=== PATIENT | male | born 1950 | race Caucasian/White ===

== ENCOUNTER → 2019-10-13 09:32 | Outpatient (REF) | payer MEDICARE, SELFPAY | LOC: ANHLAB 09:32 | PROVIDERS: PCP Family Medicine; Visit Provider Nurse Practitioner Family | DX: C44.02 Squamous cell carcinoma of skin of lip (principal) | CPT/HCPCS: 88305; 88331 ==

== ENCOUNTER → 2021-02-24 00:06 | Outpatient (CLI) | payer MEDICARE, SELFPAY ==
[2021-02-24 19:57] LABS: SARS-CoV-2 RNA PCR Negative
== END ==
PROVIDERS: PCP Family Medicine; Visit Provider Internal Medicine Gastroenterology
DX: Z01.812 Encounter for preprocedural laboratory examination (principal); Z20.822 Contact with and (suspected) exposure to COVID-19
CPT/HCPCS: C9803; U0003; U0005

== ENCOUNTER 2021-02-28 01:06 | Day surgery (SDC) | payer MEDICARE, SELFPAY ==
[2021-02-12 15:03] VITALS: BMI 31.6
--- NOTE | 2021-02-27 15:17 | PM.HPGS ---
History of Present Illness History of Present Illness Consent: Risks, benefits, and alternatives have been discussed and questions answered. Patient agrees to proceed with procedure. Chief complaint: hx colon polyps Narrative: Jeremías Trejo is a 70 year old male Referred for colon cancer screening. he has history of colon polyps. He had 5 polyps removed about 8 years ago. Recently he has had blood in stools on a couple of occasions. He denies rectal pain or abdominal pain but did have a rectal abscess drained about a year ago Review of Systems Review of Systems: All systems reviewed & are unremarkable except as noted in HPI and below PMFSH Past Medical History Medical History Asthma Asthma exacerbation BMI 33.0-33.9,adult Bronchitis CAD (coronary artery disease) Cellulitis Coronary artery spasm Diverticulitis Diverticulosis DVT (deep venous thrombosis) rt leg Eczema Gastric ulcer Irritable bowel syndrome with diarrhea Nausea and vomiting (~12/28/20) history of nausea and vomiting with bowel prep Nocturia Bindu-rectal abscess Pneumonia Polyp of colon Psoriasis Tobacco use disorder, continuous Wears partial dentures Surgical History Surgical History H/O arthroscopy of left knee x1 H/O arthroscopy of right knee x4 H/O colonoscopy with polypectomy History of cardiac catheterization 2013 History of cholecystectomy History of right knee surgery History of vasectomy Family History Family History Mother Family history of multiple sclerosis, Onset Age: 73 Father Family history of alcoholism Family history of chronic obstructive pulmonary disease Patient's father is , Onset Age: 51 Family history of liver disease Sibling Cerebrovascular accident Family history of malignant neoplasm Social History Social History Smoking packs per day: 1 Smoking cigarettes per day: 20.0 Years smoked: 50 Smoking pack-years: 50.00 Smoking status: Current every day smoker Tobacco type: cigarettes Alcohol intake: never Substance use: never Substance use type: does not use Living arrangements: alone Gender identity (if verbalized by the patient): Male Spiritual care concerns: No Meds Home Medications and Allergies Home Medications Medication Instructions Recorded Confirmed Type albuterol sulfate 90 mcg/actuation 2 puff INHALATION Q4H PRN gm 02/16/19 02/12/21 History aerosol inhaler amlodipine 5 mg tablet 5 mg PO DAILY 02/16/19 02/12/21 History hydroxychloroquine 200 mg tablet 400 mg PO DAILY tablet 02/16/19 02/12/21 History umeclidinium 62.5 mcg/actuation 1 inh INHALATION DAILY #30 each 11/27/20 02/12/21 Rx blister powder for inhalation ondansetron HCl 4 mg tablet 4 mg PO Q6H PRN #10 tablet 12/28/20 02/12/21 Rx mometasone-formoterol [Dulera] 2 puff INHALATION Q12H 02/12/21 02/12/21 History Allergies Allergy/AdvReac Type Severity Reaction Status Date / Time rivaroxaban Allergy Severe violent Verified 02/28/21 07:59 rage, hives, swelling enoxaparin Allergy Intermediate hives, rash Verified 02/28/21 07:59 trovafloxacin Allergy Intermediate Other Verified 02/28/21 07:59 apixaban Allergy Unknown violent Verified 02/28/21 07:59 rage, hives, swelling celecoxib Allergy Unknown Unknown Verified 02/28/21 07:59 clarithromycin Allergy Unknown Unknown Verified 02/28/21 07:59 codeine Allergy Unknown Headache Verified 02/28/21 07:59 doxycycline Allergy Unknown Unknown Verified 02/28/21 07:59 erythromycin base Allergy Unknown Unknown Verified 02/28/21 07:59 furosemide Allergy Unknown Unknown Verified 02/28/21 07:59 Iodinated Contrast Media Allergy Unknown Unknown Verified 02/28/21 07:59 iodine Allergy Unknown SEVERE RASH Verif
--- NOTE | 2021-02-28 07:59 | WPDANESEPPF ---
Anes - Initial Pre Proc Eval Procedure: Operation Date: 02/28/21 09:00 Proposed Procedures p Screening Colonoscopy - Rey Jenkins MD Date/Time: 02/28/21 07:59 Surgeon: Rey Jenkins MD Pre Op Diagnosis: hx colon polyps Patient Data Age: 70 Gender: M Height: 1.78 m Weight: 100 kg Allergies Allergy/AdvReac Type Severity Reaction Status Date / Time rivaroxaban Allergy Severe violent Verified 02/28/21 07:59 rage, hives, swelling enoxaparin Allergy Intermediate hives, rash Verified 02/28/21 07:59 trovafloxacin Allergy Intermediate Other Verified 02/28/21 07:59 apixaban Allergy Unknown violent Verified 02/28/21 07:59 rage, hives, swelling celecoxib Allergy Unknown Unknown Verified 02/28/21 07:59 clarithromycin Allergy Unknown Unknown Verified 02/28/21 07:59 codeine Allergy Unknown Headache Verified 02/28/21 07:59 doxycycline Allergy Unknown Unknown Verified 02/28/21 07:59 erythromycin base Allergy Unknown Unknown Verified 02/28/21 07:59 furosemide Allergy Unknown Unknown Verified 02/28/21 07:59 Iodinated Contrast Media Allergy Unknown Unknown Verified 02/28/21 07:59 iodine Allergy Unknown SEVERE RASH Verified 02/28/21 07:59 montelukast Allergy Unknown Unknown Verified 02/28/21 07:59 Penicillins Allergy Unknown Unknown Verified 02/28/21 07:59 Quinolones Allergy Unknown ITCHING Verified 02/28/21 07:59 Sulfa (Sulfonamide Allergy Unknown Unknown Verified 02/28/21 07:59 Antibiotics) Home Medications Medication Instructions Recorded Confirmed Type albuterol sulfate 90 mcg/actuation 2 puff INHALATION Q4H PRN gm 02/16/19 02/12/21 History aerosol inhaler amlodipine 5 mg tablet 5 mg PO DAILY 02/16/19 02/12/21 History hydroxychloroquine 200 mg tablet 400 mg PO DAILY tablet 02/16/19 02/12/21 History umeclidinium 62.5 mcg/actuation 1 inh INHALATION DAILY #30 each 11/27/20 02/12/21 Rx blister powder for inhalation ondansetron HCl 4 mg tablet 4 mg PO Q6H PRN #10 tablet 12/28/20 02/12/21 Rx Dulera 2 puff INHALATION Q12H 02/12/21 02/12/21 History Patient hx anesthesia problems: none Family hx anesthesia problems: none Results Review: All pre-operative results and documents have been reviewed as part of the pre-operative evaluation. [facility] Past Medical History Medical History (Updated 02/28/21 @ 10:09 by Brandon Sherwood MD) Asthma Asthma exacerbation BMI 33.0-33.9,adult Bronchitis CAD (coronary artery disease) Cellulitis Coronary artery spasm Diverticulitis Diverticulosis DVT (deep venous thrombosis) rt leg Eczema Gastric ulcer Irritable bowel syndrome with diarrhea Nausea and vomiting (~12/28/20) history of nausea and vomiting with bowel prep Nocturia Bindu-rectal abscess Pneumonia Polyp of colon (~2012) colonoscopy with Dr. Jenkins on 02/28/2021 with multiple sessile polyps from 2 mm to 12 mm with recheck in 2 years Psoriasis Tobacco use disorder, continuous Wears partial dentures Surgical History Surgical History H/O arthroscopy of left knee x1 H/O arthroscopy of right knee x4 H/O colonoscopy with polypectomy History of cardiac catheterization 2012 History of cholecystectomy History of right knee surgery History of vasectomy Family History Family History Mother Family history of multiple sclerosis, Onset Age: 73 Father Family history of alcoholism Family history of chronic obstructive pulmonary disease Patient's father is , Onset Age: 51 Family history of liver disease Sibling Cerebrovascular accident Family history of malignant neoplasm Social History Social History Smoking packs per day: 1 Smoking cigarettes per day: 20.0 Years smoked: 50 Smoking pack-years: 50.00 Smoking status: Current every day smoker Tobacco type: cigarettes Alcohol in
[2021-02-28 08:00] VITALS: BP 153/73; PULSE 94; RESP 20; TEMP 36.5; O2SAT 96; BMI 33.5
[2021-02-28] MEDS: LACTATED RINGERS 1,000 ML 150 ML IV CONT (08:08)
[2021-02-28 09:42] VITALS: BP 112/67; PULSE 82; RESP 15; O2SAT 97
[2021-02-28 09:52] VITALS: BP 132/89; PULSE 81; RESP 18; O2SAT 98
[2021-02-28 10:02] VITALS: BP 151/91; PULSE 80; RESP 19; O2SAT 97
== END 2021-02-28 10:20 | disposition home or self-care (01) ==
PROVIDERS: PCP Family Medicine; Visit Provider Internal Medicine Gastroenterology
PROC: 0DJD8ZZ Inspection of Lower Intestinal Tract, Via Natural or Artificial Opening Endoscopic (ICD-10-PCS; CPT 45378; principal; 2021-02-28 09:00)
DX: Z12.11 Encounter for screening for malignant neoplasm of colon (principal); K64.8 Other hemorrhoids; K57.30 Diverticulosis of large intestine without perforation or abscess without bleeding; D12.3 Benign neoplasm of transverse colon; D12.2 Benign neoplasm of ascending colon; K63.5 Polyp of colon; J45.909 Unspecified asthma, uncomplicated; I25.10 Atherosclerotic heart disease of native coronary artery without angina pectoris; K58.0 Irritable bowel syndrome with diarrhea; L40.9 Psoriasis, unspecified; Z86.718 Personal history of other venous thrombosis and embolism; Z79.51 Long term (current) use of inhaled steroids; F17.210 Nicotine dependence, cigarettes, uncomplicated; E66.9 Obesity, unspecified; Z68.33 Body mass index [BMI] 33.0-33.9, adult
CPT/HCPCS: 45385; 45380; 88305; J2704; J7120

== ENCOUNTER → 2021-05-07 09:56 | Outpatient (REF) | payer MEDICARE, SELFPAY | LOC: ANHLAB 09:56 | PROVIDERS: PCP Family Medicine; Visit Provider Nurse Practitioner | DX: C44.319 Basal cell carcinoma of skin of other parts of face (principal) | CPT/HCPCS: 88305; 88331 ==

== ENCOUNTER 2022-08-30 09:30 | Outpatient (CLI) | payer MEDICARE, SELFPAY ==
--- NOTE | ~2022-08-30 | MR_ITS ---
MRI of the left foot CLINICAL HISTORY: Metatarsalgia TECHNIQUE: Sagittal T1-weighted and STIR images, axial proton-density and proton-density fat-sat imag es, and coronal T1-weighted and proton-density fat-sat images were performed. FINDINGS: There is minimal degenerative change of the first MTP joint, with mild to moderate degenera tive change of the sesamoid metatarsal head articulations at the first MTP joint region. Remaining marta int spaces are preserved. No suspicious bone marrow signal abnormality seen. Flexor and extensor tendons are intact. No Christy's neuroma or intermetatarsal bursitis identified. T here is minimal dorsal subcutaneous soft tissue edema in the foot. Intrinsic musculature of the foot is unremarkable. Visualized plantar fascia is unremarkable. IMPRESSION: Mild degenerative changes at the first MTP joint region, as detailed above. Reviewed, dictated and finalized at [facility].
--- NOTE | ~2022-08-30 | MR_ITS ---
MRI of the right foot CLINICAL HISTORY: Metatarsalgia TECHNIQUE: Sagittal T1-weighted and STIR images, axial proton-density and proton-density fat-sat imag es, and coronal T1-weighted and proton-density fat-sat images were performed. FINDINGS: There is hallux valgus with mild degenerative change at the first MTP joint and probable bu nion formation. There are additional degenerative changes at the articulation of the sesamoids with t he first metatarsal head, especially the medial aspect. Remaining bone marrow signals are unremarkable. Remaining joint spaces are preserved. No joint effusi on identified. Flexor and extensor tendons are intact. No intermetatarsal bursitis or Christy's neuroma identified. T here is minimal dorsal subcutaneous soft tissue edema, nonspecific. Intrinsic muscle tear of the foot is unremarkable. Visualized plantar fascia is unremarkable. IMPRESSION: Hallux valgus with bunion formation and degenerative change at the first MTP joint region, as detaile d above. Reviewed, dictated and finalized at location . IMPRESSION: Hallux valgus with bunion formation and degenerative change at the first MTP marta int region, as detailed above.
== END 2022-08-30 09:31 | disposition home or self-care (01) ==
PROVIDERS: PCP Family Medicine; Visit Provider Podiatrist Foot & Ankle Surgery
DX: M77.41 Metatarsalgia, right foot (principal); M77.42 Metatarsalgia, left foot; M20.11 Hallux valgus (acquired), right foot; M21.611 Bunion of right foot
CPT/HCPCS: 73718

== ENCOUNTER 2022-09-30 16:29 | Emergency (ER) | payer MEDICARE, SELFPAY ==
--- NOTE | 2022-09-30 16:34 | ED.SKABFB ---
HPI - Skin/Abscess/Foreign Bdy General Chief complaint: Skin/Abscess/Foreign Body Stated complaint: Insect Bite Groin Area Time Seen by Provider: 09/30/22 17:20 Source: patient, RN notes reviewed and old records reviewed Mode of arrival: ambulatory Limitations: no limitations History of Present Illness HPI narrative: 71-year-old male presents to the [facility] requesting to have a tick removed from the left groin area. Patient reports that he could not get a good look at of it because of the position, tried to look with a mere. Recently in [facility] Noticed the blood on his underwear, a couple of drops. Related Data Home Medications Medication Instructions Recorded Confirmed amlodipine 5 mg tablet 5 mg PO DAILY 02/16/19 09/30/22 hydroxychloroquine 200 mg tablet 200 mg PO BID 05/07/21 09/30/22 fluticasone fur. 100 mcg-umeclid inhalation 09/30/22 09/30/22 62.5 mcg-vilant 25 mcg inhalat.powder (Trelegy Ellipta) Allergies Allergy/AdvReac Type Severity Reaction Status Date / Time rivaroxaban Allergy Severe violent Verified 05/14/21 13:10 rage, hives, swelling enoxaparin Allergy Intermediate hives, rash Verified 05/14/21 13:10 trovafloxacin Allergy Intermediate Other Verified 05/14/21 13:10 apixaban Allergy Unknown violent Verified 05/14/21 13:10 rage, hives, swelling celecoxib Allergy Unknown Unknown Verified 05/14/21 13:10 clarithromycin Allergy Unknown Unknown Verified 05/14/21 13:10 codeine Allergy Unknown Headache Verified 09/30/22 16:51 doxycycline Allergy Unknown Unknown Verified 09/30/22 16:51 erythromycin base Allergy Unknown Unknown Verified 09/30/22 16:51 furosemide Allergy Unknown Unknown Verified 09/30/22 16:51 Iodinated Contrast Media Allergy Unknown Unknown Verified 09/30/22 16:51 iodine Allergy Unknown SEVERE RASH Verified 09/30/22 16:51 montelukast Allergy Unknown Unknown Verified 09/30/22 16:51 Penicillins Allergy Unknown Unknown Verified 09/30/22 16:51 Quinolones Allergy Unknown ITCHING Verified 09/30/22 16:51 Sulfa (Sulfonamide Allergy Unknown Unknown Verified 09/30/22 16:51 Antibiotics) Review of Systems Review of Systems: All systems reviewed & are unremarkable except as noted in HPI and below Constitutional: Constitutional: Reports no additional constitutional complaints Eyes: Eyes: Reports no additional eye complaints ENT: Reports system reviewed and no additional complaints, except as documented Cardiovascular: Cardiovascular: Reports no additional cardiovascular complaints, Denies chest pain and Denies dyspnea Respiratory: Respiratory: Reports no additional respiratory complaints, Denies chest congestion, Denies cough and Denies dyspnea Gastrointestinal: Gastrointestinal: Reports no additional gastrointestinal complaints, Denies abdominal pain, Denies nausea and Denies vomiting Musculoskeletal: Musculoskeletal: Reports no additional musculoskeletal complaints Integumentary/Breasts: Skin/Breast: Reports as per HPI Neurologic: Reports system reviewed and no additional complaints, except as documented Psychiatric: Psychiatric: Reports no additional psychiatric complaints Allergic/Immunologic: Allergic/Immunologic: Reports no additional allergic/immunologic complaints [facility] Past Medical History Medical History Acute bronchitis Asthma Asthma exacerbation BMI 32.0-32.9,adult BMI 33.0-33.9,adult Bronchitis CAD (coronary artery disease) Cellulitis Colon cancer screening COPD (chronic obstructive pulmonary disease) Coronary artery spasm COVID-19 (~06/07/22) tested positive 06/10/22 Diverticulitis Diverticulosis DVT (deep venous thrombosis) rt leg Eczema Elevated fasting glucose Fasting glucose 117 with hemoglobin A1c 5.6 on 04/26/2022. Encounter for prostate cancer screening PSA 2.13 on 04/26/2022. Gastric ulcer Irritable bowel syndrome with diarrhea Metatarsalgia of both feet MRI o
[2022-09-30 17:14] VITALS: BP 136/64; PULSE 80; RESP 18; TEMP 36.6; O2SAT 95
== END 2022-09-30 17:31 | disposition home or self-care (01) ==
PROVIDERS: Emergency Provider Nurse Practitioner; PCP Family Medicine
DX: D22.9 Melanocytic nevi, unspecified (principal); F17.210 Nicotine dependence, cigarettes, uncomplicated; J45.909 Unspecified asthma, uncomplicated; I25.10 Atherosclerotic heart disease of native coronary artery without angina pectoris; J44.9 Chronic obstructive pulmonary disease, unspecified; Z86.16 Personal history of COVID-19; Z86.718 Personal history of other venous thrombosis and embolism; E66.9 Obesity, unspecified; Z68.30 Body mass index [BMI] 30.0-30.9, adult; L40.9 Psoriasis, unspecified; Z98.52 Vasectomy status
CPT/HCPCS: 99211; G0463

== ENCOUNTER 2022-10-29 15:42 | Outpatient (NON) | payer MEDICARE, SELFPAY | END 2022-10-29 15:43 | disposition home or self-care (01) | LOC: ANHLAB 15:46 | PROVIDERS: PCP Family Medicine; Visit Provider Orthopaedic Surgery | DX: M70.21 Olecranon bursitis, right elbow (principal) | CPT/HCPCS: 87070; 87205 ==

== ENCOUNTER 2022-11-05 17:03 | Inpatient (IN) | payer MEDICARE, SELFPAY ==
--- NOTE | ~2022-11-05 | MR_ITS ---
EXAMINATION: MR forearm RT wo con DATE: 11/06/2022 17:09 INDICATION: Right arm swelling, rule out abscess TECHNIQUE: Magnetic resonance imaging (MRI) of the right forearm was performed without intravenous co ntrast . Sequences included axial coronal and sagittal T1 FSE and FSE STIR. COMPARISON: None FINDINGS: Subcutaneous induration and edema involving the entire forearm, with some areas of dermal t hickening. Edema tracks along the superficial fascial layers and in between the various muscle fascic les in between the deep compartments. No focal walled off fluid collection detected, although determi nation is limited without contrast. No definite subcutaneous gas. No definite muscular or intramuscul ar signal abnormality. No marrow signal abnormality suspicious for osteomyelitis. Small volume elbow joint fluid. IMPRESSION: Diffuse forearm cellulitis, with deep tissue involvement, as can occur with necrotizing fasciitis. Ho wever there is no subcutaneous gas and the patient is clinically improving following intravenous anti biotic therapy. Small elbow joint effusion, likely degenerative or reactive. Recommend continued close clinical monitoring. Should clinical condition worsen consider necrotizing process in the differential and early consultation. Results reported telephonically to Nurse Ayala by Dr. Craig at 8:15 PM on 11/06/2022. Reviewed, dictated and finalized at location [facility]. IMPRESSION: Diffuse forearm cellulitis, with deep tissue involvement, as can occur with nec rotizing fasciitis. However there is no subcutaneous gas and the patient is cli nically improving following intravenous antibiotic therapy. Small elbow joint e ffusion, likely degenerative or reactive. Recommend continued close clinical monitoring. Should clinical condition worsen consider necrotizing process in the differential and early consultation. Results reported telephonically to Nurse Ayala by Dr. Craig at 8:15 PM on 11/06.
--- NOTE | ~2022-11-05 | US_ITS ---
EXAMINATION: US venous doppler UE RT DATE: 11/05/2022 18:58 INDICATION: Right upper extremity swelling TECHNIQUE: Grayscale ultrasound images without and with compression and Doppler ultrasound images of the right upper extremity veins were obtained. COMPARISON: None. FINDINGS: The visualized portions of the right internal jugular vein, subclavian vein, axillary vein, brachial veins, basilic vein, cephalic vein, radial vein, and ulnar vein are patent. Upper arm edema. IMPRESSION: No deep venous thrombosis in the right upper extremity. Reviewed, dictated and finalized at location [facility].
--- NOTE | 2022-11-05 17:13 | ADMGEN ---
This patient, Jeremías Trejo, was admitted to Medical Room 346-01. Patient/family oriented to hospital policies and general routines including ID bracelet, bed and alarms, visiting hours, pain management, procedures, bathroom and other care routines, personal items, smoking policy, room service/diet, and visiting hours. Information on how to activate the Rapid Response Team has been discussed. Patient/Family are encouraged to report perceived risks to care and to ask questions if they do not understand what they are told or what they should do.
--- NOTE | 2022-11-05 17:30 | PM.IMHP ---
H&P: HPI History of Present Illness Date/Time: 11/05/22 18:00 Chief Complaint: Right arm pain and swelling. 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 Nearly 2 weeks ago he awoke with pain in his right elbow, initially he thought he had slept on it wrong. The following day the became more severe and ?it feels just like I have tendinitis.? He saw Dr. Philip in the office last Friday at which time it was noted that his right elbow was swollen with a small amount of erythema present. He was started on doxycycline for possible olecranon bursal infection and the elbow was aspirated with minimal return. Gram stain showed no organisms or white blood cells and there was no growth on culture. Despite compliance with the antibiotics, his symptoms have continued to worsen with ever increasing pain and swelling. Acetaminophen helps take the edge off but does not give him longstanding relief. He has difficulties moving the joints in his right elbow, wrist, and fingers due to the pain and swelling. He has occasional tingling in the right hand but no overt numbness. He has not noticed any skin color or temperature changes of the extremity. He also denies fever, chills, sweats, nausea, and vomiting. He has not noticed any swelling of the axilla or neck. No other extremities are affected. He denies injury and trauma to the area. No bug bites to his knowledge. Review of Systems Review of Systems: Twelve systems were reviewed and are negative except for as per HPI. [facility] Past Medical History Medical History (Updated 11/05/22 @ 21:16 by Noemi Ralph PA-C) Asthma Chronic obstructive pulmonary disease Coronary artery disease Coronary artery spasm COVID-19 (05/2022) tested positive 06/10/22 Deep vein thrombosis of right lower limb Diverticulitis Diverticulosis Eczema Elevated fasting glucose Fasting glucose 117 with hemoglobin A1c 5.6 on 04/26/2022. Encounter for prostate cancer screening PSA 2.13 on 04/26/2022. 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 Nausea and vomiting (12/28/20) history of nausea and vomiting with bowel prep Nocturia Bindu-rectal abscess Pneumonia Polyp of colon colonoscopy with Dr. 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) Tobacco use disorder, continuous Wears partial dentures Surgical History Surgical History H/O colonoscopy with polypectomy History of arthroplasty of right knee X4 History of arthroscopy of left knee History of cardiac catheterization (2012) History of cholecystectomy History of vasectomy Family History Family History Mother Family history of multiple sclerosis, Onset Age: 73 Father Family history of alcoholism Family history of chronic obstructive pulmonary disease Patient's father is , Onset Age: 51 Family history of liver disease Sibling Cerebrovascular accident Family history of malignant neoplasm Social History Social History (Updated 11/05/22 @ 21:11 by Noemi Ralph PA-C) Social History: Surrogate medical decision maker: Palma Santillan, daughter. Code status: Full code. Smoking packs per day: 0.5 Smoking cigarettes per day: 10.0 Years smoked: 50 Smoking pack-years: 25.00 Smoking status: Current every day smoker Al
--- NOTE | 2022-11-05 17:41 | PC.NURSE ---
Pt has a long list of allergies . When confronted on what he is allergic to and the reactions he has he can only say he isnt sure/doesnt recognize/or oh god it makes me so sick. Pt educated on the importance of knowing an actual allergy versus adverse reaction and knowing what medications he is specifically allergic to.
[2022-11-05 17:49] LABS: Basophils Absolute Auto 0.1 K/mm3 (0.0-0.1); Basophils Percent Auto 0.6 % (0.2-1.2); Eosinophils Absolute Auto 0.1 K/mm3 (0-0.3); Eosinophils Percent Auto 1.2 % (0-4.4); Hematocrit 41.8 % (42.0-52.0); Immature Granulocyte Absolute 0.04 K/mm3 (0.00-0.031); Immature Granulocyte Percent A 0.4 % (0-0.5); Lymphocytes Absolute Auto 1.61 K/mm3 (0.9-3.2); Lymphocytes Percent Auto 16.5 % (18.3-44.2); Mean Corpuscular HGB Conc 33.5 g/dl (32-36); Mean Corpuscular Hemoglobin 31.9 pg (26-34); Mean Corpuscular Volume 95.2 fl (80-100); Mean Platelet Volume 8.8 fl (7.4-10.4); Monocytes Absolute Auto 0.6 K/mm3 (0.1-0.6); Monocytes Percent Auto 6.4 % (2.6-8.5); Neutrophils Absolute Auto 7.3 K/mm3 (1.3-6.7); Neutrophils Percent Auto 74.9 % (45.5-73.1); Platelet Count Result 260 k/mm3 (150-375); Red Blood Count 4.39 M/mm3 (4.6-6.20); Red Cell Distribution Width 12.9 % (11.5-14.5); White Blood Count 9.8 K/mm3 (4.5-10.0)
[2022-11-05 18:00] LABS: Alanine Aminotransferase 23 U/L (6-50); Alkaline Phosphatase 34 U/L (38-126); Anion Gap 6 mmol/L (8-16); Aspartate Amino Transferase 29 U/L (17-59); Bilirubin,Total 0.3 mg/dL (0.2-1.3); Blood Urea Nitrogen 15 mg/dL (9-20); CRP 3.6 mg/dL (<1.0); Calcium 8.4 mg/dL (8.4-10.2); Carbon Dioxide 22 mmol/L (22-30); Chloride 102 mmol/L (98-107); Estimated Glomerular Filt Rate > 60; Glucose 115 mg/dL (65-110); Potassium 4.1 mmol/L (3.4-5.0); Sodium 130 mmol/L (137-145)
[2022-11-05 18:20] LABS: Erythrocyte Sedimentation Rate 34 mm/hr (0-20)
[2022-11-05 18:38] LABS: Procalcitonin 0.1 ng/mL
[2022-11-05] MEDS: ACETAMINOPHEN 325 MG TABLET 650 MG PO (18:56)
[2022-11-05 20:34] VITALS: BMI 32.4
[2022-11-05] MEDS: methylPREDNISolone SOD SUCC 125 MG VIAL IV PUSH (21:22)
[2022-11-05 21:27] VITALS: BP 161/83; PULSE 75; RESP 16; TEMP 36.5; O2SAT 97
[2022-11-06 05:49] LABS: Hematocrit 44.2 % (42.0-52.0); Mean Corpuscular HGB Conc 33.9 g/dl (32-36); Mean Corpuscular Hemoglobin 32.3 pg (26-34); Mean Corpuscular Volume 95.1 fl (80-100); Mean Platelet Volume 8.7 fl (7.4-10.4); Platelet Count Result 267 k/mm3 (150-375); Red Blood Count 4.65 M/mm3 (4.6-6.20); Red Cell Distribution Width 12.7 % (11.5-14.5); White Blood Count 5.5 K/mm3 (4.5-10.0)
[2022-11-06 06:00] VITALS: BP 179/84; PULSE 85; RESP 16; TEMP 36.4; O2SAT 93
[2022-11-06 06:04] LABS: Anion Gap 5 mmol/L (8-16); Blood Urea Nitrogen 14 mg/dL (9-20); Calcium 8.9 mg/dL (8.4-10.2); Carbon Dioxide 26 mmol/L (22-30); Chloride 104 mmol/L (98-107); Estimated CRCL calculation 101 ml/min; Estimated Glomerular Filt Rate > 60; Glucose 180 mg/dL (65-110); Potassium 4.6 mmol/L (3.4-5.0); Sodium 135 mmol/L (137-145)
[2022-11-06] MEDS: NICOTINE (*PBKC) 14 MG PATCH 1 PATCH TRANSDERM (08:28)
[2022-11-06] MEDS: predniSONE 20 MG TABLET PO (08:29)
[2022-11-06] MEDS: HYDROXYCHLOROQUINE SULFATE 200 MG TABLET PO ×2 (08:29→17:41)
[2022-11-06] MEDS: amLODIPine BESYLATE 5 MG TABLET PO (08:29)
--- NOTE | 2022-11-06 13:10 | PM.IMPN ---
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 Pt having swelling today but much improved with iv steroids. Pt seen by orthopedics Review of Systems Review of Systems: Swelling on right hand and right arm improving Objective Data Vital Signs Vital Signs: Vital Signs - 24 hr 11/05/22 20:00 11/05/22 21:27 11/06/22 06:00 Temperature 36.5 C 36.4 C L Pulse Rate 75 85 Respiratory Rate 16 16 Blood Pressure 161/83 H 179/84 H Pulse Oximetry 97 93 Oxygen Delivery Room Air 11/06/22 08:00 Temperature Pulse Rate Respiratory Rate Blood Pressure Pulse Oximetry Oxygen Delivery Room Air Intake/Output Intake/Output: Intake & Output 11/03/22 11/04/22 11/05/22 11/06/22 23:59 23:59 23:59 23:59 Intake Total 740 480 Balance 740 480 Meds/Results Medications: Active Medications Generic Name Dose Route Start Last Admin Trade Name Freq PRN Reason Stop Dose Admin Acetaminophen 650 mg 11/05/22 17:04 11/05/22 18:56 Acetaminophen 325 Mg Tablet PO 650 mg Q6H PRN Administration Mild Pain (1-3) or Fever Albuterol 2 puff 11/05/22 21:26 Albuterol Sulfate (*Sp) Aerosol 1 Puff INHALATION Q4H PRN Dyspnea Amlodipine Besylate 5 mg 11/06/22 09:00 11/06/22 08:29 Amlodipine Besylate 5 Mg Tablet PO 5 mg DAILY LAURA Administration Fluticasone/Umeclidinium/Vilanterol 1 puff 11/06/22 09:00 11/06/22 09:30 Fluticasone/Umeclidin/Vilanter 100-62.5-25 Mcg Ellipta INHALATION Not Given DAILY [facility] Hydroxychloroquine Sulfate 200 mg 11/06/22 09:00 11/06/22 08:29 Hydroxychloroquine Sulfate 200 Mg Tablet PO 200 mg BID LAURA Administration Vancomycin HCl 1,500 mg in 500 mls @ 250 mls/hr 11/05/22 22:00 11/06/22 10:07 Vancomycin 1,500 Mg/D5w 500 Ml IVPB 250 mls/hr Q12H LAURA Administration Miscellaneous Information 1 each 11/05/22 00:01 Please Clarfiy As Dulera Is A Duplication Of Therapy With Treligy Ellipta XX 12/05/22 00:00 CLARIFY LAURA Nicotine 1 patch 11/06/22 09:00 11/06/22 08:28 Nicotine (*Pbkc) 14 Mg Patch TRANSDERM 1 patch QAM LAURA Administration Non-Formulary Medication 2 puff 11/05/22 21:30 Mometasone-Formoterol [Dulera] INHALATION 12/05/22 21:29 Q12H [facility] Prednisone 20 mg 11/06/22 08:00 11/06/22 08:29 Prednisone 20 Mg Tablet PO 20 mg DAILY@0800 LAURA Administration Tramadol HCl 25 mg 11/05/22 21:25 Tramadol Hcl (*Crx) 25 Mg Tablet PO Q6H PRN Pain Rated 4-6 Radiology Results: ITS Impressions Venous Doppler Study 11/05/22 19:10 IMPRESSION: No deep venous thrombosis in the right upper extremity. Labs Labs: Laboratory Results - last 24 hr 11/05/22 11/05/22 11/06/22 17:32 17:39 05:33 WBC 9.8 5.5 RBC 4.39 L 4.65 Hgb 14.0 15.0 Hct 41.8 L 44.2 MCV 95.2 95.1 MCH 31.9 32.3 MCHC 33.5 33.9 RDW 12.9 12.7 Plt Count 260 267 MPV 8.8 8.7 Immature Gran % (Auto) 0.4 Neut % (Auto) 74.9 H Lymph % (A
[2022-11-06 14:00] VITALS: BP 140/67; PULSE 88; RESP 16; TEMP 36.3; O2SAT 93
--- NOTE | 2022-11-06 16:37 | PC.NURSE ---
Pt states he uses both trelegy and dulera inhalers.
--- NOTE | 2022-11-06 16:44 | PM.PNORT ---
Subjective Subjective Date/Time Seen: 11/06/22 7;00 Interval history: Patient admitted last night. On steroids and antibiotics. Pain is much better, swelling persists. Seems to be responding to treatment. Following. Objective Data Vital Signs Vital Signs: Vital Signs - 24 hr 11/05/22 20:00 11/05/22 21:27 11/06/22 06:00 Temperature 36.5 C 36.4 C L Pulse Rate 75 85 Respiratory Rate 16 16 Blood Pressure 161/83 H 179/84 H Pulse Oximetry 97 93 Oxygen Delivery Room Air 11/06/22 08:00 11/06/22 14:00 Temperature 36.3 C L Pulse Rate 88 Respiratory Rate 16 Blood Pressure 140/67 Pulse Oximetry 93 Oxygen Delivery Room Air Intake/Output Intake/Output: Intake & Output 11/03/22 11/04/22 11/05/22 11/06/22 23:59 23:59 23:59 23:59 Intake Total 740 1202 Balance 740 1202 Meds/Results Medications: Active Medications Generic Name Dose Route Start Last Admin Trade Name Freq PRN Reason Stop Dose Admin Acetaminophen 650 mg 11/05/22 17:04 11/05/22 18:56 Acetaminophen 325 Mg Tablet PO 650 mg Q6H PRN Administration Mild Pain (1-3) or Fever Albuterol 2 puff 11/05/22 21:26 Albuterol Sulfate (*Sp) Aerosol 1 Puff INHALATION Q4H PRN Dyspnea Amlodipine Besylate 5 mg 11/06/22 09:00 11/06/22 08:29 Amlodipine Besylate 5 Mg Tablet PO 5 mg DAILY LAURA Administration Fluticasone/Umeclidinium/Vilanterol 1 puff 11/06/22 09:00 11/06/22 09:30 Fluticasone/Umeclidin/Vilanter 100-62.5-25 Mcg Ellipta INHALATION Not Given DAILY LAURA Hydroxychloroquine Sulfate 200 mg 11/06/22 09:00 11/06/22 08:29 Hydroxychloroquine Sulfate 200 Mg Tablet PO 200 mg BID LAURA Administration Vancomycin HCl 1,500 mg in 500 mls @ 250 mls/hr 11/05/22 22:00 11/06/22 12:07 Vancomycin 1,500 Mg/D5w 500 Ml IVPB Infused Q12H LAURA Infusion Miscellaneous Information 1 each 11/05/22 00:01 Please Clarfiy As Dulera Is A Duplication Of Therapy With Treligy Ellipta XX 12/05/22 00:00 CLARIFY [facility] Nicotine 1 patch 11/06/22 09:00 11/06/22 08:28 Nicotine (*Pbkc) 14 Mg Patch TRANSDERM 1 patch QAM [facility] Administration Non-Formulary Medication 2 puff 11/05/22 21:30 Mometasone-Formoterol [Dulera] INHALATION 12/05/22 21:29 Q12H [facility] Prednisone 20 mg 11/06/22 08:00 11/06/22 08:29 Prednisone 20 Mg Tablet PO 20 mg DAILY@0800 [facility] Administration Tramadol HCl 25 mg 11/05/22 21:25 Tramadol Hcl (*Crx) 25 Mg Tablet PO Q6H PRN Pain Rated 4-6 Radiology Results: ITS Impressions Venous Doppler Study 11/05/22 19:10 IMPRESSION: No deep venous thrombosis in the right upper extremity. Labs Labs: Laboratory Results - last 24 hr 11/05/22 11/05/22 11/06/22 17:32 17:39 05:33 WBC 9.8 5.5 RBC 4.39 L 4.65 Hgb 14.0 15.0 Hct 41.8 L 44.2 MCV 95.2 95.1 MCH 31.9 32.3 MCHC 33.5 33.9 RDW 12.9 12.7 Plt Count 260 267 MPV 8.8 8.7 Immature Gran % (Auto) 0.4 Neut % (Auto) 74.9 H Lymph % (Auto) 16.5 L [place] % (Auto) 6.4 Eos % (Auto) 1.2 Baso % (Auto) 0.6 Lymph # (Auto) 1.61 [place] # (Auto) 0.6 Eos # (Auto) 0.1 Baso # (Auto) 0.1 Abs Immat Gran (auto) 0.04 H Absolute Neuts (auto) 7.3 H Absolute Nucleated RBC 0.0 Nucleated RBC % 0.0 ESR 34 H Sodium 130 L 135 L Potassium 4.1 4.6 Chloride 102 104 Carbon Dioxide 22 26 Anion Gap 6 L 5 L BUN 15 14 Creatinine 0.80 0.70 Estim Creat Clear Calc Not Reportable 101 Estimated GFR > 60 > 60 Glucose 115 H 180 H Calcium 8.4 8.9 Total Bilirubin 0.3 AST 29 ALT 23 Alkaline Phosphatase 34 L C-Reactive Protein 3.6 H Total Protein 7.0 Albumin 4.0 Procalcitonin 0.1
[2022-11-06 20:00] VITALS: PULSE 88; RESP 18; O2SAT 97
[2022-11-06 20:07] VITALS: BP 153/74; PULSE 88; RESP 18; TEMP 36.3; O2SAT 97
--- NOTE | 2022-11-06 21:53 | PC.NURSE ---
Spoke with Dr. Craig regarding MRI of Rt arm. Results called to Luis GARCIA and Dr. Philip with no new orders received.
[2022-11-07 05:36] VITALS: BP 148/56; PULSE 85; RESP 16; TEMP 36.1; O2SAT 95
[2022-11-07] MEDS: FLUTICASONE/SALMETEROL 115-21 MCG INHALER 1 PUFF 2 PUFF INHALATION ×2 (08:31→20:10)
[2022-11-07] MEDS: FLUTICASONE/UMECLIDIN/VILANTER 100-62.5-25 MCG ELLIPTA 1 PUFF INHALATION (08:32)
[2022-11-07 08:59] LABS: Estimated CRCL calculation 101 ml/min; Estimated Glomerular Filt Rate > 60
[2022-11-07 09:14] LABS: Vancomycin Trough 10.4 ug/mL (10.0-20.0)
[2022-11-07] MEDS: predniSONE 20 MG TABLET PO (09:22)
[2022-11-07] MEDS: NICOTINE (*PBKC) 14 MG PATCH 1 PATCH TRANSDERM (09:22)
[2022-11-07] MEDS: HYDROXYCHLOROQUINE SULFATE 200 MG TABLET PO ×2 (09:22→17:30)
[2022-11-07] MEDS: amLODIPine BESYLATE 5 MG TABLET PO (09:22)
--- NOTE | 2022-11-07 11:41 | PM.PNORT ---
Progress Note: A&P Assessment and Plan (1) Pain and swelling of right upper extremity: Code(s): M79.601 - Pain in right arm; M79.89 - Other specified soft tissue disorders Status: Acute Plan Patient has what appears to be diffuse resolving cellulitis of the right upper extremity. MRI scan indicates this. Negative for DVT on venous ultrasound. Continue IV antibiotics and care per the medical service. Orthopedics will follow as needed. Likely will need further outpatient antibiotics for the next few weeks. Subjective Subjective Date/Time Seen: 11/07/22 11:41 Patient was seen today he states the pain is about 70% better still has some swelling throughout the right upper extremity. Thinks the steroids and IV vancomycin are helping. Is much more comfortable with treatment so far. Denies any fevers chills night sweats no other constitutional symptoms otherwise feeling well. Review of Systems Review of Systems: Ten point review of systems otherwise negative Exam Narrative: Vital signs stable afebrile neurovascularly intact. Patient has some residual swelling throughout the right upper extremity some tenderness particularly around the posterior elbow no significant erythema now. Pain with manipulation and range of motion right upper extremity are noted but much better than it was 2 days ago he states it is about 70% improved by his report. Objective Data Vital Signs Vital Signs: Vital Signs - 24 hr 11/06/22 14:00 11/06/22 20:07 11/06/22 20:00 Temperature 36.3 C L 36.3 C L Pulse Rate 88 88 88 Respiratory Rate 16 18 18 Blood Pressure 140/67 153/74 H Pulse Oximetry 93 97 97 Oxygen Delivery Room Air 11/07/22 05:36 11/07/22 08:00 Temperature 36.1 C L Pulse Rate 85 Respiratory Rate 16 Blood Pressure 148/56 H Pulse Oximetry 95 Oxygen Delivery Room Air Intake/Output Intake/Output: Intake & Output 11/04/22 11/05/22 11/06/22 11/07/22 23:59 23:59 23:59 23:59 Intake Total 740 3396 1070 Balance 740 3396 1070 Meds/Results Medications: Active Medications Generic Name Dose Route Start Last Admin Trade Name Freq PRN Reason Stop Dose Admin Acetaminophen 650 mg 11/05/22 17:04 11/05/22 18:56 Acetaminophen 325 Mg Tablet PO 650 mg Q6H PRN Administration Mild Pain (1-3) or Fever Albuterol 2 puff 11/05/22 21:26 Albuterol Sulfate (*Sp) Aerosol 1 Puff INHALATION Q4H PRN Dyspnea Amlodipine Besylate 5 mg 11/06/22 09:00 11/07/22 09:22 Amlodipine Besylate 5 Mg Tablet PO 5 mg DAILY LUARA Administration Fluticasone/Umeclidinium/Vilanterol 1 puff 11/06/22 09:00 11/07/22 08:32 Fluticasone/Umeclidin/Vilanter 100-62.5-25 Mcg Ellipta INHALATION 1 puff DAILY LAURA Administration Hydroxychloroquine Sulfate 200 mg 11/06/22 09:00 11/07/22 09:22 Hydroxychloroquine Sulfate 200 Mg Tablet PO 200 mg BID LAURA Administration Vancomycin HCl 1,500 mg in 500 mls @ 250 mls/hr 11/05/22 22:00 11/07/22 09:58 Vancomycin 1,500 Mg/D5w 500 Ml IVPB 250 mls/hr Q12H LAURA Administration Nicotine 1 patch 11/06/22 09:00 11/07/22 09:22 Nicotine (*Pbkc) 14 Mg Patch TRANSDERM 1 patch QAM LAURA Administration Prednisone 20 mg 11/06/22 08:00 11/07/22 09:22 Prednisone 20 Mg Tablet PO 20 mg DAILY@0800 LAURA Administration Fluticasone/Salmeterol 2 puff 11/06/22 20:00 11/07/22 08:31 Fluticasone/Salmeterol 115-21 Mcg Inhaler 1 Puff INHALATION 2 puff Q12HRT LAURA Administration Tramadol HCl 25 mg 11/05/22 21:25 Tramadol Hcl (*Crx) 25 Mg Tablet PO Q6H PRN Pain Rated 4-6 Radiology Results: ITS Impressions Venous Doppler Study 11/05/22 19:10 IMPRESSION: No deep venous thrombosis in the right upper extremity. Forearm MRI 11/06/22 20:11 IMPRESSION: Diffuse forearm cellulitis, with deep tissue involvement, as can occur with necrotizing fasciitis. However there is no subcutaneous gas and the patie
[2022-11-07 14:00] VITALS: BP 166/74; PULSE 85; RESP 14; TEMP 36.6; O2SAT 98
--- NOTE | 2022-11-07 15:16 | PM.IMPN ---
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 Philip in the office and was started on doxycycline for possible recurrent on bursal infection. Elbow was aspirated with minimal return. G stain showed no organisms or white blood cells and there was no growth on culture. Despite compliance with the medication/antibiotics his symptoms worsened with increasing pain and swelling. He had difficulty moving the joint in the right elbow wrist and fingers due to pain and swelling and hence came to the ER for evaluation. ESR and CRP are mildly elevated however WBC count is normal. He was empirically started on vancomycin for cellulitis. Due to his underlying rheumatological disorder. He was also given a dose of steroid to see the response. Venous duplex ultrasound was done which was negative for DVT. His swelling has continued to improve on steroid along with antibiotic course. MRI of the right upper extremity was done which showed diffuse resolving cellulitis of the right upper extremity. No deep-seated subcutaneous gas. IV has been infiltrated. Discussed with ID pharmacist. Will switch him to oral antibiotic with his multiple drug allergies decision was made to switch to linezolid oral which will cover for his cellulitis. Will watch him on oral linezolid here as inpatient and if tolerated and improving plan to discharge home in a.m.. Subjective Date/time seen: 11/07/22 15:16 Interval history: no overnight events. swelling of arm is imrpoving and the stiffness if better. the redness and warmth per nursing staff is improved. Review of Systems Review of Systems: All systems reviewed & are unremarkable except as noted in HPI and below Exam Narrative: General: Well-developed, nontoxic-appearing male in the semi-Zaldivar position in bed. HEENT: Wearing corrective lenses. PERRL, EOMI. Sclera anicteric. Oral mucosa moist. Neck: Supple. Respiratory: Lungs are clear to auscultation bilaterally. Cardiovascular: Regular rate and rhythm with S1-S2. Gastrointestinal: Abdomen is soft, nontender, and nondistended with positive bowel sounds. Skin: Warm and dry. Extremities: No cyanosis or clubbing. Right upper extremity is swollen from about an inch or 2 above the elbow extending down to the fingers. The hand is swollen nontender Neurological: Alert. Cranial nerves 2-12 are grossly intact. No gross focal deficits to casual conversation. Psychiatric: Appropriate mood and affect. Objective Data Vital Signs Vital Signs: Vital Signs - 24 hr 11/06/22 20:07 11/06/22 20:00 11/07/22 05:36 Temperature 97.3 F L 97 F L Pulse Rate 88 88 85 Respiratory Rate 18 18 16 Blood Pressure 153/74 H 148/56 H Pulse Oximetry 97 97 95 Oxygen Delivery Room Air 11/07/22 08:00 11/07/22 14:00 Temperature 97.9 F Pulse Rate 85 Respiratory Rate 14 Blood Pressure 166/74 H Pulse Oximetry 98 Oxygen Delivery Room Air Intake/Output Intake/Output: Intake & Output 11/04/22 11/05/22 11/06/22 11/07/22 23:59 23:59 23:59 23:59 Intake Total 740 3396 1310 Balance 740 3396 1310 Meds/Results Medications: Active Medications Generic Name Dose Route Start Last Admin Trade Name Freq PRN Reason Stop Dose Adm
[2022-11-07 19:40] VITALS: BP 152/66; PULSE 84; RESP 18; TEMP 36.2; O2SAT 95
[2022-11-07 20:00] VITALS: PULSE 84; RESP 18; O2SAT 95
[2022-11-07] MEDS: LINEZOLID 600 MG TABLET PO (20:35)
[2022-11-08 04:46] VITALS: BP 157/59; PULSE 80; RESP 18; TEMP 36.2; O2SAT 96
[2022-11-08 06:03] LABS: Estimated CRCL calculation 101 ml/min; Estimated Glomerular Filt Rate > 60
[2022-11-08] MEDS: FLUTICASONE/UMECLIDIN/VILANTER 100-62.5-25 MCG ELLIPTA 1 PUFF INHALATION (08:34)
[2022-11-08] MEDS: FLUTICASONE/SALMETEROL 115-21 MCG INHALER 1 PUFF 2 PUFF INHALATION (08:34)
[2022-11-08] MEDS: predniSONE 20 MG TABLET PO (09:09)
[2022-11-08] MEDS: amLODIPine BESYLATE 5 MG TABLET PO (09:09)
[2022-11-08] MEDS: LINEZOLID 600 MG TABLET PO (09:09)
[2022-11-08] MEDS: HYDROXYCHLOROQUINE SULFATE 200 MG TABLET PO (09:09)
--- NOTE | 2022-11-08 13:46 | PM.DS ---
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 Philip in the office and was started on doxycycline for possible recurrent on bursal infection.? Elbow was aspirated with minimal return.? G stain showed no organisms or white blood cells and there was no growth on culture.? Despite compliance with the medication/antibiotics his symptoms worsened with increasing pain and swelling.? He had difficulty moving the joint in the right elbow wrist and fingers due to pain and swelling and hence came to the ER for evaluation.? ESR and CRP are mildly elevated however WBC count is normal.? He was empirically started on vancomycin for cellulitis.? Due to his underlying rheumatological disorder.? He was also given a dose of steroid to see the response and was started on oral steroid.? Venous duplex ultrasound was done which was negative for DVT.? His swelling has continued to improve on steroid along with antibiotic course.? MRI of the right upper extremity was done which showed diffuse resolving cellulitis of the right upper extremity.? No deep-seated subcutaneous gas.? IV has been infiltrated.? Discussed with ID pharmacist.? Will switch to linezolid with his multiple drug allergies. He tolerated injury well. He will be discharged on linezolid for 7 more days. Is advised to continue to follow-up with PCP case worsens. He also will be placed on steroid taper at discharge. Time Spent with Patient Time attestation: Total time spent providing and/or coordinating discharge services: 35 minutes Exam Narrative: General: Well-developed, nontoxic-appearing male in the semi-Zaldivar position in bed. HEENT: Wearing corrective lenses. PERRL, EOMI. Sclera anicteric. Oral mucosa moist. Neck: Supple. Respiratory: Lungs are clear to auscultation bilaterally. Cardiovascular: Regular rate and rhythm with S1-S2. Gastrointestinal: Abdomen is soft, nontender, and nondistended with positive bowel sounds. Skin: Warm and dry. Extremities: No cyanosis or clubbing. Right upper extremity is swollen from about an inch or 2 above the elbow extending down to the fingers. The hand is swollen nontender Neurological: Alert. Cranial nerves 2-12 are grossly intact. No gross focal deficits to casual conversation. Psychiatric: Appropriate mood and affect. DS: Data Data Completed and Pending Labs on day of discharge: Labs from last 24 hours 11/08/22 05:42 Creatinine 0.70 Estim Creat Clear Calc 101 Estimated GFR > 60 Preliminary micro results at discharge 11/05/22 17:31 Blood Culture - Preliminary Blood 11/05/22 17:39 Blood Culture - Preliminary Blood Imaging Radiologist's impression: ITS Impressions Venous Doppler Study 11/05/22 19:10 IMPRESSION: No deep venous thrombosis in the right upper extremity. Forearm MRI 11/06/22 20:11 IMPRESSION: Diffuse forearm cellulitis, with deep tissue involvement, as can occur with necrotizing fasciitis. However there is no subcutaneous gas and the patient is clinically improving following intravenous antibiotic therapy. Small elbow joint
== END 2022-11-08 14:10 | disposition home or self-care (01) | DRG 603 ==
PROVIDERS: Physician Assistant; Admitting Provider Family Medicine; PCP Family Medicine; Visit Provider Internal Medicine
DX: L03.113 Cellulitis of right upper limb (principal); M65.88 Other synovitis and tenosynovitis, other site; J44.9 Chronic obstructive pulmonary disease, unspecified; K21.9 Gastro-esophageal reflux disease without esophagitis; I10 Essential (primary) hypertension; I25.10 Atherosclerotic heart disease of native coronary artery without angina pectoris; K57.90 Diverticulosis of intestine, part unspecified, without perforation or abscess without bleeding; K58.0 Irritable bowel syndrome with diarrhea; L30.9 Dermatitis, unspecified; M79.89 Other specified soft tissue disorders; L40.9 Psoriasis, unspecified; F17.210 Nicotine dependence, cigarettes, uncomplicated; Z86.16 Personal history of COVID-19; Z86.718 Personal history of other venous thrombosis and embolism; Z90.49 Acquired absence of other specified parts of digestive tract
CPT/HCPCS: 36415; 73218; 80048; 80053; 80202; 82565; 84145; 85025; 85027; 85652; 86140; 87040; 93971; 94640; 96365; 96366; 96375; A9270; G0378; G0379; J2930; J3370; J7512

== ENCOUNTER 2023-04-14 11:16 | Inpatient (IN) | payer MEDICARE, SELFPAY ==
[2023-04-14] VITALS (29 sets, daily range): BP systolic 144–169; BP diastolic 59–99; PULSE 81–103; RESP 11–27; TEMP 36.4–36.9; O2SAT 90–100; BMI 32.4
--- NOTE | ~2023-04-14 | XR_ITS ---
XR chest 2V DATE: 04/14/2023 12:21 INDICATION: Shortness of breath, dizziness TECHNIQUE: Portable AP chest on 04/14/2023 at 1219 hours COMPARISON: 03/20/2019 2 view chest FINDINGS: Normal heart size. Aortic arch calcification. No hilar or mediastinal enlargement. The lung s are mildly hyperinflated but clear of infiltrate or consolidation. No pleural effusion or pulmonary vascular congestion or pneumothorax is detected. Thoracic scoliosis and degenerative spurring of the thoracic spine. IMPRESSION: Mild hyperinflation; no active cardiac pulmonary disease Aortic atherosclerosis Reviewed, dictated and finalized at location B. HEALTH PROVIDER
--- NOTE | ~2023-04-14 | US_ITS ---
Duplex Sonography of the bilateral lower extremities: Indication: Edema Sagittal and transverse B-mode images as well as color-flow imaging were performed on the right and l eft femoral and popliteal veins. B-mode examination was done without and with compression in the tra nsverse plane. There is good visualization of the bilateral common femoral, proximal profunda femora l, superficial femoral, greater saphenous, and popliteal veins. Normal flow was seen on color-flow im aging. Normal compressibility was demonstrated. Visualized calf veins are also patent. Impression: No evidence of deep vein thrombosis involving either lower extremity. Reviewed, dictated and finalized at location M. UATION ADVISOR Impression: No evidence of deep vein thrombosis involving either lower extremit y.
--- NOTE | ~2023-04-14 | NM_ITS ---
EXAMINATION: NM lung vent and perfusion DATE: 04/15/2023 15:17 INDICATION: Shortness of breath. TECHNIQUE: 22.3 mCi Xenon-133 was inhaled for ventilation images. 5.2 mCi Tc-99m MAA was administered intravenously for perfusion images. Scintigraphic images of the chest were obtained. COMPARISON: Ventilation/perfusion scintigraphy 06/18/2017, chest 2 views 02/13/2024 FINDINGS: Ventilation images demonstrate moderate-sized defects in the upper lobes and lower lobes. Washout carlton ges demonstrate diffuse retention throughout both lungs. Perfusion images show small defects in the u pper and lower lobes. IMPRESSION: 1. Low probability for pulmonary embolism. Reviewed, dictated and finalized at location E. CIL CUTTER MACHINE
--- NOTE | 2023-04-14 11:20 | ECG_ITS ---
Measurements Intervals [place] Rate: 95 P: 73 FL: 158 QRS: 86 QRSD: 99 T: 73 QT: 350 QTc: 442 Interpretive Statements SINUS RHYTHM BASELINE WANDER- II, III NORMAL ECG COMPARED TO ECG 03/20/2019 18:29:44 SINUS RHYTHM NOW PRESENT Electronically Signed On 04-14-2023 11:28:14 CHEMICAL PROCESSING TECHNICIAN by Flavio Kaur D.O.
[2023-04-14 11:55] LABS: Basophils Absolute Auto 0.1 K/mm3 (0.0-0.1); Basophils Percent Auto 0.5 % (0.2-1.2); Eosinophils Absolute Auto 0.1 K/mm3 (0-0.3); Eosinophils Percent Auto 1.1 % (0-4.4); Hematocrit 42.9 % (42.0-52.0); Immature Granulocyte Absolute 0.06 K/mm3 (0.00-0.031); Immature Granulocyte Percent A 0.5 % (0-0.5); Lymphocytes Absolute Auto 1.42 K/mm3 (0.9-3.2); Lymphocytes Percent Auto 12.1 % (18.3-44.2); Mean Corpuscular HGB Conc 32.6 g/dl (32-36); Mean Corpuscular Hemoglobin 31.6 pg (26-34); Mean Corpuscular Volume 96.8 fl (80-100); Mean Platelet Volume 8.9 fl (7.4-10.4); Monocytes Absolute Auto 0.8 K/mm3 (0.1-0.6); Monocytes Percent Auto 6.9 % (2.6-8.5); Neutrophils Absolute Auto 9.2 K/mm3 (1.3-6.7); Neutrophils Percent Auto 78.9 % (45.5-73.1); Platelet Count Result 229 k/mm3 (150-375); Red Blood Count 4.43 M/mm3 (4.6-6.20); Red Cell Distribution Width 13.2 % (11.5-14.5); White Blood Count 11.7 K/mm3 (4.5-10.0)
[2023-04-14 12:06] LABS: Alanine Aminotransferase 21 U/L (6-50); Albumin Level 3.9 g/dL (3.5-5.1); Alkaline Phosphatase 39 U/L (38-126); Anion Gap 7 mmol/L (8-16); Aspartate Amino Transferase 29 U/L (17-59); Bilirubin,Total 0.5 mg/dL (0.2-1.3); Blood Urea Nitrogen 13 mg/dL (9-20); Calcium 8.7 mg/dL (8.4-10.2); Carbon Dioxide 29 mmol/L (22-30); Chloride 101 mmol/L (98-107); Estimated CRCL calculation 100 ml/min; Estimated Glomerular Filt Rate > 60; Glucose 127 mg/dL (65-110); Sodium 137 mmol/L (137-145)
--- NOTE | 2023-04-14 12:37 | ED.SOB ---
HPI - SOB/Dyspnea General Chief Complaint: Shortness of Breath/Dyspnea Stated Complaint: SOB Time Seen by Provider: 04/14/23 12:04 Source: patient and family Mode of arrival: ambulatory Limitations: no limitations History of Present Illness HPI Narrative: PATIENT IS 72 YEARS OLD WHITE HAD COLD SYMPTOMS 8 DAYS AGO, 3 DAYS LATER STARTED HAVING TROUBLE BREATHING INITIALLY ON EXERTION LATER AT REST. HE DENIES ANY FEVER, CHILLS, REPORTS INTERMITTENT COUGH. HISTORY OF SMOKING CIGARETTES. HE DENIES ANY CHEST PAIN OR SICK CONTACT. Related Data Home Medications Medication Instructions Recorded Confirmed hydroxychloroquine 200 mg tablet 200 mg PO BID 05/07/21 11/19/22 Allergies Allergy/AdvReac Type Severity Reaction Status Date / Time rivaroxaban Allergy Severe violent Verified 04/14/23 11:52 rage, hives, swelling enoxaparin Allergy Intermediate hives, rash Verified 04/14/23 11:52 Penicillins Allergy Intermediate Swelling Verified 04/14/23 11:52 trovafloxacin Allergy Intermediate Other Verified 04/14/23 11:52 apixaban Allergy Unknown violent Verified 04/14/23 11:52 rage, hives, swelling celecoxib Allergy Unknown Nausea and Verified 04/14/23 11:52 Vomiting clarithromycin Allergy Unknown Unknown Verified 04/14/23 11:52 erythromycin base Allergy Unknown Unknown Verified 04/14/23 11:52 furosemide Allergy Unknown Swelling Verified 04/14/23 11:52 Iodinated Contrast Media Allergy Unknown Rash Verified 04/14/23 11:52 iodine Allergy Unknown SEVERE RASH Verified 11/05/22 17:37 montelukast Allergy Unknown Unknown Verified 11/05/22 17:37 Sulfa (Sulfonamide Allergy Unknown Unknown Verified 11/05/22 17:37 Antibiotics) codeine AdvReac Unknown Headache Verified 11/05/22 17:37 doxycycline AdvReac Unknown Nausea and Verified 11/05/22 17:37 Vomiting Quinolones AdvReac Unknown ITCHING Verified 11/05/22 17:40 Review of Systems Review of Systems: All systems reviewed & are unremarkable except as noted in HPI and below PMFSH Past Medical History Medical History (Updated 04/14/23 @ 14:23 by Navid Reyes MD) Asthma Chronic obstructive pulmonary disease Coronary artery disease Coronary artery spasm COVID-19 (05/2022) tested positive 06/10/22 Deep vein thrombosis of right lower limb Diverticulitis Diverticulosis Eczema Elevated fasting glucose Fasting glucose 117 with hemoglobin A1c 5.6 on 04/26/2022. Encounter for prostate cancer screening PSA 2.13 on 04/26/2022. Gastric ulcer Irritable bowel syndrome with diarrhea Metatarsalgia of both feet MRI of both feet on 08/30/2022 by table assembler metal revealed degenerative joint disease worse at the 1st MTP bilaterally with bunion formation on the right foot. Nausea and vomiting (12/28/20) history of nausea and vomiting with bowel prep Nocturia Bindu-rectal abscess Pneumonia Polyp of colon colonoscopy with Dr. 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) Screening for lung cancer Thrush, oral Tobacco use disorder, continuous Wears partial dentures Surgical History Surgical History H/O colonoscopy with polypectomy History of arthroplasty of right knee X4 History of arthroscopy of left knee History of cardiac catheterization (2012) History of cholecystectomy History of vasectomy Family History Family History Mother Family history of multiple sclerosis, Onset Age: 73 Father Family history of alcoholism Family history of chronic obstructive pulmonary disease Patient's father is , Onset Age: 51 Family history of liver disease Sibling Cerebrovascular accident Family history of malignant neoplasm Social History Social History (Updated 11/05/22
[2023-04-14 12:46] LABS: Influenza A QL RT-PCR Negative (Negative); Influenza B QL RT-PCR Negative (Negative); RSV RNA, RT-PCR Negative (Negative); SARS-CoV-2 RNA PCR Negative (Negative)
[2023-04-14] MEDS: ALBUTEROL SULFATE NEB 2.5 MG/3 ML INH INHALATION ×3 (13:06→13:17)
[2023-04-14] MEDS: IPRATROPIUM BR 0.02% INH SOLN 0.5 MG/2.5 ML VIAL INHALATION ×3 (13:06→13:18)
[2023-04-14 13:11] LABS: Alveolar/Arterial O2 Gradient 30.1 mmHg; Base Excess ABG 4.3 mEq/l (+/-2.0); Fractional Inspired Oxygen 21 %; HCO3 ABG 29.4 mEq/l (22.0-26.0); Oxygen Content ABG 19.1 %vol (16.0-22.0); Oxyhemoglobin 90.6 % THb (90.0-100.0); PCO2 ABG 45.8 mmHg (35.0-45.0); PO2 ABG 64.8 mmHg (80.0-100.0); PO2 FiO2 Ratio Arterial Blood 3.09 %; pH ABG 7.426 (7.350-7.450)
[2023-04-14 13:13] LABS: Device ROOM AIR; Modified Allen's Test Pass; Site Drawn RIGHT RADIAL
[2023-04-14] MEDS: methylPREDNISolone SOD SUCC 125 MG VIAL IV PUSH (13:15)
[2023-04-14 13:21] LABS: NT Pro B Type Natriuretic Pept < 20 pg/mL (19.9-100); Troponin I < 0.012 ng/mL (0.000-0.034)
[2023-04-14 14:25] LABS: Partial Thromboplastin Time 32.8 SECONDS (22.3-36.8); Prothrombin Time 14.1 Seconds (11.1-14.7)
--- NOTE | 2023-04-14 15:35 | PM.IMHP ---
H&P: HPI History of Present Illness Date/Time: 04/14/23 17:45 Chief Complaint: Shortness of breath. 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 The patient provides the following history. He has not felt well for approximately 1 week with symptoms to include sinus pressure, drainage, headache, postnasal drip, and cough occasionally productive of green to white phlegm. He presumes that he has a sinus infection. As the days have gone on however he has become increasingly short of breath from baseline with wheezing. Rescue inhaler helps but has had lesser and lesser benefit. He spoke with Dr. Sherwood who called in a prescription for cefdinir however he has yet been able to have that filled. He did have some antibiotics at home which he has been taking however. He denies fever, chills, sweats, chest pain, pleuritic pain, nausea, vomiting, and diarrhea. He was afebrile on arrival to the emergency department. He is currently on 2 L nasal cannula with an SpO2 of 92%. Labs were significant for WBC count of 11.7, troponin less than 0.012, proBNP less than 20. He tested negative for influenza, RSV, and COVID. Chest x-ray showed mild hyperinflation with no active cardiopulmonary disease and aortic atherosclerosis. He was given a dose of IV Solu-Medrol and a nebulizer treatment and he is being admitted in this setting for treatment of COPD exacerbation. Review of Systems Review of Systems: Twelve systems were reviewed and are negative except for as per HPI. [facility] Past Medical History Medical History (Updated 04/14/23 @ 21:44 by Noemi Ralph PA-C) Aortic atherosclerosis Asthma Chronic obstructive pulmonary disease Coronary artery disease Coronary artery spasm COVID-19 (05/2022) tested positive 06/10/22 Deep vein thrombosis of right lower limb Diverticulitis Diverticulosis Eczema Elevated fasting glucose Fasting glucose 117 with hemoglobin A1c 5.6 on 04/26/2022. Encounter for prostate cancer screening PSA 2.13 on 04/26/2022. Gastric ulcer Hypertension Irritable bowel syndrome with diarrhea Metatarsalgia of both feet MRI of both feet on 08/30/2022 by garment looper revealed degenerative joint disease worse at the 1st MTP bilaterally with bunion formation on the right foot. Nausea and vomiting (12/28/20) history of nausea and vomiting with bowel prep Nocturia Bindu-rectal abscess Pneumonia Polyp of colon colonoscopy with Dr. 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) Tobacco use disorder, continuous Wears partial dentures Surgical History Surgical History H/O colonoscopy with polypectomy History of arthroplasty of right knee X4 History of arthroscopy of left knee History of cardiac catheterization (2012) History of cholecystectomy History of vasectomy Family History Family History Mother Family history of multiple sclerosis, Onset Age: 73 Father Family history of alcoholism Family history of chronic obstructive pulmonary disease Patient's father is , Onset Age: 51 Family history of liver disease Sibling Cerebrovascular accident Family history of malignant neoplasm Social History Social History Social History: Surrogate medical decision maker: Palma Santillan, daughter. Code status: Full code. Smoking packs per day: 0.5 Smoking cigarettes per day: 10.0 Years smoked: 50 Smoking pack-years: 25.0
[2023-04-14] MEDS: methylPREDNISolone SOD SUCC 125 MG VIAL 60 MG IV PUSH ×2 (18:09→23:19)
[2023-04-14] MEDS: IPRATROPIUM 0.5 MG/ALBUTEROL SULFATE 2.5 MG AMPUL.NEB 3 ML INHALATION (19:38)
[2023-04-14] MEDS: NICOTINE (*PBKC) 14 MG PATCH 1 PATCH TRANSDERM (20:00)
[2023-04-14] MEDS: CEFDINIR 300 MG CAPSULE PO (22:38)
[2023-04-15] VITALS (12 sets, daily range): BP systolic 126–155; BP diastolic 49–54; PULSE 86–98; RESP 14–20; TEMP 36.4–36.8; O2SAT 93–97
[2023-04-15] MEDS: IPRATROPIUM 0.5 MG/ALBUTEROL SULFATE 2.5 MG AMPUL.NEB 3 ML INHALATION ×4 (02:43→19:38)
[2023-04-15] MEDS: methylPREDNISolone SOD SUCC 125 MG VIAL 60 MG IV PUSH ×3 (05:38→17:50)
[2023-04-15 08:09] LABS: Basophils Percent Auto 0.1 % (0.2-1.2); Hematocrit 41.1 % (42.0-52.0); Hemoglobin 13.7 g/dL (14.0-18.0); Immature Granulocyte Absolute 0.12 K/mm3 (0.00-0.031); Immature Granulocyte Percent A 0.7 % (0-0.5); Lymphocytes Absolute Auto 0.79 K/mm3 (0.9-3.2); Lymphocytes Percent Auto 4.6 % (18.3-44.2); Mean Corpuscular HGB Conc 33.3 g/dl (32-36); Mean Corpuscular Hemoglobin 31.8 pg (26-34); Mean Corpuscular Volume 95.4 fl (80-100); Mean Platelet Volume 8.8 fl (7.4-10.4); Monocytes Absolute Auto 0.2 K/mm3 (0.1-0.6); Monocytes Percent Auto 1.3 % (2.6-8.5); Neutrophils Absolute Auto 16.2 K/mm3 (1.3-6.7); Neutrophils Percent Auto 93.3 % (45.5-73.1); Platelet Count Result 234 k/mm3 (150-375); Red Blood Count 4.31 M/mm3 (4.6-6.20); Red Cell Distribution Width 12.8 % (11.5-14.5); White Blood Count 17.3 K/mm3 (4.5-10.0)
[2023-04-15 08:21] LABS: Alanine Aminotransferase 22 U/L (6-50); Albumin Level 3.8 g/dL (3.5-5.1); Alkaline Phosphatase 44 U/L (38-126); Anion Gap 9 mmol/L (8-16); Aspartate Amino Transferase 24 U/L (17-59); Bilirubin,Total 0.3 mg/dL (0.2-1.3); Blood Urea Nitrogen 17 mg/dL (9-20); Calcium 8.5 mg/dL (8.4-10.2); Carbon Dioxide 23 mmol/L (22-30); Chloride 103 mmol/L (98-107); Estimated CRCL calculation 100 ml/min; Estimated Glomerular Filt Rate > 60; Glucose 225 mg/dL (65-110); Potassium 4.1 mmol/L (3.4-5.0); Sodium 135 mmol/L (137-145)
[2023-04-15] MEDS: FLUTICASONE/UMECLIDIN/VILANTER 100-62.5-25 MCG ELLIPTA 1 PUFF INHALATION (08:26)
[2023-04-15 08:34] LABS: D Dimer 0.53 ug/mL (<0.48)
[2023-04-15] MEDS: FLUTICASONE/SALMETEROL 115-21 MCG INHALER 1 PUFF 2 PUFF INHALATION ×2 (08:35→19:38)
[2023-04-15] MEDS: CEFDINIR 300 MG CAPSULE PO ×2 (08:49→20:13)
[2023-04-15] MEDS: HYDROXYCHLOROQUINE SULFATE 200 MG TABLET PO ×2 (08:49→20:14)
[2023-04-15] MEDS: ASPIRIN 81 MG ENTERIC TABLET PO (08:50)
[2023-04-15] MEDS: NICOTINE (*PBKC) 14 MG PATCH 1 PATCH TRANSDERM (08:55)
[2023-04-15] MEDS: amLODIPine BESYLATE 5 MG TABLET PO (08:56)
--- NOTE | 2023-04-15 11:21 | PM.IMPN ---
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 -venous dopplers negative -V/Q scan HTN -Stable -resumed home medications -BP per protocol Leukocytosis -Likely reactive steriod use -de-escalate to PO prednisone Code status: Full code per patient DVT prophylaxis: SCD's Stress ulcer prophylaxis: Refused PT/OT notes: ambulatory Disposition: Patient admitted for COPD excerebration with hypoxia. Will treat with steroids and duonebs, r/O PE will discharge to home when medically stable. -Patient's previous records reviewed on admission -ER notes reviewed in detail on admission -discussed all findings and current treatment plan with patient/Family/POA -Consultations reviewed for recommendations -Patient's disposition for safe discharge discussed with case resource manager Dictation performed by [employer] direct speech recognition software, therefore automotive parts advisor variants and typographical errors may occur. Time Spent With Patient Time with patient: 15 - 25 minutes Subjective Date/time seen: 04/15/23 11:21 Interval history: Chief Complaint: Shortness of breath. 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 The patient provides the following history. He has not felt well for approximately 1 week with symptoms to include sinus pressure, drainage, headache, postnasal drip, and cough occasionally productive of green to white phlegm. He presumes that he has a sinus infection. As the days have gone on however he has become increasingly short of breath from baseline with wheezing. Rescue inhaler helps but has had lesser and lesser benefit. He spoke with Dr. Sherwood who called in a prescription for cefdinir however he has yet been able to have that filled. He did have some antibiotics at home which he has been taking however. He denies fever, chills, sweats, chest pain, pleuritic pain, nausea, vomiting, and diarrhea. He was afebrile on arrival to the emergency department. He is currently on 2 L nasal cannula with an SpO2 of 92%. Labs were significant for WBC count of 11.7, troponin less than 0.012, proBNP less than 20. He tested negative for influenza, RSV, and COVID. Chest x-ray showed mild hyperinflation with no active cardiopulmonary disease and aortic atherosclerosis. He was given a dose of IV Solu-Medrol and a nebulizer treatment and he is being admitted in this setting for treatment of COPD exacerbation. 04/15/2023: Patient sitting onside of the bed on 2L NC still feels short of breath. Arnold
[2023-04-15] MEDS: guaiFENesin 12 HR 600 MG TABCR PO (20:13)
[2023-04-16] VITALS (17 sets, daily range): BP systolic 143–163; BP diastolic 58–70; PULSE 70–112; RESP 16–20; TEMP 36.5–36.6; O2SAT 91–95
[2023-04-16] MEDS: methylPREDNISolone SOD SUCC 125 MG VIAL 60 MG IV PUSH ×4 (01:05→17:12)
[2023-04-16] MEDS: IPRATROPIUM 0.5 MG/ALBUTEROL SULFATE 2.5 MG AMPUL.NEB 3 ML INHALATION ×4 (01:29→20:42)
[2023-04-16 05:34] LABS: Hematocrit 41.9 % (42.0-52.0); Hemoglobin 13.3 g/dL (14.0-18.0); Mean Corpuscular HGB Conc 31.7 g/dl (32-36); Mean Corpuscular Hemoglobin 31.5 pg (26-34); Mean Corpuscular Volume 99.3 fl (80-100); Mean Platelet Volume 9.2 fl (7.4-10.4); Platelet Count Result 263 k/mm3 (150-375); Red Blood Count 4.22 M/mm3 (4.6-6.20); Red Cell Distribution Width 13.1 % (11.5-14.5); White Blood Count 24.9 K/mm3 (4.5-10.0)
[2023-04-16 05:38] LABS: Alanine Aminotransferase 22 U/L (6-50); Albumin Level 3.7 g/dL (3.5-5.1); Alkaline Phosphatase 58 U/L (38-126); Anion Gap 8 mmol/L (8-16); Aspartate Amino Transferase 24 U/L (17-59); Bilirubin,Total 0.2 mg/dL (0.2-1.3); Blood Urea Nitrogen 21 mg/dL (9-20); Calcium 8.7 mg/dL (8.4-10.2); Carbon Dioxide 26 mmol/L (22-30); Chloride 103 mmol/L (98-107); Estimated CRCL calculation 100 ml/min; Estimated Glomerular Filt Rate > 60; Glucose 294 mg/dL (65-110); Potassium 4.4 mmol/L (3.4-5.0); Sodium 137 mmol/L (137-145)
[2023-04-16] MEDS: FLUTICASONE/UMECLIDIN/VILANTER 100-62.5-25 MCG ELLIPTA 1 PUFF INHALATION (07:49)
[2023-04-16 08:03] LABS: Band Neutrophils Percent 3 % (0-6); Lymphocytes Absolute Manual 0.99 K/mm3 (1.1-4.5); Neutrophils Percent Manual 93 % (46-73); Platelet Estimate Adequate (Adequate); Schistocytes None Seen (NORMAL); Total Cells Counted 100
[2023-04-16] MEDS: ASPIRIN 81 MG ENTERIC TABLET PO (08:30)
[2023-04-16] MEDS: HYDROXYCHLOROQUINE SULFATE 200 MG TABLET PO ×2 (08:30→20:11)
[2023-04-16] MEDS: CEFDINIR 300 MG CAPSULE PO ×2 (08:30→20:11)
[2023-04-16] MEDS: amLODIPine BESYLATE 5 MG TABLET PO (08:31)
[2023-04-16] MEDS: NICOTINE (*PBKC) 14 MG PATCH 1 PATCH TRANSDERM (08:31)
--- NOTE | 2023-04-16 11:34 | PCRCNOTE ---
Home O2 eval complete. Patient does not require Home O2 at this time. RN notified.
--- NOTE | 2023-04-16 14:06 | PCRCNOTE ---
Patient stated since MDI (Advair) was not given, because it is on hold, he took his home Dulera this afternoon. RT explained to patient and daughter why Advair is on hold.
--- NOTE | 2023-04-16 15:49 | PM.IMPN ---
Progress Note: A&P Assessment and Plan (1) COPD exacerbation: Code(s): J44.1 - Chronic obstructive pulmonary disease with (acute) exacerbation Status: Acute Assessment and Plan: -pO2 64.8 on ABG/SPO2 POA -2L NC supplemental oxygen wean as tolerated does not wear at home -CXR hyperinflation -v/Q negative for PE -Duonebs -methylprednisone IV de-escalated to BID today -Cefdinar PO continued apnea link ordered (2) Hypoxia: Code(s): R09.02 - Hypoxemia Status: Acute Assessment and Plan: see above plan (3) Tobacco use disorder, continuous: Code(s): F17.209 - Nicotine dependence, unspecified, with unspecified nicotine-induced disorders Status: Chronic Assessment and Plan: nicotine patch smoking cessation education (4) Hypertension: Qualifiers: Hypertension type: primary hypertension Qualified Code(s): I10 - Essential (primary) hypertension Code(s): I10 - Essential (primary) hypertension Status: Chronic Assessment and Plan: continue home medications (5) 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 -venous dopplers negative -V/Q scan negative Leukocytosis -Likely reactive steriod use -de-escalate to PO prednisone tomorrow Subjective Date/time seen: 04/16/23 15:49 Interval history: Patient is unpleasant this morning on exam. He is upset due to his second inhaler being held. Explained reasoning, but can bring his home inhaler for pharmacy to [facility] as we do not carry here. Will order apnea link for tonight as he reported difficulty with oxygenation during the night. De-escalated prednisone to BID and will transition to PO likely tomorrow in anticipation of d/c when stable and oxygenation needs evaluated. Review of Systems Review of Systems: All systems reviewed & are unremarkable except as noted in HPI and below Exam Narrative: - GENERAL: Alert and oriented x 3. No acute distress. Well-nourished. Frustrated - EYES: EOMI. PERRLA. - HENT: Moist mucous membranes. No cervical lymphadenopathy. - LUNGS: scant wheezing to auscultation bilaterally, but clear to auscultation - CARDIOVASCULAR: RRR. No murmur. S1-S2 - ABDOMEN: Soft, non-tender and non-distended. No palpable masses. - EXTREMITIES: Bilaterl edema 1+ non pitting. -SKIN: No rashes or lesions. Skin warm, dry. - NEUROLOGIC: No focal neurological deficits. CN II-XII grossly intact - PSYCHIATRIC: Unpleasant mood and affect. Good judgement and insight. Objective Data Vital Signs Vital Signs: Vital Signs - 24 hr 04/15/23 19:39 04/15/23 20:00 04/15/23 20:14 Temperature 98.3 F Pulse Rate 86 98 Respiratory Rate 20 14 Blood Pressure 144/51 H Pulse Oximetry 93 Oxygen Delivery Room Air Oxygen Flow Rate 04/15/23 20:01 04/16/23 01:29 04/16/23 01:36 Temperature Pulse Rate 87 88 85 Respiratory Rate 20 20 20 Blood Pressure Pulse Oximetry Oxygen Delivery Oxygen Flow Rate 04/16/23 05:40 04/16/23 07:50 04/16/23 07:51 Temperature 97.8 F Pulse Rate 85 70 Respiratory Rate 16 20 Blood Pressure 163/65 H Pulse Oximetry 94 92 Oxygen Delivery Nasal Cannula Oxygen Flow Rate 2 04/16/23 07:58 04/16/23 08:28 04/16/23 08:30 Temperature Pulse Rate 101 H 106 H Respiratory Rate 20 Blood Pressure 151/65 H Pulse Oximetry 93 Oxygen Delivery Room Air Oxygen Flow Rate 04/16/23 11:00 04/16/23 11:20 04/16/23 11:25 Temperature Pulse Rate 107 H 112 H 106 H Respiratory Rate Blood Pressure Pulse Oximetry 95 91 94 Oxygen Delivery Room Air Room Air Room Air Oxygen Flow Rate 04/16/23 13:50 04/16/23 14:05 04/16/23 14:42 Temperature 97.7 F Pulse Rate 96 96 96 Respir
--- NOTE | 2023-04-16 18:03 | PC.NURSE ---
During AM rounds, patient expressed frustration to the RN about not being allowed to use Advair inhaler per respiratory therapist. Patient stated he would have a family member bring in his home inhaler. RN contacted the hospitalist Isabel Burton, to notify her of the patient's ongoing complaint and that he would be getting his own inhaler. Hospitalist stated that was OK, and that the home inhaler Dulera was not a duplicate dose of the Advair inhaler.
--- NOTE | 2023-04-16 18:24 | PHAR ---
HOME MED DULERA 100/5 MCG MDI VERIFIED BY PHARMACY
[2023-04-16] MEDS: guaiFENesin 12 HR 600 MG TABCR PO (20:11)
--- NOTE | 2023-04-17 02:09 | PCRCNOTE ---
patient on apnealink. 0200 treatment not given.
[2023-04-17 04:26] VITALS: BP 161/65; PULSE 95; RESP 16; TEMP 36.4; O2SAT 94
[2023-04-17 05:55] LABS: Basophils Absolute Auto 0.1 K/mm3 (0.0-0.1); Basophils Percent Auto 0.3 % (0.2-1.2); Hematocrit 39.9 % (42.0-52.0); Hemoglobin 13.4 g/dL (14.0-18.0); Immature Granulocyte Percent A 2.1 % (0-0.5); Lymphocytes Absolute Auto 0.97 K/mm3 (0.9-3.2); Lymphocytes Percent Auto 4.1 % (18.3-44.2); Mean Corpuscular HGB Conc 33.6 g/dl (32-36); Mean Corpuscular Hemoglobin 32.3 pg (26-34); Mean Corpuscular Volume 96.1 fl (80-100); Mean Platelet Volume 8.8 fl (7.4-10.4); Monocytes Absolute Auto 0.7 K/mm3 (0.1-0.6); Neutrophils Absolute Auto 21.7 K/mm3 (1.3-6.7); Neutrophils Percent Auto 90.5 % (45.5-73.1); Platelet Count Result 275 k/mm3 (150-375); Red Blood Count 4.15 M/mm3 (4.6-6.20); Red Cell Distribution Width 13.2 % (11.5-14.5)
[2023-04-17 06:21] LABS: Alanine Aminotransferase 26 U/L (6-50); Albumin Level 3.5 g/dL (3.5-5.1); Alkaline Phosphatase 51 U/L (38-126); Anion Gap 9 mmol/L (8-16); Aspartate Amino Transferase 27 U/L (17-59); Bilirubin,Total 0.2 mg/dL (0.2-1.3); Blood Urea Nitrogen 15 mg/dL (9-20); Calcium 8.5 mg/dL (8.4-10.2); Carbon Dioxide 27 mmol/L (22-30); Chloride 103 mmol/L (98-107); Estimated CRCL calculation 100 ml/min; Estimated Glomerular Filt Rate > 60; Glucose 236 mg/dL (65-110); Potassium 4.1 mmol/L (3.4-5.0); Sodium 139 mmol/L (137-145)
[2023-04-17 09:09] VITALS: BP 156/67; PULSE 99; O2SAT 92
[2023-04-17] MEDS: ASPIRIN 81 MG ENTERIC TABLET PO (09:11)
[2023-04-17] MEDS: HYDROXYCHLOROQUINE SULFATE 200 MG TABLET PO (09:11)
[2023-04-17] MEDS: amLODIPine BESYLATE 5 MG TABLET PO (09:11)
[2023-04-17] MEDS: CEFDINIR 300 MG CAPSULE PO (09:11)
[2023-04-17] MEDS: predniSONE 20 MG TABLET 40 MG PO (09:11)
[2023-04-17] MEDS: NICOTINE (*PBKC) 14 MG PATCH 1 PATCH TRANSDERM (09:12)
[2023-04-17] MEDS: FLUTICASONE/UMECLIDIN/VILANTER 100-62.5-25 MCG ELLIPTA 1 PUFF INHALATION (09:15)
[2023-04-17] MEDS: IPRATROPIUM 0.5 MG/ALBUTEROL SULFATE 2.5 MG AMPUL.NEB 3 ML INHALATION (09:15)
[2023-04-17 09:16] VITALS: PULSE 94; RESP 20
--- NOTE | 2023-04-17 09:18 | PCRCNOTE ---
Patient indepently takes home medication which is the DPI non-formulary inhalation 2 puffs every 12 hours for 0800 tx this morning.
[2023-04-17 09:20] VITALS: O2SAT 93
[2023-04-17 09:24] VITALS: PULSE 95; RESP 20
--- NOTE | 2023-04-17 10:41 | PM.DS ---
DS: Admitting Diagnosis Discharge Date 04/17/23 Admitting Diagnosis SOB DS: Discharge Diagnosis Discharge Diagnosis (1) COPD exacerbation: Code(s): J44.1 - Chronic obstructive pulmonary disease with (acute) exacerbation Status: Acute Assessment and Plan: room air CXR showed hyperinflation v/Q negative for PE de-escalated to PO prednisone today for 5 day course Cefdinar PO previously prescribed, continue to finish course apnea link normal (2) Hypoxia: Code(s): R09.02 - Hypoxemia Status: Acute Assessment and Plan: see above plan (3) Tobacco use disorder, continuous: Code(s): F17.209 - Nicotine dependence, unspecified, with unspecified nicotine-induced disorders Status: Chronic Assessment and Plan: nicotine patch smoking cessation education (4) Hypertension: Qualifiers: Hypertension type: primary hypertension Qualified Code(s): I10 - Essential (primary) hypertension Code(s): I10 - Essential (primary) hypertension Status: Chronic Assessment and Plan: continue home medications (5) 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 He had not felt well for approximately 1 week with symptoms of sinus pressure, drainage, headache, postnasal drip, and cough occasionally productive of green to white phlegm. He presumed that he has a sinus infection. He became increasingly short of breath from baseline with wheezing. He spoke with Dr. Sherwood who called in a prescription for cefdinir however he has yet been able to have that filled. He denies fever, chills, sweats, chest pain, pleuritic pain, nausea, vomiting, and diarrhea. He previously required 2 L nasal cannula but has been weaned to room air for the past 2 days. Labs were significant for WBC count of 11.7, troponin less than 0.012, proBNP less than 20. He tested negative for influenza, RSV, and COVID. Chest x-ray showed mild hyperinflation with no active cardiopulmonary disease and aortic atherosclerosis. He was given a dose of IV Solu-Medrol and a nebulizer treatment and received supportive treatment for COPD exacerbation. Apnea link done while inpatient was normal. PO prednisone for 5 days will be sent home with him at d/c. V/Q scan negative, US dopplers negative for DVT. He is stable for d/c home today and to follow up with PCP. Status at Discharge Functional status at discharge: independent ambulation Overall status at discharge: patient is back to baseline Time Spent with Patient Time attestation: Total time spent providing and/or coordinating discharge services: Exam Narrative: - GENERAL: Alert and oriented x 3. No acute distress. Well-nourished. - EYES: EOMI. PERRLA. - HENT: Moist mucous membranes. No cervical lymphadenopathy. - LUNGS: Lungs clear to auscultation - CARDIOVASCULAR: RRR. No murmur. S1-S2 - ABDOMEN: Soft, non-tender and non-distended. No palpable masses. - EXTREMITIES: no edema. -SKIN: No rashes or lesions. Skin warm, dry. - NEUROLOGIC: No focal neurological deficits. CN II-XII grossly intact - PSYCHIATRIC: Unpleasant mood and affect. Good judgement and insight. DS: Data Data Completed and Pending Labs on day of discharge: Labs from last 24 hours 04/17/23 05:25 WBC 24.0 H RBC 4.15 L Hgb 13.4 L Hct 39.9 L MCV 96.1 MCH 32.3 MCHC 33.6
== END 2023-04-17 11:28 | disposition home or self-care (01) | DRG 192 ==
LOC: ANHED 14:33 → ANH2MED 15:32
PROVIDERS: Emergency Medicine; Nurse Practitioner Family; Admitting Provider Internal Medicine; Emergency Provider Emergency Medicine; PCP Family Medicine; Visit Provider Internal Medicine
DX: J44.1 Chronic obstructive pulmonary disease with (acute) exacerbation (principal); R09.02 Hypoxemia; D72.829 Elevated white blood cell count, unspecified; F17.210 Nicotine dependence, cigarettes, uncomplicated; I25.10 Atherosclerotic heart disease of native coronary artery without angina pectoris; I10 Essential (primary) hypertension; K21.9 Gastro-esophageal reflux disease without esophagitis; M65.88 Other synovitis and tenosynovitis, other site; Z86.718 Personal history of other venous thrombosis and embolism; Z86.16 Personal history of COVID-19; Z96.651 Presence of right artificial knee joint; Z90.49 Acquired absence of other specified parts of digestive tract; Z20.822 Contact with and (suspected) exposure to COVID-19
CPT/HCPCS: 36415; 36600; 71046; 78582; 80053; 82805; 83880; 84484; 85025; 85380; 85610; 85730; 87637; 93005; 93970; 94618; 94640; 94762; 96374; 96376; 99285; A9270; A9540; A9558; G0378; J2930; J7512

== ENCOUNTER 2023-06-23 12:19 | Inpatient (IN) | payer MEDICARE, SELFPAY ==
[2023-06-23] VITALS (13 sets, daily range): BP systolic 124–164; BP diastolic 61–82; PULSE 87–110; RESP 16–28; TEMP 36.6–37.3; O2SAT 92–100; BMI 31.3; BMI 31.2
--- NOTE | ~2023-06-23 | CT_ITS ---
EXAMINATION: CT abdomen pelvis wo con DATE: 06/23/2023 16:57 INDICATION: Diarrhea, left abdominal pain TECHNIQUE: Computed tomography (CT) of the abdomen and pelvis was performed without intravenous contr ast. The dose-length product (DLP) was 1265.56 mGy-cm. Automated exposure control and iterative recon struction technique were employed. COMPARISON: 01/15/2016 FINDINGS: Minimal dependent atelectasis is present in the lung bases. The heart size is normal. [place] es of cholecystectomy are noted. The liver, spleen, pancreas, and adrenal glands are normal. The kidn eys are unremarkable. No pathologically enlarged abdominal or pelvic lymph nodes are identified. Ther e is calcified atherosclerosis of the aorta and many of the other arteries. No free intraperitoneal g as or evidence of bowel obstruction. There is colonic diverticulosis. There is subtle fat stranding a djacent to the sigmoid colon. There is liquid stool throughout much of the proximal colon. There are umbilical and periumbilical hernias containing fat. There is mild lumbar spondylosis. IMPRESSION: 1. Diverticulosis with subtle fat stranding in the sigmoid colon which could reflect uncomplicated di verticulitis. Reviewed, dictated and finalized at location F. IMPRESSION: 1. Diverticulosis with subtle fat stranding in the sigmoid colon which could re flect uncomplicated diverticulitis.
[2023-06-23 12:43] LABS: Basophils Percent Auto 0.3 % (0.2-1.2); Hematocrit 42.4 % (42.0-52.0); Hemoglobin 14.9 g/dL (14.0-18.0); Immature Granulocyte Absolute 0.03 K/mm3 (0.00-0.031); Immature Granulocyte Percent A 0.5 % (0-0.5); Immature Platelet Fraction Pct 2.9 % (0.9-11.2); Lymphocytes Absolute Auto 0.68 K/mm3 (0.9-3.2); Lymphocytes Percent Auto 11.4 % (18.3-44.2); Mean Corpuscular HGB Conc 35.1 g/dl (32-36); Mean Corpuscular Hemoglobin 31.9 pg (26-34); Mean Corpuscular Volume 90.8 fl (80-100); Mean Platelet Volume 9.7 fl (7.4-10.4); Monocytes Absolute Auto 0.4 K/mm3 (0.1-0.6); Monocytes Percent Auto 6.5 % (2.6-8.5); Neutrophils Absolute Auto 4.8 K/mm3 (1.3-6.7); Neutrophils Percent Auto 81.3 % (45.5-73.1); Platelet Count Result 130 k/mm3 (150-375); Red Blood Count 4.67 M/mm3 (4.6-6.20); Red Cell Distribution Width 13.7 % (11.5-14.5)
[2023-06-23 12:52] LABS: Alanine Aminotransferase 43 U/L (6-50); Albumin Level 3.6 g/dL (3.5-5.1); Alkaline Phosphatase 26 U/L (38-126); Anion Gap 4 mmol/L (8-16); Aspartate Amino Transferase 59 U/L (17-59); Bilirubin,Total 0.6 mg/dL (0.2-1.3); Blood Urea Nitrogen 17 mg/dL (9-20); Calcium 8.3 mg/dL (8.4-10.2); Carbon Dioxide 25 mmol/L (22-30); Chloride 100 mmol/L (98-107); Estimated CRCL calculation 89 ml/min; Estimated Glomerular Filt Rate > 60; Glucose 114 mg/dL (65-110); Lipase 130 U/L (23-300); Potassium 3.7 mmol/L (3.4-5.0); Sodium 129 mmol/L (137-145)
--- NOTE | 2023-06-23 13:11 | ED.NAVMDI ---
HPI - Nausea/Vomiting/Diarrhea General Chief complaint: Nausea/Vomiting/Diarrhea Stated complaint: diarrhea x 6 days Time Seen by Provider: 06/23/23 13:00 History of Present Illness HPI Narrative: Pt presents with numerous episodes of diarrhea for the last 5 days. Pt denies vomiting or fever. Pt says he aches all over and is very weak. Pt recently completed cipro and flagyl for diverticulitis. Pt was sent in by PCP. Related Data Home Medications Medication Instructions Recorded Confirmed hydroxychloroquine 200 mg tablet 200 mg PO BID 05/07/21 06/23/23 Sarah Low Dose Aspirin 81 mg PO DAILY 04/14/23 06/23/23 multivitamin 1 tablet PO DAILY 05/02/23 06/23/23 ascorbic acid (vitamin C) 500 mg 500 mg PO DAILY 06/23/23 06/23/23 tablet Allergies Allergy/AdvReac Type Severity Reaction Status Date / Time rivaroxaban Allergy Severe violent Verified 04/14/23 11:52 rage, hives, swelling enoxaparin Allergy Intermediate hives, rash Verified 04/14/23 11:52 Penicillins Allergy Intermediate Swelling Verified 04/14/23 11:52 trovafloxacin Allergy Intermediate Other Verified 04/14/23 11:52 apixaban Allergy Unknown violent Verified 04/14/23 11:52 rage, hives, swelling celecoxib Allergy Unknown Nausea and Verified 04/14/23 11:52 Vomiting clarithromycin Allergy Unknown Unknown Verified 04/14/23 11:52 erythromycin base Allergy Unknown Unknown Verified 04/14/23 11:52 furosemide Allergy Unknown Swelling Verified 04/14/23 11:52 Iodinated Contrast Media Allergy Unknown Rash Verified 04/14/23 11:52 iodine Allergy Unknown SEVERE RASH Verified 11/05/22 17:37 montelukast Allergy Unknown Unknown Verified 11/05/22 17:37 Sulfa (Sulfonamide Allergy Unknown Unknown Verified 11/05/22 17:37 Antibiotics) codeine AdvReac Unknown Headache Verified 11/05/22 17:37 doxycycline AdvReac Unknown Nausea and Verified 11/05/22 17:37 Vomiting Quinolones AdvReac Unknown ITCHING Verified 11/05/22 17:40 Review of Systems Review of Systems: All systems reviewed & are unremarkable except as noted in HPI and below PMFSH Past Medical History Medical History (Updated 06/23/23 @ 15:09 by Jonh Jabari Asencio III, DO) Aortic atherosclerosis Asthma Coronary artery disease Coronary artery spasm COVID-19 (05/2022) tested positive 06/10/22 Deep vein thrombosis of right lower limb Diverticulitis Diverticulosis Eczema Elevated fasting glucose Fasting glucose 117 with hemoglobin A1c 5.6 on 04/26/2022. Encounter for prostate cancer screening PSA 2.13 on 04/26/2022. Gastric ulcer Hypersomnia Hypertension Irritable bowel syndrome with diarrhea Metatarsalgia of both feet MRI of both feet on 08/30/2022 by collar runner revealed degenerative joint disease worse at the 1st MTP bilaterally with bunion formation on the right foot. Nausea and vomiting (12/28/20) history of nausea and vomiting with bowel prep Nocturia Bindu-rectal abscess Pneumonia Polyp of colon colonoscopy with Dr. 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) Snoring Tobacco use disorder, continuous Wears partial dentures Surgical History Surgical History H/O colonoscopy with polypectomy History of arthroplasty of right knee X4 History of arthroscopy of left knee History of cardiac catheterization (2012) History of cholecystectomy History of vasectomy Family History Family History (Updated 06/23/23 @ 17:38 by Elenita Degroot RN) Mother Family history of multiple sclerosis, Onset Age: 73 Father Patient's father is , Onset Age: 51 Family history of liver disease Family history of chronic obstructive pulmonary disease Family history of alcoholism Sibling Family history of malignant neoplasm Cerebrovascular accident Sibling Breast cancer
[2023-06-23] MEDS: SODIUM CHLORIDE 0.9% IV 1,000 ML 999 ML IV CONT (13:29)
[2023-06-23 14:48] LABS: Toxigenic C. Diff NEGATIVE (NEGATIVE)
--- NOTE | 2023-06-23 17:05 | PC.NURSE ---
This patient, Jeremías Trejo, was admitted to [facility] Surg Room 303-01. Patient/family oriented to hospital policies and general routines including ID bracelet, bed and alarms, visiting hours, pain management, procedures, bathroom and other care routines, personal items, smoking policy, room service/diet, and visiting hours. Information on how to activate the Rapid Response Team has been discussed. Patient/Family are encouraged to report perceived risks to care and to ask questions if they do not understand what they are told or what they should do.
--- NOTE | 2023-06-23 17:20 | PM.IMHP ---
H&P: HPI History of Present Illness Date/Time: 06/23/23 17:00 Chief Complaint: Diarrhea. 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 He was treated for symptoms of diverticulitis at the beginning of this month and completed a course of metronidazole and ciprofloxacin. Initially his symptoms seemed to improve however the last 6 days he has had multiple episodes of loose, watery stools each day which he describes as a dark mustard color. He has diffuse abdominal cramping prior to having episodes of diarrhea and that seems to improve somewhat after the stool has passed. Appetite has not been good though he denies nausea and vomiting. He also denies fever, chills, and sweats. He has not noticed any blood or mucus in the stool. His symptoms seem different from those he has experienced with prior episodes of diverticulitis. He denies sick contacts, recent travel, and history of C diff. He was afebrile on arrival to the emergency department. Labs were significant for WBC count of 6.0, sodium 129, BUN 17, creatinine 0.70, lipase 130. He tested negative for C diff by PCR. CT of the abdomen and pelvis showed diverticulosis with subtle fat stranding in the sigmoid colon which could reflect uncomplicated diverticulitis. He was given a normal saline bolus in the ED is being admitted in this setting for further hydration and GI consultation. Review of Systems Review of Systems: Twelve systems were reviewed and are negative except for as per HPI. [facility] Past Medical History Medical History Aortic atherosclerosis Asthma Coronary artery disease Coronary artery spasm COVID-19 (05/2022) tested positive 06/10/22 Deep vein thrombosis of right lower limb Diverticulitis Diverticulosis Eczema Elevated fasting glucose Fasting glucose 117 with hemoglobin A1c 5.6 on 04/26/2022. Encounter for prostate cancer screening PSA 2.13 on 04/26/2022. Gastric ulcer Hypersomnia Hypertension Irritable bowel syndrome with diarrhea Metatarsalgia of both feet MRI of both feet on 08/30/2022 by security auditor revealed degenerative joint disease worse at the 1st MTP bilaterally with bunion formation on the right foot. Nausea and vomiting (12/28/20) history of nausea and vomiting with bowel prep Nocturia Bindu-rectal abscess Pneumonia Polyp of colon colonoscopy with Dr. 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) Snoring Tobacco use disorder, continuous Wears partial dentures Surgical History Surgical History H/O colonoscopy with polypectomy History of arthroplasty of right knee X4 History of arthroscopy of left knee History of cardiac catheterization (2012) History of cholecystectomy History of vasectomy Family History Family History Mother Family history of multiple sclerosis, Onset Age: 73 Father Patient's father is , Onset Age: 51 Family history of liver disease Family history of chronic obstructive pulmonary disease Family history of alcoholism Sibling Family history of malignant neoplasm Cerebrovascular accident Sibling Breast cancer Social History Social History Social History: Surrogate medical decision maker: Palma Santillan, daughter. Code status: Full code. Smoking packs per day: 0.75 Smoking cigarettes per day:
[2023-06-23] MEDS: SODIUM CHLORIDE 0.9% IV 1,000 ML 125 ML IV CONT (18:00)
[2023-06-23] MEDS: NICOTINE (*PBKC) 21 MG PATCH 1 PATCH TRANSDERM (20:41)
[2023-06-23] MEDS: HYDROXYCHLOROQUINE SULFATE 200 MG TABLET PO (21:21)
[2023-06-23] MEDS: FLUTICASONE/SALMETEROL 45-21 MCG INHALER 1 PUFF 2 PUFF INHALATION (21:53)
--- NOTE | 2023-06-23 23:59 | PC.NURSE ---
This RN preceptor has read over and agrees with student nurse Lopez's charting and assessment.
[2023-06-24] MEDS: SODIUM CHLORIDE 0.9% IV 1,000 ML 100 ML IV CONT ×2 (01:30→11:14)
[2023-06-24 05:10] VITALS: BP 125/55; PULSE 100; RESP 16; TEMP 36.8; O2SAT 93
[2023-06-24 07:11] LABS: Hematocrit 36.5 % (42.0-52.0); Hemoglobin 12.4 g/dL (14.0-18.0); Immature Platelet Fraction Pct 3.6 % (0.9-11.2); Mean Corpuscular Hemoglobin 31.3 pg (26-34); Mean Corpuscular Volume 92.2 fl (80-100); Mean Platelet Volume 9.6 fl (7.4-10.4); Platelet Count Result 133 k/mm3 (150-375); Red Blood Count 3.96 M/mm3 (4.6-6.20); Red Cell Distribution Width 13.7 % (11.5-14.5); White Blood Count 5.2 K/mm3 (4.5-10.0)
[2023-06-24 07:48] LABS: Anion Gap 4 mmol/L (8-16); Blood Urea Nitrogen 14 mg/dL (9-20); Calcium 7.6 mg/dL (8.4-10.2); Carbon Dioxide 22 mmol/L (22-30); Chloride 102 mmol/L (98-107); Estimated CRCL calculation 99 ml/min; Estimated Glomerular Filt Rate > 60; Glucose 125 mg/dL (65-110); Magnesium 1.7 mg/dL (1.6-2.3); Potassium 3.1 mmol/L (3.4-5.0); Sodium 128 mmol/L (137-145)
[2023-06-24] MEDS: FLUTICASONE/SALMETEROL 45-21 MCG INHALER 1 PUFF 2 PUFF INHALATION ×2 (08:42→19:45)
[2023-06-24] MEDS: UMECLIDINIUM BROMIDE 62.5 MCG ELLIPTA 1 PUFF INHALATION (08:43)
[2023-06-24 08:45] VITALS: O2SAT 94
[2023-06-24] MEDS: ASPIRIN 81 MG ENTERIC TABLET PO (09:10)
[2023-06-24] MEDS: ASCORBIC ACID 500 MG TABLET PO (09:10)
[2023-06-24] MEDS: amLODIPine BESYLATE 5 MG TABLET PO (09:10)
[2023-06-24] MEDS: MULTIVITAMINS THERAPEUTIC TAB (*BKC) 1 TABLET PO (09:10)
[2023-06-24] MEDS: HYDROXYCHLOROQUINE SULFATE 200 MG TABLET PO ×2 (09:10→16:52)
[2023-06-24] MEDS: NICOTINE (*PBKC) 21 MG PATCH 1 PATCH TRANSDERM (09:10)
[2023-06-24] MEDS: POTASSIUM CHLORIDE INJ 40 MEQ in SODIUM CHLORIDE 0.9% IV 500 ML 130 MEQ IVPB (11:14)
--- NOTE | 2023-06-24 12:03 | PM.IMPN ---
Progress Note: A&P Assessment and Plan (1) Dehydration: Code(s): E86.0 - Dehydration Status: Acute (2) Hyponatremia: Code(s): E87.1 - Hypo-osmolality and hyponatremia Status: Acute (3) Diarrhea: Qualifiers: Diarrhea type: presumed infectious Qualified Code(s): R19.7 - Diarrhea, unspecified Code(s): R19.7 - Diarrhea, unspecified Status: Acute (4) Diverticulitis: Code(s): K57.92 - Diverticulitis of intestine, part unspecified, without perforation or abscess without bleeding Status: Acute (5) Chronic obstructive pulmonary disease: Qualifiers: COPD type: unspecified COPD Qualified Code(s): J44.9 - Chronic obstructive pulmonary disease, unspecified Code(s): J44.9 - Chronic obstructive pulmonary disease, unspecified Status: Acute (6) Hypokalemia: Code(s): E87.6 - Hypokalemia Status: Acute Plan Uncomplicated diverticulitis/diarrhea IV fluids Pain controlled GI consulted for any recommendations Patient just finished recent antibiotic therapy currently normal WBC Patient reports no relief with diarrhea x3 days Monitor and replenish electrolytes especially potassium magnesium Patient likely needs outpatient colonoscopy post 6 weeks once episode has resolved C diff negative Stool cultures pending Advance diet as tolerated Hyponatremia with hypo-osmolality Secondary to dehydration from diarrhea Sodium 128 Continue with IV fluids Hypokalemia Secondary to patient's acute diarrhea 3.1 replenished with 40 mEq Daily BMP replenish as needed COPD Stable not appear in acute exacerbation Resume home medications p.r.n. inhaler Hypertension Controlled Resume patient's amlodipine BP per unit protocol Code status: Full code per patient DVT prophylaxis: SCD's Stress ulcer prophylaxis: Protonix 40 daily PT/OT notes: Ambulatory Disposition: Patient continues admission to the medical unit for diverticulitis and diarrhea will continue to hydrate with IV fluids and correct electrolytes, GI consulted for further recommendations. Patient ambulatory plan will be to discharge home likely colonoscopy O/P. 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 He was treated for symptoms of diverticulitis at the beginning of this month and completed a course of metronidazole and ciprofloxacin. Initially his symptoms seemed to improve however the last 6 days he has had multiple episodes of loose, watery stools each day which he describes as a dark mustard color. He has diffuse abdominal cramping prior to having episodes of diarrhea and that seems to improve somewhat after the stool has passed. Appetite has not been good though he denies nausea and vomiting. He also denies fever, chills, and sweats. He has not noticed any blood or mucus in the stool. His symptoms seem different from those he has experienced with prior episodes of diverticulitis. He denies sick contacts, recent travel, and history of C diff. He was afebrile on arrival to the emergency department. Labs were significant for WBC count of 6.0, sodium 129, BUN 17, creatinine 0.70, lipase 130. He tested negative for C diff by PCR. CT of the abdomen and pelvis showed diverticulosis with subtle fat stranding in the sigmoid colon which could reflect uncomplicated diverticulitis. He was given a normal saline bolus in the ED is being admitted in this setting for further hydrati
--- NOTE | 2023-06-24 13:01 | WPDGICN ---
Assessment and Plan Assessment and plan (1) Diverticulitis of sigmoid colon: Code(s): K57.32 - Diverticulitis of large intestine without perforation or abscess without bleeding Status: Acute Assessment and Plan: CT of the abdomen and pelvis without contrast noted diverticulosis with subtal fat stranding in the sigmoid colon which could reflect uncomplicated diverticulitis along with liquid stool throughout much of the proximal colon. WBC count is normal. He does have left sided abdominal pain today on exam along with complaints of it. -treated for presumptive diverticulitis around 1 month ago with PO Cipro and Flagyl. -hx of recurrent diverticulitis in the past, last hospitalization in 2016 -Last colonoscopy with Dr. Jenkins in 2020 with sigmoid diverticula. -Recommend starting antibiotics. I placed order for cipro and Flagyl IV (states he can take these)-Pharmacist called and switched to cefepime and flagyl per protocol. -Colonoscopy recommended in 6-8 weeks after resolution of symptoms -Discussed low fiber diet at this time and then once symptoms resolve high fiber diet. -Supportive tx (2) Acute diarrhea: Code(s): R19.7 - Diarrhea, unspecified Status: Acute Assessment and Plan: -6 days of acute diarrhea with nocturnal awakening. treated with cipro/flagyl 1 month ago for diverticulitis-no recent travel, sick/ill contacts. CT with liquid diarrhea in proximal colon. This could be related to diverticulitis or acute gastroenteritis. -c diff negative -Stool cultures pending -if diarrhea still presenting at time of colonoscopy, will arrange for random bx to rule out microscopic colitis as well -Offered Imodium or Questran but states that will cause him to have constipation and he does not want that. -Supportive Tx per hospitalist. (3) Abdominal pain: Code(s): R10.9 - Unspecified abdominal pain Status: Acute Assessment and Plan: Related to diverticulitis, monitor. Tx diverticulitis (4) Polyp of colon: Qualifiers: Colon location: unspecified part of colon Colon polyp type: unspecified Qualified Code(s): K63.5 - Polyp of colon Code(s): K63.5 - Polyp of colon Status: Acute Assessment and Plan: Last colonoscopy in [address] Jenkins with six colon polyps, TA-no dysplasia, recommended to repeat in 2 years He is overdue for colonoscopy anyhow, will need to be set up outpatient once recovers from diverticulitis. (5) Hypokalemia: Code(s): E87.6 - Hypokalemia Status: Acute (6) Hyponatremia: Code(s): E87.1 - Hypo-osmolality and hyponatremia Status: Acute (7) Dehydration: Code(s): E86.0 - Dehydration Status: Acute (8) Weakness: Code(s): R53.1 - Weakness Status: Acute (9) Chronic obstructive pulmonary disease: Qualifiers: COPD type: unspecified COPD Qualified Code(s): J44.9 - Chronic obstructive pulmonary disease, unspecified Code(s): J44.9 - Chronic obstructive pulmonary disease, unspecified Status: Acute GI Consult Note Consult date/time: 06/24/23 1230 Reason for consult: Diarrhea HPI: Jeremías Trejo is a 72 year old male asked to be seen at the request of the hospitalist for diarrhea. He has a history of recurrent diverticulitis, diverticulosis and an adenomatous colon polyps. hospitalized in 2016 for diverticulitis-never has had bowel resection. Hx of eva. Presented to [facility] ER 06/23/2023 for [address] abdomen pelvis without contrast with septal fat stranding in the sigmoid colon which could reflect uncomplicated diverticulosis along with liquid stool in the proximal colon (recs reviewed). White blood cell count normal with mild normocytic anemia, low NA and K, c diff negative-stool culture pending. He states he was having so much diarrhea he could not put a number on how much he was having. He reports nocturnal diarrhea with this. He reports
[2023-06-24 14:00] VITALS: BP 158/66; PULSE 93; RESP 18; TEMP 36.4; O2SAT 94
[2023-06-24] MEDS: CIPROFLOXACIN 400 MG/D5W 200ML 200 ML 200 MG IVPB (14:25)
[2023-06-24] MEDS: CEFEPIME 2 GM/NS 50 ML 2 GM/50 ML BAG IVPB ×2 (14:59→22:30)
[2023-06-24] MEDS: metroNIDAZOLE 500 MG/ISO 100ML 500 MG/100 ML BAG 100 MG IVPB ×2 (14:59→22:29)
[2023-06-24 15:18] LABS: Bacteria Urine None Seen /hpf; Non Pathogenic Casts 0-2; RBC Urine 0-2 /hpf (0-2); Squamous Epithelial Cell Urine Occasional /hpf (Few); WBC Urine 0-5 /hpf (0-3)
[2023-06-24 15:25] LABS: Appearance Urine Clear (Clear); Blood Urine Negative (Negative); Color Urine Dark Yellow (Yellow); Glucose Urine UA Negative (Negative); Ketones Urine Negative (Negative); Protein Urine 2+ mg/dL (Negative); Specific Grav Ur >= 1.030 (1.001-1.035)
[2023-06-24 15:26] LABS: Bilirubin Urine 1+ (Negative); Leukocyte Esterase Ur Negative LEU/UL (Negative); Nitrate Urine Negative (Negative); Urobilinogen Urine 0.2 mg/dL (<2.0)
[2023-06-24 15:27] LABS: Add Urine Microscopic? YES
[2023-06-24 19:46] VITALS: PULSE 82; RESP 18
[2023-06-24 20:40] VITALS: BP 149/70; PULSE 97; RESP 16; TEMP 36.6; O2SAT 96
[2023-06-25] VITALS (9 sets, daily range): BP systolic 127–141; BP diastolic 48–60; PULSE 85–99; RESP 16–22; TEMP 36.4–37.1; O2SAT 93–97
[2023-06-25] MEDS: KCL 40 MEQ/D5/0.9% SOD CHL 1,000 ML 100 ML IV CONT ×2 (01:00→08:57)
[2023-06-25] MEDS: metroNIDAZOLE 500 MG/ISO 100ML 500 MG/100 ML BAG 100 MG IVPB ×3 (05:58→22:09)
[2023-06-25] MEDS: CEFEPIME 2 GM/NS 50 ML 2 GM/50 ML BAG IVPB ×3 (06:01→23:10)
[2023-06-25 07:36] LABS: Hematocrit 35.7 % (42.0-52.0); Hemoglobin 12.1 g/dL (14.0-18.0); Mean Corpuscular HGB Conc 33.9 g/dl (32-36); Mean Corpuscular Hemoglobin 31.3 pg (26-34); Mean Corpuscular Volume 92.5 fl (80-100); Mean Platelet Volume 10.1 fl (7.4-10.4); Platelet Count Result 150 k/mm3 (150-375); Red Blood Count 3.86 M/mm3 (4.6-6.20); Red Cell Distribution Width 13.8 % (11.5-14.5)
[2023-06-25 07:56] LABS: Alanine Aminotransferase 42 U/L (6-50); Albumin Level 2.9 g/dL (3.5-5.1); Alkaline Phosphatase 35 U/L (38-126); Anion Gap 3 mmol/L (4-12); Aspartate Amino Transferase 53 U/L (17-59); Bilirubin,Total 0.5 mg/dL (0.2-1.3); Blood Urea Nitrogen 8 mg/dL (9-20); Calcium 7.8 mg/dL (8.4-10.2); Carbon Dioxide 21 mmol/L (22-30); Chloride 105 mmol/L (98-107); Estimated CRCL calculation 115 ml/min; Estimated Glomerular Filt Rate > 60; Glucose 115 mg/dL (65-110); Magnesium 1.8 mg/dL (1.6-2.3); Potassium 3.3 mmol/L (3.4-5.0); Sodium 129 mmol/L (137-145)
[2023-06-25] MEDS: NICOTINE (*PBKC) 21 MG PATCH 1 PATCH TRANSDERM (08:15)
[2023-06-25] MEDS: ASPIRIN 81 MG ENTERIC TABLET PO (08:16)
[2023-06-25] MEDS: PANTOPRAZOLE 40 MG TABLET PO (08:16)
[2023-06-25] MEDS: amLODIPine BESYLATE 5 MG TABLET PO (08:16)
[2023-06-25] MEDS: ASCORBIC ACID 500 MG TABLET PO (08:16)
[2023-06-25] MEDS: HYDROXYCHLOROQUINE SULFATE 200 MG TABLET PO ×2 (08:16→16:26)
[2023-06-25] MEDS: MULTIVITAMINS THERAPEUTIC TAB (*BKC) 1 TABLET PO (08:16)
[2023-06-25] MEDS: UMECLIDINIUM BROMIDE 62.5 MCG ELLIPTA 1 PUFF INHALATION (08:29)
[2023-06-25] MEDS: FLUTICASONE/SALMETEROL 45-21 MCG INHALER 1 PUFF 2 PUFF INHALATION ×2 (08:29→21:13)
[2023-06-25] MEDS: POTASSIUM CHLORIDE 20 MEQ ER TABLET 40 MEQ PO (08:57)
--- NOTE | 2023-06-25 13:55 | PM.IMPN ---
Progress Note: A&P Assessment and Plan (1) Diverticulitis: Code(s): K57.92 - Diverticulitis of intestine, part unspecified, without perforation or abscess without bleeding Status: Acute Assessment and Plan: Patient just finished recent antibiotic therapy currently normal WBC CT abdomen pelvis without contrast noting diverticulosis with fat stranding and sigmoid colon. Per protocol patient started on cefepime Flagyl. Antiemetics and analgesics as needed GI consulted for any recommendations Monitor and replenish electrolytes especially potassium magnesium Patient likely needs outpatient colonoscopy post 6 weeks once episode has resolved C diff negative. Stool cultures pending. Patient tolerating his low fiber diet. IV fluids discontinued 06/24 (2) Dehydration: Code(s): E86.0 - Dehydration Status: Resolved Assessment and Plan: Patient presented to the ED showing signs of dehydration due to acute diarrhea. He was restarted on antibiotics And IV fluids. Since IV fluids have discontinued he is tolerating p.o. intake. (3) Hyponatremia: Code(s): E87.1 - Hypo-osmolality and hyponatremia Status: Acute Assessment and Plan: Upon presentation patient's sodium was 128. Patient started on IV fluids due to dehydration. 06/24 Sodium of 129. Patient tolerating p.o. intake and IV fluids discontinued. (4) Diarrhea: Qualifiers: Diarrhea type: presumed infectious Qualified Code(s): R19.7 - Diarrhea, unspecified Code(s): R19.7 - Diarrhea, unspecified Status: Acute Assessment and Plan: Patient reports diarrhea for 6 days prior to presentation. Denies melena or hematochezia. He does have history of diverticulitis. C diff negative. Stool cultures pending. Diarrhea improved with antibiotic therapy. (5) Hypokalemia: Code(s): E87.6 - Hypokalemia Status: Acute Assessment and Plan: Replenish potassium as necessary. (6) Chronic obstructive pulmonary disease: Qualifiers: COPD type: unspecified COPD Qualified Code(s): J44.9 - Chronic obstructive pulmonary disease, unspecified Code(s): J44.9 - Chronic obstructive pulmonary disease, unspecified Status: Acute Assessment and Plan: Stable Subjective Date/time seen: 06/25/23 13:55 Interval history: patient doing well today. He endorses less Diarrhea. He denies any melena or hematochezia. Denies any nausea, vomiting, abdominal pain, chest pain shortness a breath. He does have some lower extremity swelling likely from fluids. He is still having some hypokalemia which is being treated. Will keep the patient 1 more day in the hospital and hopefully by tomorrow diarrhea will have and will feel to be discharged. Exam Narrative: GENERAL: Comfortable, no acute distress HENMT: moist mucous membranes EYES: EOM intact b/l NECK: no lymphadenopathy RESPIRATORY: clear to auscultation, no increased respiratory effort CARDIO: Regular rate and rhythm GI: soft, nontender, bowel sounds present SKIN/EXTREMITIES: no rashes, no redness or tenderness; BLE edema NEURO: PROM intact, answers questions appropriately, A&O x4 Objective Data Vital Signs Vital Signs: Vital Signs - 24 hr 06/24/23 14:00 06/24/23 19:46 06/24/23 20:40 Temperature 97.6 F 98 F Pulse Rate 93 82 97 Respiratory Rate 18 18 16 Blood Pressure 158/66 H 149/70 H Pulse Oximetry 94 96 Oxygen Delivery 06/25/23 04:18 06/25/23 08:00 06/25/23 08:20 Temperature 97.6 F 97.6 F Pulse Rate 89 93 95 Respiratory Rate 16 20 20 Blood Pressure 141/48 H 128/59 L 127/60 Pulse Oximetry 95 95 96 Oxygen Delivery 06/25/23 08:21 06/25/23 08:29 06/25/23 08:33 Temperature Pulse Rate 95 85 Respiratory Rate 22 H Blood Pressure 128/57 L Pulse Oximetry 94 95 Oxygen Delivery Room Air Intake/Output Intake/Output:
[2023-06-25] MEDS: SODIUM CHLORIDE 0.9% IV 100 ML (22:09)
[2023-06-26 05:02] VITALS: BP 137/50; PULSE 91; RESP 16; TEMP 36.8; O2SAT 93
[2023-06-26] MEDS: metroNIDAZOLE 500 MG/ISO 100ML 500 MG/100 ML BAG 100 MG IVPB (05:24)
[2023-06-26] MEDS: CEFEPIME 2 GM/NS 50 ML 2 GM/50 ML BAG IVPB (06:46)
[2023-06-26 07:39] LABS: Hematocrit 34.7 % (42.0-52.0); Hemoglobin 11.6 g/dL (14.0-18.0); Mean Corpuscular HGB Conc 33.4 g/dl (32-36); Mean Corpuscular Hemoglobin 31.3 pg (26-34); Mean Corpuscular Volume 93.5 fl (80-100); Mean Platelet Volume 9.8 fl (7.4-10.4); Platelet Count Result 167 k/mm3 (150-375); Red Blood Count 3.71 M/mm3 (4.6-6.20); White Blood Count 4.8 K/mm3 (4.5-10.0)
[2023-06-26 07:47] LABS: Alanine Aminotransferase 51 U/L (6-50); Albumin Level 2.8 g/dL (3.5-5.1); Alkaline Phosphatase 50 U/L (38-126); Anion Gap 3 mmol/L (4-12); Aspartate Amino Transferase 53 U/L (17-59); Bilirubin,Total 0.4 mg/dL (0.2-1.3); Blood Urea Nitrogen 7 mg/dL (9-20); Calcium 8.1 mg/dL (8.4-10.2); Carbon Dioxide 24 mmol/L (22-30); Chloride 106 mmol/L (98-107); Estimated CRCL calculation 100 ml/min; Estimated Glomerular Filt Rate > 60; Glucose 100 mg/dL (65-110); Magnesium 1.8 mg/dL (1.6-2.3); Potassium 3.4 mmol/L (3.4-5.0); Sodium 133 mmol/L (137-145)
[2023-06-26] MEDS: PANTOPRAZOLE 40 MG TABLET PO (08:51)
[2023-06-26] MEDS: ASPIRIN 81 MG ENTERIC TABLET PO (08:51)
[2023-06-26] MEDS: ASCORBIC ACID 500 MG TABLET PO (08:51)
[2023-06-26] MEDS: MULTIVITAMINS THERAPEUTIC TAB (*BKC) 1 TABLET PO (08:51)
[2023-06-26] MEDS: NICOTINE (*PBKC) 21 MG PATCH 1 PATCH TRANSDERM (08:51)
[2023-06-26] MEDS: HYDROXYCHLOROQUINE SULFATE 200 MG TABLET PO (08:51)
[2023-06-26] MEDS: amLODIPine BESYLATE 5 MG TABLET PO (08:52)
[2023-06-26] MEDS: FLUTICASONE/SALMETEROL 45-21 MCG INHALER 1 PUFF 2 PUFF INHALATION (08:58)
[2023-06-26] MEDS: UMECLIDINIUM BROMIDE 62.5 MCG ELLIPTA 1 PUFF INHALATION (09:00)
--- NOTE | 2023-06-26 12:10 | PM.DS ---
DS: Admitting Diagnosis Discharge Date 06/26/23 Admitting Diagnosis Acute diverticulitis DS: Discharge Diagnosis Discharge Diagnosis (1) Diverticulitis: Code(s): K57.92 - Diverticulitis of intestine, part unspecified, without perforation or abscess without bleeding Status: Acute (2) Dehydration: Code(s): E86.0 - Dehydration Status: Resolved (3) Hyponatremia: Code(s): E87.1 - Hypo-osmolality and hyponatremia Status: Acute (4) Diarrhea: Qualifiers: Diarrhea type: presumed infectious Qualified Code(s): R19.7 - Diarrhea, unspecified Code(s): R19.7 - Diarrhea, unspecified Status: Acute (5) Hypokalemia: Code(s): E87.6 - Hypokalemia Status: Acute (6) Chronic obstructive pulmonary disease: Qualifiers: COPD type: unspecified COPD Qualified Code(s): J44.9 - Chronic obstructive pulmonary disease, unspecified Code(s): J44.9 - Chronic obstructive pulmonary disease, unspecified Status: Acute DS: Summary Hospital Course Hospital Course: This is a 72-year-old male past medical history of recurrent diverticulitis, GERD, COPD, DVT, hypertension, Prinzmetal's angina, myocardial bridge and remitting seronegatives symmetrical synovitis with pitting edema a presents to the ED due to complaints of diarrhea.He was treated for symptoms of diverticulitis at the beginning of this month and completed a course of metronidazole and ciprofloxacin. Initially his symptoms seemed to improve however the last 6 days he has had multiple episodes of loose, watery stools each day which he describes as a dark mustard color.? Patient states that he was doing good with the treatment but then started cutting his pills in half due to having some GI upset. Due to patient's wide range of allergies he was unable to be put on any other antibiotic. Labs were significant for WBC count of 6.0, sodium 129, BUN 17, creatinine 0.70, lipase 130. He tested negative for C diff by PCR. CT of the abdomen and pelvis showed diverticulosis with subtle fat stranding in the sigmoid colon which could reflect uncomplicated diverticulitis. He was given a normal saline bolus in the ED. He was started on metronidazole and cefepime. Patient's diarrhea resolved on the hospital. His stool cultures and C diff both came back negative. Blood cultures no growth to date. He was transitioned back to ciprofloxacin and metronidazole. Advised to take medication with food as well as diet changes. Again due to patient's allergy list he was unable to be put on any other medication. His labs and vital signs are stable knees medically clear for discharge at this time. Time Spent with Patient Time attestation: Total time spent providing and/or coordinating discharge services: Exam Narrative: GENERAL: Comfortable, no acute distress HENMT: moist mucous membranes EYES: EOM intact b/l NECK: no lymphadenopathy RESPIRATORY: clear to auscultation, no increased respiratory effort CARDIO: Regular rate and rhythm GI: soft, nontender, bowel sounds present SKIN/EXTREMITIES: no rashes, no redness or tenderness; BLE edema NEURO: PROM intact, answers questions appropriately, A&O x4 DS: Data Data Completed and Pending Labs on day of discharge: Labs from last 24 hours 06/26/23 06:44 WBC 4.8 RBC 3.71 L Hgb 11.6 L Hct 34.7 L MCV 93.5 MCH 31.3 MCHC 33.4 RDW 14.0 Plt Count 167 MPV 9.8 Sodium 133 L Potassium 3.4 Chloride 106 Carbon Dioxide 24 Anion Gap 3 L BUN 7 L Creatinine 0.70 Estim Creat Clear Calc 100 Estimated GFR > 60 Glucose 100 Calcium 8.1 L Magnesium 1.8 Total Bilirubin 0.4 AST 53 ALT 51 H Alkaline Phosphatase 50 Total Protein 6.0 L Albumin 2.8 L Discharge Plan Discharge Consulting providers: Kalia Vergara Discharging Clinician: Makenzie Carrizales Patient Disposition: Home, Self-Care Activity: as tolerated Diet: other -
[2023-06-26] MEDS: POTASSIUM CHLORIDE 20 MEQ ER TABLET PO (13:18)
[2023-06-27 00:11] LABS: Lactoferrin, Stool Positive (Negative)
== END 2023-06-26 13:50 | disposition home or self-care (01) | DRG 392 ==
LOC: ANHED 16:12 → ANH3MEDSUR 16:46
PROVIDERS: Nurse Practitioner Family; Physician Assistant; Admitting Provider Internal Medicine; Emergency Provider Emergency Medicine; PCP Family Medicine; Visit Provider Internal Medicine
DX: K57.32 Diverticulitis of large intestine without perforation or abscess without bleeding (principal); E87.1 Hypo-osmolality and hyponatremia; Q24.5 Malformation of coronary vessels; E86.0 Dehydration; E87.6 Hypokalemia; I70.0 Atherosclerosis of aorta; I25.10 Atherosclerotic heart disease of native coronary artery without angina pectoris; I10 Essential (primary) hypertension; K58.0 Irritable bowel syndrome with diarrhea; J44.9 Chronic obstructive pulmonary disease, unspecified; J45.909 Unspecified asthma, uncomplicated; R60.9 Edema, unspecified; M65.80 Other synovitis and tenosynovitis, unspecified site; M19.071 Primary osteoarthritis, right ankle and foot; M19.072 Primary osteoarthritis, left ankle and foot; G47.10 Hypersomnia, unspecified; F17.210 Nicotine dependence, cigarettes, uncomplicated; Z86.010 Personal history of colon polyps; Z86.718 Personal history of other venous thrombosis and embolism; Z79.82 Long term (current) use of aspirin
CPT/HCPCS: 36415; 74176; 80048; 80053; 81001; 83630; 83690; 83735; 85025; 85027; 85055; 87045; 87269; 87272; 87427; 87449; 87493; 89055; 94640; 96360; 96361; 96374; 99285; A9270; G0378; J0692; J0744; J1836; J3480; J7030; J7040

== ENCOUNTER 2024-04-30 13:22 | Inpatient (IN) | payer MEDICARE, SELFPAY ==
[2024-04-30] VITALS (17 sets, daily range): BP systolic 124–160; BP diastolic 58–74; PULSE 76–105; RESP 18–30; TEMP 36.8; O2SAT 86–97
--- NOTE | ~2024-04-30 | XR_ITS ---
EXAMINATION: XR chest 2V DATE: 05/04/2024 08:08 INDICATION: Hypoxia. TECHNIQUE: Frontal and lateral views of the chest were obtained. COMPARISON: Chest 2 views 04/30/2024 FINDINGS: There is mild atelectasis of left lower lung zone. No pleural effusion or pneumothorax. The heart size is normal. IMPRESSION: 1. Mild atelectasis in left lower lung zone. Reviewed, dictated and finalized at location A. ENGINEER
--- NOTE | ~2024-04-30 | XR_ITS ---
EXAMINATION: XR chest 2V DATE: 04/30/2024 15:51 INDICATION: Shortness of breath. TECHNIQUE: Frontal and lateral views of the chest were obtained. COMPARISON: Chest 2 views 04/14/2023 FINDINGS: There is mild atelectasis in left lower lung zone. No pleural effusion or pneumothorax. The heart size is normal. IMPRESSION: 1. Mild atelectasis in left lower lung zone. Reviewed, dictated and finalized at location A. ETY LATHE OPERATOR
--- OUTSIDE RECORDS SUMMARY | 2024-04-30 13:25 | XMS_ITS | Encounter Summary ---
Author Organization [facility] Address [address] [place] [address] Care Team Providers Care Street Light Servicer Name Role Phone Brandon Sherwood MD Primary Care Provider [phone] Encounter Details Date Type Department Care Team (Late Contact [facility]) Description 10/17/2022 Lab Requisition [facility] - DermPath Lab [address] [place] [id number] Zachary Campa MD [address] [place] [address] Social History Tobacco Use Types Packs/Day Years Used Date Smoking Tobacco: Never Assessed Sex and Gender Information Value Date Recorded Sex Assigned at Not on file Gender Identity Not on file Sexual Orientation Not on file documented as of this encounter Plan of Treatment Not on file documented as of this encounter Procedures Procedure Name Priority Date/Time Associated Diagnosis Comments DERMATOPATHOLOGY Routine 10/15/2022 12:0 0 AM CDT documented in this encounter Results * DERMATOPATHOLOGY (10/15/2022 12:00 AM CDT) Case Report Dermatopathology Report ? Case: [id number] ? Authorizing Provider: ??Zachary Campa MD ?Collected: ? 10/15/2022 12:00 AM ? Ordering Location: ? [facility] Derm[facility] ? Received: ?10/17/2022 10:06 AM ? Pathologist: ? Abby Carvajal MD ? Specimen: ?Skin, left upper inner thigh ? 3 3:09 PM [facility] Final Diagnosis Specimen A. SKIN, left upper inner thigh: SEBORRHEIC KERATOSIS, IRRITATED AND INFLAMED (L82.0) 3 3:09 PM [facility] Clinical History MM vs angioma. Path#[id number] 3 3:09 PM [facility] Gross Description Specimen A: Received is one formalin filled container labeled with the patient's name and designated left upper inner thigh. The specimen consists of a shave biopsy measuring 10x7x2 mm. Jar 0. 3 3:09 PM [facility] Microscopic Description Specimen A. SKIN, left upper inner thigh: Sections show acanthosis, papillomatosis, hyperkeratosis, and squamous eddies. There is a lymphohistiocytic infiltrate within the papillary dermis. 3 3:09 PM [facility]MAT[facility] Disclaimer An external and internal positive and negative controls are appropriate for the histochemical, immunohistochemical and immunofluorescence stain(s) in this case (if any), except where stated explicitly. The performance characteristics of the stain(s) cited in this report were developed and its performance characteristic determined by the Dermatopathology Laboratory at [facility], directed by Dr. Moises Kwok. These tests need not be, and therefore are not, approved by the [place] Food and Drug Administration. The tests are used for clinical purposes. Billing Codes Specimen Charges Stain Charges 36148 1 3 3:09 PM CDT DERMATOPATHOLOGY LABORATORY Embedded Images 3 3:09 PM CDT DERMATOPATHOLOGY LABORATORY Pathology/Cytolog y TISSUE SPECIMEN FROM SKIN / Unknown 10/15/2022 10/17/2022 10:06 AM CDT Zachary Campa MD LAB - PATHOLOGY/CYTO LOGY ORDERABLES DERMATOPATHOLOGY LABORATORY [facility] - Department of Dermatology [facility] [address] [place] [address], [address] [phone] documented in this encounter Visit Diagnoses Not on filedocumented in this encounter Care Teams Street Light Servicer Relationship Specialty Start Date End Date Brandon Sherwood MD [address] [place] [address] [place] [id number] PCP - General 11/01/19 documented as of this encounter
--- OUTSIDE RECORDS SUMMARY | 2024-04-30 13:25 | XMS_ITS | Encounter Summary ---
Author Organization [facility] Address [address] [place] [address] Care Team Providers Care General Warehouse Associate Name Role Phone Brandon Sherwood MD Primary Care Provider [phone] Encounter Details Date Type Department Care Team (Late st Contact Info) Description 03/16/2021 Lab Requisition [facility] Derm[facility] Lab [address], [place] [id number] Zachary Campa MD [address] [place] [address] Social History Tobacco Use Types Packs/Day Years Used Date Smoking Tobacco: Never Assessed Sex and Gender Information Value Date Recorded Sex Assigned at Not on file Gender Identity Not on file Sexual Orientation Not on file documented as of this encounter Plan of Treatment Not on file documented as of this encounter Procedures Procedure Name Priority Date/Time Associated Diagnosis Comments DERMATOPATHOLOGY Routine 03/15/2021 12:0 0 AM SLUBBER RUNNER documented in this encounter Results * DERMATOPATHOLOGY (03/15/2021 12:00 AM SLUBBER RUNNER) Case Report Dermatopathology Report ? Case: [id number] ? Authorizing Provider: ??Zachary Campa MD ?Collected: ? 03/15/2021 12:00 AM ? Ordering Location: ? [facility] ?Received: ?03/16/2021 03:18 PM ? Pathologist: ? Abby Carvajal MD ? Specimen: ?Skin, right zygoma ? 1 1:14 PM [facility] DERMATOPATHOLOGY LABORATORY Final Diagnosis Specimen A. SKIN, right zygoma: BASAL CELL CARCINOMA, INFILTRATIVE PATTERN (C44.319) 1 1:14 PM [facility] DERMATOPATHOLOGY LABORATORY Clinical History BCCA. Path#[id number] 1 1:14 PM [facility] DERMATOPATHOLOGY LABORATORY Gross Description Specimen A: Received is one formalin filled container labeled with the patient's name and designated right zygoma. The specimen consists of a shave biopsy measuring 7x5x1 mm. Jar 0. 1 1:14 PM [facility] DERMATOPATHOLOGY LABORATORY Microscopic Description Specimen A. SKIN, right zygoma: Within the dermis there are nodular aggregates of basaloid cells associated with fibromyxoid stroma and epithelial-stromal clefts. At the advancing margin of the neoplasm, there are smaller angulated nests that infiltrate the dermis. 1 1:14 PM [facility] DERMATOPATHOLOGY LABORATORY Disclaimer An external and internal positive and negative controls are appropriate for the histochemical, immunohistochemical and immunofluorescence stain(s) in this case (if any), except where stated explicitly. The performance characteristics of the stain(s) cited in this report were developed and its performance characteristic determined by the Dermatopathology Laboratory at [facility], directed by Dr. Moises Kwok. These tests need not be, and therefore are not, approved by the [place] Food and Drug Administration. The tests are used for clinical purposes. Billing Codes Specimen Charges Stain Charges 68704 1 1 1:14 PM [facility] DERMATOPATHOLOGY LABORATORY Embedded Images 1 1:14 PM [facility] DERMATOPATHOLOGY LABORATORY Pathology/Cytolog y TISSUE SPECIMEN FROM SKIN / Unknown 03/15/2021 03/16/2021 3:18 PM SLUBBER RUNNER Zachary Campa MD LAB - PATHOLOGY/CYTO LOGY ORDERABLES DERMATOPATHOLOGY LABORATORY [facility] - Department of Dermatology [facility] Medicine [address] [place] [address], [address] [phone] documented in this encounter Visit Diagnoses Not on filedocumented in this encounter Care Teams General Warehouse Associate Relationship Specialty Start Date End Date Brandon Sherwood MD [address] [place] [address] PCP - General 11/01/19 documented as of this encounter
--- OUTSIDE RECORDS SUMMARY | 2024-04-30 13:25 | XMS_ITS | Clinical Summary ---
Author Organization [facility] Address [address] [place] [address] Care Team Providers Care Business Mail Entry Clerk Name Role Phone Brandon Sherwood MD Primary Care Provider [phone] Source Comments [facility],non-owned Affiliates and Associated Physician Practices is amultiple site organization consisting of ambulatory clinics and hospital sitesin [place], [place], [place] and [place]. This disclosure is being madepursuant to the Care Everywhere program and may not contain all information available regarding this patient. Last updated 17.[facility] Social History Tobacco Use Types Packs/Day Years Used Date Smoking Tobacco: Never Assessed Sex and Gender Information Value Date Recorded Sex Assigned at Not on file Gender Identity Not on file Sexual Orientation Not on file Plan of Treatment Health Maintenance Due Date Last Done Comments COLOGUARD (AGES 45-75) - COL ON CA SCREENING 1950 COLON MONITORING 1950 COLONOSCOPY - COLON CA SCREENING 1950 CT COLONOGRAPHY - COLON CA SCREENING 1950 Colorectal Cancer Screening 1950 FIT - COLON CA SCREENING 1950 FLEX SIG - COLON CA SCREENING 1950 LIPID TESTING 1950 MEDICARE AWV ? 12 MONTHS 1950 HEPATITIS C SCREENING 12/03/1969 DTAP/TDAP/TD VACCINES (1 - Tdap) 12/07/1970 PNEUMOCOCCAL VACCINE 50+ (1 of 1 - PCV) 12/07/2001 ZOSTER VACCINE (1 of 2) 12/07/2001 COVID-19 VACCINE (2023-2 5 season) 2023 INFLUENZA VACCINE (#1) 2023 DEPRESSION SCREENING 03/31/2024 Respiratory Syncytial Virus (RSV) Vaccine Pt: or over 60 yrs (1 - 1-dose 75+ series) 12/07/2026 HEPATITIS B VACCINE Aged Out No longe r eligible based on patient's age to complete this topic HIB VACCINE Aged Out No longer eligi ble based on patient's age to complete this topic HPV VACCINE Aged Out No longer eligi ble based on patient's age to complete this topic MENINGOCOCCAL (Group B) VACCINE Aged Out No longer eligible based on patient's age to complete this topic MENINGOCOCCAL VACCINE Aged Out No anna marie fatuma eligible based on patient's age to complete this topic Care Teams Business Mail Entry Clerk Relationship Specialty Start Date End Date Brandon Sherwood MD [address] [place] [address] PCP - General 11/01/19
--- OUTSIDE RECORDS SUMMARY | 2024-04-30 13:25 | XMS_ITS | Patient Health Summary ---
Author Organization [facility] Address [address] [facility] [place] [address] Care Team Providers Care Obedience Trainer Name Role Phone Brandon Sherwood MD Primary Care Provider [phone] Note from [facility],non-owned Affiliates and Associated Physician Practices is amultiple site organization consisting of ambulatory clinics and hospital sitesin [place], [place], [place] and [place]. This disclosure is being madepursuant to the Care Everywhere program and may not contain all information available regarding this patient. Last updated 17.[facility] Social History Tobacco Use Types Packs/Day Years Used Date Smoking Tobacco: Never Assessed Sex and Gender Information Value Date Recorded Sex Assigned at Not on file Gender Identity Not on file Sexual Orientation Not on file Procedures * DERMATOPATHOLOGY(Performed 10/15/2022) * DERMATOPATHOLOGY(Performed 03/15/2021) * GROSS + MICRO EXAM(Performed 01/18/2002) Results * DERMATOPATHOLOGY (10/15/2022 12:00 AM CDT) Only the most recent of2 resultswithin the time period is included. Case Report Dermatopathology Report ? Case: [id number] ? Authorizing Provider: ??Zachary Campa MD ?Collected: ? 10/15/2022 12:00 AM ? Ordering Location: ? [facility] DermPath Lab ? Received: ?10/17/2022 10:06 AM ? Pathologist: ? Abby Carvajal MD ? Specimen: ?Skin, left upper inner thigh ? 3 3:09 PM [facility] DERMATOPATHOLOGY LABORATORY Final Diagnosis Specimen A. SKIN, left upper inner thigh: SEBORRHEIC KERATOSIS, IRRITATED AND INFLAMED (L82.0) 3 3:09 PM [facility] DERMATOPATHOLOGY LABORATORY Clinical History MM vs angioma. Path#[id number] 3 3:09 PM [facility] DERMATOPATHOLOGY LABORATORY Gross Description Specimen A: Received is one formalin filled container labeled with the patient's name and designated left upper inner thigh. The specimen consists of a shave biopsy measuring 10x7x2 mm. Jar 0. 3 3:09 PM [facility] DERMATOPATHOLOGY LABORATORY Microscopic Description Specimen A. SKIN, left upper inner thigh: Sections show acanthosis, papillomatosis, hyperkeratosis, and squamous eddies. There is a lymphohistiocytic infiltrate within the papillary dermis. 3 3:09 PM [facility] DERMATOPATHOLOGY LABORATORY Disclaimer An external and internal positive and negative controls are appropriate for the histochemical, immunohistochemical and immunofluorescence stain(s) in this case (if any), except where stated explicitly. The performance characteristics of the stain(s) cited in this report were developed and its performance characteristic determined by the Dermatopathology Laboratory at [facility], directed by Dr. Moises Kwok. These tests need not be, and therefore are not, approved by the [place] Food and Drug Administration. The tests are used for clinical purposes. Billing Codes Specimen Charges Stain Charges 88274 1 3 3:09 PM [facility] DERMATOPATHOLOGY LABORATORY Embedded Images 3 3:09 PM [facility] DERMATOPATHOLOGY LABORATORY Pathology/Cytolog y TISSUE SPECIMEN FROM SKIN / Unknown 10/15/2022 10/17/2022 10:06 AM CDT Zachary Campa MD LAB - PATHOLOGY/CYTO LOGY ORDERABLES DERMATOPATHOLOGY LABORATORY [facility] - Department of Dermatology [address], [address] [phone] * GROSS + MICRO EXAM (01/18/2002 12:00 AM CDT) Result CASE NUMBER [id number] Comment: ORDERING PHYSICIAN ??MIRIAN RECINOS V SPECIMEN TYPE ?Debridement tissue-left leg Surgeon ?MIRIAN RECINOS M.D. Gross Exam ? DR. HAYDEN DE SOUZA M.D. Gross Report ? PHYSICIAN INDICATION FOR PROCEDURE ??SKIN DEFECT LEFT LOWER LEG OPERATION ??RECONSTRUCTION LEFT LOWER LEG DEFECT WITH LOCAL FLAP CLOSURE GROSS THE SPECIMEN IS RECEIVED IN A CONTAINER LABELED WITH THE PATIENT'S NAME AND IDENTIFIED DEBRIDEMENT TISSUE RIGHT LOWER LEG . ??THE SPECIMEN CONSISTS OF A SKIN ELLIPSE WHICH MEASURES 2.2 X 1 X 0.5 CM. ??AN ULCERATED LESION IS LOCATED IN THE CENTER. ??THE SURGICAL MARGINS ARE INKED. ??THE TIPS ARE AMPUTATED AND TWO CROSS SECTIONS ARE SUBMITTED IN CASSETTES A AND B . JW/SP ?? MICROSCOPIC EXAM ? MICROSCOPIC MICROSCOPIC EXAMINATION OF SECTIONS LABELED A AND B REVEAL FRAGMENTS OF TISSUE SURFACED BY A SQUAMOUS EPITHELIUM THAT IS FOR THE MOST PART INTACT AND FOCALLY EXHIBITS ACANTHOSIS, BUT OTHERWISE NORMAL MATURATION. ??SOME OF THE SECTIONS, HOWEVER, DISCLOSE EVIDENCE OF ULCERATION WITH ABRUPT TRANSITION FROM NORMAL SKIN TO AREAS SHOWING AN ACUTE INFLAMMATORY EXUDATE UNDERLYING WHICH THERE IS A GRANULATION TISSUE RESPONSE SURROUNDED IN TURN BY A DENSE FIBROSING PROCESS. ??NONE OF THE SECTIONS SHOW ANY EVIDENCE OF MALIGNANCY OR ATYPIA. ?? DIAGNOSIS ? DIAGNOSIS [1] DEBRIDEMENT FROM SKIN DEFECT, LEFT LOWER LEG -- ?? ACUTE AND CHRONIC INFLAMMATION WITH FOCAL ULCERATION AND ? GRANULATION TISSUE RESPONSE RT/SS Released By ?ARAM ACE CPT Code ? 92988 MISCELLANEOUS SAMPLE S / Unknown 01/18/2002 01/18/2002 12:30 PM CDT Historical Provider LAB - PATHOLOGY/C YTOLOGY ORDERABLES Care Teams Obedience Trainer Relationship Specialty Start Date End Date Brandon Sherwood MD [address] [place] [address] PCP - General 11/01/19
--- OUTSIDE RECORDS SUMMARY | 2024-04-30 13:25 | XMS_ITS | Referral Summary ---
Author Organization [facility] Address [address] [facility] [place] [address] Care Team Providers Care Solar System Designer Name Role Phone Brandon Sherwood MD Primary Care Provider [phone] Source Comments [facility],non-owned Affiliates and Associated Physician Practices is amultiple site organization consisting of ambulatory clinics and hospital sitesin [place], [place], [place] and [place]. This disclosure is being madepursuant to the Care Everywhere program and may not contain all information available regarding this patient. Last updated 17.[facility] Social History Tobacco Use Types Packs/Day Years Used Date Smoking Tobacco: Never Assessed Sex and Gender Information Value Date Recorded Sex Assigned at Not on file Gender Identity Not on file Sexual Orientation Not on file Plan of Treatment Not on file Care Teams Solar System Designer Relationship Specialty Start Date End Date Brandon Sherwood MD [address] [place] [address] PCP - General 11/01/19
--- OUTSIDE RECORDS SUMMARY | 2024-04-30 13:25 | XMS_ITS | Encounter Summary ---
Author Organization [facility] Address [address] [place] [address] Phone Care Team Providers Care Decorative Engraver Name Role Phone Brandon Sherwood MD Primary Care Provider [phone] Encounter Details Date Type Department Care Team (Late st Contact Info) Description 11/05/2022 Orders Only [facility] INFECTIOUS DISEASE Scanning, Provider Social History Tobacco Use Types Packs/Day Years Used Date Smoking Tobacco: Every Day Smokeless Tobacco: Never Comments:Smoking History Pac ks/day: 1 Packs Alcohol Use Standard Drinks/Week Comments No 0 (1 standard drink = 0.6 oz pur e alcohol) Sex and Gender Information Value Date Recorded Sex Assigned at Not on file 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 Gender Identity Not on file Sexual Orientation Not on file documented as of this encounter Plan of Treatment Not on file documented as of this encounter Procedures Procedure Name Priority Date/Time Associated Diagnosis Comments SCAN - LABS 11/05/2022 documented in this encounter Results * SCAN - LABS (11/05/2022) us Provider Scanning Final Result documented in this encounter Visit Diagnoses Not on filedocumented in this encounter Care Teams Decorative Engraver Relationship Specialty Start Date End Date Brandon Sherwood MD [address] [address] PCP - General 06/28/16 documented as of this encounter
--- OUTSIDE RECORDS SUMMARY | 2024-04-30 13:26 | XMS_ITS | Referral Summary ---
Author Organization [facility] [address] [facility] [address] Address [address] [place] [address] Care Team Providers Care Motorbike Courier Name Role Phone Brandon Sherwood MD Primary Care Provider [phone] Allergies Active Allergy Reactions Criticality Noted Date Comments Codeine Furosemide Penicillins Dbzvjpf-Yga-Mze Reductase Inhibitors Muscle pain Medium 08/31/2020 Sulfa (Sulfonamide Antibiotics) Vancomycin Other (See comments) High 06/02/2023 Multiple issues involving hearing, vision, weakness Medications lgixyfin-zsr-EU-l ycopen-lutein (CENTRUM SILVER) 0.4-300-250 mg-mcg-mcg tablet One Tablet Daily 0 2 Active ascorbic acid, vitamin C, (VITAMIN C) 1,000 mg CR tablet TAKE 1 TABLET BY MOUTH ONE A DAY 0 3 Active albuterol HFA (PROAIR HFA) 90 mcg/actuation inhaler inhale 2 puff by inhalation route every 4 - 6 hours as needed 0 Inhaler 0 6 Active mometasone-formot jessica (DULERA) 100-5 mcg/actuation inhaler inhale 2 puff by inhalation route 2 times every day in the morning and evening 0 Inhaler 0 6 Active aspirin (Adult Low Dose Aspirin) 81 mg enteric coated tablet Take 1 tablet (81 mg total) by mouth daily 2 Active Incruse Ellipta 62.5 mcg/actuation blister with device 1 puff (62.5 mcg total) daily 4 Active hydroxychloroquin e (PLAQUENIL) 200 mg tabletIndications :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) Take 2 tablets (400 mg total) by mouth daily 180 tablet 1 4 Active nitroglycerin (NITROSTAT) 0.[address] 1 tablet (0.4 mg total) under the tongue every 5 (five) minutes as needed for chest pain May repeat dose q 5 min, up to 3 doses total 30 tablet 3 4 12/12/19 25 Active amLODIPine (NORVASC) 5 mg tablet Take 1 tablet (5 mg total) by mouth daily 90 tablet 3 4 Active Active Problems Problem Noted Date Diagnosed Date Hyperlipidemia 12/12/2023 Bilateral foot pain 11/02/2023 Primary hypertension 06/02/2023 Wrist pain 01/27/2023 Assessment & Plan (01/27/2023 1:07 PM CDT): - No concern for acute infection on exam today. He completed antibiotics for RUE cellulitis/olecranon bursitis over 2 months ago and has no residual erythema, warmth, etc. He has had persistent bilateral wrist pain and stiffness since hospitalization. I do not feel that this is due to adverse effect from antibiotics or related to infection. I think this is more likely due to his rheumatological disease as RS3PE can cause distal extremity swelling with limited ROM to hands/wrists along with synovitis. I have sent a message to his cokeman regarding this issue. I would recommend sooner rheumatology follow up. I did ask him to call with any signs or symptoms of recurrent cellulitis. 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/2017 Coronary artery disease invo lving [place] coronary artery of [place] heart without angina pectoris 02/07/2017 Tobacco abuse 02/07/2017 Obesity (BMI 30.0-34.9) 02/07/2017 Prinzmetal angina (CMS/HCC) 02/10/2015 Overview (07/04/2016): Prinzmetal angina Obstructive sleep apnea syndrome 10/22/2013 Overview (07/04/2016): JOSE ANTONIO (obstructive sleep apnea) Resolved Problems Problem Noted Date Diagnosed Date Resolved Date Infected olecranon bursa 10/29/202206/2023 Deep vein thrombosis (DVT) d uring current hospitalization ([facility] 02/07/2017 11/30/2021 Acute deep vein thrombosis of lower limb 05/05/2015 11/30/2021 Overview (07/04/2016): Acute deep vein thrombosis (DVT) of distal vein of right lower extremity Social History Tobacco Use Types Packs/Day Years Used Date Smoking Tobacco: Every Day Smokeless Tobacco: Never Tobacco Cessation:Ready to Q uit: No; Counseling Given: No Comments:Smoking History Packs/day: 1 Packs Alcohol Use Standard Drinks/Week Comments No 0 (1 standard drink = 0.6 oz pur e alcohol) Sex and Gender Information Value Date Recorded Sex Assigned at Not on file 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 Gender Identity Not on file Sexual Orientation Not on file Last Filed Vital Signs Vital Sign Reading Time Taken Comments Blood Pressure 130/72 12/12/2023 10:01 AM CDT Pulse 84 12/12/2023 10:01 AM CDT Temperature 36.8 ??C (98.3 ??F) 10/31/2023 1 0:48 AM CDT Respiratory Rate - - Oxygen Saturation 95% 12/12/2023 10: 01 AM CDT Inhaled Oxygen Concentration - - Weight 102.2 kg (225 lb 3.2 oz) 024 10:01 AM CDT Height 177.8 cm (5' 10 ) 12/12/2023 10: 01 AM CDT Body Mass Index 32.31 12/12/2023 10:01 AM CDT Plan of Treatment Not on file Insurance * Guarantor: Jeremías Trejo Account Type Relation to Patient Date of Phone Billing Address Personal/Family Self 1950 [address] [place] [address] [employer] [place] MEDICARE [facility] [employer] MEDICARE SUPPLEMENT INSURANCE MEDICARE [employer] MEDICARE SUPPLEMENT INSURANCE MEDICARE [employer] MEDICARE SUPPLEMENT INSURANCE Care Teams Motorbike Courier Relationship Specialty Start Date End Date Brandon Sherwood MD [address] [address] PCP - General 06/28/16
--- OUTSIDE RECORDS SUMMARY | 2024-04-30 13:26 | XMS_ITS | Clinical Summary ---
Author Organization [facility] [address] [facility] [address] Address [address] [place] [address] Care Team Providers Care Inlayer Name Role Phone Brandon Sherwood MD Primary Care Provider [phone] Allergies Active Allergy Reactions Criticality Noted Date Comments Codeine Furosemide Penicillins Ibeuhhy-Ywu-Hfo Reductase Inhibitors Muscle pain Medium 08/31/2020 Sulfa (Sulfonamide Antibiotics) Vancomycin Other (See comments) High 06/02/2023 Multiple issues involving hearing, vision, weakness Medications xhqguusa-zcn-CR-l ycopen-lutein (CENTRUM SILVER) 0.4-300-250 mg-mcg-mcg tablet One [...] I have sent a message to his machine precision etcher regarding this issue. 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 Overview (07/04/2016): Prinzmetal angina Obstructive sleep apnea syndrome 10/22/2013 Overview (07/04/2016): JOSE ANTONIO (obstructive sleep apnea) Resolved Problems Problem Noted Date Diagnosed Date Resolved Date Infected olecranon bursa 10/29/202206/2023 Deep vein thrombosis (DVT) d uring current hospitalization ([facility]) 02/07/2017 11/30/2021 Acute deep vein thrombosis of lower limb 05/05/2015 11/30/2021 Overview (07/04/2016): Acute deep vein thrombosis (DVT) of distal vein of right lower extremity Surgical History Surgery Date Site/Laterality Comments OTHER SURGICAL HISTORY Coronary Artery Disease (nonobstructive CT angio 2: Medical History Medical History Date Comments Hx Other Medical 2011 coronary vasosp asm Hx Other Medical Coronary Artery Disease (nonobstructive CT angio 2 Hypertension Hypertension Hx Other Medical Diverticulosis Acute deep vein thrombosis o f lower limb 05/05/2015 Acute deep vein thrombosis ( DVT) of distal vein of right lower extremity Infected olecranon bursa 10/29/2022 Family History Medical History Relation Name Comments Arthritis Mother Family history of arthritis - (Added by TW Conv) Other Other 2 sudden cardiac in 2 cousins; Stroke Sister 1 Family history of cerebrovascular accident (CVA) - (Added by TW Conv) Cancer Sister 2 Family history of malignant neoplasm - (Added by TW Conv) Relation Name Status Comments Mother Other 1 Alive Other 2 Sister 1 Sister 2 Social History Tobacco Use Types Packs/Day Years [...] on file 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 Gender Identity Not on file Sexual Orientation Not on file Obstetrics History Last Filed Vital Signs Vital Sign Reading [...] 12/12/2023 10:01 AM CDT Plan of Treatment Health Maintenance Due Date Last Done Comments Colon Cancer Screening-Colonoscopy 1950 Depression Screening 1950 Fall Risk Assessment 1950 Hepatitis C Screening 1950 Pneumococcal vaccine 65+ (1 of 2 - PCV) 12/07/1957 DTaP/Tdap/Td Vaccine (1 - Tdap) 12/07/1962 Hepatitis B Screening 12/07/1969 Zoster Vaccine (1 of 2) 12/07/1970 Abdominal Aortic Aneurysm (AAA) Screen 12/07/2016 Well Visit 65+ 12/07/2016 Influenza Vaccine (#1) 2023 Insurance [employer] [facility] [place] MEDICARE [facility] MEDICARE SUPPLEMENT INSURANCE [facility]ICARE [facility] MEDICARE SUPPLEMENT INSURANCE [facility]ICARE [facility] MEDICARE SUPPLEMENT INSURANCE Care Teams Inlayer Relationship Specialty Start Date End Date Brandon Sherwood MD [address] [address] PCP - General 06/28/16
--- OUTSIDE RECORDS SUMMARY | 2024-04-30 13:26 | XMS_ITS | Data Portability ---
Author Organization [place] - [facility] [employer], Main Office Address [address] [place] [address] Care Team Providers Care Pharmacy Benefits Coordinator Name Role Phone RODRIGUEZ CULVER Primary Care Provider [phone] RODRIGUEZ CULVER Referring Provider Assessment Encounter Date Assessment Date Assessment LastModified by Organization Details LastModified Time 10/29/2022 10/29/2022 Patient presents elbow pain right. He is tender over the right elbow has 4-5 day history of pain and swelling. Interestingly it has turned red little bit red recently. Neurologically he is intact he has got nearly full motion of his elbow mild pain and swelling. Looks like he may be developing an olecranon bursa bursal infection. I aspirated this and start him on doxycycline. Unfortunately as has a penicillin allergy which may or may not affect the cephalosporins. He also has a sulfa allergy. I told him I would like to see him back in a week for follow-up and see how he is doing if it is getting worse he needs to call me immediately will have to switch antibiotics discussed. [email or web address] Not available 10/29/2022 15:53:31 11/05/2022 11/05/2022 Patient has not improved on antibiotics. Has swelling and pain Right arm. Has a history of DVT, also has an autoimmune disease. I'm very concerned about this sweling and pain. Will admit to the hospital. Check a duplex scan, and antibiotics. Discussed in detail. [email or web address] Not available 11/05/2022 21:01:57 Plan of Treatment Reminders Order Date Submit Date Provider Last Modified By Organization Details Last Modified Time Details Appointments None recorded. Lab culture + sensitivity , body fluid - right elbow fluid 2022 023 [email or web address] [facility] ([facility] [address] [place] [address] [address], [place], [address], 3 15:53:44 culture, aerobic + anaerobic - right elbow fluid [address] (Lab), [address] [facility] [address], [place], [address], 3 15:53:44 culture, body fluid - right elbow fluid 2022 023 [facility] (Lab), [address] [facility] [address], [place], [address], 3 13:18:48 Referral None recorded. Procedures injection/a spiration joint/bursa (PROC) 2022 023 [email or web address] Not available 15:28:39 injection/a spiration joint/bursa (PROC) - in office procedure, administere d by provider 2022 023 [email or web address] In-Office Order, Internal Use Only DO Not Attach Compendium DO Not Attach Compendium, Do Not Delete/merge, [id number] 3 15:45:08 Surgeries None recorded. Imaging XR, elbow 2022 023 [email or web address] [facility] [place], [address], [place], [address], 3 16:28:40 Medication Orders ropivacaine (PF) 5 mg/mL (0.5 %) injection solution [address] [id number], [address], [place], [place], [id number], 3 15:33:38 ropivacaine (PF) 5 mg/mL (0.5 %) injection solution 2022 023 [email or web address] Not available 3 08:09:59 Patient TargetsNo targets recorded. Patient InstructionsNo instructions recorded. Reason for Referral None Reported. Results Created Date Observation Date Name Description Value Unit Range Abnormal Flag Note LastModifiedBy Organization Detail LastModifiedTime 10/30/19 23 XR, elbow No observ ation record ed. [facility] [place] [address], [place], [address], 10/29/2022 15:27:41 Result Notes None recorded. 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 Not Available [facility] 3 13:11:29 Disorder of sacrum 82575298 Active Not Available [facility] 3 13:11:29 Plantar fascial fibromatos is 44730582 Active Not Available [facility] 3 13:11:29 Radiothera py follow-up 845119847 Active Not Available [facility] 3 13:11:29 Low back pain 116620713 Active Not Available [facility] 3 13:11:29 Enthesopat hy of hip region 55084596 Active Not Available [facility] 3 13:11:29 Knee pain Active Not Available [facility] 3 13:11:29 Localized, primary osteoarthr itis of elbow 361239668 Active Not Available [facility] 3 13:11:30 Lesion of ulnar nerve 714510977 Active Not Available [facility] 3 13:11:30 Osteoarthr itis 125116227 Active Not Available [facility] 3 13:11:30 Medial epicondyli tis 20423506 Active 2019 Not Available [facility] 3 13:11:30 Pain of right elbow joint 3133928232248 9109 Active 2022 DARYN Soni null, [facility] 3 15:10:30 Infected olecranon bursa 885618176 Active 2022 Torey Philip MD [address] [facility], [facility] [address], [place], [address] , [employer] 3 15:29:04 Problem Notes None recorded. Procedures Surgical History Date Name Laterality Status Provider Name and Address Organization Details Recorded Time 10/30/19 Arthrocentesis Intermediate Joint/Bursa completed Torey Philip MD [address] [facility], [facility] [address], [place], [address], [facility] [employer] 10/29/2022 15:26:53 Imaging Results Imaging Date Name Status LastModified by Organiz ation Details LastModified Time 10/29/2022 XR, elbow completed [email or web address] [place] [address], [place], [address], 10/29/2022 15:27:41 Procedure Notes None recorded. Medical Equipment None Reported. Allergies Allergen ID Allergen Name Allergen Category Reaction Reaction Severity Criticality Documentation Date Start Date Code Code System Note Provider Name and Address Organization Details Recorded Time 83774 Substance with sulfonami de structure and antibacte rial mechanism of action (substanc e) medicatio n Not available Not available Not available 05/29/2022 92880 8003 SNOMED Not Available [facility] 3 13:12:50 71799 Product containin g penicilli n and antibioti c (product) medicatio n Not available Not available Not available 05/29/2022 45207 05 SNOMED Not Available [facility] 3 13:12:50 48375 codeine medicatio n Not available Not available Not available 10/29/2022 2670 RxNorm DARYN Soni, [facility] [employer] 3 15:08:46 Medications Name Sig Start Date Stop Date Status Note LastModified by Organization Details LastModified Time prednisone 10 mg tablet TAKE 1 TABLET 3 TIMES A DAY FOR 3 DAYS THEN 1 TAB TWICE A DAY FOR 2 DAYS THEN 1 TAB DAILY FOR 1 DAY active Not Available Not Available No t Available ketoconazol e 2 % shampoo APPLY TOPICALLY 3 TIMES A WEEK active Not Available Not Available No t Available clindamycin HCl 300 mg capsule 08/11 completed Not Available Not Available Not Available azithromyci n 250 mg tablet 08/11 completed Not Available Not Available Not Available prednisone 20 mg tablet 08/11 completed Not Available Not Available Not Available prednisone 5 mg tablet 08/11 completed Not Available Not Available Not Available clobetasol 0.05 % topical cream 08/11 completed Not Available Not Available Not Available leflunomide 10 mg tablet 08/11 completed Not Available Not Available Not Available amlodipine 2.5 mg tablet 08/11 completed Not Available Not Available Not Available metronidazo le 500 mg tablet TAKE 1 TABLET BY MOUTH EVERY 8 HOURS 10/29 completed Not Available Not Available Not Available amlodipine 5 mg tablet TAKE 1 TABLET BY MOUTH DAILY active Not Available Not Available No t Available ciprofloxac in 500 mg tablet TAKE 1 TABLET BY MOUTH EVERY 12 HOURS 10/29 completed Not Available Not Available Not Available tramadol 50 mg tablet 08/11 completed Not Available Not Available Not Available prednisone 10 mg tablets in a dose pack Take 1 tab by mouth, 3 times a day for 3 daysTake 1 tab by mouth 2 times a day for 2 daysTake 1 tab by mouth once a day for 1 day 08/11 completed Not Available Not Available Not Available methotrexat e sodium 2.5 mg tablet 08/11 completed Not Available Not Available Not Available linezolid 600 mg tablet TAKE 1 TABLET BY MOUTH EVERY 12 HOURS active Not Available Not Available No t Available prednisone 1 mg tablet 08/11 completed Not Available Not Available Not Available Kenalog 10 mg/mL suspension for injection In office injection administe red by the provider 10/[address] [facility]: [phone] [phone]- [phone] Not Available Not Available Not Available benzonatate 100 mg capsule TAKE 2 CAPSULES BY MOUTH 3 TIMES A DAY NEEDED 08/11 completed Not Available Not Available Not Available hydrocodone 7.5 mg-acetamin ophen 325 mg tablet 08/11 completed Not Available Not Available Not Available cephalexin 500 mg capsule TAKE 1 CAPSULE BY MOUTH EVERY 8 HOURS 10/29 completed Not Available Not Available Not Available tobramycin 0.3 % eye drops 08/11 completed Not Available Not Available Not Available orphenadrin e citrate ER 100 mg tablet,exte nded release 08/11 completed Not Available Not Available Not Available nicotine 21 mg/24 hr daily transdermal patch APPLY 1 PATCH TO SKIN EVERY MORNING UTD 08/11 completed Not Available Not Available Not Available nitroglycer in 0.[address] 1 TABLET BY MOUTH UNDER THE TONGUE EVERY 5 MINUTES NEEDED FOR CHEST PAIN active Not Available Not Available No t Available gabapentin 300 mg capsule TAKE 1 CAPSULE BY MOUTH DAILY AT BEDTIME 10/29 completed Not Available Not Available Not Available clobetasol 0.05 % topical ointment 08/11 completed Not Available Not Available Not Available hydroxychlo roquine 200 mg tablet active Not Available Not Available No t Available cefuroxime axetil 500 mg tablet 08/11 completed Not Available Not Available Not Available levofloxaci n 500 mg tablet 08/11 completed Not Available Not Available Not Available levofloxaci n 750 mg tablet TK 1 T PO D 08/11 completed Not Available Not Available Not Available albuterol sulfate HFA 90 mcg/actuati on aerosol inhaler INHALE 2 PUFFS BY MOUTH EVERY 4 HOURS NEEDED FOR DIFFICULT BREATHING active Not Available Not Available No t Available cefdinir 300 mg capsule 08/11 completed Not Available Not Available Not Available fluticasone propionate 50 mcg/actuati on nasal spray,suspe nsion 08/11 completed Not Available Not Available Not Available doxycycline hyclate 100 mg tablet TAKE 1 TABLET BY MOUTH TWICE DAILY DIRECTED active Not Available Not Available No t Available mometasone 0.1 % topical cream APPLY TO EAR ITCH/RASH ONCE DAILY NEEDED 10/29 completed Not Available Not Available Not Available doxazosin 2 mg tablet TK 1 T PO QD 08/11 completed Not Available Not Available Not Available Spiriva with HandiHaler 18 mcg and inhalation capsules INHALE 1 PUFF BY MOUTH EVERY DAY 10/29 completed Not Available Not Available Not Available lidocaine (PF) 10 mg/mL (1 %) injection solution In office injection administe red by the provider 10/[address] [facility]: [phone]- [phone] Not Available Not Available Not Available Dulera 100 mcg-5 mcg/actuati on HFA aerosol inhaler INHALE 2 PUFFS BY MOUTH EVERY 12 HOURS active Not Available Not Available No t Available Suprep Bowel Prep Kit 17.5 gram-3.13 gram-1.6 gram oral solution 08/11 completed Not Available Not Available Not Available Pradaxa 150 mg capsule 08/11 completed Not Available Not Available Not Available ropivacaine (PF) 5 mg/mL (0.5 %) injection solution Take 15 mg by injection route. [address] [facility] 54559 -[phone] Not Available Not Available Not Available Eliquis 5 mg tablet TAKE 1 TABLET BY MOUTH 2 TIMES EVERY DAY 08/11 completed Not Available Not Available Not Available Jublia 10 % topical solution with applicator 08/11 completed Not Available Not Available Not Available Incruse Ellipta 62.5 mcg/actuati on powder for inhalation INHALE 1 PUFF PO QD FOR COPD 08/11 completed Not Available Not Available Not Available Trelegy Ellipta 100 mcg-62.5 mcg-25 mcg powder for inhalation INHALE 1 PUFF BY MOUTH DAILY active Not Available Not Available No t Available Vitals Date Recorded Body height Provider Name an d Address Organization Details Last Updated DateTime 10/29/2022 177.8 cm Shagufta Edward [facility] [employer] 10/29/2022 15:08:28 Date Recorded Body mass index (BMI) Body weight Provider Name and Address Organization Details Last Updated DateTime 10/29/2022 30.8 kg/m2 39186.36 g Shagufta Leon [facility] [employer] [facility] 10/29/2022 15:08:34 Date Recorded Body height Provider Name an d Address Organization Details Last Updated DateTime 11/05/2022 177.8 cm Mirela Menamolina [employer] [facility] [employer] [facility] 11/05/2022 14:46:49 Date Recorded Body mass index (BMI) Body weight Provider Name and Address Organization Details Last Updated DateTime 11/05/2022 30.8 kg/m2 40377.36 g Mirela Menas [facility] [employer] [facility] 11/05/2022 14:46:57 Social History None recorded. Functional Status None recorded. Mental Status None recorded. Family History Nothing Reported. Medical History No medical history recorded. Past Encounters Encounter ID Performer Location Encounter Start Date Encounter Closed Date Diagnosis/Indication Diagnosis SNOMED-CT Code Diagnosis ICD10 Code Diagnosis Note [id number] Torey Philip MD [facility] [place] [address] [place] [address] 10/29/2022 14:38:38 10/29/2022 16:28:40 Pain of right elbow joint 1194377010 2327775 M25.521 Infected o lecranon bursa 126741545 M70.21 [id number] Torey Philip MD [facility] [place] [address] [facility] [address] [place] [address] 11/05/2022 14:39:59 11/05/2022 15:43:50 Pain of right elbow joint 0996059722 2344861 M25.521 Infected o lecranon bursa 047382162 M70.21 Health Concerns Section Related Observation LastModified by Organization Detai ls LastModified Time None Recorded Concern Status LastModified by Organization Details LastModified Time None Recorded Advance Directives Directive None Recorded Payers Encounter Date Sequence Insurance Name Policy Number Policy Ling Covered Member ID Ling Member ID Guarantor Name 10/29/2022 1 [place] Jeremías Shannan Trejo [id number] Jeremías Trejo 10/29/2022 2 [employer] - [employer] (MEDICARE SUPPLEMENT) PLAN F Jeremías Trejo [id number] Jeremías Trejo 11/05/2022 1 [place] Jerem[place] Trejo [id number] Jeremías Trejo 11/05/2022 2 [employer] - [employer] (MEDICARE SUPPLEMENT) PLAN F Jeremías Shannan Trejo [id number] Jeremías Campbell Neil Notes Date Note Type Note Provider Name and Address Organization Details Recorded Time 10/29/2022 text/html Patient presents 4-5 day history of pain and swelling in the right elbow. His recall any specific trauma. Denies any fevers chills or night sweats. He notes that the pain seemingly is getting worse and not better. Torey Philip MD [address], [place], [address], [employer] 10/29/2022 15:53:40 11/05/2022 text/html Patient returns with continued swelling and pain right arm. He has not improved with doxycycline. Nor much redness or fevers. Torey Philip MD [address], [place], [address], [employer] 11/05/2022 21:02:31
--- NOTE | 2024-04-30 15:10 | ED_ITS ---
HPI - SOB/Dyspnea General Chief Complaint: Shortness of Breath/Dyspnea <Renee Julio PA-C - Last Filed: 05/01/24 15:26> Stated Complaint: dyspnea, diarrhea, COPD <Renee Julio PA-C - Last Filed: 05/01/24 15:26> Time Seen by Provider: 04/30/24 15:10 <Renee Julio PA-C - Last Filed: 05/01/24 15:26> Focused HPI: This is a 73 year old male that presents to the ER for shortness of breath. He does not usually wear oxygen. Is currently on 2L NC as his oxygen saturation was in the 80s on room air. Reports recently having a GI bug, has been worsening since. Reports 3 days of profuse diarrhea. Reports dark stools. GENERAL: Elderly, well-nourished, and in no acute distress. HEAD: Normocephalic, atraumatic. CHEST: Clear to auscultation. ?No respiratory distress. HEART: Regular rate and rhythm.? NEURO: ?Alert and oriented x3. Patient screened in triage and initial orders placed.? ?Additional care and disposition to be based upon?diagnostic testing and treatment. <Renee Julio PA-C - Last Filed: 05/01/24 15:26> Focused HPI: This is a 73 year old male that presents to the ER for shortness of breath. He does not usually wear oxygen. Is currently on 2L NC as his oxygen saturation was in the 80s on room air. Reports recently having a GI bug, has been worsening since. Reports 3 days of profuse diarrhea. GENERAL: Elderly, well-nourished, and in no acute distress. HEAD: Normocephalic, atraumatic. CHEST: Clear to auscultation. ?No respiratory distress. HEART: Regular rate and rhythm.? NEURO: ?Alert and oriented x3. Patient screened in triage and initial orders placed.? ?Additional care and disposition to be based upon?diagnostic testing and treatment. <Cj Dean MD - Last Filed: 04/30/24 23:04> History of Present Illness HPI Narrative: I agree with the above HPI <Cj Dean MD - Last Filed: 04/30/24 23:04> Related Data Home Medications: Home Medications ?Medication ?Instructions ?Recorded ?Confirmed ?Last Taken ?Type hydroxychloroquine 200 mg tablet 200 mg PO BID 05/07/21 05/01/24 04/30/24 History Sarah Low Dose Aspirin 81 mg PO DAILY 04/14/23 05/01/24 04/30/24 History multivitamin 1 tablet PO DAILY 05/02/23 05/01/24 04/30/24 History ascorbic acid (vitamin C) 500 mg 500 mg PO DAILY 06/23/23 05/01/24 04/30/24 History tablet <Renee Julio PA-C - Last Filed: 05/01/24 15:26> Allergies/Adverse Reactions: Allergies Allergy/AdvReac Type Severity Reaction Status Date / Time rivaroxaban Allergy Severe violent Verified 05/01/24 11:30 rage, hives, swelling vancomycin Allergy Severe collapse Verified 05/01/24 11:30 veins enoxaparin Allergy Intermediate hives, rash Verified 05/01/24 11:30 Penicillins Allergy Intermediate Swelling Verified 05/01/24 11:30 trovafloxacin Allergy Intermediate Other Verified 05/01/24 11:30 apixaban Allergy Unknown violent Verified 05/01/24 11:30 rage, hives, swelling celecoxib Allergy Unknown Nausea and Verified 05/01/24 11:30 Vomiting clarithromycin Allergy Unknown Unknown Verified 05/01/24 11:30 erythromycin base Allergy Unknown Unknown Verified 05/01/24 11:30 furosemide Allergy Unknown Swelling Verified 05/01/24 11:30 Iodinated Contrast Media Allergy Unknown Rash Verified 05/01/24 11:30 iodine Allergy Unknown SEVERE RASH Verified 05/01/24 11:30 montelukast Allergy Unknown Unknown Verified 05/01/24 11:30 Sulfa (Sulfonamide Allergy Unknown Unknown Verified 05/01/24 11:30 Antibiotics) codeine AdvReac Unknown Headache Verified 05/01/24 11:30 doxycycline AdvReac Unknown Nausea and Verified 05/01/24 11:30 Vomiting Quinolones AdvReac Unknown ITCHING Verified 05/01/24 11:30 <Renee Julio PA-C - Last Filed: 05/01/24 15:26> Review of Systems 2 Review of Systems: All systems reviewed & are unremarkable except as noted in HPI and below <Cj Dean MD - Last Filed: 04/30/24 23:04> PMFSH Past Medical History Medical History: Medical History (Updated 05/01/24 @ 15:26 by Renee Julio PA-C) Diarrhea Male erectile dysfunction, unspecified Viagra did not help, Cialis caused headache. BMI 31.0-31.9,adult Edema, peripheral Acute diarrhea Hypokalemia Dehydration Hyponatremia Hypersomnia Snoring Hypoxia Hypertension Sinusitis Aortic atherosclerosis COPD exacerbation Thrush, oral Right forearm cellulitis Deep vein thrombosis of right lower limb Chronic obstructive pulmonary disease Coronary artery disease COVID-19 (05/2022) tested positive 06/10/22 Elevated fasting glucose Fasting glucose 117 with hemoglobin A1c 5.6 on 04/26/2022. Encounter for prostate cancer screening PSA 2.13 on 04/26/2022. Metatarsalgia of both feet MRI of both feet on 08/30/2022 by [facility] revealed degenerative joint disease worse at the 1st MTP bilaterally with bunion formation on the right foot. Nausea and vomiting (12/28/20) history of nausea and vomiting with bowel prep Polyp of colon colonoscopy with Dr. 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) Psoriasis Eczema Diverticulosis Diverticulitis Gastric ulcer Pneumonia Wears partial dentures Asthma <Renee Julio PA-C - Last Filed: 05/01/24 15:26> Surgical History Surgical History: Surgical History History of arthroscopy of left knee History of arthroplasty of right knee X4 History of vasectomy History of cholecystectomy H/O colonoscopy with polypectomy History of cardiac catheterization (2012) <Renee Julio PA-C - Last Filed: 05/01/24 15:26> Family History Family History: Family History Mother Family history of multiple sclerosis, Onset Age: 73 Father Patient's father is , Onset Age: 51 Family history of liver disease Family history of chronic obstructive pulmonary disease Family history of alcoholism Sibling Family history of malignant neoplasm Cerebrovascular accident Sibling Breast cancer <Renee Julio PA-C - Last Filed: 05/01/24 15:26> Social History Social History: Social History Social History: Surrogate medical decision maker: Palma Santillan, daughter. Code status: Full code. Smoking packs per day: 12 Smoking cigarettes per day: 240.0 Years smoked: 50 Smoking pack-years: 600.00 Smoking status: Current every day smoker Tobacco type: cigarettes Alcohol intake: never Substance use: never Substance use type: does not use Do You Feel Safe in your Home?: Yes Lack of Transportation: No Lack of Food: Never True Current Housing: Decline to Answer Concerned About Future Housing: No Difficulty Paying Gas/Electric Bills: No Difficulty Paying for Meds: No Currently Unemployed: No Education: High School Diploma/GED Difficulty w/ Childcare or Family Care: No Living arrangements: alone Spiritual care concerns: No <Renee Julio PA-C - Last Filed: 05/01/24 15:26> Exam 2 Narrative: APPEARANCE: Ill-appearing HEAD: normocephalic, atraumatic. EYES: PERRLA/EOMI, conjunctivae clear. NOSE: Normal no drainage EARS:TMS clear with good light reflex. THROAT: Pharynx clear, no exudate. NECK: Supple. No adenopathy, no masses. RESPIRATORY: Wheezing with increased work of breathing CARDIOVASCULAR: Regular rate and rhythm without murmurs rubs or gallops. ABDOMINAL: Soft, nontender, nondistended, normal bowel sounds MUSCULOSKELETAL: Moves all extremities. Strength/ROM intact, No edema, No calf tenderness. NEURO: Alert. Cranial nerves II through XII intact. Grossly intact SKIN: Warm, dry. Normal Color <Cj Dean MD - Last Filed: 04/30/24 23:04> Course Vital Signs Vital signs: Vital Signs Temperature 98.2 F 04/30/24 13:23 Pulse Rate 92 04/30/24 13:23 Respiratory Rate 18 04/30/24 13:23 Blood Pressure 124/58 L 04/30/24 13:23 Pulse Oximetry 92 04/30/24 13:23 Oxygen Delivery Nasal Cannula 04/30/24 13:23 Oxygen Flow Rate 2 04/30/24 13:23 Temperature 97.1 F L 05/01/24 12:29 Pulse Rate 80 05/01/24 13:15 Respiratory Rate 20 05/01/24 13:15 Blood Pressure 128/67 05/01/24 12:29 Pulse Oximetry 97 05/01/24 13:05 Oxygen Delivery Nasal Cannula 05/01/24 13:05 Oxygen Flow Rate 3 05/01/24 13:05 Fraction of Inspired Oxygen 32 05/01/24 08:39 <Renee Julio PA-C - Last Filed: 05/01/24 15:26> Vital Signs Temperature 98.2 F 04/30/24 13:23 Pulse Rate 92 04/30/24 13:23 Respiratory Rate 18 04/30/24 13:23 Blood Pressure 124/58 L 04/30/24 13:23 Pulse Oximetry 92 04/30/24 13:23 Oxygen Delivery Nasal Cannula 04/30/24 13:23 Oxygen Flow Rate 2 04/30/24 13:23 Temperature 97.1 F L 05/01/24 12:29 Pulse Rate 80 05/01/24 13:15 Respiratory Rate 20 05/01/24 13:15 Blood Pressure 128/67 05/01/24 12:29 Pulse Oximetry 97 05/01/24 13:05 Oxygen Delivery Nasal Cannula 05/01/24 13:05 Oxygen Flow Rate 3 05/01/24 13:05 Fraction of Inspired Oxygen 32 05/01/24 08:39 <Cj Dean MD - Last Filed: 04/30/24 23:04> MDM - SOB/Dyspnea MDM Narrative Medical decision making narrative: 73-year-old male with history of COPD presenting emergency department for evaluation for worsening shortness of breath. Patient did have an O2 requirement, patient was 70% on room air but is saturating well on 2 L and is in no distress. Patient was afebrile with no leukocytosis and a stable hemoglobin of 15.8. INR is 1.0. Patient was positive for influenza. Chest x-ray showed atelectasis. Case was discussed with hospitalist and [facility] Patient was started on antibiotics in the emergency department to cover for worsening pneumonia. Discussed starting Tamiflu but due to underlying allergies Tamiflu was not started the emergency department. Patient family updated on the results of the workup they are comfortable plan for admission. All questions concerns were addressed patient was well-appearing at time of admission. <Cj Dean MD - Last Filed: 04/30/24 23:04> Differential Diagnosis Differential diagnosis: Likely other (COVID, RSV, influenza, COPD) <Cj Dean MD - Last Filed: 04/30/24 23:04> Lab Data Attestation: I reviewed the patient's lab results. <Cj Dean MD - Last Filed: 04/30/24 23:04> Result diagrams: 04/30/24 17:17 04/30/24 17:17 <Renee Julio PA-C - Last Filed: 05/01/24 15:26> Labs: Lab Results 04/30/24 04/30/24 Range/Units 17:17 21:18 WBC 6.1 (4.5-10.0) K/mm3 RBC 4.89 (4.6-6.20) M/mm3 Hgb 15.8 D (14.0-18.0) g/dL Hct 46.7 (42.0-52.0) % MCV 95.5 (80-100) fl MCH 32.3 (26-34) pg MCHC 33.8 (32-36) g/dl RDW 13.2 (11.5-14.5) % Plt Count 167 (150-375) k/mm3 MPV 9.0 (7.4-10.4) fl Immature Gran % (Auto) 0.3 (0-0.5) % Neut % (Auto) 74.0 H (45.5-73.1) % Lymph % (Auto) 13.6 L (18.3-44.2) % [place] % (Auto) 11.6 H (2.6-8.5) % Eos % (Auto) 0.0 (0-4.4) % Baso % (Auto) 0.5 (0.2-1.2) % Lymph # (Auto) 0.83 L (0.9-3.2) K/mm3 [place] # (Auto) 0.7 H (0.1-0.6) K/mm3 Eos # (Auto) 0.0 (0-0.3) K/mm3 Baso # (Auto) 0.0 (0.0-0.1) K/mm3 Abs Immat Gran (auto) 0.02 (0.00-0.031) K/mm3 Absolute Neuts (auto) 4.5 (1.3-6.7) K/mm3 Absolute Nucleated RBC 0.000 (0.0-0.012) K/mm3 Nucleated RBC % 0.0 (0.0-0.2) % PT 13.7 (11.1-14.7) Seconds INR 1.0 APTT 33.1 (22.3-36.8) Seconds Sodium 135 L (137-145) mmol/L Potassium 3.8 (3.4-5.0) mmol/L Chloride 96 L (98-107) mmol/L Carbon Dioxide 28 (22-30) mmol/L Anion Gap 11 (4-12) mmol/L BUN 34 H D (9-20) mg/dL Creatinine 1.03 (0.7-1.3) mg/dL Estim Creat Clear Calc Not Reportable Estimated GFR > 60 (59 - ) Glucose 153 H (65-110) mg/dL Calcium 8.2 L (8.4-10.2) mg/dL Total Bilirubin 0.5 (0.2-1.3) mg/dL AST 120 H (17-59) U/L ALT 64 H (6-50) U/L Alkaline Phosphatase 27 L (38-126) U/L NT-Pro-B Natriuret Pep < 20 (19.9-100) pg/mL Total Protein 7.0 (6.3-8.2) g/dL Albumin 4.0 (3.5-5.1) g/dL Influenza A (RT-PCR) Positive A (Negative) Influenza B (RT-PCR) Negative (Negative) RSV (RT-PCR) Negative (Negative) SARS-CoV-2 RNA (RT-PCR) Negative (Negative) Blood Type O Positive Antibody Screen Negative <Renee Julio PA-C - Last Filed: 05/01/24 15:26> Lab Results 04/30/24 04/30/24 Range/Units 17:17 21:18 WBC 6.1 (4.5-10.0) K/mm3 RBC 4.89 (4.6-6.20) M/mm3 Hgb 15.8 D (14.0-18.0) g/dL Hct 46.7 (42.0-52.0) % MCV 95.5 (80-100) fl MCH 32.3 (26-34) pg MCHC 33.8 (32-36) g/dl RDW 13.2 (11.5-14.5) % Plt Count 167 (150-375) k/mm3 MPV 9.0 (7.4-10.4) fl Immature Gran % (Auto) 0.3 (0-0.5) % Neut % (Auto) 74.0 H (45.5-73.1) % Lymph % (Auto) 13.6 L (18.3-44.2) % [place] % (Auto) 11.6 H (2.6-8.5) % Eos % (Auto) 0.0 (0-4.4) % Baso % (Auto) 0.5 (0.2-1.2) % Lymph # (Auto) 0.83 L (0.9-3.2) K/mm3 [place] # (Auto) 0.7 H (0.1-0.6) K/mm3 Eos # (Auto) 0.0 (0-0.3) K/mm3 Baso # (Auto) 0.0 (0.0-0.1) K/mm3 Abs Immat Gran (auto) 0.02 (0.00-0.031) K/mm3 Absolute Neuts (auto) 4.5 (1.3-6.7) K/mm3 Absolute Nucleated RBC 0.000 (0.0-0.012) K/mm3 Nucleated RBC % 0.0 (0.0-0.2) % PT 13.7 (11.1-14.7) Seconds INR 1.0 APTT 33.1 (22.3-36.8) Seconds Sodium 135 L (137-145) mmol/L Potassium 3.8 (3.4-5.0) mmol/L Chloride 96 L (98-107) mmol/L Carbon Dioxide 28 (22-30) mmol/L Anion Gap 11 (4-12) mmol/L BUN 34 H D (9-20) mg/dL Creatinine 1.03 (0.7-1.3) mg/dL Estim Creat Clear Calc Not Reportable Estimated GFR > 60 (59 - ) Glucose 153 H (65-110) mg/dL Calcium 8.2 L (8.4-10.2) mg/dL Total Bilirubin 0.5 (0.2-1.3) mg/dL AST 120 H (17-59) U/L ALT 64 H (6-50) U/L Alkaline Phosphatase 27 L (38-126) U/L NT-Pro-B Natriuret Pep < 20 (19.9-100) pg/mL Total Protein 7.0 (6.3-8.2) g/dL Albumin 4.0 (3.5-5.1) g/dL Influenza A (RT-PCR) Positive A (Negative) Influenza B (RT-PCR) Negative (Negative) RSV (RT-PCR) Negative (Negative) SARS-CoV-2 RNA (RT-PCR) Negative (Negative) Blood Type O Positive Antibody Screen Negative <Cj Dean MD - Last Filed: 04/30/24 23:04> Imaging Data Radiologist's impression: Impressions Chest X-Ray 04/30/24 16:31 IMPRESSION: 1. Mild atelectasis in left lower lung zone. <Cj Dean MD - Last Filed: 04/30/24 23:04> Critical Care Time Critical Care Time Critical Care Time: Yes <Renee Julio PA-C - Last Filed: 05/01/24 15:26> Total Critical Care Time: 35 <Renee Julio PA-C - Last Filed: 05/01/24 15:26> Discharge Plan Discharge Clinical Impression: Acute hypoxic respiratory failure, Influenza A <Renee Julio PA-C - Last Filed: 05/01/24 15:26> Patient Disposition: Still a Patient <Renee Julio PA-C - Last Filed: 05/01/24 15:26> Condition: Stable <Renee Julio PA-C - Last Filed: 05/01/24 15:26>
--- NOTE | 2024-04-30 15:11 | ECG_ITS ---
Test Date: 2024-04-30 15:19:08 Measurements Intervals Boyce Rate: 97 P: 76 IN: 139 QRS: 93 QRSD: 92 T: 66 QT: 347 QTc: 442 Interpretive Statements SINUS RHYTHM RIGHT AXIS DEVIATION CANNOT R/O SEPTAL INFARCT, AGE INDETERMINATE BASELINE ARTIFACT- I, III, AVR, AVL, AVF ABNORMAL ECG No previous ECG available for comparison Electronically Signed On 05-01-2024 10:13:57 UNIT SUPPORT REPRESENTATIVE by Flavio Kaur D.O.
--- OUTSIDE RECORDS SUMMARY | 2024-04-30 15:31 | XMS_ITS | Patient Health Summary ---
Author Organization [facility] Address [address] [place] [address] Care Team Providers Care Legal Associate Name Role Phone Brandon Sherwood MD Primary Care Provider [phone] Note from [facility],non-owned Affiliates and Associated Physician Practices is amultiple site organization consisting of ambulatory clinics and hospital sitesin [place], [place], [place] and [place]. This disclosure is being madepursuant to the Care Everywhere program and may not contain all information available regarding this patient. Last updated 17.[facility] Social History Tobacco Use Types Packs/Day [...] included. Case Report Dermatopathology Report ? Case: [id number] ? Authorizing Provider: ??Zachary Campa MD ?Collected: ? 10/15/2022 12:00 AM ? Ordering Location: ? [facility] DermPath Lab ? Received: ?10/17/2022 10:06 AM ? Pathologist: ? Abby Carvajal MD ? Specimen: ?Skin, left upper inner thigh ? 3 3:[address] [facility] DERMATOPATHOLOGY LABORATORY Final Diagnosis Specimen A. SKIN, left upper inner thigh: SEBORRHEIC KERATOSIS, IRRITATED AND INFLAMED (L82.0) 3 3:[address] [facility] DERMATOPATHOLOGY LABORATORY Clinical History MM vs angioma. Path#[id number] 3 3:[address] [facility] DERMATOPATHOLOGY LABORATORY Gross Description Specimen A: Received is one formalin filled container labeled with the patient's name and designated left upper inner thigh. The specimen consists of a shave biopsy measuring 10x7x2 mm. Jar 0. 3 3:[address] [facility] DERMATOPATHOLOGY LABORATORY Microscopic Description Specimen A. SKIN, left upper inner thigh: Sections show acanthosis, papillomatosis, hyperkeratosis, and squamous eddies. There is a lymphohistiocytic infiltrate within the papillary dermis. 3 3:[address] [facility] DERMATOPATHOLOGY LABORATORY Disclaimer An external and internal positive and negative controls are appropriate for the histochemical, immunohistochemical and immunofluorescence stain(s) in this case (if any), except where stated explicitly. The performance characteristics of the stain(s) cited in this report were developed and its performance characteristic determined by the Dermatopathology Laboratory at [facility], directed by Dr. Moises Kwok. These tests need not be, and therefore are not, approved by the [place] Food and Drug Administration. The tests are used for clinical purposes. Billing Codes Specimen Charges Stain Charges 34067 1 3 3:09 PM [facility] DERMATOPATHOLOGY LABORATORY Embedded Images 3 3:09 PM [facility] DERMATOPATHOLOGY LABORATORY Pathology/Cytolog y TISSUE SPECIMEN FROM SKIN / Unknown 10/15/2022 10/17/2022 10:06 AM CDT Zachary Campa MD LAB - PATHOLOGY/CYTO LOGY ORDERABLES DERMATOPATHOLOGY LABORATORY [facility] - Department of Dermatology [address], [address] [phone] * GROSS + MICRO EXAM (01/18/2002 12:00 [...] Released By ?ARAM ACE CPT Code ? 03128 MISCELLANEOUS SAMPLE S / Unknown 01/18/2002 01/18/2002 12:30 PM CDT Historical Provider LAB - PATHOLOGY/C YTOLOGY ORDERABLES Care Teams Legal Associate Relationship Specialty Start Date End Date Brandon Sherwood MD [address] [place] [address] PCP - General 11/01/19
--- OUTSIDE RECORDS SUMMARY | 2024-04-30 15:31 | XMS_ITS | Encounter Summary ---
Author Organization [facility] Address [address] [address] Care Team Providers Care Aviation Safety Officer Name Role Phone Brandon Sherwood MD Primary Care Provider [phone] Encounter Details Date Type Department Care Team (Late st Contact Info) Description 03/16/2021 Lab Requisition [facility] DermPath Lab [address] [place] [id number] Zachary Campa MD [address] [facility] [address] [place] [address] Social History Tobacco Use Types Packs/Day [...] Comments DERMATOPATHOLOGY Routine 03/15/2021 12:0 0 AM TACK MAKER documented in this encounter Results * DERMATOPATHOLOGY (03/15/2021 12:00 AM TACK MAKER) Case Report Dermatopathology Report ? Case: [id number] ? Authorizing Provider: ??Zachary Campa MD ?Collected: ? 03/15/2021 12:00 AM ? Ordering Location: ? [facility] DermPath Lab ?Received: ?03/16/2021 03:18 PM ? Pathologist: ? Abby Carvajal MD ? Specimen: ?Skin, right zygoma ? 1 1:14 PM [facility] DERMATOPATHOLOGY LABORATORY Final Diagnosis Specimen A. SKIN, right zygoma: BASAL CELL CARCINOMA, INFILTRATIVE PATTERN (C44.319) 1 1:14 PM [facility] DERMATOPATHOLOGY LABORATORY Clinical History BCCA. Path#[id number] 1 1:14 PM [facility] DERMATOPATHOLOGY LABORATORY Gross Description Specimen A: Received is one formalin filled container labeled with the patient's name and designated right zygoma. The specimen consists of a shave biopsy measuring 7x5x1 mm. Jar 0. 1 1:14 PM [facility] DERMATOPATHOLOGY LABORATORY Microscopic Description Specimen A. SKIN, right zygoma: Within the dermis there are nodular aggregates of basaloid cells associated with fibromyxoid stroma and epithelial-stromal clefts. At the advancing margin of the neoplasm, there are smaller angulated nests that infiltrate the dermis. 1 1:14 PM [facility] DERMATOPATHOLOGY LABORATORY Disclaimer An external and internal positive and negative controls are appropriate for the histochemical, immunohistochemical and immunofluorescence stain(s) in this case (if any), except where stated explicitly. The performance characteristics of the stain(s) cited in this report were developed and its performance characteristic determined by the Dermatopathology Laboratory at [facility], directed by Dr. Moises Kwok. These tests need not be, and therefore are not, approved by the [place] Food and Drug Administration. The tests are used for clinical purposes. Billing Codes Specimen Charges Stain Charges 23657 1 1 1:14 PM [facility] DERMATOPATHOLOGY LABORATORY Embedded Images 1 1:14 PM [facility] DERMATOPATHOLOGY LABORATORY Pathology/Cytolog y TISSUE SPECIMEN FROM SKIN / Unknown 03/15/2021 03/16/2021 3:18 PM TACK MAKER Zachary Campa MD LAB - PATHOLOGY/CYTO LOGY ORDERABLES DERMATOPATHOLOGY LABORATORY [facility] - Department of Dermatology [facility] Medicine [address] [place] [address], [address] [phone] documented in this encounter Visit Diagnoses Not on filedocumented in this encounter Care Teams Aviation Safety Officer Relationship Specialty Start Date End Date Brandon Sherwood MD [address] [place] [id number] PCP - General 11/01/19 documented as of this encounter
--- OUTSIDE RECORDS SUMMARY | 2024-04-30 15:31 | XMS_ITS | Referral Summary ---
Author Organization [facility] [address] [facility] [address] Address [address] [place] [address] Care Team Providers Care Supervisor Electronic Coils Name Role Phone Brandon Sherwood MD Primary Care Provider [phone] Allergies Active Allergy Reactions Criticality Noted Date Comments Codeine Furosemide Penicillins Vuugvrg-Pje-Yxw Reductase Inhibitors Muscle pain Medium 08/31/2020 Sulfa (Sulfonamide Antibiotics) Vancomycin Other (See comments) High 06/02/2023 Multiple issues involving hearing, vision, weakness Medications abgnqkbj-imo-FX-l ycopen-lutein (CENTRUM SILVER) 0.4-300-250 mg-mcg-mcg tablet One [...] I have sent a message to his hook puller regarding this issue. 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 Overview (07/04/2016): Prinzmetal angina Obstructive sleep apnea syndrome 10/22/2013 Overview (07/04/2016): JOSE ANTONIO (obstructive sleep apnea) Resolved Problems Problem Noted Date Diagnosed Date Resolved Date Infected olecranon bursa 10/29/202206/2023 Deep vein thrombosis (DVT) d uring current hospitalization ([facility]) 02/07/2017 11/30/2021 Acute deep vein thrombosis of [...] on file 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
--- OUTSIDE RECORDS SUMMARY | 2024-04-30 15:31 | XMS_ITS | Encounter Summary ---
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
--- OUTSIDE RECORDS SUMMARY | 2024-04-30 15:31 | XMS_ITS | Clinical Summary ---
Author Organization [facility] Address [address] [place] [address] Care Team Providers Care Transport Coordinator Name Role Phone Brandon Sherwood MD Primary Care Provider [phone] Source Comments [facility],non-owned Affiliates and Associated Physician Practices is amultiple site organization consisting of ambulatory clinics and hospital sitesin [place], [place], [place] and [place]. This disclosure is being madepursuant to the Care Everywhere program and may not contain all information available regarding this patient. Last updated 17.[facility] Social History Tobacco Use Types Packs/Day Years [...] age to complete this topic Care Teams Transport Coordinator Relationship Specialty Start Date End Date Brandon Sherwood MD [address] [place] [address] PCP - General 11/01/19
--- OUTSIDE RECORDS SUMMARY | 2024-04-30 15:31 | XMS_ITS | Referral Summary ---
Author Organization [facility] Address [address] [facility] [place] [address] Care Team Providers Care Construction Job Cost Estimator Name Role Phone Brandon Sherwood MD Primary Care Provider [phone] Source Comments [facility],non-owned Affiliates and Associated Physician Practices is amultiple site organization consisting of ambulatory clinics and hospital sitesin [place], [place], [place] and [place]. This disclosure is being madepursuant to the Care Everywhere program and may not contain all information available regarding this patient. Last updated 17.[facility] Social History Tobacco Use Types Packs/Day Years Used Date Smoking Tobacco: Never Assessed Sex and Gender Information Value Date Recorded Sex Assigned at Not on file Gender Identity Not on file Sexual Orientation Not on file Plan of Treatment Not on file Care Teams Construction Job Cost Estimator Relationship Specialty Start Date End Date Brandon Sherwood MD [address] [place] [address] PCP - General 11/01/19
--- OUTSIDE RECORDS SUMMARY | 2024-04-30 15:31 | XMS_ITS | Clinical Summary ---
Author Organization [facility] [address] [facility] [address] Address [address] [place] [address] Care Team Providers Care Passport Support Manager Name Role Phone Brandon Sherwood MD Primary Care Provider [phone] Allergies Active Allergy Reactions Criticality Noted Date Comments Codeine Furosemide Penicillins Hylnwvk-Ifb-Woj Reductase Inhibitors Muscle pain Medium 08/31/2020 Sulfa (Sulfonamide Antibiotics) Vancomycin Other (See comments) High 06/02/2023 Multiple issues involving hearing, vision, weakness Medications dpjqxerl-cvp-GX-l ycopen-lutein (CENTRUM SILVER) 0.4-300-250 mg-mcg-mcg tablet One [...] I have sent a message to his haunted history tour guide regarding this issue. 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 Overview (07/04/2016): Prinzmetal angina Obstructive sleep apnea syndrome 10/22/2013 Overview (07/04/2016): JOSE ANTONIO (obstructive sleep apnea) Resolved Problems Problem Noted Date Diagnosed Date Resolved Date Infected olecranon bursa 10/29/202206/2023 Deep vein thrombosis (DVT) d uring current hospitalization ([facility]) 02/07/2017 11/30/2021 [...] on file 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
--- OUTSIDE RECORDS SUMMARY | 2024-04-30 15:31 | XMS_ITS | Encounter Summary ---
Author Organization [facility] Address [address] [facility] [place] [address] Care Team Providers Care Radio Disc Jockey Name Role Phone Brandon Sherwood MD Primary Care Provider [phone] Encounter Details Date Type Department Care Team (Late Contact [facility]) Description 10/17/2022 Lab Requisition [facility] [address] [place] [id number] Zachary Campa MD [address] [address] Social History Tobacco Use Types [...] CDT) Case Report Dermatopathology Report ? Case: [id number] ? Authorizing Provider: ??Zachary Campa MD ?Collected: ? 10/15/2022 12:00 AM ? Ordering Location: ? [facility] ? Received: ?10/17/2022 10:06 AM ? Pathologist: ? Abby Carvajal MD ? Specimen: ?Skin, left upper inner thigh ? 3 3:09 PM [facility] Final Diagnosis Specimen A. SKIN, left upper inner thigh: SEBORRHEIC KERATOSIS, IRRITATED AND INFLAMED (L82.0) 3 3:09 PM [facility]ATH[facility] Clinical History MM vs angioma. Path#[id number] 3 3:09 PM [facility] Gross Description Specimen A: Received is one formalin filled container labeled with the patient's name and designated left upper inner thigh. The specimen consists of a shave biopsy measuring 10x7x2 mm. Jar 0. 3 3:09 PM [facility]ERMAT[facility]ATHOLOG[facility] Microscopic Description Specimen A. SKIN, left upper inner thigh: Sections show acanthosis, papillomatosis, hyperkeratosis, and squamous eddies. There is a lymphohistiocytic infiltrate within the papillary dermis. 3 3:09 PM [facility]ERMAT[facility]ATH[facility]OR[facility] Disclaimer An external and internal positive and negative controls are appropriate for the histochemical, immunohistochemical and immunofluorescence stain(s) in this case (if any), except where stated explicitly. The performance characteristics of the stain(s) cited in this report were developed and its performance characteristic determined by the Dermatopathology Laboratory at [facility], directed by Dr. Moises Kwok. These tests need not be, and therefore are not, approved by the [place] Food and Drug Administration. The tests are used for clinical purposes. Billing Codes Specimen Charges Stain Charges 08356 1 3 3:09 PM [facility] DERMATOPATHOLOGY LABORATORY Embedded Images 3 3:09 PM [facility] DERMATOPATHOLOGY LABORATORY Pathology/Cytolog y TISSUE SPECIMEN FROM SKIN / Unknown 10/15/2022 10/17/2022 10:06 AM CDT Zachary Campa MD LAB - PATHOLOGY/CYTO LOGY ORDERABLES DERMATOPATHOLOGY LABORATORY [facility] - Department of Dermatology [facility] Medicine [address] [place] [address], [address] [phone] documented in this encounter Visit Diagnoses Not on filedocumented in this encounter Care Teams Radio Disc Jockey Relationship Specialty Start Date End Date Brandon Sherwood MD [address] [place] [address] PCP - General 11/01/19 documented as of this encounter
[2024-04-30 17:27] LABS: Basophils Percent Auto 0.5 % (0.2-1.2); Hematocrit 46.7 % (42.0-52.0); Hemoglobin 15.8 g/dL (14.0-18.0); Immature Granulocyte Absolute 0.02 K/mm3 (0.00-0.031); Immature Granulocyte Percent A 0.3 % (0-0.5); Lymphocytes Absolute Auto 0.83 K/mm3 (0.9-3.2); Lymphocytes Percent Auto 13.6 % (18.3-44.2); Mean Corpuscular HGB Conc 33.8 g/dl (32-36); Mean Corpuscular Hemoglobin 32.3 pg (26-34); Mean Corpuscular Volume 95.5 fl (80-100); Monocytes Absolute Auto 0.7 K/mm3 (0.1-0.6); Monocytes Percent Auto 11.6 % (2.6-8.5); Neutrophils Absolute Auto 4.5 K/mm3 (1.3-6.7); Platelet Count Result 167 k/mm3 (150-375); Red Blood Count 4.89 M/mm3 (4.6-6.20); Red Cell Distribution Width 13.2 % (11.5-14.5); White Blood Count 6.1 K/mm3 (4.5-10.0)
[2024-04-30 17:38] LABS: Alanine Aminotransferase 64 U/L (6-50); Alkaline Phosphatase 27 U/L (38-126); Anion Gap 11 mmol/L (4-12); Aspartate Amino Transferase 120 U/L (17-59); Bilirubin,Total 0.5 mg/dL (0.2-1.3); Blood Urea Nitrogen 34 mg/dL (9-20); Calcium 8.2 mg/dL (8.4-10.2); Carbon Dioxide 28 mmol/L (22-30); Chloride 96 mmol/L (98-107); Estimated Glomerular Filt Rate > 60; Glucose 153 mg/dL (65-110); Potassium 3.8 mmol/L (3.4-5.0); Sodium 135 mmol/L (137-145)
[2024-04-30 17:41] LABS: Partial Thromboplastin Time 33.1 Seconds (22.3-36.8); Prothrombin Time 13.7 Seconds (11.1-14.7)
[2024-04-30 17:47] LABS: NT Pro B Type Natriuretic Pept < 20 pg/mL (19.9-100)
[2024-04-30] MEDS: methylPREDNISolone SOD SUCC 125 MG VIAL IV PUSH (21:33)
[2024-04-30] MEDS: ALBUTEROL SULFATE NEB 2.5 MG/3 ML INH 5 MG INHALATION (21:37)
[2024-04-30 22:02] LABS: Influenza A QL RT-PCR Positive (Negative); Influenza B QL RT-PCR Negative (Negative); RSV RNA, RT-PCR Negative (Negative); SARS-CoV-2 RNA PCR Negative (Negative)
--- NOTE | 2024-04-30 22:03 | P.HP_ITS ---
H&P: HPI History of Present Illness Date/Time: 04/30/24 22:03 Chief Complaint: Generalized weakness Narrative: This is a 73-year-old male with past medical history significant for COPD/emphysema, tobacco dependence, hypertension. Patient presented to emergency room due to generalized weakness, chills, fevers, body aches and pains, shortness of breath, nausea vomiting and diarrhea for the last 3-4 days. Patient is still a daily every day smoker of less than a pack of cigarettes a day, upon arrival to emergency room he was noted to have oxygen saturation in the 80% range placed on 2 L of oxygen by nasal cannula. Preliminary workup was significant for patient tested positive for influenza type A. Patient has been admitted for further evaluation management and treatment. EXAMINATION: XR chest 2V DATE: 04/30/2024 15:51 INDICATION: Shortness of breath. TECHNIQUE: Frontal and lateral views of the chest were obtained. COMPARISON: Chest 2 views 04/14/2023 FINDINGS: There is mild atelectasis in left lower lung zone. No pleural effusion or pneumothorax. The heart size is normal. IMPRESSION: 1. Mild atelectasis in left lower lung zone. Review of Systems Review of Systems: Nausea, vomiting, diarrhea, chills, body aches and pains, poor appetite, shortness of breath PMFSH Past Medical History Medical History (Updated 05/01/24 @ 02:19 by Solomon Phipps MD) Male erectile dysfunction, unspecified Viagra did not help, Cialis caused headache. BMI 31.0-31.9,adult Edema, peripheral Acute diarrhea Hypokalemia Dehydration Hyponatremia Diarrhea Hypersomnia Snoring Hypoxia Hypertension Sinusitis Aortic atherosclerosis COPD exacerbation Thrush, oral Right forearm cellulitis Deep vein thrombosis of right lower limb Chronic obstructive pulmonary disease Coronary artery disease COVID-19 (05/2022) tested positive 06/10/22 Elevated fasting glucose Fasting glucose 117 with hemoglobin A1c 5.6 on 04/26/2022. Encounter for prostate cancer screening PSA 2.13 on 04/26/2022. Metatarsalgia of both feet MRI of both feet on 08/30/2022 by developmental behavioral physician revealed degenerative joint disease worse at the 1st MTP bilaterally with bunion formation on the right foot. Nausea and vomiting (12/28/20) history of nausea and vomiting with bowel prep Polyp of colon colonoscopy with Dr. 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) Psoriasis Eczema Diverticulosis Diverticulitis Gastric ulcer Pneumonia Wears partial dentures Asthma Surgical History Surgical History History of arthroscopy of left knee History of arthroplasty of right knee X4 History of vasectomy History of cholecystectomy H/O colonoscopy with polypectomy History of cardiac catheterization (2012) Family History Family History Mother Family history of multiple sclerosis, Onset Age: 73 Father Patient's father is , Onset Age: 51 Family history of liver disease Family history of chronic obstructive pulmonary disease Family history of alcoholism Sibling Family history of malignant neoplasm Cerebrovascular accident Sibling Breast cancer Social History Social History Social History: Surrogate medical decision maker: Palma Santillan, daughter. Code status: Full code. Smoking packs per day: 1 Smoking cigarettes per day: 20.0 Years smoked: 50 Smoking pack-years: 50.00 Smoking status: Current every day smoker Tobacco type: cigarettes Alcohol intake: never Substance use: never Substance use type: does not use Do You Feel Safe in your Home?: Yes Lack of Transportation: No Lack of Food: Never True Current Housing: I Have Housing Concerned About Future Housing: No Difficulty Paying Gas/Electric Bills: No Difficulty Paying for Meds: No Currently Unemployed: No Education: Associate Degree Difficulty w/ Childcare or Family Care: No Living arrangements: alone Spiritual care concerns: No Meds Home Medications and Allergies Home Medications ?Medication ?Instructions ?Recorded ?Confirmed ?Type hydroxychloroquine 200 mg tablet 200 mg PO BID 05/07/21 04/16/24 History amlodipine 5 mg tablet (Norvasc) 5 mg PO DAILY #30 tabs 11/08/22 04/16/24 Rx albuterol sulfate 90 mcg/actuation 2 puff inhalation Q4H PRN Dyspnea 02/07/23 04/16/24 Rx aerosol inhaler (ProAir HFA) #8.5 grams Saarh Low Dose Aspirin 81 mg PO DAILY 04/14/23 04/16/24 History multivitamin 1 tablet PO DAILY 05/02/23 04/16/24 History mometasone-formoterol HFA 100 2 puff inhalation Q12H #13 grams 05/16/23 04/16/24 Rx mcg-5 mcg/actuation aerosol inhaler (Dulera) umeclidinium 62.5 mcg/actuation 1 inh inhalation DAILY #30 ea 05/19/23 04/16/24 Rx blister powder for inhalation (Incruse Ellipta) ascorbic acid (vitamin C) 500 mg 500 mg PO DAILY 06/23/23 04/16/24 History tablet peak flow meter #1 ea 07/01/23 04/16/24 Rx Allergies Allergy/AdvReac Type Severity Reaction Status Date / Time rivaroxaban Allergy Severe violent Verified 04/30/24 20:59 rage, hives, swelling vancomycin Allergy Severe collapse Verified 04/30/24 20:59 veins enoxaparin Allergy Intermediate hives, rash Verified 04/30/24 20:59 Penicillins Allergy Intermediate Swelling Verified 04/30/24 20:59 trovafloxacin Allergy Intermediate Other Verified 04/30/24 20:59 apixaban Allergy Unknown violent Verified 04/30/24 20:59 rage, hives, swelling celecoxib Allergy Unknown Nausea and Verified 04/30/24 20:59 Vomiting clarithromycin Allergy Unknown Unknown Verified 04/30/24 20:59 erythromycin base Allergy Unknown Unknown Verified 04/30/24 20:59 furosemide Allergy Unknown Swelling Verified 04/30/24 20:59 Iodinated Contrast Media Allergy Unknown Rash Verified 04/30/24 20:59 iodine Allergy Unknown SEVERE RASH Verified 04/30/24 20:59 montelukast Allergy Unknown Unknown Verified 04/30/24 20:59 Sulfa (Sulfonamide Allergy Unknown Unknown Verified 04/30/24 20:59 Antibiotics) codeine AdvReac Unknown Headache Verified 04/30/24 20:59 doxycycline AdvReac Unknown Nausea and Verified 04/30/24 20:59 Vomiting Quinolones AdvReac Unknown ITCHING Verified 04/30/24 20:59 Vital Signs Vital Signs - 24 hr 04/30/24 13:23 04/30/24 20:34 04/30/24 20:36 Temperature 98.2 F 98.3 F Pulse Rate 92 94 Respiratory Rate 18 23 H Blood Pressure 124/58 L 160/74 H Pulse Oximetry 92 95 97 Oxygen Delivery Nasal Cannula Nasal Cannula Oxygen Flow Rate 2 3 04/30/24 20:52 Temperature Pulse Rate Respiratory Rate Blood Pressure Pulse Oximetry 97 Oxygen Delivery Nasal Cannula Oxygen Flow Rate 2 Exam Narrative: Patient is laying in a stretcher Const: General: cooperative, comfortable, no acute distress, well developed, alert, awake, ill appearing acutely and average body habitus Nutritional Appearance: average body habitus Orientation/consciousness: patient oriented x3 HENMT: Head: normal to inspection, normocephalic and atraumatic Ears: hearing grossly normal bilaterally Face/Nose/Sinus: normal facial exam Face and sinus: normal facial exam Eyes: General: appearance normal, both eyes and all related structures Pupils: Equal, round and reactive pupils present EOM: EOMs intact bilaterally Neck: Neck: full ROM, no lymphadenopathy and no JVD Thyroid: thyroid normal Lymphatic: no lymphadenopathy noted Resp: Effort & Inspection: normal respiratory effort and able to speak in complete sentences Auscultation: wheezes Cardio: Jugular venous distension: no JVD Rate: regular rate Rhythm: regular rhythm Heart sounds: S1 normal heart sound present and S2 normal heart sound present GI: GI Palp: Yes Soft to palpation and Yes No hepatosplenomegaly present : General: Yes deferred Skin: Rashes: no rashes Wounds: no wounds Neuro: General: patient oriented x3 and CN's II-XI intact bilaterally Cranial nerves: Yes CN's II-XII intact bilaterally and Yes Equal, round and reactive pupils present Cognition (Neuro): normal cognition Speech: normal speech Gait exam (Neuro): Unable to assess gait Motor exam (neuro): 5/5 motor strength present throughout Extrem: General: normal to inspection, full ROM, no joint enlargement and no pedal edema H&P: Results Labs Labs: Short CBC 04/30/24 Range/Units 17:17 WBC 6.1 (4.5-10.0) K/mm3 Hgb 15.8 D (14.0-18.0) g/dL Hct 46.7 (42.0-52.0) % Plt Count 167 (150-375) k/mm3 [facility] 04/30/24 17:17 Sodium 135 L Potassium 3.8 Chloride 96 L Carbon Dioxide 28 BUN 34 H D Creatinine 1.03 Glucose 153 H Calcium 8.2 L Liver Function 04/30/24 Range/Units 17:17 Total Bilirubin 0.5 (0.2-1.3) mg/dL AST 120 H (17-59) U/L ALT 64 H (6-50) U/L Alkaline Phosphatase 27 L (38-126) U/L Albumin 4.0 (3.5-5.1) g/dL Assessment and Plan Assessment and plan (1) COPD exacerbation: Code(s): J44.1 - Chronic obstructive pulmonary disease with (acute) exacerbation Status: Acute Assessment and Plan: Admit to [facility] On supplemental oxygen by nasal cannula Scheduled breathing treatments Patient started on levofloxacin (2) Influenza A: Code(s): J10.1 - Influenza due to other identified influenza virus with other respiratory manifestations Status: Acute Assessment and Plan: Patient started on Tamiflu (3) Hypertension: Qualifiers: Hypertension type: primary hypertension Qualified Code(s): I10 - Essential (primary) hypertension Code(s): I10 - Essential (primary) hypertension Status: Chronic Assessment and Plan: Restart home meds (4) COPD (chronic obstructive pulmonary disease): Qualifiers: COPD type: unspecified COPD Qualified Code(s): J44.9 - Chronic obstructive pulmonary disease, unspecified Code(s): J44.9 - Chronic obstructive pulmonary disease, unspecified Status: Acute Assessment and Plan: Continue home meds (5) Tobacco use disorder, continuous: Code(s): F17.209 - Nicotine dependence, unspecified, with unspecified nicotine-induced disorders Status: Chronic Assessment and Plan: Nicotine patch as needed (6) Coronary artery disease: Code(s): I25.10 - Atherosclerotic heart disease of [place] coronary artery without angina pectoris Status: Acute Assessment and Plan: Chest pain-free Hospitalist MIPS Advance Care Plan I have confirmed that the patient's Advanced Care Plan is present, code status is documented, or surrogate decision maker is listed in patient medical record.: Yes Medication Reconciliation I have utilized all available resources to obtain, update and review the patients current medications (includes all prescriptions, OTC, herbals, cannabis, and nutritional supplements).: Yes
[2024-04-30] MEDS: SODIUM CHLORIDE 0.9% IV 1,000 ML 999 ML IV CONT (22:47)
[2024-05-01] VITALS (37 sets, daily range): BP systolic 122–146; BP diastolic 60–84; PULSE 72–99; RESP 18–36; TEMP 36.2–36.4; O2SAT 93–100
[2024-05-01] MEDS: AZITHROMYCIN 500 MG/NS 250 ML 500 MG/250 ML BAG 250 MG IVPB (01:06)
[2024-05-01] MEDS: ALBUTEROL SULFATE NEB 2.5 MG/3 ML INH INHALATION ×4 (01:59→20:18)
[2024-05-01] MEDS: methylPREDNISolone SOD SUCC 125 MG VIAL 60 MG IV PUSH ×4 (06:21→23:00)
--- NOTE | 2024-05-01 10:33 | ADMGEN ---
This patient, Jeremías Trejo, was admitted to Virtual Bed 3rd Floor-1. Patient/family oriented to hospital policies and general routines including ID bracelet, bed and alarms, visiting hours, pain management, procedures, bathroom and other care routines, personal items, smoking policy, room service/diet, and visiting hours. Information on how to activate the Rapid Response Team has been discussed. Patient/Family are encouraged to report perceived risks to care and to ask questions if they do not understand what they are told or what they should do.
--- NOTE | 2024-05-01 12:47 | P.PNIM_ITS ---
Progress Note: A&P Assessment and Plan (1) Acute respiratory distress: Code(s): R06.03 - Acute respiratory distress Status: Acute Assessment and Plan: Patient presents with shortness of breath felt related to COPD exacerbation related to recent influenza infection. He had increased work of breathing and was hypoxic on admission. Chest x-ray shows mild atelectasis in the left lower lobe. He does have a pr oductive cough. Solu-Medrol started. Blood cultures collected. Antibiotics started. No wheezing appreciated at this time. Continue Solu-Medrol and bronchodilators. Wean oxygen as tolerated (2) COPD exacerbation: Code(s): J44.1 - Chronic obstructive pulmonary disease with (acute) exacerbation Status: Acute Assessment and Plan: As above (3) CAP (community acquired pneumonia): Code(s): J18.9 - Pneumonia, unspecified organism Status: Acute Assessment and Plan: CXR showing possible PNA. BCx collected and abx started. Allergic to Vanco. Check MRSA nasal swab. If positive, consider linezolid. (4) Influenza A: Code(s): J10.1 - Influenza due to other identified influenza virus with other respiratory manifestations Status: Acute Assessment and Plan: Patient was not started on Tamiflu as he has an allergy to enoxaparin with apparent cross-reactivity. LFTs mildly elevated felt related to influenza infection. Supportive care. (5) Hypertension: Qualifiers: Hypertension type: primary hypertension Qualified Code(s): I10 - Essential (primary) hypertension Code(s): I10 - Essential (primary) hypertension Status: Chronic Assessment and Plan: Patient's blood pressure was reviewed on 05/01 Blood pressure remains well controlled. Will continue Norvasc (6) Coronary artery disease: Code(s): I25.10 - Atherosclerotic heart disease of [place] coronary artery without angina pectoris Status: Acute Assessment and Plan: Stable. Chest pain free. Continue ASA. Not on statin or betablocker. 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 Plan DVT prophylaxis - SCD Code status - full Debility - PT/OT. OOB Subjective Date/time seen: 05/01/24 12:47 Interval history: 73yo male with HTN and CAD here for shortness of breath. Shortness of breath is better. No chest pain. He does have a productive cough. No nausea or vomiting. His diarrhea is improved with the last bowel movement greater than 24 hours ago. He does have dizziness and shaking which seems to be worse. He does have inhalers at home as well as albuterol. He has been using the albuterol frequently at home. He does not wear oxygen at home. He continues to smoke Exam Narrative: AF 97.1 128/67 79 22 97% 3L Gen - NARD sitting up feeding himself lunch Chest -left base crackles with inspiratory and expiratory rhonchi. Normal respiratory rate CV - RRR S1/S2 Abd - Soft, NT/ND, Positive BS Ext - No pedal edema Psych - Nml mood and affect Skin - Warm and dry Objective Data Vital Signs Vital Signs: Vital Signs - 24 hr 04/30/24 13:23 04/30/24 20:34 04/30/24 20:36 Temperature 98.2 F 98.3 F Pulse Rate 92 94 Respiratory Rate 18 23 H Blood Pressure 124/58 L 160/74 H Pulse Oximetry 92 95 97 Oxygen Delivery Nasal Cannula Nasal Cannula Oxygen Flow Rate 2 3 Fraction of Inspired Oxygen 04/30/24 20:52 04/30/24 21:40 04/30/24 21:49 Temperature Pulse Rate 76 91 Respiratory Rate 18 19 Blood Pressure Pulse Oximetry 97 Oxygen Delivery Nasal Cannula Oxygen Flow Rate 2 Fraction of Inspired Oxygen 04/30/24 22:00 04/30/24 22:17 04/30/24 22:30 Temperature Pulse Rate 98 100 Respiratory Rate 25 H 24 H Blood Pressure Pulse Oximetry 86 L 97 95 Oxygen Delivery Oxygen Flow Rate Fraction of Inspired Oxygen 04/30/24 22:45 04/30/24 22:47 04/30/24 22:48 Temperature Pulse Rate 100 102 H Respiratory Rate 26 H 27 H Blood Pressure 132/61 Pulse Oximetry 94 92 94 Oxygen Delivery Nasal Cannula Oxygen Flow Rate 3 Fraction of Inspired Oxygen 04/30/24 22:53 04/30/24 23:00 04/30/24 23:15 Temperature Pulse Rate 105 H 94 91 Respiratory Rate 30 H 24 H 24 H Blood Pressure Pulse Oximetry 95 93 Oxygen Delivery Oxygen Flow Rate Fraction of Inspired Oxygen 04/30/24 23:37 04/30/24 23:45 05/01/24 00:01 Temperature Pulse Rate 96 96 90 Respiratory Rate 24 H 22 H 24 H Blood Pressure Pulse Oximetry Oxygen Delivery Oxygen Flow Rate Fraction of Inspired Oxygen 05/01/24 00:19 05/01/24 00:30 05/01/24 01:03 Temperature Pulse Rate 88 93 Respiratory Rate 22 H Blood Pressure Pulse Oximetry 98 96 Oxygen Delivery Oxygen Flow Rate Fraction of Inspired Oxygen 05/01/24 01:15 05/01/24 01:16 05/01/24 01:37 Temperature Pulse Rate 96 98 95 Respiratory Rate 22 H 24 H Blood Pressure Pulse Oximetry 97 97 Oxygen Delivery Oxygen Flow Rate Fraction of Inspired Oxygen 05/01/24 01:45 05/01/24 02:00 05/01/24 02:00 Temperature Pulse Rate 91 72 92 Respiratory Rate 23 H 18 19 Blood Pressure Pulse Oximetry 97 100 Oxygen Delivery Oxygen Flow Rate Fraction of Inspired Oxygen 05/01/24 02:10 05/01/24 02:15 05/01/24 02:34 Temperature Pulse Rate 74 99 94 Respiratory Rate 18 27 H 20 Blood Pressure 125/77 Pulse Oximetry 95 93 Oxygen Delivery Oxygen Flow Rate Fraction of Inspired Oxygen 05/01/24 03:36 05/01/24 03:45 05/01/24 04:27 Temperature Pulse Rate Respiratory Rate 33 H Blood Pressure Pulse Oximetry 94 94 96 Oxygen Delivery Oxygen Flow Rate Fraction of Inspired Oxygen 05/01/24 04:30 05/01/24 04:45 05/01/24 05:00 Temperature Pulse Rate 97 82 Respiratory Rate 24 H 23 H 21 H Blood Pressure 122/74 Pulse Oximetry 96 96 96 Oxygen Delivery Oxygen Flow Rate Fraction of Inspired Oxygen 05/01/24 05:23 05/01/24 05:36 05/01/24 05:48 Temperature Pulse Rate 81 82 Respiratory Rate 27 H 36 H Blood Pressure 123/81 Pulse Oximetry 98 97 96 Oxygen Delivery Oxygen Flow Rate Fraction of Inspired Oxygen 05/01/24 06:00 05/01/24 06:15 05/01/24 06:30 Temperature Pulse Rate 79 81 Respiratory Rate 22 H 22 H Blood Pressure 132/84 Pulse Oximetry 94 95 95 Oxygen Delivery Oxygen Flow Rate Fraction of Inspired Oxygen 05/01/24 08:06 05/01/24 08:39 05/01/24 08:39 Temperature Pulse Rate 81 80 Respiratory Rate 18 20 Blood Pressure 144/76 H Pulse Oximetry 96 98 Oxygen Delivery Nasal Cannula Oxygen Flow Rate 3 Fraction of Inspired Oxygen 32 05/01/24 08:45 05/01/24 10:20 05/01/24 10:20 Temperature Pulse Rate 86 Respiratory Rate 20 Blood Pressure 146/74 H 146/74 H Pulse Oximetry 95 Oxygen Delivery Oxygen Flow Rate Fraction of Inspired Oxygen 05/01/24 12:29 Temperature 97.1 F L Pulse Rate 79 Respiratory Rate 22 H Blood Pressure 128/67 Pulse Oximetry 97 Oxygen Delivery Oxygen Flow Rate Fraction of Inspired Oxygen Intake/Output Intake/Output: Intake & Output 04/28/24 04/29/24 04/30/24 05/01/24 23:59 23:59 23:59 23:59 Intake Total 1300 Balance 1300 Meds/Results Medications: Active Medications Generic Name Dose Route Start Last Admin Trade Name Freq PRN Reason Stop Dose Admin Albuterol 2.5 mg 05/01/24 02:00 05/01/24 08:39 Albuterol Sulfate Neb 2.5 Mg/3 Ml Inh INHALATION 2.5 mg Q6HRT LAURA Administration Ceftriaxone Sodium 1 gm in 50 mls @ 100 mls/hr 05/01/24 23:00 Rocephin 1 Gm/Ns 50 Ml IVPB Q24H LAURA Azithromycin 500 mg in 250 mls @ 250 mls/hr 05/02/24 01:00 Zithromax IVPB Q24H LARUA Methylprednisolone Sodium Succinate 60 mg 05/01/24 06:00 05/01/24 12:09 Methylprednisolone Sod Succ 125 Mg Vial IV PUSH 60 mg Q6HR LAURA Administration Radiology Results: ITS Impressions Chest X-Ray 04/30/24 16:31 IMPRESSION: 1. Mild atelectasis in left lower lung zone. Labs Labs: Laboratory Results - last 24 hr 04/30/24 04/30/24 17:17 21:18 WBC 6.1 RBC 4.89 Hgb 15.8 D Hct 46.7 MCV 95.5 MCH 32.3 MCHC 33.8 RDW 13.2 Plt Count 167 MPV 9.0 Immature Gran % (Auto) 0.3 Neut % (Auto) 74.0 H Lymph % (Auto) 13.6 L [place] % (Auto) 11.6 H Eos % (Auto) 0.0 Baso % (Auto) 0.5 Lymph # (Auto) 0.83 L [place] # (Auto) 0.7 H Eos # (Auto) 0.0 Baso # (Auto) 0.0 Abs Immat Gran (auto) 0.02 Absolute Neuts (auto) 4.5 Absolute Nucleated RBC 0.000 Nucleated RBC % 0.0 PT 13.7 INR 1.0 APTT 33.1 Sodium 135 L Potassium 3.8 Chloride 96 L Carbon Dioxide 28 Anion Gap 11 BUN 34 H D Creatinine 1.03 Estim Creat Clear Calc Not Reportable Estimated GFR > 60 Glucose 153 H Calcium 8.2 L Total Bilirubin 0.5 AST 120 H ALT 64 H Alkaline Phosphatase 27 L NT-Pro-B Natriuret Pep < 20 Total Protein 7.0 Albumin 4.0 Influenza A (RT-PCR) Positive A Influenza B (RT-PCR) Negative RSV (RT-PCR) Negative SARS-CoV-2 RNA (RT-PCR) Negative Blood Type O Positive Antibody Screen Negative
[2024-05-01] MEDS: FLUTICASONE/UMECLIDIN/VILANTER 100-62.5-25 MCG ELLIPTA 1 PUFF INHALATION (13:05)
[2024-05-01 19:00] LABS: MRSA (PCR) NOT DETECTED (NOT DETECTE)
[2024-05-02] VITALS (18 sets, daily range): BP systolic 129–153; BP diastolic 56–66; PULSE 66–87; RESP 18–22; TEMP 36.3–36.7; O2SAT 93–98
[2024-05-02] MEDS: AZITHROMYCIN 500 MG/NS 250 ML 500 MG/250 ML BAG 250 MG IVPB (00:44)
[2024-05-02] MEDS: ALBUTEROL SULFATE NEB 2.5 MG/3 ML INH INHALATION ×4 (02:05→20:19)
[2024-05-02 06:33] LABS: Alanine Aminotransferase 52 U/L (6-50); Albumin Level 3.7 g/dL (3.5-5.1); Alkaline Phosphatase 45 U/L (38-126); Anion Gap 9 mmol/L (4-12); Aspartate Amino Transferase 52 U/L (17-59); Bilirubin,Total 0.4 mg/dL (0.2-1.3); Blood Urea Nitrogen 22 mg/dL (9-20); Calcium 8.4 mg/dL (8.4-10.2); Carbon Dioxide 27 mmol/L (22-30); Chloride 98 mmol/L (98-107); Estimated Glomerular Filt Rate > 60; Glucose 211 mg/dL (65-110); Potassium 4.5 mmol/L (3.4-5.0); Sodium 134 mmol/L (137-145)
[2024-05-02] MEDS: FLUTICASONE/UMECLIDIN/VILANTER 100-62.5-25 MCG ELLIPTA 1 PUFF INHALATION (06:50)
[2024-05-02] MEDS: MULTIVITAMINS THERAPEUTIC TAB (*BKC) 1 TABLET PO (09:58)
[2024-05-02] MEDS: ASPIRIN 81 MG ENTERIC TABLET PO (09:58)
[2024-05-02] MEDS: ASCORBIC ACID 500 MG TABLET PO (09:58)
[2024-05-02] MEDS: amLODIPine BESYLATE 5 MG TABLET PO (09:58)
--- NOTE | 2024-05-02 12:20 | PM.IMPN ---
Progress Note: A&P Assessment and Plan (1) Acute respiratory distress: Code(s): R06.03 - Acute respiratory distress Status: Acute Assessment and Plan: Patient presents with shortness of breath felt related to COPD exacerbation related to recent influenza infection. He had increased work of breathing and was hypoxic on admission. Chest x-ray shows mild atelectasis in the left lower lobe. He does have a productive cough. Solu-Medrol started. Blood cultures collected. Antibiotics started. No wheezing appreciated at this time. Continue Solu-Medrol and bronchodilators. Wean oxygen as tolerated. Wean Solu-Medrol (2) COPD exacerbation: Code(s): J44.1 - Chronic obstructive pulmonary disease with (acute) exacerbation Status: Acute Assessment and Plan: As above (3) CAP (community acquired pneumonia): Code(s): J18.9 - Pneumonia, unspecified organism Status: Acute Assessment and Plan: CXR showing possible PNA. BCx collected and abx started. BCx NGTD. MRSA nasal swab negative. Continue abx (4) Influenza A: Code(s): J10.1 - Influenza due to other identified influenza virus with other respiratory manifestations Status: Acute Assessment and Plan: Patient was not started on Tamiflu as he has an allergy to enoxaparin with apparent cross-reactivity. LFTs mildly elevated felt related to influenza infection. Supportive care. (5) Hypertension: Qualifiers: Hypertension type: primary hypertension Qualified Code(s): I10 - Essential (primary) hypertension Code(s): I10 - Essential (primary) hypertension Status: Chronic Assessment and Plan: Patient's blood pressure was reviewed on / Blood pressure remains well controlled. Will continue Norvasc (6) Coronary artery disease: Code(s): I25.10 - Atherosclerotic heart disease of [place] coronary artery without angina pectoris Status: Acute Assessment and Plan: Stable. Chest pain free. Continue ASA. Not on statin or betablocker. 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 Plan DVT prophylaxis - SCD Code status - full Debility - PT/OT. OOB Subjective Date/time seen: 05/02/24 12:20 Interval history: 73yo male with HTN and CAD here for shortness of breath. Slept well. SOB better. No CP. Cough less productive. No n/v. No diarreha. Exam Narrative: AF 97.5 129/66 78 18 93% 3L Gen - NARD Chest - diffuse mild end expiratory wheeze, good air exchange CV - RRR S1/S2 Abd - Soft, NT/ND, Positive BS Ext - No pedal edema Psych - Nml mood and affect Skin - Warm and dry Objective Data Vital Signs Vital Signs: Vital Signs - 24 hr 05/01/24 12:29 05/01/24 13:05 05/01/24 13:05 Temperature 97.1 F L Pulse Rate 79 76 76 Respiratory Rate 22 H 20 20 Blood Pressure 128/67 Pulse Oximetry 97 97 Oxygen Delivery Nasal Cannula Oxygen Flow Rate 3 Fraction of Inspired Oxygen 05/01/24 13:15 05/01/24 14:00 05/01/24 20:00 Temperature 97.4 F L Pulse Rate 80 78 81 Respiratory Rate 20 20 20 Blood Pressure 126/60 Pulse Oximetry 96 95 Oxygen Delivery Nasal Cannula Oxygen Flow Rate 3 Fraction of Inspired Oxygen 32 05/01/24 20:18 05/01/24 20:25 05/01/24 20:30 Temperature Pulse Rate 84 84 81 Respiratory Rate 20 20 Blood Pressure Pulse Oximetry 95 Oxygen Delivery Nasal Cannula Oxygen Flow Rate 3 Fraction of Inspired Oxygen 05/01/24 22:00 05/02/24 02:05 05/02/24 02:15 Temperature 97.5 F L Pulse Rate 81 74 71 Respiratory Rate 18 20 20 Blood Pressure 137/61 Pulse Oximetry 96 Oxygen Delivery Oxygen Flow Rate Fraction of Inspired Oxygen 05/02/24 04:00 05/02/24 06:00 05/02/24 06:45 Temperature 97.4 F L Pulse Rate 85 77 87 Respiratory Rate 18 18 Blood Pressure 135/57 L Pulse Oximetry 97 98 Oxygen Delivery Nasal Cannula Oxygen Flow Rate 3 Fraction of Inspired Oxygen 05/02/24 06:45 05/02/24 06:55 05/02/24 09:49 Temperature 97.5 F L Pulse Rate 87 86 82 Respiratory Rate 18 20 18 Blood Pressure 129/66 Pulse Oximetry 93 Oxygen Delivery Oxygen Flow Rate Fraction of Inspired Oxygen 05/02/24 09:58 05/02/24 09:58 05/02/24 11:23 Temperature Pulse Rate 78 Respiratory Rate Blood Pressure Pulse Oximetry 93 Oxygen Delivery Nasal Cannula Nasal Cannula Oxygen Flow Rate 3 3 Fraction of Inspired Oxygen Intake/Output Intake/Output: Intake & Output 04/29/24 04/30/24 05/01/24 05/02/24 23:59 23:59 23:59 23:59 Intake Total 1540 360 Output Total 650 Balance 1540 -290 Meds/Results Medications: Active Medications Generic Name Dose Route Start Last Admin Trade Name Freq PRN Reason Stop Dose Admin Albuterol 2.5 mg 05/01/24 02:00 05/02/24 06:50 Albuterol Sulfate Neb 2.5 Mg/3 Ml Inh INHALATION 2.5 mg Q6HRT LAURA Administration Albuterol 2 puff 05/01/24 12:50 Albuterol Sulfate (*Sp) Aerosol 1 Puff INHALATION Q4H PRN Dyspnea Amlodipine Besylate 5 mg 05/02/24 09:00 05/02/24 09:58 Amlodipine Besylate 5 Mg Tablet PO 5 mg DAILY LAURA Administration Ascorbic Acid 500 mg 05/02/24 09:00 05/02/24 09:58 Ascorbic Acid 500 Mg Tablet PO 500 mg DAILY LAURA Administration Aspirin 81 mg 05/02/24 09:00 05/02/24 09:58 Aspirin 81 Mg Enteric Tablet PO 81 mg QAM LAURA Administration Azithromycin 250 mg 05/03/24 09:00 Azithromycin 250 Mg Tablet PO 05/05/24 09:01 DAILY LAURA Fluticasone/Umeclidinium/Vilanterol 1 puff 05/01/24 14:00 05/02/24 06:50 Fluticasone/Umeclidin/Vilanter 100-62.5-25 Mcg Ellipta INHALATION 1 puff DAILYRT LAURA Administration Ceftriaxone Sodium 1 gm in 50 mls @ 100 mls/hr 05/01/24 23:00 05/01/24 22:46 Rocephin 1 Gm/Ns 50 Ml IVPB 100 mls/hr Q24H LAURA Administration Methylprednisolone Sodium Succinate 40 mg 05/02/24 14:00 Methylprednisolone Sod Succ 125 Mg Vial IV PUSH Q8HR [facility] Multivitamins Therapeutic 1 tablet 05/02/24 09:00 05/02/24 09:58 Multivitamins Therapeutic Tab (*Bkc) PO 1 tablet DAILY [facility] Administration Nicotine 1 patch 05/03/24 09:00 Nicotine (*Pbkc) 7 Mg Patch TRANSDERM DAILY [facility] Radiology Results: ITS Impressions Chest X-Ray 04/30/24 16:31 IMPRESSION: 1. Mild atelectasis in left lower lung zone. Labs Labs: Laboratory Results - last 24 hr 05/01/24 05/02/24 17:39 05:52 Sodium 134 L Potassium 4.5 Chloride 98 Carbon Dioxide 27 Anion Gap 9 BUN 22 H D Creatinine 0.65 L Estim Creat Clear Calc Not Reportable Estimated GFR > 60 Glucose 211 H Calcium 8.4 Total Bilirubin 0.4 AST 52 ALT 52 H Alkaline Phosphatase 45 Total Protein 7.0 Albumin 3.7 Nasal MRSA (PCR) Not detected
[2024-05-02] MEDS: NICOTINE (*PBKC) 7 MG PATCH 1 PATCH TRANSDERM (13:16)
[2024-05-02] MEDS: methylPREDNISolone SOD SUCC 125 MG VIAL 40 MG IV PUSH ×2 (13:16→22:06)
[2024-05-03] VITALS (18 sets, daily range): BP systolic 146–162; BP diastolic 60–97; PULSE 63–124; RESP 20; TEMP 36.3–36.5; O2SAT 91–95
[2024-05-03] MEDS: methylPREDNISolone SOD SUCC 125 MG VIAL 40 MG IV PUSH ×3 (06:37→20:48)
[2024-05-03] MEDS: ASCORBIC ACID 500 MG TABLET PO (08:43)
[2024-05-03] MEDS: MULTIVITAMINS THERAPEUTIC TAB (*BKC) 1 TABLET PO (08:43)
[2024-05-03] MEDS: amLODIPine BESYLATE 5 MG TABLET PO (08:43)
[2024-05-03] MEDS: AZITHROMYCIN 250 MG TABLET PO (08:43)
[2024-05-03] MEDS: ASPIRIN 81 MG ENTERIC TABLET PO (08:43)
[2024-05-03] MEDS: NICOTINE (*PBKC) 7 MG PATCH 1 PATCH TRANSDERM (08:43)
[2024-05-03] MEDS: FLUTICASONE/UMECLIDIN/VILANTER 100-62.5-25 MCG ELLIPTA 1 PUFF INHALATION (08:45)
[2024-05-03] MEDS: ALBUTEROL SULFATE NEB 2.5 MG/3 ML INH INHALATION ×3 (08:45→20:18)
--- NOTE | 2024-05-03 10:41 | P.PNIM_ITS ---
Progress Note: A&P Assessment and Plan (1) Acute respiratory distress: Code(s): R06.03 - Acute respiratory distress Status: Acute Assessment and Plan: Patient presents with shortness of breath felt related to COPD exacerbation related to recent influenza infection. He had increased work of breathing and was hypoxic on admission. Chest x-ray shows mild atelectasis in the left lower lobe. He does have a pr oductive cough. Solu-Medrol started. Blood cultures collected. Antibiotics started. No wheezing appreciated at this time. BCx NGTD. Sputum uncollected. Continue Solu-Medrol and bronchodilators. Wean oxygen as tolerated. Change to Prednisone. Home O2 eval (2) COPD exacerbation: Code(s): J44.1 - Chronic obstructive pulmonary disease with (acute) exacerbation Status: Acute Assessment and Plan: As above (3) CAP (community acquired pneumonia): Code(s): J18.9 - Pneumonia, unspecified organism Status: Acute Assessment and Plan: CXR showing possible PNA. BCx collected and abx started. BCx NGTD. MRSA nasal swab negative. Continue abx. Repeat CXR. (4) Influenza A: Code(s): J10.1 - Influenza due to other identified influenza virus with other respiratory manifestations Status: Acute Assessment and Plan: Patient was not started on Tamiflu as he has an allergy to enoxaparin with apparent cross-reactivity. LFTs mildly elevated felt related to influenza infection. Supportive care. (5) Hypertension: Qualifiers: Hypertension type: primary hypertension Qualified Code(s): I10 - Essential (primary) hypertension Code(s): I10 - Essential (primary) hypertension Status: Chronic Assessment and Plan: Patient's blood pressure was reviewed on 2/3 Blood pressure remains well controlled. Will continue Norvasc (6) Coronary artery disease: Code(s): I25.10 - Atherosclerotic heart disease of [place] coronary artery without angina pectoris Status: Acute Assessment and Plan: Stable. Chest pain free. Continue ASA. Not on statin or betablocker. 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 Plan DVT prophylaxis - SCD Code status - full Debility - PT/OT. OOB Subjective Date/time seen: 05/03/24 10:41 Interval history: 73yo male with HTN and CAD here for shortness of breath. Slept well. Minimal wheezing. +OQUENDO. No SOB or CP. Exam Narrative: AF 97.6 146/97 86 20 91% 2L Gen - NARD Chest - scattered rhonchi. no wheezing CV - RRR S1/S2 Abd - Soft, NT/ND, Positive BS Ext - trace pedal edema Psych - Nml mood and affect Skin - Warm and dry Objective Data Vital Signs Vital Signs: Vital Signs - 24 hr 05/02/24 11:23 05/02/24 12:00 05/02/24 12:45 Temperature Pulse Rate 79 80 Respiratory Rate 18 Blood Pressure Pulse Oximetry Oxygen Delivery Nasal Cannula Oxygen Flow Rate 3 Fraction of Inspired Oxygen 05/02/24 12:55 05/02/24 15:10 05/02/24 16:00 Temperature 98.0 F Pulse Rate 83 85 82 Respiratory Rate 20 22 H Blood Pressure 153/56 H Pulse Oximetry 98 Oxygen Delivery Oxygen Flow Rate Fraction of Inspired Oxygen 05/02/24 20:00 05/02/24 20:00 05/02/24 20:06 Temperature 97.7 F Pulse Rate 72 66 77 Respiratory Rate 18 20 Blood Pressure 137/58 L Pulse Oximetry 96 97 Oxygen Delivery Nasal Cannula Oxygen Flow Rate 2.5 Fraction of Inspired Oxygen 32 05/02/24 20:19 05/02/24 20:22 05/02/24 20:26 Temperature Pulse Rate 69 69 72 Respiratory Rate 18 18 Blood Pressure Pulse Oximetry 96 Oxygen Delivery Nasal Cannula Oxygen Flow Rate 3 Fraction of Inspired Oxygen 05/03/24 00:00 05/03/24 04:00 05/03/24 04:45 Temperature 97.6 F Pulse Rate 76 63 82 Respiratory Rate 20 Blood Pressure 162/60 H Pulse Oximetry 95 Oxygen Delivery Oxygen Flow Rate Fraction of Inspired Oxygen 05/03/24 08:42 05/03/24 08:43 05/03/24 08:43 Temperature 97.6 F Pulse Rate 91 77 Respiratory Rate 20 Blood Pressure 146/97 H Pulse Oximetry 91 92 Oxygen Delivery Nasal Cannula Oxygen Flow Rate 3 Fraction of Inspired Oxygen 05/03/24 08:46 05/03/24 08:46 05/03/24 08:57 Temperature Pulse Rate 94 94 86 Respiratory Rate 20 20 20 Blood Pressure Pulse Oximetry 91 Oxygen Delivery Nasal Cannula Oxygen Flow Rate 2 Fraction of Inspired Oxygen Intake/Output Intake/Output: Intake & Output 04/30/24 05/01/24 05/02/24 05/03/24 23:59 23:59 23:59 23:59 Intake Total 1590 1290 480 Output Total 650 Balance 1590 640 480 Meds/Results Medications: Active Medications Generic Name Dose Route Start Last Admin Trade Name Freq PRN Reason Stop Dose Admin Albuterol 2.5 mg 05/01/24 02:00 05/03/24 08:45 Albuterol Sulfate Neb 2.5 Mg/3 Ml Inh INHALATION 2.5 mg Q6HRT LAURA Administration Albuterol 2 puff 05/01/24 12:50 Albuterol Sulfate (*Sp) Aerosol 1 Puff INHALATION Q4H PRN Dyspnea Amlodipine Besylate 5 mg 05/02/24 09:00 05/03/24 08:43 Amlodipine Besylate 5 Mg Tablet PO 5 mg DAILY LAURA Administration Ascorbic Acid 500 mg 05/02/24 09:00 05/03/24 08:43 Ascorbic Acid 500 Mg Tablet PO 500 mg DAILY LAURA Administration Aspirin 81 mg 05/02/24 09:00 05/03/24 08:43 Aspirin 81 Mg Enteric Tablet PO 81 mg QAM LAURA Administration Azithromycin 250 mg 05/03/24 09:00 05/03/24 08:43 Azithromycin 250 Mg Tablet PO 05/05/24 09:01 250 mg DAILY LAURA Administration Cefdinir 300 mg 05/03/24 21:00 Cefdinir 300 Mg Capsule PO 05/07/24 09:01 Q12HR [facility] Fluticasone/Umeclidinium/Vilanterol 1 puff 05/01/24 14:00 05/03/24 08:45 Fluticasone/Umeclidin/Vilanter 100-62.5-25 Mcg Ellipta INHALATION 1 puff DAILYRT LAURA Administration Methylprednisolone Sodium Succinate 40 mg 05/02/24 14:00 05/03/24 06:37 Methylprednisolone Sod Succ 125 Mg Vial IV PUSH 40 mg Q8HR LAURA Administration Multivitamins Therapeutic 1 tablet 05/02/24 09:00 05/03/24 08:43 Multivitamins Therapeutic Tab (*Bkc) PO 1 tablet DAILY LAURA Administration Nicotine 1 patch 05/03/24 09:00 05/03/24 08:43 Nicotine (*Pbkc) 7 Mg Patch TRANSDERM 1 patch DAILY LAURA Administration Radiology Results: ITS Impressions Chest X-Ray 04/30/24 16:31 IMPRESSION: 1. Mild atelectasis in left lower lung zone.
[2024-05-03] MEDS: CEFDINIR 300 MG CAPSULE PO (20:48)
[2024-05-04] VITALS (17 sets, daily range): BP systolic 138–172; BP diastolic 59–80; PULSE 89–964; RESP 18–20; TEMP 36.2–37.1; O2SAT 87–98
[2024-05-04] MEDS: ALBUTEROL SULFATE NEB 2.5 MG/3 ML INH INHALATION ×3 (02:35→12:45)
[2024-05-04] MEDS: FLUTICASONE/UMECLIDIN/VILANTER 100-62.5-25 MCG ELLIPTA 1 PUFF INHALATION (07:00)
[2024-05-04] MEDS: predniSONE 20 MG TABLET 40 MG PO (09:09)
[2024-05-04] MEDS: NICOTINE (*PBKC) 7 MG PATCH 1 PATCH TRANSDERM (09:09)
[2024-05-04] MEDS: CEFDINIR 300 MG CAPSULE PO (09:10)
[2024-05-04] MEDS: amLODIPine BESYLATE 5 MG TABLET PO (09:10)
[2024-05-04] MEDS: ASCORBIC ACID 500 MG TABLET PO (09:10)
[2024-05-04] MEDS: AZITHROMYCIN 250 MG TABLET PO (09:10)
[2024-05-04] MEDS: MULTIVITAMINS THERAPEUTIC TAB (*BKC) 1 TABLET PO (09:10)
[2024-05-04] MEDS: ASPIRIN 81 MG ENTERIC TABLET PO (09:10)
--- NOTE | 2024-05-04 13:16 | PM.DS ---
DS: Admitting Diagnosis Discharge Date 05/04/24 Admitting Diagnosis Shortness of breath DS: Discharge Diagnosis Discharge Diagnosis (1) Acute respiratory distress: Code(s): R06.03 - Acute respiratory distress Status: Acute (2) COPD exacerbation: Code(s): J44.1 - Chronic obstructive pulmonary disease with (acute) exacerbation Status: Acute (3) CAP (community acquired pneumonia): Code(s): J18.9 - Pneumonia, unspecified organism Status: Acute (4) Influenza A: Code(s): J10.1 - Influenza due to other identified influenza virus with other respiratory manifestations Status: Acute (5) Hypertension: Qualifiers: Hypertension type: primary hypertension Qualified Code(s): I10 - Essential (primary) hypertension Code(s): I10 - Essential (primary) hypertension Status: Chronic (6) Coronary artery disease: Code(s): I25.10 - Atherosclerotic heart disease of yuhaaviatam coronary artery without angina pectoris Status: Acute (7) Diarrhea: Qualifiers: Diarrhea type: presumed infectious Qualified Code(s): R19.7 - Diarrhea, unspecified Code(s): R19.7 - Diarrhea, unspecified Status: Acute Assessment and Plan: 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 Please see H&P for details. Hospital Course: Patient presents with shortness of breath felt related to COPD exacerbation related to recent influenza infection. He had increased work of breathing and was hypoxic on admission. Chest x-ray shows mild atelectasis in the left lower lobe. He had a productive cough. Solu-Medrol started. Blood cultures collected. Antibiotics started. BCx NGTD. Sputum uncollected. CXR showing possible PNA. MRSA nasal swab negative. Repeat CXR showing left base airspace disease. Patient tested positive for Influenza A. He was not started on Tamiflu as he has an allergy to enoxaparin with apparent cross-reactivity. LFTs mildly elevated felt related to influenza infection. Supportive care given. 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 He was educated about the benefits of smoking cessation.He continued to require oxygen. Home O2 evaluation showing he needs 2L at all times. He is walking in the room with minimal OQUENDO. He overall did well and was able to be discharged home on 05/04/24. Status at Discharge Cognitive/behavioral status at discharge: stable Time Spent with Patient Time attestation: Total time spent providing and/or coordinating discharge services: 35 minutes Time spent: Greater than 30 minutes Exam Narrative: AF 97.1 138/63 97 20 98% 2L Gen - NARD Chest - scattered rhonchi. no wheezing CV - RRR S1/S2 Abd - Soft, NT/ND, Positive BS Ext - trace pedal edema Psych - Nml mood and affect Skin - Warm and dry DS: Data Data Completed and Pending Labs on day of discharge: Preliminary micro results at discharge 04/30/24 22:34 Blood Culture - Preliminary Blood 04/30/24 22:15 Blood Culture - Preliminary Blood Discharge Plan Discharge Attending physician on discharge: Benigno Jimenez Discharging Clinician: Benigno Jimenez Anticipated Discharge Date/Time: 05/04/24 13:26 Patient Disposition: Home, Self-Care Activity: as tolerated Diet: heart healthy Discharge Instructions: Wear oxygen 2Liters at all times. Wear compression stocking on in the morning and off at night. Stop using all products that contain tobacco or nicotine. DO NOT use open flame around oxygen including using cigarettes Please complete your antibiotic course even if you are starting to feel well. Take precautions to avoid falls. Rise slowly from a lying or sitting position. Pause before standing or walking. Contact your doctor or call 911 and come to the Emergency Room if you have fevers, lightheadedness with standing or other worrisome symptoms. Avoid NSAIDs (ibuprofen, naproxen, Aleve). Tylenol is safe to take. Follow-up with your primary care provider in 1-2 weeks. Please call for appointment. Thank you for using [facility] for your health care needs. Patient Instructions: Antibiotic Form Patient Language: Uruguayan Stand Alone Forms: General Discharge Information Follow-up/Referrals: Brandon Sherwood MD [Primary Care Provider] - Call for Appointment Discharge Medications: New azithromycin [Zithromax] 250 mg Tablet 250 mg PO DAILY Qty: 1 0RF cefdinir 300 mg Capsule 300 mg PO Q12HR Qty: 6 0RF prednisone 20 mg Tablet 40 mg PO DAILY@0800 3 Days Qty: 6 0RF Continued multivitamin Tablet 1 tablet PO DAILY (DME) peak flow meter Device See Rx Instructions .Route Qty: 1 0RF Rx Instructions: use for COPD amlodipine [Norvasc] 5 mg Tablet 5 mg PO DAILY Qty: 30 0RF ascorbic acid (vitamin C) 500 mg Tablet 500 mg PO DAILY Sarah Low Dose Aspirin 81 mg PO DAILY hydroxychloroquine 200 mg tablet 200 mg PO BID albuterol sulfate [ProAir HFA] 90 mcg/actuation HFA aerosol inhaler 2 puff INHALATION Q4H PRN (Reason: Dyspnea) Qty: 8.5 11RF Dulera 100-5 mcg/actuation HFA aerosol inhaler 2 puff inhalation Q12H Qty: 13 11RF Incruse Ellipta 62.5 mcg/actuation blister with device 1 inh INHALATION DAILY Qty: 30 11RF Date of admission: 05/02/24 11:04 Primary Care Provider: Brandon Sherwood Admitting Provider: Solomon Phipps V. Attending physician on admission: Solomon Phipps V. Condition: Stable Hospitalist MIPS Heart Failure (Exclusion) Patient has history of Heart Transplant or Left Ventricular Assistive Device?: No IF YES, STOP HERE Heart Failure (Qualifier) Patient has current or prior documentation of LVEF less than or equal to 40%, or mod/servere depressed LVSF?: No IF NO, STOP HERE
--- NOTE | 2024-05-04 16:12 | PCRCNOTE ---
Pt set up with IV resp care, 2 l rest and activity.
== END 2024-05-04 14:10 | disposition home or self-care (01) | DRG 194 ==
LOC: ANHED 21:48 → ANH3MEDSUR 22:58 → ANH2MED 05-01 11:22
PROVIDERS: Physician Assistant; Admitting Provider Internal Medicine; Emergency Provider Emergency Medicine; PCP Family Medicine; Visit Provider Internal Medicine
DX: J10.1 Influenza due to other identified influenza virus with other respiratory manifestations (principal); J44.0 Chronic obstructive pulmonary disease with (acute) lower respiratory infection; J44.1 Chronic obstructive pulmonary disease with (acute) exacerbation; J18.9 Pneumonia, unspecified organism; I10 Essential (primary) hypertension; I70.0 Atherosclerosis of aorta; I25.10 Atherosclerotic heart disease of native coronary artery without angina pectoris; J44.9 Chronic obstructive pulmonary disease, unspecified; K57.30 Diverticulosis of large intestine without perforation or abscess without bleeding; K58.0 Irritable bowel syndrome with diarrhea; M19.072 Primary osteoarthritis, left ankle and foot; M19.071 Primary osteoarthritis, right ankle and foot; F17.210 Nicotine dependence, cigarettes, uncomplicated; Z20.822 Contact with and (suspected) exposure to COVID-19; Z86.0101 Personal history of adenomatous and serrated colon polyps; Z87.11 Personal history of peptic ulcer disease
CPT/HCPCS: 36415; 71046; 80053; 83880; 85025; 85610; 85730; 86850; 86900; 86901; 87040; 87637; 87641; 93005; 94640; 96361; 96365; 96366; 96367; 96375; 96376; 97161; 97165; 99285; A9270; G0378; J0456; J0696; J2919; J7030; J7512

== ENCOUNTER 2024-07-14 12:09 | Outpatient (CLI) | payer MEDICARE, SELFPAY ==
--- OUTSIDE RECORDS SUMMARY | 2024-07-14 13:22 | XMS_ITS | Data Portability ---
Author Organization [email or web address], Main Office Address [address] [place] [address] Care Team Providers Care Bottling Equipment Sales Representative Name Role Phone RODRIGUEZ CULVER Primary Care Provider [phone] RODRIGUEZ CULVER Referring Provider Assessment Encounter Date [...] duplex scan, and antibiotics. Discussed in detail. [email or web address] Not available 11/05/2022 21:01:57 Plan of Treatment Reminders Order Date Submit Date Provider Last Modified By Organization Details Last Modified Time Details Appointments None recorded. Lab culture + sensitivity , body fluid - right elbow fluid 2022 023 [email or web address] [facility] ([facility] [address] [place] [address] [address], [place], [address], 3 15:53:44 culture, aerobic + anaerobic - right elbow fluid [address] (Lab), [address] [facility] [address], [place], [address], 3 15:53:44 culture, body fluid - right elbow fluid 2022 023 [facility] (Lab), [address], [place], [address], 3 13:18:48 Referral None recorded. Procedures injection/a spiration joint/bursa (PROC) - in office procedure, administere d by provider 2022 023 [email or web address] In-Office Order, Internal Use Only DO Not Attach Compendium DO Not Attach Compendium, Do Not Delete/merge, [id number] 3 15:45:08 injection/a spiration joint/bursa (PROC) 2022 023 [email or web address] Not available 3 15:28:39 Surgeries None recorded. Imaging XR, elbow 2022 023 [email or web address] [facility] [place], [address], [place], [address], 3 16:28:40 Medication Orders ropivacaine (PF) 5 mg/mL (0.5 %) injection solution 2022 023 [email or web address] Not available 3 08:09:59 ropivacaine (PF) 5 mg/mL (0.5 %) injection solution 2022 023 [id number], [address], [place], [place], [id number], 3 15:33:38 Patient TargetsNo targets recorded. Patient InstructionsNo instructions recorded. Reason for Referral None Reported. Results Created Date Observation Date Name Description Value Unit Range Abnormal Flag Note LastModifiedBy Organization Detail LastModifiedTime 10/30/19 23 XR, elbow No observ ation record ed. [email or web address] [facility] [place] [address], [place], [address], 10/29/2022 15:27:41 Result Notes None recorded. Problems Name Problem SNOMED Code Status Onset Date Resolution Date Notes Provider Name and Address Organization Details Recorded Time Spinal enthesopat hy 74208432 Active Not Available [facility] 3 13:11:29 Disorder of sacrum 20899890 Active Not Available [facility] 3 13:11:29 Plantar fascial fibromatos is 39935741 Active Not Available [facility] 3 13:11:29 Radiothera py follow-up 062652490 Active Not Available [facility] 3 13:11:29 Low back pain 958996343 Active Not Available [facility] 3 13:11:29 Enthesopat hy of hip region 98609093 Active Not Available [facility] 3 13:11:29 Knee pain Active Not Available [facility] 3 13:11:29 Localized, primary osteoarthr itis of elbow 222936266 Active Not Available [facility] 3 13:11:30 Lesion of ulnar nerve 983317753 Active Not Available [facility] 3 13:11:30 Osteoarthr itis 813584886 Active Not Available [facility] 3 13:11:30 Medial epicondyli tis 05696100 Active 2019 Not Available [facility] 3 13:11:30 Pain of right elbow joint 3395588187078 9109 Active 2022 DARYN Soni null, [facility] 3 15:10:30 Infected olecranon bursa 197916769 Active 2022 Torey Philip MD [address] [facility], [facility] [address], [place], [address] , [employer] 3 15:29:04 Problem Notes None recorded. Procedures Surgical History Date Name Laterality Status Provider Name and Address Organization Details Recorded Time 10/30/19 Arthrocentesis Intermediate Joint/Bursa completed Torey Philip MD [address] [facility], [facility] [address], [place], [address], [facility] 10/29/2022 15:26:53 Imaging Results Imaging Date Name Status LastModified by Organiz ation Details LastModified Time 10/29/2022 XR, elbow completed [facility] [address], [place], [address], 10/29/2022 15:27:41 Procedure Notes None recorded. Medical Equipment None Reported. Allergies Allergen ID Allergen Name Allergen Category Reaction Reaction Severity Criticality Documentation Date Start Date Code Code System Note Provider Name and Address Organization Details Recorded Time 66856 Substance with sulfonami de structure and antibacte rial mechanism of action (substanc e) medicatio n Not available Not available Not available 05/29/2022 93946 8003 SNOMED Not Available [facility] 3 13:12:50 99484 Product containin g penicilli n (product) medicatio n Not available Not available Not available 05/29/2022 96582 8001 SNOMED Not Available [facility] 3 13:12:50 24303 codeine medicatio n Not available Not available Not available 10/29/2022 2670 RxNorm DARYN Soni, [facility] 3 15:08:46 Medications Name Sig Start Date [...] administe red by the provider 10/29 completed [facility]: 0003- 0494- 20 Not Available Not [...] administe red by the provider 10/29 completed [facility]: 0409- 4276- 17 Not Available Not [...] 15 mg by injection route. 2022 active [facility] 49819 -[phone] Not Available Not Available Not [...] t Available Vitals Date Recorded Body height Body mass index (BMI) Body weight Provider Name and Address Organization Details Last Updated DateTime 10/29/2022 177.8 cm 30.8 kg/m2 47416.36 g Shagufta LeonDAWNATammy [employer] 10/29/2022 15:08:34 Date Recorded Body height Body mass index (BMI) Body weight Provider Name and Address Organization Details Last Updated DateTime 11/05/2022 177.8 cm 30.8 kg/m2 15417.36 g Mirela FERNANDO Xiao [employer] 11/05/2022 14:46:57 Social History None recorded. Functional Status None recorded. Mental Status None recorded. Family History Nothing Reported. Medical History No medical history recorded. Past Encounters Encounter ID Performer Location Encounter Start Date Encounter Closed Date Diagnosis/Indication Diagnosis SNOMED-CT Code Diagnosis ICD10 Code Diagnosis Note [id number] Torey Philip MD [facility] [address] [place] [address] 10/29/2022 14:38:38 10/29/2022 16:28:40 Pain of right elbow joint 7870334873 4121211 M25.521 Infected o lecranon bursa 377124063 M70.21 [id number] Torey Philip MD [facility] [address] [place] [address] 11/05/2022 14:39:59 11/05/2022 15:43:50 Pain of right elbow joint 7942404858 5014377 M25.521 Infected o jalyn booker 721237315 M70.21 Health Concerns Section Related Observation LastModified by Organization Detai ls LastModified Time None Recorded Concern Status LastModified by Organization Details LastModified Time None Recorded Advance Directives Directive None Recorded Payers Encounter Date Sequence Insurance Name Policy Number Policy Ling Covered Member ID Ling Member ID Guarantor Name 10/29/2022 1 [place] Jeremías Trejo [id number] Jeremías Trejo 10/29/2022 2 [employer] SU[employer]LEMENTAL - [employer] INSUR[employer] (MEDICARE SUPPLEMENT) PLAN F Jeremías Trejo [id number] Jeremías Trejo 11/05/2022 1 [place] Jeermías Trejo [id number] Jeremías Trejo 11/05/2022 2 [employer] SUPPLEMENTAL - [employer] INSURANCE (MEDICARE SUPPLEMENT) PLAN F Jeremías Trejo [id number] Jeremías Trejo Notes Date Note Type Note Provider Name and Address Organization Details Recorded Time 10/29/2022 text/html Patient presents 4-5 day history of pain and swelling in the right elbow. His recall any specific trauma. Denies any fevers chills or night sweats. He notes that the pain seemingly is getting worse and not better. Torey Philip MD [address], [place], [address], [employer] 10/29/2022 15:53:40 11/05/2022 text/html Patient returns with continued swelling and pain right arm. He has not improved with doxycycline. Nor much redness or fevers. Torey Philip MD [address], [place], [address], [employer] 11/05/2022 21:02:31
--- OUTSIDE RECORDS SUMMARY | 2024-07-14 13:22 | XMS_ITS | Clinical Summary ---
Author Organization [facility] [address] [facility] [address] Address [address] [place] [address] Care Team Providers Care Ship Harbor Pilot Name Role Phone Brandon Sherwood MD Primary Care Provider [phone] Allergies Active Allergy Reactions Criticality Noted Date Comments Codeine Furosemide Penicillins Xpsklff-Svk-Kyq Reductase Inhibitors Muscle pain Medium 08/31/2020 Sulfa (Sulfonamide Antibiotics) Vancomycin Other (See comments) High 06/02/2023 Multiple issues involving hearing, vision, weakness Medications bfvyxtix-jdu-CC-l ycopen-lutein (CENTRUM SILVER) 0.4-300-250 mg-mcg-mcg tablet One [...] puff (62.5 mcg total) daily 4 Active nitroglycerin (NITROSTAT) 0.[address] 1 tablet (0.4 mg total) under the tongue every 5 (five) minutes as needed for chest pain May repeat dose q 5 min, up to 3 doses total 30 tablet 3 4 12/12/19 25 Active amLODIPine (NORVASC) 5 mg tablet Take 1 tablet (5 mg total) by mouth daily 90 tablet 3 4 Active hydroxychloroquin e (PLAQUENIL) 200 mg tabletIndications :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 Overview (07/04/2016): Prinzmetal angina Obstructive sleep apnea syndrome 10/22/2013 Overview (07/04/2016): JOSE ANTONIO (obstructive sleep apnea) Resolved Problems Problem Noted Date Diagnosed Date Resolved Date Infected olecranon bursa 10/29/202206/2023 Deep vein thrombosis (DVT) d uring current hospitalization ([facility]) 02/07/2017 11/30/2021 Acute deep vein thrombosis of lower limb 05/05/2015 11/30/2021 Overview (07/04/2016): Acute deep vein thrombosis (DVT) of distal vein of right lower extremity Encounters Date Type Department Care Team Description 06/03/2024 1:30 PM CIVIL LAWYER Office Visit [facility] [address] [place] [address] Rohit Danielson MD Coronary artery disease involving egegik coronary artery of egegik heart without angina pectoris (Primary Dx); Prinzmetal angina; Statin myopathy; Primary hypertension; Mixed hyperlipidemia from Last 3 Months Surgical History Surgery Date Site/Laterality Comments OTHER SURGICAL HISTORY Coronary Artery Disease (nonobstructive CT angio 2: Medical History Medical History Date Comments Hx Other Medical 2010 coronary vasosp asm Hx Other Medical Coronary [...] on file Legal Sex Male 9:25 AM CIVIL LAWYER Gender Identity Not on file Sexual Orientation Not on file Obstetrics History Last Filed Vital Signs Vital Sign Reading Time Taken Comments Blood Pressure 126/66 06/03/2024 1:22 PM CIVIL LAWYER Pulse 86 06/03/2024 1:22 PM CIVIL LAWYER Temperature 36.8 C (98.3 F) 10/31/2023 10:48 AM CDT Respiratory Rate - - Oxygen Saturation 94% 06/03/2024 1:22 PM CIVIL LAWYER Inhaled Oxygen Concentration - - Weight 101.2 kg (223 lb) 06/03/2024 1:22 PM CIVIL LAWYER Height 177.8 cm (5' 10 ) 06/03/2024 1:22 PM CIVIL LAWYER Body Mass Index 32 06/03/2024 1:22 PM CIVIL LAWYER Plan of Treatment Health Maintenance Due Date Last Done Comments Colon Cancer Screening-Colonoscopy 1950 Depression Screening 1950 Fall Risk Assessment 1950 Hepatitis C Screening 1950 DTaP/Tdap/Td Vaccine (1 - Tdap) 12/07/1962 Hepatitis B Screening 12/07/1969 Pneumococcal vaccine 65+ (1 of 2 - PCV) 12/07/1970 Zoster Vaccine (1 of 2) 12/07/1970 Abdominal Aortic Aneurysm (AAA) Screen 12/07/2016 Well Visit 65+ 12/07/2016 Influenza Vaccine (Season Ended) 2024 Procedures Procedure Name Priority Date/Time Associated Diagnosis Comments POCT LIPID PANEL Routine 06/03/2024 1:18 PM CIVIL LAWYER Coronary artery disease involving egegik coronary artery of e[place] heart without angina pectoris Mixed hyperlipidemia from Last 3 Months Results * POCT lipid panel (06/03/2024 1:18 PM CIVIL LAWYER) Cholesterol, POC 156 mg/dL HDL, POC 55 mg/dL Triglycerides, POC 79 mg/dL LDL Cholesterol POC 85 mg/dL Chol/HDL Ratio, POC 1.6 Non-HDL Cholesterol, POC 101 mg/dL Cholesterol Total, POC 156 mg/dL Capillary blood 06/03/2024 1 :18 PM CIVIL LAWYER us Ripa Estuardo Danielson MD POINT OF CARE TEST KURT BRASHER Final Result from Last 3 Months Insurance * Guarantor: Jeremías Trejo Account Type Relation to Patient Date of Phone Billing Address Personal/Family Self 1950 [address] [place] [address] [facility] * Guarantor: Jeremías Trejo Account Type Relation to Patient Date of Phone Billing Address Personal/Family Self 1950 [address] [place] [address] MEDICARE [facility] Address: [address] [address] [place] [address] [facility] MEDICARE SUPPLEMENT INSURANCE [facility] MEDICARE ADVANTAGE [facility] MEDIC[facility] Address: [address] [address] [place] [address] Care Teams Ship Harbor Pilot Relationship Specialty Start Date End Date Brandon Sherwood MD [address] [address] PCP - General 06/28/16
--- OUTSIDE RECORDS SUMMARY | 2024-07-14 13:22 | XMS_ITS | Referral Summary ---
Author Organization [facility] [place] [address] [facility] 162 Address [address] [place] [address] Care Team Providers Care Film Color Tester Name Role Phone Brandon Sherwood MD Primary Care Provider [phone] Encounters Date Type Department Care Team Description 06/03/2024 1:30 PM CORPORATE CONCIERGE Office Visit [facility] Medical [facility] Cardiology [address] [facility] [address] [place] [address] Rohit Danielson MD Coronary artery disease involving comanche coronary artery of comanche heart without angina pectoris (Primary Dx); Prinzmetal angina; Statin myopathy; Primary hypertension; Mixed hyperlipidemia from Last 3 Months Allergies Active Allergy Reactions Criticality Noted Date Comments Codeine Furosemide Penicillins Lusgoem-Lfd-Mnm Reductase Inhibitors Muscle pain Medium 08/31/2020 Sulfa (Sulfonamide Antibiotics) Vancomycin Other (See comments) High 06/02/2023 Multiple issues involving hearing, vision, weakness Medications ihfwhxfk-gqt-YP-l ycopen-lutein (CENTRUM SILVER) 0.4-300-250 mg-mcg-mcg tablet One [...] I have sent a message to his director of medical review regarding this issue. 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 Overview (07/04/2016): Prinzmetal angina Obstructive sleep apnea syndrome 10/22/2013 Overview (07/04/2016): JOSE ANTONIO (obstructive sleep apnea) Resolved Problems Problem Noted Date Diagnosed Date Resolved Date Infected olecranon bursa 10/29/202206/2023 Deep vein thrombosis (DVT) d uring current hospitalization ([facility]) 02/07/2017 11/30/2021 Acute deep vein thrombosis [...] on file Legal Sex Male 9:25 AM CORPORATE CONCIERGE Gender Identity Not on file Sexual Orientation Not on file Last Filed Vital Signs Vital Sign Reading Time Taken Comments Blood Pressure 126/66 06/03/2024 1:22 PM CORPORATE CONCIERGE Pulse 86 06/03/2024 1:22 PM CORPORATE CONCIERGE Temperature 36.8 C (98.3 F) 10/31/2023 10:48 AM CDT Respiratory Rate - - Oxygen Saturation 94% 06/03/2024 1:22 PM CORPORATE CONCIERGE Inhaled Oxygen Concentration - - Weight 101.2 kg (223 lb) 06/03/2024 1:22 PM CORPORATE CONCIERGE Height 177.8 cm (5' 10 ) 06/03/2024 1:22 PM CORPORATE CONCIERGE Body Mass Index 32 06/03/2024 1:22 PM CORPORATE CONCIERGE Plan of Treatment Not on file Procedures Procedure Name Priority Date/Time Associated Diagnosis Comments POCT LIPID PANEL Routine 06/03/2024 1:18 PM CORPORATE CONCIERGE Coronary artery disease involving comanche coronary artery of comanche heart without angina pectoris Mixed hyperlipidemia from Last 3 Months Results * POCT lipid panel (06/03/2024 1:18 PM CORPORATE CONCIERGE) Cholesterol, POC 156 mg/dL HDL, POC 55 mg/dL Triglycerides, POC 79 mg/dL LDL Cholesterol POC 85 mg/dL Chol/HDL Ratio, POC 1.6 Non-HDL Cholesterol, POC 101 mg/dL Cholesterol Total, POC 156 mg/dL Capillary blood 06/03/2024 1 :18 PM CORPORATE CONCIERGE [facility] Estuardo Danielson MD POINT OF CARE TEST KURT BRASHER Final Result from Last 3 Months Insurance [employer] INS CO [facility] * Guarantor: Jeremías Trejo Account Type Relation to Patient Date of Phone Billing Address Personal/Family Self 1950 [address] [place] [address] MEDICARE [facility] MEDICARE SUPPLEMENT INSURANCE * Guarantor: Jeremías Trejo Account Type Relation to Patient Date of Phone Billing Address Personal/Family Self 1950 [address] [place] [address] [facility] MEDICARE ADVANTAGE [facility] MEDICARE Address: [address] [address] [place] [address] Care Teams Film Color Tester Relationship Specialty Start Date End Date Brandon Sherwood MD [address] [address] PCP - General 06/28/16
--- OUTSIDE RECORDS SUMMARY | 2024-07-14 13:22 | XMS_ITS | Encounter Summary ---
Author Organization [facility] Address [address] [place] [address] Phone Care Team Providers Care Dairy Grazer Name Role Phone Brandon Sherwood MD Primary Care Provider [phone] Encounter Details Date Type Department Care Team [...] on file Legal Sex Male 9:25 AM CLINICAL RN Gender Identity Not on file Sexual Orientation [...] on filedocumented in this encounter Care Teams Dairy Grazer Relationship Specialty Start Date End Date Brandon Sherwood MD [address] [address] PCP - General 06/28/16 documented as of this encounter
--- OUTSIDE RECORDS SUMMARY | 2024-07-14 13:22 | XMS_ITS | Encounter Summary ---
Author Organization [facility] Address [address] [place] [address] Care Team Providers Care Communication Clerk Name Role Phone Brandon Sherwood MD Primary Care Provider [phone] Encounter Details Date Type Department Care Team (Late st Contact Info) Description 03/16/2021 Lab Requisition [facility] Care DermPath Lab [address] [facility] [place] [address] Zachary Campa MD [address] [place], [place] [id number] Social History Tobacco Use Types Packs/Day Years Used Date Smoking Tobacco: Never Assessed Sex and Gender Information Value Date Recorded Sex Assigned at Not on file Legal Sex Male 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 Gender Identity Not on file Sexual Orientation Not on file documented as of this encounter Plan of Treatment Not on file documented as of this encounter Procedures Procedure Name Priority Date/Time Associated Diagnosis Comments DERMATOPATHOLOGY Routine 03/15/2021 12:0 0 AM CASE WORK AIDE documented in this encounter Results * DERMATOPATHOLOGY (03/15/2021 12:00 AM CASE WORK AIDE) Case Report Dermatopathology Report Case: [id number] Authorizing Provider: Zachary Campa MD Collected: 03/15/2021 12:00 AM Ordering Location: [facility] Care DermPath Lab Received: 03/16/2021 03:18 PM Pathologist: Abby Carvajal MD Specimen: Skin, right zygoma 1:14 PM [facility] DERMATOPATHOLOGY LABORATORY Final Diagnosis Specimen A. SKIN, right zygoma: BASAL CELL CARCINOMA, INFILTRATIVE PATTERN (C44.319) 1:14 PM [facility] DERMATOPATHOLOGY LABORATORY Clinical History BCCA. Path#[id number] 1 1:14 PM [facility] DERMATOPATHOLOGY LABORATORY Gross Description Specimen A: Received is one formalin filled container labeled with the patient's name and designated right zygoma. The specimen consists of a shave biopsy measuring 7x5x1 mm. Jar 0. 1 1:14 PM [facility] DERMATOPATHOLOGY LABORATORY Microscopic Description Specimen A. SKIN, right zygoma: Within the dermis there are nodular aggregates of basaloid cells associated with fibromyxoid stroma and epithelial-stromal clefts. At the advancing margin of the neoplasm, there are smaller angulated nests that infiltrate the dermis. 1:14 PM [facility] DERMATOPATHOLOGY LABORATORY Disclaimer An external and [...] purposes. Billing Codes Specimen Charges Stain Charges 52176 1 1 1:14 PM CASE WORK AIDE DERMATOPATHOLOGY LABORATORY Embedded Images 1 1:14 PM [facility] DERMATOPATHOLOGY LABORATORY Pathology/Cytolog y TISSUE SPECIMEN FROM SKIN / Unknown 03/15/2021 03/16/2021 3:18 PM [facility] us Zachary Campa MD LAB - PATHOLOGY/CYTOLOGY ORDER TAMRA Final Result DERMATOPATHOLOGY LABORATORY [facility] - Department of Dermatology [address], [address] [phone] documented in this encounter Visit Diagnoses Not on filedocumented in this encounter Care Teams Communication Clerk Relationship Specialty Start Date End Date Brandon Sherwood MD [address] [address] PCP - General 11/01/19 documented as of this encounter
--- OUTSIDE RECORDS SUMMARY | 2024-07-14 13:22 | XMS_ITS | Clinical Summary ---
Author Organization [facility] Address [address] [place] [address] Care Team Providers Care Medical Planner Name Role Phone Brandon Sherwood MD Primary Care Provider [phone] Source Comments [facility],non-owned Affiliates and Associated Physician Practices is amultiple site organization consisting of ambulatory clinics and hospital sitesin [place], [place], [place] and [place]. This disclosure is being madepursuant to the Care Everywhere program and may not contain all information available regarding this patient. 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 Gender Identity Not on file Sexual Orientation [...] SCREENING 1950 LIPID TESTING 1950 MEDICARE AWV 12 MONTHS 1950 HEPATITIS C SCREENING 12/03/1969 DTAP/TDAP/TD VACCINES (1 - Tdap) 12/07/1970 PNEUMOCOCCAL VACCINE 50+ (1 of 1 - PCV) 12/07/2001 ZOSTER VACCINE (1 of 2) 12/07/2001 COVID-19 VACCINE (2023-2 5 season) 2023 DEPRESSION SCREENING 03/31/2024 INFLUENZA VACCINE (Season Ended) 2024 Respiratory Syncytial Virus (RSV) Vaccine Pt: or [...] to complete this topic MENINGOCOCCAL (Group B) VACC INE SHARED DECISION-MAKING Aged Out No longer eligibl e based on patient's age to complete this topic MENINGOCOCCAL GROUPS A/C/Y/W VACCINE Aged Out No longer eligible b ased on patient's age to complete this topic Insurance * Guarantor: Jeremías Trejo Account Type Relation to Patient Date of Phone Billing Address Personal/Family Self 1950 [address] [place] [address] MEDICARE * Guarantor: Jeremías Trejo Account Type Relation to Patient Date of Phone Billing Address Personal/Family Self 1950 [address] [place] [address] MEDICARE [place] [employer] Care Teams Medical Planner Relationship Specialty Start Date End Date Brandon Sherwood MD [address] [place] [address] PCP - General 11/01/19
--- OUTSIDE RECORDS SUMMARY | 2024-07-14 13:22 | XMS_ITS | Encounter Summary ---
Author Organization [facility] Address [address] [facility] [place] [address] Care Team Providers Care Medical Field Representative Name Role Phone Brandon Sherwood MD Primary Care Provider [phone] Encounter Details Date Type Department Care Team (Late st Contact Info) Description 10/17/2022 Lab Requisition [facility] - DermPath Lab [address] [facility] [place] [id number] Zachary Campa MD [address] [facility] [address] [place] [address] Social History Tobacco Use Types Packs/Day Years Used Date Smoking Tobacco: Never Assessed Sex and Gender Information Value Date Recorded Sex Assigned at Not on file 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 Gender Identity Not on file Sexual Orientation Not on file documented as of this encounter Plan of Treatment Not on file documented as of this encounter Procedures Procedure Name Priority Date/Time Associated Diagnosis Comments DERMATOPATHOLOGY Routine 10/15/2022 12:0 0 AM CDT documented in this encounter Results * DERMATOPATHOLOGY (10/15/2022 12:00 AM CDT) Case Report Dermatopathology Report Case: [id number] Authorizing Provider: Zachary Campa MD Collected: 10/15/2022 12:00 AM Ordering Location: [facility] DermPath Lab Received: 10/17/2022 10:06 AM Pathologist: Abby Carvajal MD Specimen: Skin, left upper inner thigh 3 3:09 PM T DERMATOPATHOLOGY LABORATORY Final Diagnosis Specimen A. SKIN, left upper inner thigh: SEBORRHEIC KERATOSIS, IRRITATED AND INFLAMED (L82.0) 3 3:09 PM T DERMATOPATHOLOGY LABORATORY Clinical History MM vs angioma. Path#[id number] 3 3:09 PM T DERMATOPATHOLOGY LABORATORY Gross Description Specimen A: Received is one formalin filled container labeled with the patient's name and designated left upper inner thigh. The specimen consists of a shave biopsy measuring 10x7x2 mm. Jar 0. 3 3:09 PM T DERMATOPATHOLOGY LABORATORY Microscopic Description Specimen A. SKIN, left upper inner thigh: Sections show acanthosis, papillomatosis, hyperkeratosis, and squamous eddies. There is a lymphohistiocytic infiltrate within the papillary dermis. 3:09 PM T DERMATOPATHOLOGY LABORATORY Disclaimer An external and internal positive and negative controls are appropriate for the histochemical, immunohistochemical and immunofluorescence stain(s) in this case (if any), except where stated explicitly. The performance characteristics of the stain(s) cited in this report were developed and its performance characteristic determined by the Dermatopathology Laboratory at [facility], directed by Dr. Moises Kwok. These tests need not be, and therefore are not, approved by the [place] Food and Drug Administration. The tests are used for clinical purposes. Billing Codes Specimen Charges Stain Charges 43423 1 3 3:09 PM CDT DERMATOPATHOLOGY LABORATORY Embedded Images 3 3:09 PM CDT DERMATOPATHOLOGY LABORATORY Pathology/Cytolog y TISSUE SPECIMEN FROM SKIN / Unknown 10/15/2022 10/17/2022 10:06 AM CDT us Zachary Campa MD LAB - PATHOLOGY/CYTOLOGY ORDER TAMRA Final Result DERMATOPATHOLOGY LABORATORY [facility] - Department of Dermatology [address] [phone] documented in this encounter Visit Diagnoses Not on filedocumented in this encounter Care Teams Medical Field Representative Relationship Specialty Start Date End Date Brandon Sherwood MD [address] [facility] [address] [place] [address] PCP - General 11/01/19 documented as of this encounter
--- NOTE | 2024-08-09 10:23 | P.SLEEP_ITS ---
Sleep Study Date of Study: 07/14/24 Ordering Provider: DAVID Warner Interpreting Physician: Jane Guaman DO Sleep Study Type: Polysomnogram Height: 1.78 m Weight: 95.254 kg Body Mass Index: 30.1 Neck Circumference (inches): 17.5 [place]: 6 Reason for Sleep Study Evaluation for sleep apnea Sleep History The patient is a 73-year-old male who had a sleep study ordered by the pulmonary group for evaluation of sleep apnea. The patient rarely has trouble sleeping when he has a cold. He rarely wakes up gasping for air throughout the night. He rarely sweats excessively at night. He denies having heart palpitations or irregular heartbeats during the night. He occasionally falls asleep during the day, but never while driving. He denies sleep paralysis. He denies having trouble at school or work due to sleepiness. He rarely experiences vivid dreamlike scenes upon awakening or falling asleep. He denies feeling afraid of going to sleep. He rarely has nightmares. He rarely remembers his dreams. He o ccasionally has thoughts racing through his mind. He denies feeling sad, depressed, or anxious. He occasionally has muscular tension. He denies noticing parts of his body jerk. He occasionally kicks during the night. He occasionally has crawling and aching feelings in his legs, but rarely has leg pain during the night. He rarely grinds his teeth during sleep, but never awakens with morning jaw pain. He is occasionally bothered by pain during the day, but rarely awakened by pain during the night. He frequently wakes up feeling stiff in the morning. He rarely wakes up with sore or aching muscles. He rarely wakes up with pain in the neck, spine, and other joints. He goes to bed at 11 p.m. on both weekdays and weekends. It takes him 10 minutes to fall asleep. He wakes up twice throughout the night to urinate and is able to fall back asleep within 5 minutes. He wakes up between 6:30 to 7:00 a.m. on both weekdays and weekends. He typically gets 7 hours of sleep per night. He does not stay in bed after waking up in the morning. He currently lives alone.He denies consuming any caffeinated beverages within 2 hours of bedtime. He denies engaging in physical exercise before bedtime. He will watch television before falling asleep. He will take naps in the afternoon, but they are not refreshing. He consumes 6 cups of a caffeinated beverage per day. He quit smoking cigarettes one month ago. He denies alcohol and recreational drug use. [facility] Past Medical History Medical History BPH without obstruction/lower urinary tract symptoms Anxiety Influenza A Diarrhea Male erectile dysfunction, unspecified Viagra did not help, Cialis caused headache. BMI 31.0-31.9,adult Edema, peripheral Acute diarrhea Hypokalemia Dehydration Hyponatremia Hypersomnia Snoring Hypoxia Hypertension Sinusitis Aortic atherosclerosis COPD exacerbation Thrush, oral Right forearm cellulitis Deep vein thrombosis of right lower limb Chronic obstructive pulmonary disease Coronary artery disease COVID-19 (05/2022) tested positive 06/10/22 Elevated fasting glucose Fasting glucose 117 with hemoglobin A1c 5.6 on 04/26/2022. Encounter for prostate cancer screening PSA 2.13 on 04/26/2022. Metatarsalgia of both feet MRI of both feet on 08/30/2022 by social media content specialist revealed degenerative joint disease worse at the 1st MTP bilaterally with bunion formation on the right foot. Nausea and vomiting (12/28/20) history of nausea and vomiting with bowel prep Polyp of colon colonoscopy with Dr. Jenkins on 02/28/2021 with multiple sessile polyps from 2 mm to 12 mm with recheck in 2 years Nocturia Bindu-rectal abscess Tobacco use disorder, continuous 1/2 pack daily. Patient quit smoking 04/27/2024. 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) Psoriasis Eczema Diverticulosis Diverticulitis Gastric ulcer Pneumonia Wears partial dentures Asthma Surgical History Surgical History History of arthroscopy of left knee History of arthroplasty of right knee X4 History of vasectomy History of cholecystectomy H/O colonoscopy with polypectomy History of cardiac catheterization (2012) Family History Family History Mother Family history of multiple sclerosis, Onset Age: 73 Father Patient's father is , Onset Age: 51 Family history of liver disease Family history of chronic obstructive pulmonary disease Family history of alcoholism Sibling Family history of malignant neoplasm Cerebrovascular accident Sibling Breast cancer Social History Social History Social History: Surrogate medical decision maker: Palma Santillan, daughter. Code status: Full code. Smoking packs per day: 12 Smoking cigarettes per day: 240.0 Years smoked: 50 Smoking pack-years: 600.00 Smoking status: Former smoker Tobacco type: cigarettes Smoking end date: 04/27/24 Alcohol intake: never Substance use: never Substance use type: does not use Do You Feel Safe in your Home?: Yes Lack of Transportation: No Lack of Food: Never True Current Housing: Decline to Answer Concerned About Future Housing: No Difficulty Paying Gas/Electric Bills: No Difficulty Paying for Meds: No Currently Unemployed: No Education: High School Diploma/GED Difficulty w/ Childcare or Family Care: No Living arrangements: alone Spiritual care concerns: No Medications Home Medications ?Medication ?Instructions ?Recorded ?Confirmed ?Type hydroxychloroquine 200 mg tablet 200 mg PO BID 05/07/21 07/05/24 History amlodipine 5 mg tablet (Norvasc) 5 mg PO DAILY #30 tabs 11/08/22 07/05/24 Rx Sarah Low Dose Aspirin 81 mg PO DAILY 04/14/23 07/05/24 History multivitamin 1 tablet PO DAILY 05/02/23 07/05/24 History ascorbic acid (vitamin C) 500 mg 500 mg PO DAILY 06/23/23 07/05/24 History tablet albuterol sulfate 90 mcg/actuation 2 puff inhalation Q4H PRN Dyspnea 05/11/24 07/05/24 Rx aerosol inhaler (ProAir HFA) #8.5 grams oxygen-air delivery systems 05/11/24 07/05/24 History peak flow meter #1 ea 05/11/24 07/05/24 Rx mometasone-formoterol HFA 100 2 puff inhalation Q12H #13 grams 05/24/24 07/05/24 Rx mcg-5 mcg/actuation aerosol inhaler (Dulera) umeclidinium 62.5 mcg/actuation 1 inh inhalation DAILY #30 ea 06/02/24 07/05/24 Rx blister powder for inhalation (Incruse Ellipta) tamsulosin 0.4 mg capsule 0.4 mg PO QHS #30 caps 06/24/24 07/05/24 Rx Sleep Procedure A full night polysomnogram using the [employer] multi-channel system recorded the standard physiologic parameters including EEG, EOG, submentalis EMG, anterior tibialis EMG, EKG, body position, nasal and oral airflow using nasal pressure sensor and thermistor.? Respiratory parameters of chest and abdominal movements were recorded with Respiratory Inductance Plethysmography belts. Oxygen saturation was recorded by pulse oximetry. Video monitoring was also performed. Sleep stages, periodic limb movements, and EEG arousals were scored in 30 second epochs according to the criteria of the AASM Scoring Manual. The Apnea-Hypopnea Index was calculated using [facility] guidelines for definition of hypopnea with 4% O2 desaturations while scoring respiratory events. Sleep Architecture The total recording time was 418.8 minutes.? The total sleep time was 272.0 minutes. Sleep latency was 39.7 minutes. REM latency was 135.0 minutes. Sleep efficiency was 65.0%. The patient had 39 awakenings for an awakening index of 8.6. Wake after sleep onset time was 107.0 minutes. The patient spent 68.0 minutes, 25.0% of total sleep time in Stage N1. The patient spent 140.5 minutes, 51.7% in Stage N2. The patient spent 0.0 minutes, 0.0% in Stage N3. The patient spent 63.5 minutes, 23.3% in Stage REM sleep. Respiratory Analysis The patient had 7 hypopneas and 1 central apnea for an overall Apnea Hypopnea Index of 1.8. The REM Apnea Hypopnea Index was 8.5. The NREM Apnea Hypopnea Index was 0.6. The patient had a Central Apnea Hypopnea Index of 0.2. There was no evidence of Zachariah-Champion Respirations. Arousals There were 171 total arousals for an arousal index of 37.7. There were 53 spontaneous arousals for an index of 11.7. There was 1 arousal due to respiratory events for an index of 0.2. There were 109 arousals due to periodic limb movements for an index of 24.0.? There were 9 arousals due to isolated limb movements for an index of 2.0. Periodic Limb Movements The patient had 32 isolated limb movements with an index of 7.1. The patient had 150 periodic limb movements with an index of 33.1, which is elevated (normal < 15). Patient had a total of 182 limb movements with a total limb movement index of 40.1. Oximetry Data The patient had an average oxygen saturation of 88.6% in sleep with a minimum oxygen saturation of 79.0% and a maximum oxygen saturation of 92.0%. The patient had 10 oxygen desaturations that were 4% or greater resulting in an Oxygen Desaturation Index of 2.2.? The patient spent 88.8 minutes, 21.6% of total sleep time with an oxygen saturation below 88%. Snoring Profile Mild snoring was present intermittently throughout the study. Cardiac Profile The EKG showed normal sinus rhythm. No arrhythmias or premature beats were seen. The patient had an average pulse rate of 78.7 bpm with a minimum pulse of rate of 64.0 bpm and a maximum pulse rate of 96.0 bpm.? EEG Profile No signs of seizure activity seen. Assessment and Plan Assessment and Plan (1) Nocturnal hypoxemia: Code(s): G47.34 - Idiopathic sleep related nonobstructive alveolar hypoventilation Status: Acute Assessment and Plan: The patient had an overall AHI of 1.8 with desaturation down to 79%. This is not consistent with sleep-disordered breathing. The patient spent 88.8 minutes, 21.6% of total sleep time with an oxygen saturation below 88%. The hypoxemia occurred mainly in REM sleep. Supplemental oxygen was not started during this study. I recommend that the patient use 2 lpm of supplemental oxygen while sleeping. I also recommend getting a nocturnal oximetry done 1-2 weeks later to ensure that he is able to maintain an SpO2 > 90% while sleeping. (2) PLMD (periodic limb movement disorder): Code(s): G47.61 - Periodic limb movement disorder Status: Acute Assessment and Plan: The patient had a significant number of limb movements during the study with the majority being periodic in nature. The majority of the leg movements caused arousals in the patient's sleep. The patient's sleep history is somewhat suggestive of Restless Leg Syndrome. I recommend that the patient have a serum ferritin drawn for evaluation of iron deficiency anemia. If the patient has a serum ferritin less than 75 ng/mL, I recommend starting a daily iron supplement and a Vitamin C supplement for better absorption. If the serum ferritin is greater than 75 ng/mL, I recommend starting a dopamine agonist and titrating the dose until symptoms resolve. There are nonpharmacological methods to treat limb movements including daily exercise, stretching calf muscles before bed, avoiding excessive amounts of caffeine and alcohol, vitamin B supplementation, magnesium lotion massaged into legs before bed, and use of a weighted blanket. Data The data obtained during this sleep study is adequate for interpretation. Certification This sleep study has been reviewed by a board certified sleep medicine physician.
[2024-08-09 10:24] VITALS: BMI 30.1
== END 2024-07-15 06:34 | disposition home or self-care (01) ==
LOC: ANHCSM 12:16
PROVIDERS: Visit Provider Physician Assistant
DX: G47.34 Idiopathic sleep related nonobstructive alveolar hypoventilation (principal); G47.61 Periodic limb movement disorder; J44.9 Chronic obstructive pulmonary disease, unspecified; F17.209 Nicotine dependence, unspecified, with unspecified nicotine-induced disorders; Z79.899 Other long term (current) drug therapy
CPT/HCPCS: 95810

== ENCOUNTER 2024-07-23 10:42 | Outpatient (CLI) | payer MEDICARE, SELFPAY ==
--- NOTE | ~2024-07-23 | CT_ITS ---
CT Scan of the Chest without Contrast: Clinical Indication: Lung cancer screening, nicotine dependence Technique: Contiguous sections were acquired throughout the chest without intravenous contrast. Dose reduction technique was used on this scan by utilizing automated exposure control and iterative recon struction technique. The dose-length product (DLP) was 184.82 mGy-cm. Findings: There is no evidence of any significant mediastinal, hilar or axillary lymphadenopathy. The mediastin al soft tissues appear normal. There is no evidence of pleural or pericardial effusion. There are several subcentimeter nodules and groundglass opacities in the lung apices bilaterally. The re is curvilinear scarring at the lung bases bilaterally. There is an 8 mm pleural-based nodule at th e medial left lower lobe (axial image 75). Images through the upper abdomen reveal no abnormalities. Impression: Lung RADS 4A: Suspicious. 3 month follow-up CT recommended for further evaluation. Reviewed, dictated and finalized at [facility]. Impression: Lung RADS 4A: Suspicious. 3 month follow-up CT recommended for further evaluati on.
--- OUTSIDE RECORDS SUMMARY | 2024-07-23 11:03 | XMS_ITS | Clinical Summary ---
Author Organization [facility] [address] [facility] [address] Address [address] [place] [address] Care Team Providers Care Rasper Machine Operator Name Role Phone Brandon Sherwood MD Primary Care Provider [phone] Allergies Active Allergy Reactions Criticality Noted Date Comments Codeine Furosemide Penicillins Hforxkv-Olp-Eac Reductase Inhibitors Muscle pain Medium 08/31/2020 Sulfa (Sulfonamide Antibiotics) Vancomycin Other (See comments) High 06/02/2023 Multiple issues involving hearing, vision, weakness Medications maqpaosg-cpi-JW-l ycopen-lutein (CENTRUM SILVER) 0.4-300-250 mg-mcg-mcg tablet One [...] I have sent a message to his window maker regarding this issue. 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 Overview (07/04/2016): Prinzmetal angina Obstructive sleep apnea syndrome 10/22/2013 Overview (07/04/2016): JOSE ANTONIO (obstructive sleep apnea) Resolved Problems Problem Noted Date Diagnosed Date Resolved Date Infected olecranon bursa 10/29/202206/2023 Deep vein thrombosis (DVT) d uring current hospitalization ([facility]) 02/07/2017 11/30/2021 Acute deep vein thrombosis of lower limb 05/05/2015 11/30/2021 Overview (07/04/2016): Acute deep vein thrombosis (DVT) of distal vein of right lower extremity Encounters Date Type Department Care Team Description 06/03/2024 1:30 PM BULLET MAKER Office Visit [facility] Medical Group Cardiology [address] [place] [address] Rohit Danielson MD Coronary artery disease involving [place] coronary artery of scam[place] heart without angina pectoris (Primary Dx); Prinzmetal [...] on file Legal Sex Male 9:25 AM BULLET MAKER Gender Identity Not on file Sexual Orientation Not on file Obstetrics History Last Filed Vital Signs Vital Sign Reading Time Taken Comments Blood Pressure 126/66 06/03/2024 1:22 PM BULLET MAKER Pulse 86 06/03/2024 1:22 PM BULLET MAKER Temperature 36.8 C (98.3 F) 10/31/2023 10:48 AM CDT Respiratory Rate - - Oxygen Saturation 94% 06/03/2024 1:22 PM BULLET MAKER Inhaled Oxygen Concentration - - Weight 101.2 kg (223 lb) 06/03/2024 1:22 PM BULLET MAKER Height 177.8 cm (5' 10 ) 06/03/2024 1:22 PM BULLET MAKER Body Mass Index 32 06/03/2024 1:22 PM BULLET MAKER Plan of Treatment Health Maintenance Due Date [...] POCT LIPID PANEL Routine 06/03/2024 1:18 PM BULLET MAKER Coronary artery disease involving [place] coronary artery of [place] heart without angina pectoris Mixed hyperlipidemia from Last 3 Months Results * POCT lipid panel (06/03/2024 1:18 PM BULLET MAKER) Cholesterol, POC 156 mg/dL HDL, POC 55 mg/dL Triglycerides, POC 79 mg/dL LDL Cholesterol POC 85 mg/dL Chol/HDL Ratio, POC 1.6 Non-HDL Cholesterol, POC 101 mg/dL Cholesterol Total, POC 156 mg/dL Capillary blood 06/03/2024 1 :18 PM BULLET MAKER us [facility] Estuardo Danielson MD POINT OF CARE TEST KURT BRASHER Final Result from Last 3 Months Insurance * Guarantor: Jeermías Trejo Account Type Relation to Patient Date of Phone Billing Address Personal/Family Self 1950 [address] [place] [address] [facility] INS CO [facility] * Guarantor: Jeremías Trejo Account Type Relation to Patient Date of Phone Billing Address Personal/Family Self 1950 [address] [place] [address] [employer] MEDICARE ADVANTAGE * Guarantor: Jeremías Trejo Account Type Relation to Patient Date of Phone Billing Address Personal/Family Self 1950 [address] [place] [address] [facility] MEDICARE ADVANTAGE Care Teams Rasper Machine Operator Relationship Specialty Start Date End Date Brandon Sherwood MD [address] [address] PCP - General 06/28/16
--- OUTSIDE RECORDS SUMMARY | 2024-07-23 11:03 | XMS_ITS | Referral Summary ---
Author Organization [facility] [address] [facility] 162 Address [address] [place] [address] Care Team Providers Care Wood Finisher Name Role Phone Brandon Sherwood MD Primary Care Provider [phone] Encounters Date Type Department Care Team Description 06/03/2024 1:30 PM ADJUNCT PROFESSOR OF LAW Office Visit [facility] Medical Group Cardiology [address] [facility] [address] [place] [address] Rohit Danielson MD Coronary artery disease involving ely shoshone coronary artery of ely shoshone heart without angina pectoris (Primary Dx); Prinzmetal angina; Statin myopathy; Primary hypertension; Mixed hyperlipidemia from Last 3 Months Allergies Active Allergy Reactions Criticality Noted Date Comments Codeine Furosemide Penicillins Xfhqzds-Vel-Hbn Reductase Inhibitors Muscle pain Medium 08/31/2020 Sulfa (Sulfonamide Antibiotics) Vancomycin Other (See comments) High 06/02/2023 Multiple issues involving hearing, vision, weakness Medications rxikgwyx-rdi-GR-l ycopen-lutein (CENTRUM SILVER) 0.4-300-250 mg-mcg-mcg tablet One [...] I have sent a 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 Overview (07/04/2016): Prinzmetal angina Obstructive sleep apnea syndrome 10/22/2013 Overview (07/04/2016): JOSE ANTONIO (obstructive sleep apnea) Resolved Problems Problem Noted Date Diagnosed Date Resolved Date Infected olecranon bursa 10/29/202206/2023 Deep vein thrombosis (DVT) d uring current hospitalization ([facility]) 02/07/2017 11/30/2021 Acute deep vein thrombosis [...] on file Legal Sex Male 9:25 AM ADJUNCT PROFESSOR OF LAW Gender Identity Not on file Sexual Orientation Not on file Last Filed Vital Signs Vital Sign Reading Time Taken Comments Blood Pressure 126/66 06/03/2024 1:22 PM ADJUNCT PROFESSOR OF LAW Pulse 86 06/03/2024 1:22 PM ADJUNCT PROFESSOR OF LAW Temperature 36.8 C (98.3 F) 10/31/2023 10:48 AM CDT Respiratory Rate - - Oxygen Saturation 94% 06/03/2024 1:22 PM ADJUNCT PROFESSOR OF LAW Inhaled Oxygen Concentration - - Weight 101.2 kg (223 lb) 06/03/2024 1:22 PM ADJUNCT PROFESSOR OF LAW Height 177.8 cm (5' 10 ) 06/03/2024 1:22 PM ADJUNCT PROFESSOR OF LAW Body Mass Index 32 06/03/2024 1:22 PM ADJUNCT PROFESSOR OF LAW Plan of Treatment Not on file Procedures Procedure Name Priority Date/Time Associated Diagnosis Comments POCT LIPID PANEL Routine 06/03/2024 1:18 PM ADJUNCT PROFESSOR OF LAW Coronary artery disease involving ely shoshone coronary artery of ely shoshone heart without angina pectoris Mixed hyperlipidemia from Last 3 Months Results * POCT lipid panel (06/03/2024 1:18 PM ADJUNCT PROFESSOR OF LAW) Cholesterol, POC 156 mg/dL HDL, POC 55 mg/dL Triglycerides, POC 79 mg/dL LDL Cholesterol POC 85 mg/dL Chol/HDL Ratio, POC 1.6 Non-HDL Cholesterol, POC 101 mg/dL Cholesterol Total, POC 156 mg/dL Capillary blood 06/03/2024 1 :18 PM ADJUNCT PROFESSOR OF LAW [facility] Estuardo Danielson MD POINT OF CARE TEST KURT BRASHER Final Result from Last 3 Months Insurance [employer] INS CO [facility] * Guarantor: Jeremías Trejo Account Type Relation to Patient Date of Phone Billing Address Personal/Family Self 1950 [address] [place] [address] [facility] MEDICARE ADVANTAGE [facility] MEDICARE Address: [address] [address] [place] [address] * Guarantor: Jeremías Trejo Account Type Relation to Patient Date of Phone Billing Address Personal/Family Self 1950 [address] [place] [address] [facility] MEDICARE ADVANTAGE [facility] MEDICARE Address: [address] [address] [place] [address] Care Teams Wood Finisher Relationship Specialty Start Date End Date Brandon Sherwood MD [address] [address] PCP - General 06/28/16
--- OUTSIDE RECORDS SUMMARY | 2024-07-23 11:03 | XMS_ITS | Encounter Summary ---
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
--- OUTSIDE RECORDS SUMMARY | 2024-07-23 11:03 | XMS_ITS | Encounter Summary ---
Author Organization [facility] Address [address] [place] [address] Care Team Providers Care Mortgage Loan Assistant Name Role Phone Brandon Sherwood MD Primary Care Provider [phone] Encounter Details Date Type Department Care Team (Late st Contact Info) Description 10/17/2022 Lab Requisition [facility] - DermPath Lab [address] [facility] [place] [id number] Zachary Campa MD [address] [facility] [address] [address] [address] [place] [address] Social History Tobacco Use Types Packs/Day Years Used Date Smoking Tobacco: Never Assessed Sex and Gender Information Value Date Recorded Sex Assigned at Not on file 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 Gender Identity Not on file Sexual Orientation Not on file documented as of this encounter Plan of Treatment Not on file documented as of this encounter Procedures Procedure Name Priority Date/Time Associated Diagnosis Comments DERMATOPATHOLOGY Routine 10/15/2022 12:0 0 AM CDT documented in this encounter Results * DERMATOPATHOLOGY (10/15/2022 12:00 AM CDT) Case Report Dermatopathology Report Case: [id number] Authorizing Provider: Zachary Campa MD Collected: 10/15/2022 12:00 AM Ordering Location: [facility] DermPath Lab Received: 10/17/2022 10:06 AM Pathologist: Abby Carvajal MD Specimen: Skin, left upper inner thigh 3 3:09 PM T DERMATOPATHOLOGY LABORATORY Final Diagnosis Specimen A. SKIN, left upper inner thigh: SEBORRHEIC KERATOSIS, IRRITATED AND INFLAMED (L82.0) 3 3:09 PM T DERMATOPATHOLOGY LABORATORY Clinical History MM vs angioma. Path#[id number] 3 3:09 PM T DERMATOPATHOLOGY LABORATORY Gross [...] determined by the Dermatopathology Laboratory at [facility], directed by Dr. Moises Kwok. These tests need not be, and therefore are not, approved by the [place] Food and Drug Administration. The tests are used for clinical purposes. Billing Codes Specimen Charges Stain Charges 20491 1 3 3:09 PM CDT DERMATOPATHOLOGY LABORATORY Embedded Images 3 3:09 PM CDT DERMATOPATHOLOGY LABORATORY Pathology/Cytolog y TISSUE SPECIMEN FROM SKIN / Unknown 10/15/2022 10/17/2022 10:06 AM CDT us Zachary Campa MD LAB - PATHOLOGY/CYTOLOGY ORDER TAMRA Final Result DERMATOPATHOLOGY LABORATORY [facility] - Department of Dermatology [address], [address] [phone] documented in this encounter Visit Diagnoses Not on filedocumented in this encounter Care Teams Mortgage Loan Assistant Relationship Specialty Start Date End Date Brandon Sherwood MD [address] [facility] [address] [place] [address] PCP - General 11/01/19 documented as of this encounter
--- OUTSIDE RECORDS SUMMARY | 2024-07-23 11:03 | XMS_ITS | Encounter Summary ---
Author Organization [facility] Address [address] [place] [address] Care Team Providers Care Donkey Doctor Name Role Phone Brandon Sherwood MD Primary Care Provider [phone] Encounter Details Date Type Department Care Team (Late st Contact Info) Description 03/16/2021 Lab Requisition [facility] Care DermPath Lab [address] [facility] [place] [address] Zachary Campa MD [address] [place], [place] [id number] Social History Tobacco Use Types Packs/Day Years Used Date Smoking Tobacco: Never Assessed Sex and Gender Information Value Date Recorded Sex Assigned at Not on file Legal Sex Male 5:49 AM BRANDS EDITOR Gender Identity Not on file Sexual Orientation Not on file documented as of this encounter Plan of Treatment Not on file documented as of this encounter Procedures Procedure Name Priority Date/Time Associated Diagnosis Comments DERMATOPATHOLOGY Routine 03/15/2021 12:0 0 AM BRANDS EDITOR documented in this encounter Results * DERMATOPATHOLOGY (03/15/2021 12:00 AM BRANDS EDITOR) Case Report Dermatopathology Report Case: [id number] Authorizing Provider: Zachary Campa MD Collected: 03/15/2021 12:00 AM Ordering Location: [facility] Care DermPath Lab Received: 03/16/2021 03:18 PM Pathologist: Abby Carvajal MD Specimen: Skin, right zygoma 1:14 PM [facility] DERMATOPATHOLOGY LABORATORY Final Diagnosis Specimen A. SKIN, right zygoma: BASAL CELL CARCINOMA, INFILTRATIVE PATTERN (C44.319) 1:14 PM [facility] DERMATOPATHOLOGY LABORATORY Clinical History BCCA. Path#[id number] 1 1:14 PM [facility] DERMATOPATHOLOGY LABORATORY Gross Description Specimen A: Received is one formalin filled container labeled with the patient's name and designated right zygoma. The specimen consists of a shave biopsy measuring 7x5x1 mm. Jar 0. 1 1:14 PM [facility] DERMATOPATHOLOGY LABORATORY Microscopic Description Specimen A. SKIN, right zygoma: Within the dermis there are nodular aggregates of basaloid cells associated with fibromyxoid stroma and epithelial-stromal clefts. At the advancing margin of the neoplasm, there are smaller angulated nests that infiltrate the dermis. 1:14 PM [facility] DERMATOPATHOLOGY LABORATORY Disclaimer An external and internal positive and negative controls are appropriate for the histochemical, immunohistochemical and immunofluorescence stain(s) in this case (if any), except where stated explicitly. The performance characteristics of the stain(s) cited in this report were developed and its performance characteristic determined by the Dermatopathology Laboratory at [facility], directed by Dr. Moises Kwok. These tests need not be, and therefore are not, approved by the [place] Food and Drug Administration. The tests are used for clinical purposes. Billing Codes Specimen Charges Stain Charges 11433 1 1 1:14 PM BRANDS EDITOR DERMATOPATHOLOGY LABORATORY Embedded Images 1 1:14 PM [facility] DERMATOPATHOLOGY LABORATORY Pathology/Cytolog y TISSUE SPECIMEN FROM SKIN / Unknown 03/15/2021 03/16/2021 3:18 PM [facility] us Zachary Campa MD LAB - PATHOLOGY/CYTOLOGY ORDER TAMRA Final Result DERMATOPATHOLOGY LABORATORY [facility] - Department of Dermatology [address], [address] [phone] documented in this encounter Visit Diagnoses Not on filedocumented in this encounter Care Teams Donkey Doctor Relationship Specialty Start Date End Date Brandon Sherwood MD [address] [facility] [address] [address] PCP - General 11/01/19 documented as of this encounter
--- OUTSIDE RECORDS SUMMARY | 2024-07-23 11:03 | XMS_ITS | Clinical Summary ---
Author Organization [facility] Address [address] [place] [address] Care Team Providers Care Steak Sauce Maker Name Role Phone Brandon Sherwood MD Primary Care Provider [phone] Source Comments [facility],non-owned Affiliates and Associated Physician Practices is amultiple site organization consisting of ambulatory clinics and hospital sitesin [place], [place], [place] and [place]. This disclosure is being madepursuant to the Care Everywhere program and may not contain all information available regarding this patient. 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
== END 2024-07-23 10:43 | disposition home or self-care (01) ==
PROVIDERS: PCP Family Medicine; Visit Provider Physician Assistant
DX: Z12.2 Encounter for screening for malignant neoplasm of respiratory organs (principal); Z87.891 Personal history of nicotine dependence
CPT/HCPCS: 71271

== ENCOUNTER 2024-08-04 09:30 | Outpatient (CLI) | payer MEDICARE, SELFPAY ==
--- OUTSIDE RECORDS SUMMARY | 2024-08-04 09:59 | XMS_ITS | Referral Summary ---
Author Organization [facility] [address] [facility] [address] Address [address] [place] [address] Care Team Providers Care Psychiatric Specialist Name Role Phone Brandon Sherwood MD Primary Care Provider [phone] Encounters Date Type Department Care Team Description 06/03/2024 1:30 PM DISTRIBUTING CLERK Office Visit [facility] Cardiology [address] [facility] [address] [place] [address] Rohit Danielson MD Coronary artery disease involving king salmon coronary artery of king salmon heart without angina pectoris (Primary Dx); Prinzmetal angina; Statin myopathy; Primary hypertension; Mixed hyperlipidemia from Last 3 Months Allergies Active Allergy Reactions Criticality Noted Date Comments Codeine Furosemide Penicillins Pmkodmg-Wyl-Rqa Reductase Inhibitors Muscle pain Medium 08/31/2020 Sulfa (Sulfonamide Antibiotics) Vancomycin Other (See comments) High 06/02/2023 Multiple issues involving hearing, vision, weakness Medications ufszjebb-acu-EZ-l ycopen-lutein (CENTRUM SILVER) 0.4-300-250 mg-mcg-mcg tablet One [...] I have sent a message to his end maker regarding this issue. I would recommend [...] edema) 04/29/2017 Coronary artery disease invo lving king salmon coronary artery of king salmon heart without angina pectoris 02/07/2017 Tobacco abuse 02/07/2017 Obesity (BMI 30.0-34.9) 02/07/2017 Prinzmetal angina 02/10/2015 Overview (07/04/2016): Prinzmetal angina Obstructive sleep apnea syndrome 10/22/2013 Overview (07/04/2016): JOSE ANTONIO (obstructive sleep apnea) Resolved Problems Problem Noted Date Diagnosed Date Resolved Date Infected olecranon bursa 10/29/202206/2023 Deep vein thrombosis (DVT) d uring current hospitalization ([facility]) 02/07/2017 11/30/2021 Acute deep vein thrombosis of [...] on file Legal Sex Male 9:25 AM DISTRIBUTING CLERK Gender Identity Not on file Sexual Orientation Not on file Last Filed Vital Signs Vital Sign Reading Time Taken Comments Blood Pressure 126/66 06/03/2024 1:22 PM DISTRIBUTING CLERK Pulse 86 06/03/2024 1:22 PM DISTRIBUTING CLERK Temperature 36.8 C (98.3 F) 10/31/2023 10:48 AM CDT Respiratory Rate - - Oxygen Saturation 94% 06/03/2024 1:22 PM DISTRIBUTING CLERK Inhaled Oxygen Concentration - - Weight 101.2 kg (223 lb) 06/03/2024 1:22 PM DISTRIBUTING CLERK Height 177.8 cm (5' 10 ) 06/03/2024 1:22 PM DISTRIBUTING CLERK Body Mass Index 32 06/03/2024 1:22 PM DISTRIBUTING CLERK Plan of Treatment Not on file Procedures Procedure Name Priority Date/Time Associated Diagnosis Comments POCT LIPID PANEL Routine 06/03/2024 1:18 PM DISTRIBUTING CLERK Coronary artery disease involving king salmon coronary artery of king salmon heart without angina pectoris Mixed hyperlipidemia from Last 3 Months Results * POCT lipid panel (06/03/2024 1:18 PM DISTRIBUTING CLERK) Cholesterol, POC 156 mg/dL HDL, POC 55 mg/dL Triglycerides, POC 79 mg/dL LDL Cholesterol POC 85 mg/dL Chol/HDL Ratio, POC 1.6 Non-HDL Cholesterol, POC 101 mg/dL Cholesterol Total, POC 156 mg/dL Capillary blood 06/03/2024 1 :18 PM DISTRIBUTING CLERK [facility] Estuardo Danielson MD POINT OF CARE TEST KURT BRASHER Final Result from Last 3 Months Insurance [employer] [place] [employer] [facility] [employer] * Guarantor: Jeremías Trejo Account Type Relation to Patient Date of Phone Billing Address Personal/Family Self 1950 [address] [place] [address] [facility] MEDICARE ADVANTAGE * Guarantor: Jeremías Trejo Account Type Relation to Patient Date of Phone Billing Address Personal/Family Self 1950 [address] [place] [address] [employer] Care Teams Psychiatric Specialist Relationship Specialty Start Date End Date Brandon Sherwood MD [address] [address] PCP - General 06/28/16
--- OUTSIDE RECORDS SUMMARY | 2024-08-04 09:59 | XMS_ITS | Encounter Summary ---
Author Organization [facility] Address [address] [facility] [place] [address] Care Team Providers Care Bank Credit Card Collection Clerk Name Role Phone Brandon Sherwood MD Primary Care Provider [phone] Encounter Details Date Type Department Care Team (Late st Contact Info) Description 10/17/2022 Lab Requisition [facility] - DermPath Lab [address] [facility] [place] [phone] Zachary Campa MD [address] [facility] [address] [place] [address] Social History Tobacco Use Types Packs/Day Years Used Date Smoking Tobacco: Never Assessed Sex and Gender Information Value Date Recorded Sex Assigned at Not on file 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 Gender Identity Not on file Sexual Orientation Not on file documented as of this encounter Plan of Treatment Not on file documented as of this encounter Procedures Procedure Name Priority Date/Time Associated Diagnosis Comments DERMATOPATHOLOGY Routine 10/15/2022 12:0 0 AM CDT documented in this encounter Results * DERMATOPATHOLOGY (10/15/2022 12:00 AM CDT) Case Report Dermatopathology Report Case: [id number] Authorizing Provider: Zachary Campa MD Collected: 10/15/2022 12:00 AM Ordering Location: [facility] DermPath Lab Received: 10/17/2022 10:06 AM Pathologist: Abby Carvajal MD Specimen: Skin, left upper inner thigh 3 3:09 PM T DERMATOPATHOLOGY LABORATORY Final Diagnosis Specimen A. SKIN, left upper inner thigh: SEBORRHEIC KERATOSIS, IRRITATED AND INFLAMED (L82.0) 3 3:09 PM T DERMATOPATHOLOGY LABORATORY Clinical History MM vs angioma. Path#[id number] 3 3:09 PM T DERMATOPATHOLOGY LABORATORY Gross [...] characteristic determined by the Dermatopathology Laboratory at [facility], directed by Dr. Moises Kwok. These tests need not be, and therefore are not, approved by the [place] Food and Drug Administration. The tests are used for clinical purposes. Billing Codes Specimen Charges Stain Charges 69235 1 3 3:09 PM CDT DERMATOPATHOLOGY LABORATORY Embedded Images 3 3:09 PM CDT DERMATOPATHOLOGY LABORATORY Pathology/Cytolog y TISSUE SPECIMEN FROM SKIN / Unknown 10/15/2022 10/17/2022 10:06 AM CDT us Zachary Campa MD LAB - PATHOLOGY/CYTOLOGY ORDER TAMRA Final Result DERMATOPATHOLOGY LABORATORY [facility] - Department of Dermatology [address], [address] [phone] documented in this encounter Visit Diagnoses Not on filedocumented in this encounter Care Teams Bank Credit Card Collection Clerk Relationship Specialty Start Date End Date Brandon Sherwood MD [address] [facility] [address] [place] [address] PCP - General 11/01/19 documented as of this encounter
--- OUTSIDE RECORDS SUMMARY | 2024-08-04 09:59 | XMS_ITS | Encounter Summary ---
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
--- OUTSIDE RECORDS SUMMARY | 2024-08-04 09:59 | XMS_ITS | Data Portability ---
Author Organization [place] [facility] [employer], Main Office Address [address] [place] [address] Care Team Providers Care Information Security Manager Name Role Phone RODRIGUEZ CULVER Primary Care Provider [phone] RODRIGUEZ CULVER Referring Provider Assessment Encounter Date [...] duplex scan, and antibiotics. Discussed in detail. [email or web address] Not available 11/05/2022 21:01:57 Plan of Treatment Reminders Order Date Submit Date Provider Last Modified By Organization Details Last Modified Time Details Appointments None recorded. Lab culture + sensitivity , body fluid - right elbow fluid 2022 023 [email or web address] [facility] ([facility]), [address] [place] [address] [address], [place], [address], 3 15:53:44 culture, aerobic + anaerobic - right elbow fluid [address] (Lab), [address] [facility] [address], [place], [address], 3 15:53:44 culture, body fluid - right elbow fluid [address] [facility] (Lab), [address], [place], [address], 3 13:18:48 Referral None recorded. Procedures injection/a spiration joint/bursa (PROC) - in office procedure, administere d by provider 2022 023 [email or web address] In-Office Order, Internal Use Only DO Not Attach Compendium DO Not Attach Compendium, Do Not Delete/merge, [id number] 3 15:45:08 injection/a spiration joint/bursa (PROC) 2022 023 [email or web address] Not available 3 15:28:39 Surgeries None recorded. Imaging XR, elbow 2022 023 [email or web address] [facility] [place], [address], [place], [address], 3 16:28:40 Medication Orders ropivacaine (PF) 5 mg/mL (0.5 %) injection solution 2022 023 [email or web address] Not available 3 08:09:59 ropivacaine (PF) 5 mg/mL (0.5 %) injection solution 2022 023 [address] [id number], [address], [place], [address], 3 15:33:38 Patient TargetsNo targets recorded. Patient InstructionsNo instructions recorded. Reason for Referral None Reported. Results Created Date Observation Date Name Description Value Unit Range Abnormal Flag Note LastModifiedBy Organization Detail LastModifiedTime 10/30/19 23 XR, elbow No observ ation record ed. [email or web address] [facility] [place] [address], [place], [address], 10/29/2022 15:27:41 Result Notes None recorded. Problems Name Problem SNOMED Code Status Onset Date Resolution Date Notes Provider Name and Address Organization Details Recorded Time Spinal enthesopat hy 25625613 Active Not Available [facility] 3 13:11:29 Disorder of sacrum 95405877 Active Not Available [facility] 3 13:11:29 Plantar fascial fibromatos is 25189864 Active Not Available [facility] 3 13:11:29 Radiothera py follow-up 278026963 Active Not Available [facility] 3 13:11:29 Low back pain 497214375 Active Not Available [facility] 3 13:11:29 Enthesopat hy of hip region 55646684 Active Not Available [facility] 3 13:11:29 Knee pain Active Not Available [facility] 3 13:11:29 Localized, primary osteoarthr itis of elbow 487783345 Active Not Available [facility] 3 13:11:30 Lesion of ulnar nerve 979171452 Active Not Available [facility] 3 13:11:30 Osteoarthr itis 403300907 Active Not Available [facility] 3 13:11:30 Medial epicondyli tis 65111003 Active 2019 Not Available [facility] 3 13:11:30 Pain of right elbow joint 0361739854341 9109 Active 2022 DARYN Soni null, [employer] 3 15:10:30 Infected olecranon bursa 252111672 Active 2022 Torey Philip MD [address] [facility], [facility] [address], [place], [address] , [employer] 3 15:29:04 Problem Notes None recorded. Procedures Surgical History Date Name Laterality Status Provider Name and Address Organization Details Recorded Time 10/30/19 Arthrocentesis Intermediate Joint/Bursa completed Torey Philip MD [address] [facility], [facility] [address], [place], [address], [facility] 10/29/2022 15:26:53 Imaging Results Imaging Date Name Status LastModified by Organiz ation Details LastModified Time 10/29/2022 XR, elbow completed [email or web address] [facility] [place] [address], [place], [address], 10/29/2022 15:27:41 Procedure Notes None recorded. Medical Equipment None Reported. Allergies Allergen ID Allergen Name Allergen Category Reaction Reaction Severity Criticality Documentation Date Start Date Code Code System Note Provider Name and Address Organization Details Recorded Time 07166 Substance with sulfonami de structure and antibacte rial mechanism of action (substanc e) medicatio n Not available Not available Not available 05/29/2022 03953 8003 SNOMED Not Available [facility] 3 13:12:50 36428 Product containin g penicilli n (product) medicatio n Not available Not available Not available 05/29/2022 55726 8001 SNOMED Not Available [facility] 3 13:12:50 16630 codeine medicatio n Not available Not available Not available 10/29/2022 2670 RxNorm DARYN Soni, [facility] 3 15:08:46 Medications Name Sig Start Date [...] administe red by the provider 10/29 completed [facility]: 0003- 0494- 20 Not Available Not Available [...] administe red by the provider 10/29 completed [facility]: 0409- 4276- 17 Not Available Not Available [...] 15 mg by injection route. 2022 active [facility] 04443 -064- 01 Not Available Not Available Not [...] Updated DateTime 10/29/2022 177.8 cm 30.8 kg/m2 39412.36 g Shagufta LeonDAWNATammy [employer] 10/29/2022 15:08:34 Date Recorded Body height Body mass index (BMI) Body weight Provider Name and Address Organization Details Last Updated DateTime 11/05/2022 177.8 cm 30.8 kg/m2 99891.36 g Mirela FERNANDO Xiao [employer] 11/05/2022 14:46:57 Social History None recorded. Functional Status None recorded. Mental Status None recorded. Family History Nothing Reported. Medical History No medical history recorded. Past Encounters Encounter ID Performer Location Encounter Start Date Encounter Closed Date Diagnosis/Indication Diagnosis SNOMED-CT Code Diagnosis ICD10 Code Diagnosis Note [id number] Torey Philip MD [facility] [place] [address] [place] [address] 10/29/2022 14:38:38 10/29/2022 16:28:40 Pain of right elbow joint 0393368796 1852577 M25.521 Infected o lecranon bursa 908754073 M70.21 [id number] Torey Philip MD [facility] [place] [address] [place] [address] 11/05/2022 14:39:59 11/05/2022 15:43:50 Pain of right elbow joint 5107097008 1088946 M25.521 Infected o jalyn booker 498813607 M70.21 Health Concerns Section Related Observation LastModified by Organization Detai ls LastModified Time None Recorded Concern Status LastModified by Organization Details LastModified Time None Recorded Advance Directives Directive None Recorded Payers Encounter Date Sequence Insurance Name Policy Number Policy Ling Covered Member ID Ling Member ID Guarantor Name 10/29/2022 1 [place] Jeremías Trejo [id number] Jeremías Trejo 10/29/2022 2 [employer] SUPPLEMENTAL - [employer] INSURANCE (MEDICARE SUPPLEMENT) PLAN F Jeremías Trejo [id number] Jeremías Trejo 11/05/2022 1 [place] Jeremías Trejo [id number] Jeremías Trejo 11/05/2022 2 [employer] SUPPLEMENTAL - [employer]URANCE (MEDICARE SUPPLEMENT) PLAN F Jeremías Trejo [id number] Jeremías Trejo Notes Date Note Type Note Provider Name and Address Organization Details Recorded Time 10/29/2022 text/html Patient presents 4-5 day history of pain and swelling in the right elbow. His recall any specific trauma. Denies any fevers chills or night sweats. He notes that the pain seemingly is getting worse and not better. Torey Philip MD [address], [address], [place], [address], [employer] 10/29/2022 15:53:40 11/05/2022 text/html Patient returns with continued swelling and pain right arm. He has not improved with doxycycline. Nor much redness or fevers. Torey Philip MD [address], [place], [address], [employer] 11/05/2022 21:02:31
--- OUTSIDE RECORDS SUMMARY | 2024-08-04 09:59 | XMS_ITS | Clinical Summary ---
Author Organization [facility] [address] [facility] [address] Address [address] [place] [address] Care Team Providers Care Wire Frame Maker Name Role Phone Brandon Sherwood MD Primary Care Provider [phone] Allergies Active Allergy Reactions Criticality Noted Date Comments Codeine Furosemide Penicillins Hpcgjug-Boa-Ebx Reductase Inhibitors Muscle pain Medium 08/31/2020 Sulfa (Sulfonamide Antibiotics) Vancomycin Other (See comments) High 06/02/2023 Multiple issues involving hearing, vision, weakness Medications wluzrxmz-igg-BT-l ycopen-lutein (CENTRUM SILVER) 0.4-300-250 mg-mcg-mcg tablet One [...] I have sent a message to his motor vehicle examiner regarding this issue. I would recommend sooner [...] edema) 04/29/2017 Coronary artery disease invo lving kletsel dehe wintun coronary artery of k[place] heart without angina pectoris 02/07/2017 Tobacco abuse 02/07/2017 Obesity (BMI 30.0-34.9) 02/07/2017 Prinzmetal angina 02/10/2015 Overview (07/04/2016): Prinzmetal angina Obstructive sleep apnea syndrome 10/22/2013 Overview (07/04/2016): JOSE ANTONIO (obstructive sleep apnea) Resolved Problems Problem Noted Date Diagnosed Date Resolved Date Infected olecranon bursa 10/29/202206/2023 Deep vein thrombosis (DVT) d uring current hospitalization ([facility]) 02/07/2017 11/30/2021 Acute deep vein thrombosis of lower limb 05/05/2015 11/30/2021 Overview (07/04/2016): Acute deep vein thrombosis (DVT) of distal vein of right lower extremity Encounters Date Type Department Care Team Description 06/03/2024 1:30 PM SALES BROKER Office Visit [facility] [address] [place] [address] Rohit Danielson MD Coronary artery disease involving kletsel dehe wintun coronary artery of k[place]sel de[place] heart without angina pectoris (Primary Dx); Prinzmetal [...] on file Legal Sex Male 9:25 AM SALES BROKER Gender Identity Not on file Sexual Orientation Not on file Obstetrics History Last Filed Vital Signs Vital Sign Reading Time Taken Comments Blood Pressure 126/66 06/03/2024 1:22 PM SALES BROKER Pulse 86 06/03/2024 1:22 PM SALES BROKER Temperature 36.8 C (98.3 F) 10/31/2023 10:48 AM CDT Respiratory Rate - - Oxygen Saturation 94% 06/03/2024 1:22 PM SALES BROKER Inhaled Oxygen Concentration - - Weight 101.2 kg (223 lb) 06/03/2024 1:22 PM SALES BROKER Height 177.8 cm (5' 10 ) 06/03/2024 1:22 PM SALES BROKER Body Mass Index 32 06/03/2024 1:22 PM SALES BROKER Plan of Treatment Health Maintenance Due Date [...] POCT LIPID PANEL Routine 06/03/2024 1:18 PM SALES BROKER Coronary artery disease involving kletsel dehe wintun coronary artery of kletsel de[place] heart without angina pectoris Mixed hyperlipidemia from Last 3 Months Results * POCT lipid panel (06/03/2024 1:18 PM SALES BROKER) Cholesterol, POC 156 mg/dL HDL, POC 55 mg/dL Triglycerides, POC 79 mg/dL LDL Cholesterol POC 85 mg/dL Chol/HDL Ratio, POC 1.6 Non-HDL Cholesterol, POC 101 mg/dL Cholesterol Total, POC 156 mg/dL Capillary blood 06/03/2024 1 :18 PM SALES BROKER us Ripa Estuardo Danielson MD POINT OF CARE TEST KURT BRASHER Final Result from Last 3 Months Insurance * Guarantor: Jeremías Trejo Account Type Relation to Patient Date of Phone Billing Address Personal/Family Self 1950 [address] [place] [address] [facility] * Guarantor: Jeremías Trejo Account Type Relation to Patient Date of Phone Billing Address Personal/Family Self 1950 [address] [place] [address] [employer] MEDICARE ADVANTAGE * Guarantor: Jeremías Trejo Account Type Relation to Patient Date of Phone Billing Address Personal/Family Self 1950 [address] [place] [address] [facility] MEDICARE ADVANTAGE Care Teams Wire Frame Maker Relationship Specialty Start Date End Date Brandon Sherwood MD [address] [id number] PCP - General 06/28/16
--- OUTSIDE RECORDS SUMMARY | 2024-08-04 09:59 | XMS_ITS | Encounter Summary ---
Author Organization [facility] Address [address] [facility] [place] [address] Care Team Providers Care Communications Superintendent Name Role Phone Brandon Sherwood MD Primary Care Provider [phone] Encounter Details Date Type Department Care Team (Late st Contact Info) Description 03/16/2021 Lab Requisition [facility] Care D[facility] Lab [address] [facility], [place] [address] Zachary Campa MD [address] [place], [place] [id number] Social History Tobacco Use Types Packs/Day Years Used Date Smoking Tobacco: Never Assessed Sex and Gender Information Value Date Recorded Sex Assigned at Not on file 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 Gender Identity Not on file Sexual Orientation Not on file documented as of this encounter Plan of Treatment Not on file documented as of this encounter Procedures Procedure Name Priority Date/Time Associated Diagnosis Comments DERMATOPATHOLOGY Routine 03/15/2021 12:0 0 AM CONTINUOUS PROCESS ROTARY DRUM TANNER documented in this encounter Results * DERMATOPATHOLOGY (03/15/2021 12:00 AM CONTINUOUS PROCESS ROTARY DRUM TANNER) Case Report Dermatopathology Report Case: [id number] Authorizing Provider: Zachary Campa MD Collected: 03/15/2021 12:00 AM Ordering Location: [facility] Care Derm[facility] Lab Received: 03/16/2021 03:18 PM Pathologist: Abby Carvajal MD Specimen: Skin, right zygoma 1:14 PM [facility] DERMATOPATHOLOGY LABORATORY Final Diagnosis Specimen A. SKIN, right zygoma: BASAL CELL CARCINOMA, INFILTRATIVE PATTERN (C44.319) 1:14 PM [facility] DERMATOPATHOLOGY LABORATORY Clinical History BCCA. Path#[id number] 1 1:14 PM [facility] DERMATOPATHOLOGY LABORATORY Gross Description Specimen A: Received is one formalin filled container labeled with the patient's name and designated right zygoma. The specimen consists of a shave biopsy measuring 7x5x1 mm. Jar 0. 1 1:14 PM [facility] DERMATOPATHOLOGY LABORATORY Microscopic Description Specimen A. SKIN, right zygoma: Within the dermis there are nodular aggregates of basaloid cells associated with fibromyxoid stroma and epithelial-stromal clefts. At the advancing margin of the neoplasm, there are smaller angulated nests that infiltrate the dermis. 1:14 PM [facility] DERMATOPATHOLOGY LABORATORY Disclaimer An external and internal positive and negative controls are appropriate for the histochemical, immunohistochemical and immunofluorescence stain(s) in this case (if any), except where stated explicitly. The performance characteristics of the stain(s) cited in this report were developed and its performance characteristic determined by the Dermatopathology Laboratory at [facility], directed by Dr. Moises Kwok. These tests need not be, and therefore are not, approved by the [place] Food and Drug Administration. The tests are used for clinical purposes. Billing Codes Specimen Charges Stain Charges 84394 1 1 1:14 PM CONTINUOUS PROCESS ROTARY DRUM TANNER DERMATOPATHOLOGY LABORATORY Embedded Images 1 1:14 PM [facility] DERMATOPATHOLOGY LABORATORY Pathology/Cytolog y TISSUE SPECIMEN FROM SKIN / Unknown 03/15/2021 03/16/2021 3:18 PM [facility] us Zachary Campa MD LAB - PATHOLOGY/CYTOLOGY ORDER TAMRA Final Result DERMATOPATHOLOGY LABORATORY [facility] - Department of Dermatology [address], [address] [phone] documented in this encounter Visit Diagnoses Not on filedocumented in this encounter Care Teams Communications Superintendent Relationship Specialty Start Date End Date Brandon Sherwood MD [address] [facility] [address] [address] PCP - General 11/01/19 documented as of this encounter
--- OUTSIDE RECORDS SUMMARY | 2024-08-04 09:59 | XMS_ITS | Clinical Summary ---
Author Organization [facility] Address [address] [facility] [place] [address] Care Team Providers Care Registered Nurse Maternal Child Name Role Phone Brandon Sherwood MD Primary Care Provider [phone] Source Comments [facility],non-owned Affiliates and Associated Physician Practices is amultiple site organization consisting of ambulatory clinics and hospital sitesin [place], [place], [place] and [place]. This disclosure is being madepursuant to the Care Everywhere program and may not contain all information available regarding this patient. 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
[2024-08-04 10:15] VITALS: PULSE 70; O2SAT 95
[2024-08-04 10:30] VITALS: PULSE 93; O2SAT 92
[2024-08-04 10:40] VITALS: PULSE 72; O2SAT 96
--- NOTE | 2024-08-04 10:50 | HOMEO2EVAL ---
Evaluation was performed at [facility] Home Oxygen Evaluation RC: Home Oxygen (O2) Evaluation Start: 08/04/24 10:44 Freq: Status: Active Protocol: RPE Activity Type Activity Date Activity User E-sign Co-sign Detail Recorded Client Recorded Date Recorded By Document 08/04/24 10:15 [facility] RT_003 08/04/24 10:49 [facility] Document 08/04/24 10:30 [facility] RT_003 08/04/24 10:49 [facility] Document 08/04/24 10:40 [facility] RT_003 08/04/24 10:49 [facility] 08/04/24 08/04/24 08/04/24 10:15 10:30 10:40 Home O2 Evaluation [Oxygen] -Test Phase Resting Exercise Resting -Oxygen Delivery Room Air Room Air Room Air [Pulse Oximetry] -Pulse Oximetry (90-100 %) 95 92 96 [Pulse Rate] -Pulse Rate (60-100 beats/min) 70 93 72 [Exercise] -Ambulation Distance (feet) 360 -Ambulation Distance (meters) 109.72 [Comments] -Home Oxygen Evaluation Comments Patient walked on room air with no walking aid. Patient walked a flight of stairs x2 [Charges] -Evaluation Charges O2 Evaluation by Pulmonary
--- NOTE | 2024-08-04 13:38 | P.PCNPFT_ITS ---
PFT Procedure Performed PFT Procedure Performed Spirometry with Pre/Post Bronchodilator Plethysmography (Lung Vol) Diffusing Cap (DLCO) Flow Vol Loop PFT Interpretation This is a pulmonary function test with pre and post-bronchodilator spirometry, plethysmography and diffusing capacity. The test was performed and results interpreted in accordance with the 2019 and 2005 ATS/ERS Task Force guidelines respectively using the Global Lung Function Initiative-2012 reference equations. Patient demonstrated good effort and cooperation. Reproducibility criteria were met. The quality of the pre bronchodilator spirometry maneuver was Grade A and post bronchodilator spirometry maneuver was Grade A. Findings: Spirometry: There is decreased maximal expiratory airflow at all lung volumes with a concave expiratory flow tracing. The contour the inspiratory flow tracing is normal. The pre bronchodilator FVC is 1.92 L, 46% predicted. The pre bronchodilator FEV1 is 0.92 L, 29% predicted. The pre bronchodilator FEV1: FVC ratio is 48%. The post bronchodilator FVC is 2.20 L, representing a 14% increase. The post bronchodilator FEV1 is 1.07 L, representing a 17% increase. the post bronchodilator FEV1: FVC ratio is 49%. Plethysmography: The total lung capacity is 5.73 L, 81% predicted. The func tional residual capacity is 4.23 L, 112% predicted. The residual volume is 3.81 L, 153% predicted. The residual volume: Total lung capacity ratio 66%. Diffusing capacity: The diffusing capacity unadjusted for hemoglobin and carboxyhemoglobin is 11.9, 46% predicted. The diffusing capacity adjusted for alveolar volume is 3.94, 102% predicted. Impression: There is a very severe obstructive abnormality. There is significant improvement after inhaling a single dose of albuterol. The increase in residual volume to total lung volume ratio is consistent with hyperinflation from an obstructive abnormality. The diffusing capacity unadjusted for hemoglobin and carboxyhemoglobin is moderately decreased and normalizes when adjusted for alveolar volume. There are no prior studies for comparison
== END 2024-08-04 09:31 | disposition home or self-care (01) ==
PROVIDERS: PCP Family Medicine; Visit Provider Physician Assistant
DX: J44.9 Chronic obstructive pulmonary disease, unspecified (principal); J96.01 Acute respiratory failure with hypoxia; R94.2 Abnormal results of pulmonary function studies
CPT/HCPCS: 94060; 94618; 94726; 94729

== ENCOUNTER 2024-09-11 19:33 | Inpatient (IN) | payer MEDICARE, SELFPAY ==
--- NOTE | ~2024-09-11 | XR_ITS ---
CHEST RADIOGRAPH CLINICAL HISTORY: LETITIA, COPD . COMPARISON: 05/04/2024 TECHNIQUE: Single portable view of the chest. FINDINGS The cardiomediastinal silhouette is unremarkable. Increased opacification with air bronchograms is identified within the left lower lobe. Peribronchial thickening is also noted. The remainder of the lungs are clear. IMPRESSION: Peribronchial thickening with a possible early left lower lobe infiltrate. Reviewed, dictated and finalized at location A.
--- OUTSIDE RECORDS SUMMARY | 2024-09-11 19:34 | XMS_ITS | Clinical Summary ---
Author Organization [facility] [address] [address] [address] [facility] [address] [place] [address] Care Team Providers Care Software Support Analyst Name Role Phone Brandon Sherwood MD Primary Care Provider [phone] Allergies Active Allergy Reactions Criticality Noted Date Comments Codeine Furosemide Penicillins Maguywa-Fwm-Xbr Reductase Inhibitors Muscle pain Medium 08/31/2020 Sulfa (Sulfonamide Antibiotics) Vancomycin Other (See comments) High 06/02/2023 Multiple issues involving hearing, vision, weakness Medications dsgzvdok-pnj-DN-l ycopen-lutein (CENTRUM SILVER) 0.4-300-250 mg-mcg-mcg tablet One [...] I have sent a message to his monitor and storage bin tender regarding this issue. 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 Overview (07/04/2016): Prinzmetal angina Obstructive sleep apnea syndrome 10/22/2013 Overview (07/04/2016): JOSE ANTONIO (obstructive sleep apnea) Resolved Problems Problem Noted Date Diagnosed Date Resolved Date Infected olecranon bursa 10/29/202206/2023 Deep vein thrombosis (DVT) d uring current hospitalization ([facility]) 02/07/2017 11/30/2021 Acute deep vein thrombosis [...] Family history of arthritis - (Added by Bearch Conv) Other Other 2 sudden cardiac in 2 cousins; Stroke Sister 1 Family history of cerebrovascular accident (CVA) - (Added by Bearch Conv) Cancer Sister 2 Family history of malignant neoplasm - (Added by Bearch Conv) Relation Name Status Comments Mother Other [...] on file 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 Gender Identity Not on file Sexual Orientation Not on file Obstetrics History Last Filed Vital Signs Vital Sign Reading Time Taken Comments Blood Pressure 126/66 06/03/2024 1:22 PM BUSINESS DEVELOPMENT RECRUITER Pulse 86 06/03/2024 1:22 PM BUSINESS DEVELOPMENT RECRUITER Temperature 36.8 C (98.3 F) 10/31/2023 10:48 AM CDT Respiratory Rate - - Oxygen Saturation 94% 06/03/2024 1:22 PM BUSINESS DEVELOPMENT RECRUITER Inhaled Oxygen Concentration - - Weight 101.2 kg (223 lb) 06/03/2024 1:22 PM BUSINESS DEVELOPMENT RECRUITER Height 177.8 cm (5' 10) 06/03/2024 1:22 PM BUSINESS DEVELOPMENT RECRUITER Body Mass Index 32 06/03/2024 1:22 PM BUSINESS DEVELOPMENT RECRUITER Plan of Treatment Health Maintenance Due Date [...] 65+ 12/07/2016 Influenza Vaccine (Season Ended) 2024 Insurance * Guarantor: Jeremías Trejo Account Type Relation to Patient Date of Phone Billing Address Personal/Family Self 1950 [address] [place] [address] [address] [employer] [facility] * Guarantor: Jeremías Trejo Account Type Relation to Patient Date of Phone Billing Address Personal/Family Self 1950 [address] [place] [address] [facility] MEDICARE ADVANTAGE * Guarantor: Jeremías Trejo Account Type Relation to Patient Date of Phone Billing Address Personal/Family Self 1950 [address] [place] [address] [facility] [place] [address] Care Teams Software Support Analyst Relationship Specialty Start Date End Date Brandon Sherwood MD [address] [address] PCP - General 06/28/16
--- OUTSIDE RECORDS SUMMARY | 2024-09-11 19:34 | XMS_ITS | Encounter Summary ---
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
--- OUTSIDE RECORDS SUMMARY | 2024-09-11 19:34 | XMS_ITS | Referral Summary ---
Author Organization [facility] [address] [facility] [address] [place] [address] Care Team Providers Care Vp Customer Development Name Role Phone Brandon Sherwood MD Primary Care Provider [phone] Allergies Active Allergy Reactions Criticality Noted Date Comments Codeine Furosemide Penicillins Ilxnwvp-Aiv-Hpo Reductase Inhibitors Muscle pain Medium 08/31/2020 Sulfa (Sulfonamide Antibiotics) Vancomycin Other (See comments) High 06/02/2023 Multiple issues involving hearing, vision, weakness Medications vtflsjlp-uao-AR-l ycopen-lutein (CENTRUM SILVER) 0.4-300-250 mg-mcg-mcg tablet One [...] I have sent a message to his engineering documentation specialist regarding this issue. 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 Overview (07/04/2016): Prinzmetal angina Obstructive sleep apnea syndrome 10/22/2013 Overview (07/04/2016): JOSE ANTONIO (obstructive sleep apnea) Resolved Problems Problem Noted Date Diagnosed Date Resolved Date Infected olecranon bursa 10/29/202206/2023 Deep vein thrombosis (DVT) d uring current hospitalization ([facility]) 02/07/2017 11/30/2021 Acute deep vein [...] on file 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 Gender Identity Not on file Sexual Orientation Not on file Last Filed Vital Signs Vital Sign Reading Time Taken Comments Blood Pressure 126/66 06/03/2024 1:22 PM ASSEMBLY MACHINE SET UP MECHANIC Pulse 86 06/03/2024 1:22 PM ASSEMBLY MACHINE SET UP MECHANIC Temperature 36.8 C (98.3 F) 10/31/2023 10:48 AM CDT Respiratory Rate - - Oxygen Saturation 94% 06/03/2024 1:22 PM ASSEMBLY MACHINE SET UP MECHANIC Inhaled Oxygen Concentration - - Weight 101.2 kg (223 lb) 06/03/2024 1:22 PM ASSEMBLY MACHINE SET UP MECHANIC Height 177.8 cm (5' 10) 06/03/2024 1:22 PM ASSEMBLY MACHINE SET UP MECHANIC Body Mass Index 32 06/03/2024 1:22 PM ASSEMBLY MACHINE SET UP MECHANIC Plan of Treatment Not on file Insurance * Guarantor: Jeremías Trejo Account Type Relation to Patient Date of Phone Billing Address Personal/Family Self 1950 [address] [place] [address] [employer] [facility] * Guarantor: Jeremías Trejo Account Type Relation to Patient Date of Phone Billing Address Personal/Family Self 1950 [address] [place] [address] [employer] MEDICARE ADVANTAGE [facility] MEDICARE Address: [facility] [address] [place] [address] * Guarantor: Jeremías Trejo Account Type Relation to Patient Date of Phone Billing Address Personal/Family Self 1950 [address] [place] [address] [employer] MEDICARE ADVANTAGE Care Teams Vp Customer Development Relationship Specialty Start Date End Date Brandon Sherwood MD [address] [place] [address] PCP - General 06/28/16
--- OUTSIDE RECORDS SUMMARY | 2024-09-11 19:34 | XMS_ITS | Clinical Summary ---
Author Organization [facility] Address [address] [facility] [place] [address] Care Team Providers Care Barrel Coater Name Role Phone Brandon Sherwood MD Primary Care Provider [phone] Source Comments [facility],non-owned Affiliates and Associated Physician Practices is amultiple site organization consisting of ambulatory clinics and hospital sitesin [place], [place], [place] and [place]. This disclosure is being madepursuant to the Care Everywhere program and may not contain all information available regarding this patient. 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
--- OUTSIDE RECORDS SUMMARY | 2024-09-11 19:34 | XMS_ITS | Data Portability ---
Author Organization [place] [employer], Main Office Address [address] [place] [address] Care Team Providers Care Facepiece Line Supervisor Name Role Phone RODRIGUEZ CULVER Primary Care Provider RODRIGUEZ CULVER Referring Provider Assessment Encounter Date [...] duplex scan, and antibiotics. Discussed in detail. [email or web address] Not available 11/05/2022 21:01:57 Plan of Treatment Reminders Order Date Submit Date Provider Last Modified By Organization Details Last Modified Time Details Appointments None recorded. Lab culture + sensitivity , body fluid - right elbow fluid 2022 023 [email or web address] [facility] ([facility]), [address] [place] [address] [address], [place], [address], 3 15:53:44 culture, aerobic + anaerobic - right elbow fluid [address] (Lab), [address] [facility] [address], [place], [address], 3 15:53:44 culture, body fluid - right elbow fluid 2022 023 [facility] (Lab), [address], [place], [address], 3 13:18:48 Referral None recorded. Procedures injection/a spiration joint/bursa (PROC) - in office procedure, administere d by provider 2022 023 [email or web address] In-Office Order, Internal Use Only DO Not Attach Compendium DO Not Attach Compendium, Do Not Delete/merge, [id number] 3 15:45:08 injection/a spiration joint/bursa (PROC) 2022 023 Not available 3 15:28:39 Surgeries None recorded. Imaging XR, elbow 2022 023 [email or web address] [facility] [place], [address], [place], [address], 3 16:28:40 Medication Orders ropivacaine (PF) 5 mg/mL (0.5 %) injection solution 2022 023 [email or web address] Not available 3 08:09:59 ropivacaine (PF) 5 mg/mL (0.5 %) injection solution 2022 023 [address] [id number], [address], [place], [place], [id number], 3 15:33:38 Patient TargetsNo targets recorded. Patient InstructionsNo instructions recorded. Reason for Referral None Reported. Results Created Date Observation Date Name Description Value Unit Range Abnormal Flag Note LastModifiedBy Organization Detail LastModifiedTime 10/30/19 23 XR, elbow No observ ation record ed. [email or web address] [facility] [place] [address], [place], [address], 10/29/2022 15:27:41 Result Notes None recorded. Problems Name Problem SNOMED Code Status Onset Date Resolution Date Notes Provider Name and Address Organization Details Recorded Time Spinal enthesopat hy 83890027 Active Not Available [facility] 3 13:11:29 Disorder of sacrum 55489922 Active Not Available [facility] 3 13:11:29 Plantar fascial fibromatos is 68544337 Active Not Available [facility] 3 13:11:29 Radiothera py follow-up 691481635 Active Not Available [facility] 3 13:11:29 Low back pain 342904359 Active Not Available [facility] 3 13:11:29 Enthesopat hy of hip region 31419540 Active Not Available [facility] 3 13:11:29 Knee pain Active Not Available [facility] 3 13:11:29 Localized, primary osteoarthr itis of elbow 492995369 Active Not Available [facility] 3 13:11:30 Lesion of ulnar nerve 274385283 Active Not Available [facility] 3 13:11:30 Osteoarthr itis 745838203 Active Not Available [facility] 3 13:11:30 Medial epicondyli tis 21836877 Active 2019 Not Available [facility] 3 13:11:30 Pain of right elbow joint 3523693517495 9109 Active 2022 DARYN Soni null, [employer] [facility] 3 15:10:30 Infected olecranon bursa 969368435 Active 2022 Torey Philip MD [address] [facility], [facility] [address], [place], [address] , [facility] 3 15:29:04 Problem Notes None recorded. Procedures Surgical History Date Name Laterality Status Provider Name and Address Organization Details Recorded Time 10/30/19 Arthrocentesis Intermediate Joint/Bursa completed Torey Philip MD [address] [place] [address], [place], [address], [facility] [employer] [facility] 10/29/2022 15:26:53 Imaging Results None recorded. Procedure Notes None recorded. Medical Equipment None Reported. Allergies Allergen ID Allergen Name Allergen Category Reaction Reaction Severity Criticality Documentation Date Start Date Code Code System Note Provider Name and Address Organization Details Recorded Time Substance with sulfonami de structure and antibacte rial mechanism of action (substanc e) medicatio n Not available Not available Not available 05/29/2022 73532 8003 SNOMED Not Available [facility] 3 13:12:50 53032 Product containin g penicilli n (product) medicatio n Not available Not available Not available 05/29/2022 30936 8001 SNOMED Not Available [facility] 3 13:12:50 20409 codeine medicatio n Not available Not available Not available 10/29/2022 2670 [facility] DARYN Soni, [place] [employer] [facility] 15:08:46 Medications Name Sig Start Date Stop [...] administe red by the provider 10/29 completed [place]: 0003- 0494- 20 Not Available Not Available [...] administe red by the provider 10/29 completed [facility]: 0409- 4276- 17 Not Available Not Available [...] 15 mg by injection route. 2022 active [facility] [address]6721 -064- 01 Not Available Not Available Not [...] Updated DateTime 10/29/2022 177.8 cm 30.8 kg/m2 77743.36 alberto Leon Tammy [facility] 10/29/2022 15:08:34 Date Recorded Body height Body mass index (BMI) Body weight Provider Name and Address Organization Details Last Updated DateTime 11/05/2022 177.8 cm 30.8 kg/m2 65720.36 alberto Menas LEAK HUNTER [facility] 11/05/2022 14:46:57 Social History None recorded. Functional Status None recorded. Mental Status None recorded. Family History Nothing Reported. Medical History No medical history recorded. Past Encounters Encounter ID Performer Location Encounter Start Date Encounter Closed Date Diagnosis/Indication Diagnosis SNOMED-CT Code Diagnosis ICD10 Code Diagnosis Note [id number] Torey Philip MD [facility] [address] [place] [address] 10/29/2022 14:38:38 10/29/2022 16:28:40 Pain of right elbow joint 8739273513 1912762 M25.521 Infected o lecranon bursa 028464983 M70.21 [id number] Torey Philip MD [facility] [place] [address] [place] [address] 11/05/2022 14:39:59 11/05/2022 15:43:50 Pain of right elbow joint 0006255484 4409120 M25.521 Infected o lecranon bursa 866110330 M70.21 Health Concerns Section Related Observation LastModified by Organization Detai ls LastModified Time None Recorded Concern Status LastModified by Organization Details LastModified Time None Recorded Advance Directives Directive None Recorded Payers Insurance Date Sequence Insurance Name Policy Number Policy Ling Covered Member ID Ling Member ID Guarantor Name 10/29/2022 1 [place] Jeremías Trejo [id number] Jeremías Trejo 11/12/2022 2 [employer] SUPPLEMENTAL - [employer]URANCE (MEDICARE SUPPLEMENT) PLAN F Jeremías Trejo [id number] Jeremías Trejo Notes Date Note Type Note Provider Name and Address Organization Details Recorded Time 10/29/2022 text/html Patient presents 4-5 day history of pain and swelling in the right elbow. His recall any specific trauma. Denies any fevers chills or night sweats. He notes that the pain seemingly is getting worse and not better. Torey Philip MD [address], [place], [address], [employer] [facility] 10/29/2022 15:53:40 11/05/2022 text/html Patient returns with continued swelling and pain right arm. He has not improved with doxycycline. Nor much redness or fevers. Torey Philip MD [address], [place], [address], [facility] 11/05/2022 21:02:31
--- OUTSIDE RECORDS SUMMARY | 2024-09-11 19:34 | XMS_ITS | Encounter Summary ---
Author Organization [facility] Address [address] [facility] [place] [address] Care Team Providers Care Optics Manufacturing Technician Name Role Phone Brandon Sherwood MD Primary Care Provider [phone] Encounter Details Date Type Department Care Team (Late st Contact Info) Description 10/17/2022 Lab Requisition [facility] - DermPath Lab [address] [facility] [place] [address] Zachary Campa MD [address] [facility] [place] [address] Social History Tobacco Use Types Packs/Day Years Used Date Smoking Tobacco: Never Assessed Sex and Gender Information Value Date Recorded Sex Assigned at Not on file 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 Gender Identity Not on file Sexual Orientation Not on file documented as of this encounter Plan of Treatment Not on file documented as of this encounter Procedures Procedure Name Priority Date/Time Associated Diagnosis Comments DERMATOPATHOLOGY Routine 10/15/2022 12:0 0 AM CDT documented in this encounter Results * DERMATOPATHOLOGY (10/15/2022 12:00 AM CDT) Case Report Dermatopathology Report Case: [id number] Authorizing Provider: Zachary Campa MD Collected: 10/15/2022 12:00 AM Ordering Location: [facility] DermPath Lab Received: 10/17/2022 10:06 AM Pathologist: Abby Carvajal MD Specimen: Skin, left upper inner thigh 3 3:09 PM CDT DERMATOPATHOLOGY LABORATORY Final Diagnosis Specimen A. SKIN, left upper inner thigh: SEBORRHEIC KERATOSIS, IRRITATED AND INFLAMED (L82.0) 3 3:09 PM CDT DERMATOPATHOLOGY LABORATORY at 1509 CDT Clinical History MM vs angioma. Path#[id number] 3 3:09 PM CDT DERMATOPATHOLOGY LABORATORY Gross Description Specimen A: Received [...] within the papillary dermis. 3 3:09 PM T DERMATOPATHOLOGY LABORATORY Disclaimer An [...] purposes. Billing Codes Specimen Charges Stain Charges 12347 1 3 3:09 PM CDT DERMATOPATHOLOGY LABORATORY Embedded Images 3 3:09 PM CDT DERMATOPATHOLOGY LABORATORY Pathology/Cytolog y TISSUE SPECIMEN FROM SKIN / Unknown 10/15/2022 10/17/2022 10:06 AM CDT us Zachary Campa MD LAB - PATHOLOGY/CYTOLOGY ORDER TAMRA Final Result DERMATOPATHOLOGY LABORATORY [facility] - Department of Dermatology [address], [address] [phone] documented in this encounter Visit Diagnoses Not on filedocumented in this encounter Care Teams Optics Manufacturing Technician Relationship Specialty Start Date End Date Brandon Sherwood MD [address] [facility] [address] [place] [address] PCP - General 11/01/19 documented as of this encounter
--- OUTSIDE RECORDS SUMMARY | 2024-09-11 19:34 | XMS_ITS | Encounter Summary ---
Author Organization [facility] Address [address] [place] [address] Care Team Providers Care Apparel Patternmaker Name Role Phone Brandon Sherwood MD Primary Care Provider [phone] Encounter Details Date Type Department Care Team (Late st Contact Info) Description 03/16/2021 Lab Requisition [facility] Care DermPath Lab [address] [facility] [place] [address] Zachary Campa MD [address] [place], [place] [phone] Social History Tobacco Use Types Packs/Day Years Used Date Smoking Tobacco: Never Assessed Sex and Gender Information Value Date Recorded Sex Assigned at Not on file 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 Gender Identity Not on file Sexual Orientation Not on file documented as of this encounter Plan of Treatment Not on file documented as of this encounter Procedures Procedure Name Priority Date/Time Associated Diagnosis Comments DERMATOPATHOLOGY Routine 03/15/2021 12:0 0 AM BEAN PICKER documented in this encounter Results * DERMATOPATHOLOGY (03/15/2021 12:00 AM BEAN PICKER) Case Report Dermatopathology Report Case: [id number] Authorizing Provider: Zachary Campa MD Collected: 03/15/2021 12:00 AM Ordering Location: [facility] Care DermPath Lab Received: 03/16/2021 03:18 PM Pathologist: Abby Carvajal MD Specimen: Skin, right zygoma 1:14 PM [facility] DERMATOPATHOLOGY LABORATORY Final Diagnosis Specimen A. SKIN, right zygoma: BASAL CELL CARCINOMA, INFILTRATIVE PATTERN (C44.319) 1 1:14 PM [facility] DERMATOPATHOLOGY LABORATORY at [address] BE[employer] PICKER Clinical History BCCA. Path#[id number] 1 1:14 PM [facility] DERMATOPATHOLOGY LABORATORY Gross Description Specimen A: Received is one formalin filled container labeled with the patient's name and designated right zygoma. The specimen consists of a shave biopsy measuring 7x5x1 mm. Jar 0. 1 1:14 PM [facility] DERMATOPATHOLOGY LABORATORY Microscopic Description Specimen A. SKIN, right zygoma: Within the dermis there are nodular aggregates of basaloid cells associated with fibromyxoid stroma and epithelial-stromal clefts. At the advancing margin of the neoplasm, there are smaller angulated nests that infiltrate the dermis. 1 1:14 PM [facility] DERMATOPATHOLOGY LABORATORY Disclaimer An external and internal positive and negative controls are appropriate for the histochemical, immunohistochemical and immunofluorescence stain(s) in this case (if any), except where stated explicitly. The performance characteristics of the stain(s) cited in this report were developed and its performance characteristic determined by the Dermatopathology Laboratory at [facility], directed by Dr. Moises Kwok. These tests need not be, and therefore are not, approved by the [place] Food and Drug Administration. The tests are used for clinical purposes. Billing Codes Specimen Charges Stain Charges 53095 1 1 1:14 PM [facility] DERMATOPATHOLOGY LABORATORY Embedded Images 1 1:14 PM [facility] DERMATOPATHOLOGY LABORATORY Pathology/Cytolog y TISSUE SPECIMEN FROM SKIN / Unknown 03/15/2021 03/16/2021 3:18 PM [facility] us Zachary Campa MD LAB - PATHOLOGY/CYTOLOGY ORDER TAMRA Final Result DERMATOPATHOLOGY LABORATORY [facility] - Department of Dermatology [address] [phone] documented in this encounter Visit Diagnoses Not on filedocumented in this encounter Care Teams Apparel Patternmaker Relationship Specialty Start Date End Date Brandon Sherwood MD [address] [facility] [address] [address] PCP - General 11/01/19 documented as of this encounter
[2024-09-11 19:37] VITALS: BP 162/84; PULSE 107; RESP 25; TEMP 37.5; O2SAT 90
--- NOTE | 2024-09-11 19:39 | ECG_ITS ---
Test Date: 2024-09-11 19:48:58 Measurements Intervals [place] Rate: 101 P: 78 FL: 165 QRS: 96 QRSD: 97 T: 51 QT: 324 QTc: 421 Interpretive Statements SINUS TACHYCARDIA RIGHT AXIS DEVIATION DELAYED PRECORDIAL R/S TRANSITION BORDERLINE ECG Compared to ECG 04/30/2024 15:19:08 NO SIGNIFICANT CHANGE Electronically Signed On 09-11-2024 21:00:00 CDT by Flavio Kaur D.O.
[2024-09-11 19:41] VITALS: BP 162/84; PULSE 105; PULSE 107; RESP 25; TEMP 37.5; O2SAT 90; O2SAT 93
--- NOTE | 2024-09-11 19:41 | ED.SOB ---
HPI - SOB/Dyspnea General Chief Complaint: Shortness of Breath/Dyspnea Stated Complaint: shortness of breath Time Seen by Provider: 09/11/24 19:35 History of Present Illness HPI Narrative: Patient with history of COPD presents here with shortness of breath that started yesterday. No fevers, chest pain, cough, but did have some chills this morning. Some slight swelling to his feet bilaterally. Has been taking all his medications including his inhalers as prescribed Related Data Home Medications ?Medication ?Instructions ?Recorded ?Confirmed ?Last Taken ?Type hydroxychloroquine 200 mg tablet 200 mg PO BID 05/07/21 08/10/24 04/30/24 History Sarah Low Dose Aspirin 81 mg PO DAILY 04/14/23 08/10/24 04/30/24 History multivitamin 1 tablet PO DAILY 05/02/23 08/10/24 04/30/24 History ascorbic acid (vitamin C) 500 mg 500 mg PO DAILY 06/23/23 08/10/24 04/30/24 History tablet oxygen-air delivery systems 05/11/24 08/10/24 Unknown History Allergies Allergy/AdvReac Type Severity Reaction Status Date / Time rivaroxaban Allergy Severe violent Verified 09/11/24 19:44 rage, hives, swelling vancomycin Allergy Severe collapse Verified 09/11/24 19:44 veins enoxaparin Allergy Intermediate hives, rash Verified 09/11/24 19:44 Penicillins Allergy Intermediate Swelling Verified 09/11/24 19:44 trovafloxacin Allergy Intermediate Other Verified 09/11/24 19:44 apixaban Allergy Unknown violent Verified 09/11/24 19:44 rage, hives, swelling celecoxib Allergy Unknown Nausea and Verified 09/11/24 19:44 Vomiting clarithromycin Allergy Unknown Unknown Verified 09/11/24 19:44 erythromycin base Allergy Unknown Unknown Verified 09/11/24 19:44 furosemide Allergy Unknown Swelling Verified 09/11/24 19:44 Iodinated Contrast Media Allergy Unknown Rash Verified 09/11/24 19:44 iodine Allergy Unknown SEVERE RASH Verified 09/11/24 19:44 montelukast Allergy Unknown Unknown Verified 09/11/24 19:44 Sulfa (Sulfonamide Allergy Unknown Unknown Verified 09/11/24 19:44 Antibiotics) codeine AdvReac Unknown Headache Verified 09/11/24 19:44 doxycycline AdvReac Unknown Nausea and Verified 09/11/24 19:44 Vomiting Quinolones AdvReac Unknown ITCHING Verified 09/11/24 19:44 Review of Systems Review of Systems: All systems reviewed & are unremarkable except as noted in HPI and below PMFSH Past Medical History Medical History (Updated 09/11/24 @ 22:44 by Cecilia Hurtado MD) Sinusitis BPH without obstruction/lower urinary tract symptoms Anxiety Influenza A Diarrhea Male erectile dysfunction, unspecified Viagra did not help, Cialis caused headache. BMI 31.0-31.9,adult Edema, peripheral Acute diarrhea Hypokalemia Dehydration Hyponatremia Hypersomnia Snoring Hypoxia Hypertension Aortic atherosclerosis COPD exacerbation Thrush, oral Right forearm cellulitis Deep vein thrombosis of right lower limb Chronic obstructive pulmonary disease Coronary artery disease COVID-19 (05/2022) tested positive 06/10/22 Elevated fasting glucose Fasting glucose 117 with hemoglobin A1c 5.6 on 04/26/2022. Encounter for prostate cancer screening PSA 2.13 on 04/26/2022. Metatarsalgia of both feet MRI of both feet on 08/30/2022 by deblocker revealed degenerative joint disease worse at the 1st MTP bilaterally with bunion formation on the right foot. Nausea and vomiting (12/28/20) history of nausea and vomiting with bowel prep Polyp of colon colonoscopy with Dr. Jenkins on 02/28/2021 with multiple sessile polyps from 2 mm to 12 mm with recheck in 2 years Nocturia Bindu-rectal abscess Tobacco use disorder, continuous 1/2 pack daily. Patient quit smoking 04/27/2024. 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) Psoriasis Eczema Diverticulosis Diverticulitis Gastric ulcer Pneumonia Wears partial dentures Asthma Surgical History Surgical History History of arthroscopy of left knee History of arthroplasty of right knee X4 History of vasectomy History of cholecystectomy H/O colonoscopy with polypectomy History of cardiac catheterization (2012) Family History Family History Mother Family history of multiple sclerosis, Onset Age: 73 Father Patient's father is , Onset Age: 51 Family history of liver disease Family history of chronic obstructive pulmonary disease Family history of alcoholism Sibling Family history of malignant neoplasm Cerebrovascular accident Sibling Breast cancer Social History Social History (Reviewed 08/10/24 @ 09:06 by Gretel Bertrand [facility]) Social History: Surrogate medical decision maker: Palma Santillan, daughter. Code status: Full code. Smoking packs per day: 12 Smoking cigarettes per day: 240.0 Years smoked: 50 Smoking pack-years: 600.00 Smoking status: Former smoker Tobacco type: cigarettes Smoking end date: 04/27/24 Alcohol intake: never Substance use: never Substance use type: does not use Do You Feel Safe in your Home?: Yes Lack of Transportation: No Lack of Food: Never True Current Housing: Decline to Answer Concerned About Future Housing: No Difficulty Paying Gas/Electric Bills: No Difficulty Paying for Meds: No Currently Unemployed: No Education: High School Diploma/GED Difficulty w/ Childcare or Family Care: No Living arrangements: alone Spiritual care concerns: No Exam Narrative: EXAMINATION OF ORGAN SYSTEMS/BODY AREAS: Constitutional: Vital signs per nursing GENERAL:[No acute distress, non-toxic appearing.] HEAD: Normal with no signs of head trauma. EYES: EOMI, conjunctiva normal ENT: Hearing grossly intact LUNGS: Slightly breathless, wheezing all lung hooper HEART: [Regular rate and rhythm] ABD: [Soft], [nontender to palpation] EXT: Normal range of motion, no significant swelling or tenderness to legs SKIN: [No rashes or lesions.] NEURO: [Alert and oriented x 3. No gross focal sensory or strength deficits.] PSYCH: Normal affect Course Vital Signs Vital signs: Vital Signs Temperature 99.5 F 09/11/24 19:37 Pulse Rate 107 H 09/11/24 19:37 Respiratory Rate 25 H 09/11/24 19:37 Blood Pressure 162/84 H 09/11/24 19:37 Pulse Oximetry 90 09/11/24 19:37 Oxygen Delivery Room Air 09/11/24 19:37 Temperature 98.9 F 09/11/24 21:24 Pulse Rate 98 09/11/24 22:31 Respiratory Rate 20 09/11/24 22:31 Blood Pressure 112/85 09/11/24 22:31 Pulse Oximetry 92 09/11/24 22:31 Oxygen Delivery Nasal Cannula 09/11/24 20:00 Oxygen Flow Rate 2 09/11/24 20:00 MDM - SOB/Dyspnea MDM Narrative Medical decision making narrative: ED COURSE AND MEDICAL DECISION MAKINM with acute dyspnea and wheezing likely due to acute COPD exacerbation based on history and exam. Patient is slightly tachycardic, tachypneic, with low O2, wheezing all lung hooper, no DVT symptoms so I suspect more likely COPD exac or PNA vs PE. Nebulizer treatments are started and steroids given. Given his age and risk factors I did also obtain cardiac workup. Patient monitored in the ED for a couple of hours and on reevaluation still feels crummy; EKG on my independent interpretation shows pericardial rate 101, MN 165, QRS 97, QTC 421, right axis, no significant ST elevations depressions or signs of acute ischemia or arrhythmia Chest x-ray on my independent interpretation without any obvious consolidation with some streaking bilaterally, per Radiology possible early pneumonia left lower lobe. After breathing treatments, patient still requiring about 3 L of oxygen to maintain saturations about 94%. This is worse than his baseline. Given his risk factors and his not feeling very well, I do feel he will benefit from admission at this time and patient and family quite in agreement with this plan. I did review his prior allergies and antibiotics he has tolerated in the past, ordered them and discussed with hospitalist for admission Lab Data 09/11/24 19:45 09/11/24 19:45 Labs: Lab Results 09/11/24 09/11/24 09/11/24 Range/Units 19:45 20:53 21:11 WBC 5.0 (4.5-10.0) K/mm3 RBC 4.49 L (4.6-6.20) M/mm3 Hgb 14.4 (14.0-18.0) g/dL Hct 42.9 (42.0-52.0) % MCV 95.5 (80-100) fl MCH 32.1 (26-34) pg MCHC 33.6 (32-36) g/dl RDW 13.2 (11.5-14.5) % Plt Count 164 (150-375) k/mm3 MPV 8.7 (7.4-10.4) fl Immature Gran % (Auto) 0.4 (0-0.5) % Neut % (Auto) 68.0 (45.5-73.1) % Lymph % (Auto) 15.6 L (18.3-44.2) % [place] % (Auto) 13.8 H (2.6-8.5) % Eos % (Auto) 1.4 (0-4.4) % Baso % (Auto) 0.8 (0.2-1.2) % Lymph # (Auto) 0.78 L (0.9-3.2) K/mm3 [place] # (Auto) 0.7 H (0.1-0.6) K/mm3 Eos # (Auto) 0.1 (0-0.3) K/mm3 Baso # (Auto) 0.0 (0.0-0.1) K/mm3 Abs Immat Gran (auto) 0.02 (0.00-0.031) K/mm3 Absolute Neuts (auto) 3.4 (1.3-6.7) K/mm3 Absolute Nucleated RBC 0.000 (0.0-0.012) K/mm3 Nucleated RBC % 0.0 (0.0-0.2) % Sodium 135 L (137-145) mmol/L Potassium 4.2 (3.4-5.0) mmol/L Chloride 100 (98-107) mmol/L Carbon Dioxide 27 (22-30) mmol/L Anion Gap 8 (4-12) mmol/L BUN 12 D (9-20) mg/dL Creatinine 0.80 (0.7-1.3) mg/dL Estim Creat Clear Calc 85 ml/min Estimated GFR > 60 (59 - ) Glucose 114 H (65-110) mg/dL Lactic Acid 0.6 L (0.7-2.0) mmol/L Calcium 8.7 (8.4-10.2) mg/dL Magnesium 1.8 (1.6-2.3) mg/dL Total Bilirubin 0.3 (0.2-1.3) mg/dL AST 39 (17-59) U/L ALT 23 (6-50) U/L Alkaline Phosphatase 30 L (38-126) U/L Troponin I < 0.012 (0.000-0.034) ng/mL NT-Pro-B Natriuret Pep < 20 (19.9-100) pg/mL Total Protein 7.4 (6.3-8.2) g/dL Albumin 4.2 (3.5-5.1) g/dL Influenza A (RT-PCR) Negative (Negative) Influenza B (RT-PCR) Negative (Negative) RSV (RT-PCR) Negative (Negative) SARS-CoV-2 RNA (RT-PCR) Negative (Negative) Critical Care Time Critical Care Time Critical Care Time: Yes Total Critical Care Time: 31 Discharge Plan Discharge Clinical Impression: Acute exacerbation of chronic obstructive pulmonary disease Patient Disposition: Still a Patient Condition: Stable
[2024-09-11] MEDS: ACETAMINOPHEN 500 MG TABLET 1000 MG PO (19:50)
[2024-09-11] MEDS: methylPREDNISolone SOD SUCC 125 MG VIAL 40 MG IV PUSH (19:50)
[2024-09-11 19:52] LABS: Basophils Percent Auto 0.8 % (0.2-1.2); Eosinophils Absolute Auto 0.1 K/mm3 (0-0.3); Eosinophils Percent Auto 1.4 % (0-4.4); Hematocrit 42.9 % (42.0-52.0); Hemoglobin 14.4 g/dL (14.0-18.0); Immature Granulocyte Absolute 0.02 K/mm3 (0.00-0.031); Immature Granulocyte Percent A 0.4 % (0-0.5); Lymphocytes Absolute Auto 0.78 K/mm3 (0.9-3.2); Lymphocytes Percent Auto 15.6 % (18.3-44.2); Mean Corpuscular HGB Conc 33.6 g/dl (32-36); Mean Corpuscular Hemoglobin 32.1 pg (26-34); Mean Corpuscular Volume 95.5 fl (80-100); Mean Platelet Volume 8.7 fl (7.4-10.4); Monocytes Absolute Auto 0.7 K/mm3 (0.1-0.6); Monocytes Percent Auto 13.8 % (2.6-8.5); Neutrophils Absolute Auto 3.4 K/mm3 (1.3-6.7); Platelet Count Result 164 k/mm3 (150-375); Red Blood Count 4.49 M/mm3 (4.6-6.20); Red Cell Distribution Width 13.2 % (11.5-14.5)
--- OUTSIDE RECORDS SUMMARY | 2024-09-11 19:54 | XMS_ITS | Encounter Summary ---
Author Organization [facility] Address [address] [address] Care Team Providers Care Fermenter Helper Name Role Phone Brandon Sherwood MD Primary Care Provider [phone] Encounter Details Date Type Department Care Team (Late st Contact Info) Description 03/16/2021 Lab Requisition [facility] Care DermPath Lab [address] [place] [address] Zachary Campa MD [address] [place] [id number] Social History Tobacco Use Types Packs/Day Years Used Date Smoking Tobacco: Never Assessed Sex and Gender Information Value Date Recorded Sex Assigned at Not on file Legal Sex Male 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 Gender Identity Not on file Sexual Orientation Not on file documented as of this encounter Plan of Treatment Not on file documented as of this encounter Procedures Procedure Name Priority Date/Time Associated Diagnosis Comments DERMATOPATHOLOGY Routine 03/15/2021 12:0 0 AM MEDICAL OFFICE ADMINISTRATOR documented in this encounter Results * DERMATOPATHOLOGY (03/15/2021 12:00 AM MEDICAL OFFICE ADMINISTRATOR) Case Report Dermatopathology Report Case: [id number] Authorizing Provider: Zachary Campa MD Collected: 03/15/2021 12:00 AM Ordering Location: [facility] Care DermPath Lab Received: 03/16/2021 03:18 PM Pathologist: Abby Carvajal MD Specimen: Skin, right zygoma 1:[address] [facility] DERMATOPATHOLOGY LABORATORY Final Diagnosis Specimen A. SKIN, right zygoma: BASAL CELL CARCINOMA, INFILTRATIVE PATTERN (C44.319) 1 1:[address] [facility] DERMATOPATHOLOGY LABORATORY at 1314 MEDICAL OFFICE ADMINISTRATOR Clinical History BCCA. Path#[id number] 1 1:[address] [facility] DERMATOPATHOLOGY LABORATORY Gross Description Specimen A: Received is one formalin filled container labeled with the patient's name and designated right zygoma. The specimen consists of a shave biopsy measuring 7x5x1 mm. Jar 0. 1 1:[address] [facility] DERMATOPATHOLOGY LABORATORY Microscopic Description Specimen A. SKIN, right zygoma: Within the dermis there are nodular aggregates of basaloid cells associated with fibromyxoid stroma and epithelial-stromal clefts. At the advancing margin of the neoplasm, there are smaller angulated nests that infiltrate the dermis. 1 1:[address] [facility] DERMATOPATHOLOGY LABORATORY Disclaimer An external and internal positive and negative controls are appropriate for the histochemical, immunohistochemical and immunofluorescence stain(s) in this case (if any), except where stated explicitly. The performance characteristics of the stain(s) cited in this report were developed and its performance characteristic determined by the Dermatopathology Laboratory at [facility], directed by Dr. Moises Kwok. These tests need not be, and therefore are not, approved by the [place] Food and Drug Administration. The tests are used for clinical purposes. Billing Codes Specimen Charges Stain Charges 40644 1 1 1:[address] [facility] DERMATOPATHOLOGY LABORATORY Embedded Images 1 1:[address] [facility] DERMATOPATHOLOGY LABORATORY Pathology/Cytolog y TISSUE SPECIMEN FROM SKIN / Unknown 03/15/2021 03/16/2021 3:[address] [facility] us Zachary Campa MD LAB - PATHOLOGY/CYTOLOGY ORDER TAMRA Final Result DERMATOPATHOLOGY LABORATORY [facility] - Department of Dermatology [address] [phone] documented in this encounter Visit Diagnoses Not on filedocumented in this encounter Care Teams Fermenter Helper Relationship Specialty Start Date End Date Brandon Sherwood MD [address] [facility] [address] [address] PCP - General 11/01/19 documented as of this encounter
--- OUTSIDE RECORDS SUMMARY | 2024-09-11 19:54 | XMS_ITS | Encounter Summary ---
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
--- OUTSIDE RECORDS SUMMARY | 2024-09-11 19:54 | XMS_ITS | Encounter Summary ---
Author Organization [facility] Address [address] [facility] [place] [address] Care Team Providers Care Service Desk Director Name Role Phone Brandon Sherwood MD Primary Care Provider [phone] Encounter Details Date Type Department Care Team (Late st Contact Info) Description 10/17/2022 Lab Requisition [facility] - DermPath Lab [address] [facility] [place] [phone] Zachary Campa MD [address] [facility] [address] [place] [address] Social History Tobacco Use Types Packs/Day Years Used Date Smoking Tobacco: Never Assessed Sex and Gender Information Value Date Recorded Sex Assigned at Not on file 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 Sex Male 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 Gender Identity Not on file Sexual Orientation Not on file documented as of this encounter Plan of Treatment Not on file documented as of this encounter Procedures Procedure Name Priority Date/Time Associated Diagnosis Comments DERMATOPATHOLOGY Routine 10/15/2022 12:0 0 AM CDT documented in this encounter Results * DERMATOPATHOLOGY (10/15/2022 12:00 AM CDT) Case Report Dermatopathology Report Case: [id number] Authorizing Provider: Zachary Campa MD Collected: 10/15/2022 12:00 AM Ordering Location: [facility] DermPath Lab Received: 10/17/2022 10:06 AM Pathologist: Abby Carvajal MD Specimen: Skin, left upper inner thigh 3 3:09 PM CDT DERMATOPATHOLOGY LABORATORY Final Diagnosis Specimen A. SKIN, left upper inner thigh: SEBORRHEIC KERATOSIS, IRRITATED AND INFLAMED (L82.0) 3 3:09 PM CDT DERMATOPATHOLOGY LABORATORY at 1509 CDT Clinical History MM vs angioma. Path#[id number] 3 3:09 PM CDT DERMATOPATHOLOGY LABORATORY Gross [...] characteristic determined by the Dermatopathology Laboratory at [facility], directed by Dr. Moises Kwok. These tests need not be, and therefore are not, approved by the [place] Food and Drug Administration. The tests are used for clinical purposes. Billing Codes Specimen Charges Stain Charges 39626 1 3 3:09 PM CDT DERMATOPATHOLOGY LABORATORY Embedded Images 3 3:09 PM CDT DERMATOPATHOLOGY LABORATORY Pathology/Cytolog y TISSUE SPECIMEN FROM SKIN / Unknown 10/15/2022 10/17/2022 10:06 AM CDT us Zachary Campa MD LAB - PATHOLOGY/CYTOLOGY ORDER TAMRA Final Result DERMATOPATHOLOGY LABORATORY [facility] - Department of Dermatology [address] [phone] documented in this encounter Visit Diagnoses Not on filedocumented in this encounter Care Teams Service Desk Director Relationship Specialty Start Date End Date Brandon Sherwood MD [address] [facility] [address] [place] [address] PCP - General 11/01/19 documented as of this encounter
--- OUTSIDE RECORDS SUMMARY | 2024-09-11 19:54 | XMS_ITS | Clinical Summary ---
Author Organization [facility] Address [address] [place] [address] Care Team Providers Care Battery Container Tester Aluminum Name Role Phone Brandon Sherwood MD Primary Care Provider [phone] Source Comments [facility],non-owned Affiliates and Associated Physician Practices is amultiple site organization consisting of ambulatory clinics and hospital sitesin [place], [place] and [place]. This disclosure is being madepursuant to the Care Everywhere program and may not contain all information available regarding this patient. 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 Gender Identity Not on file Sexual Orientation [...] to complete this topic Insurance * Guarantor: Jreemías Trejo Account Type Relation to Patient Date of Phone Billing Address Personal/Family Self 1950 [address] [place] [address] MEDICARE * Guarantor: Jeremías Trejo Account Type Relation to Patient Date of Phone Billing Address Personal/Family Self 1950 [address] [place] [address] MEDICARE [place] [employer] Care Teams Battery Container Tester Aluminum Relationship Specialty Start Date End Date Brandon Sherwood MD [address] [place] [address] PCP - General 11/01/19
[2024-09-11] MEDS: IPRATROPIUM BR 0.02% INH SOLN 0.5 MG/2.5 ML VIAL 1 MG INHALATION (19:55)
[2024-09-11] MEDS: ALBUTEROL SULFATE NEB 2.5 MG/3 ML INH 15 MG INHALATION (19:55)
--- OUTSIDE RECORDS SUMMARY | 2024-09-11 19:55 | XMS_ITS | Referral Summary ---
Author Organization [facility] [address] [facility] [address] Address [address] [place] [address] Care Team Providers Care Emergency Medical Dispatcher Name Role Phone Brandon Sherwood MD Primary Care Provider [phone] Allergies Active Allergy Reactions Criticality Noted Date Comments Codeine Furosemide Penicillins Lzckwbc-Zwn-Qrv Reductase Inhibitors Muscle pain Medium 08/31/2020 Sulfa (Sulfonamide Antibiotics) Vancomycin Other (See comments) High 06/02/2023 Multiple issues involving hearing, vision, weakness Medications ozqpmpqh-fon-AQ-l ycopen-lutein (CENTRUM SILVER) 0.4-300-250 mg-mcg-mcg tablet One [...] I have sent a message to his incident coordinator regarding this issue. 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 (07/04/2016): Prinzmetal angina Obstructive sleep apnea syndrome 10/22/2013 Overview (07/04/2016): JOSE ANTONIO (obstructive sleep apnea) Resolved Problems Problem Noted Date Diagnosed Date Resolved Date Infected olecranon bursa 10/29/202206/2023 Deep vein thrombosis (DVT) d uring current hospitalization ([facility]) 02/07/2017 11/30/2021 Acute deep vein thrombosis of [...] on file Legal Sex Male 9:25 AM FLIGHT SERVICE SPECIALIST Gender Identity Not on file Sexual Orientation Not on file Last Filed Vital Signs Vital Sign Reading Time Taken Comments Blood Pressure 126/66 06/03/2024 1:22 PM FLIGHT SERVICE SPECIALIST Pulse 86 06/03/2024 1:22 PM FLIGHT SERVICE SPECIALIST Temperature 36.8 C (98.3 F) 10/31/2023 10:48 AM CDT Respiratory Rate - - Oxygen Saturation 94% 06/03/2024 1:22 PM FLIGHT SERVICE SPECIALIST Inhaled Oxygen Concentration - - Weight 101.2 kg (223 lb) 06/03/2024 1:22 PM FLIGHT SERVICE SPECIALIST Height 177.8 cm (5' 10) 06/03/2024 1:22 PM FLIGHT SERVICE SPECIALIST Body Mass Index 32 06/03/2024 1:22 PM FLIGHT SERVICE SPECIALIST Plan of Treatment Not on file Insurance * Guarantor: Jeremías Trejo Account Type Relation to Patient Date of Phone Billing Address Personal/Family Self 1950 [address] [place] [address] [employer] [facility] * Guarantor: Jeremías Trejo Account Type Relation to Patient Date of Phone Billing Address Personal/Family Self 1950 [address] [place] [address] [employer] MEDICARE ADVANTAGE [facility] Address: [facility] [address] [place] [address] * Guarantor: Jeremías Trejo Account Type Relation to Patient Date of Phone Billing Address Personal/Family Self 1950 [address] [place] [address] [employer] MED[employer]ARE [employer]VANTAGE Care Teams Emergency Medical Dispatcher Relationship Specialty Start Date End Date Brandon Sherwood MD [address] [place] [address] PCP - General 06/28/16
--- OUTSIDE RECORDS SUMMARY | 2024-09-11 19:55 | XMS_ITS | Clinical Summary ---
Author [place] [facility] [place] [address] [address] Address [address] [facility] [address] [place] [address] Care Team Providers Care Sanding Machine Buffer Name Role Phone Brandon Sherwood MD Primary Care Provider [phone] Allergies Active Allergy Reactions Criticality Noted Date Comments Codeine Furosemide Penicillins Eniqrvi-Oni-Nys Reductase Inhibitors Muscle pain Medium 08/31/2020 Sulfa (Sulfonamide Antibiotics) Vancomycin Other (See comments) High 06/02/2023 Multiple issues involving hearing, vision, weakness Medications jazlapin-hbx-JG-l ycopen-lutein (CENTRUM SILVER) 0.4-300-250 mg-mcg-mcg tablet One [...] I have sent a message to his press breaker regarding this issue. 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 Overview (07/04/2016): Prinzmetal angina Obstructive sleep apnea syndrome 10/22/2013 Overview (07/04/2016): JOSE ANTONIO (obstructive sleep apnea) Resolved Problems Problem Noted Date Diagnosed Date Resolved Date Infected olecranon bursa 10/29/202206/2023 Deep vein thrombosis (DVT) d uring current hospitalization ([facility]) 02/07/2017 11/30/2021 Acute deep vein [...] Family history of arthritis - (Added by Reaction Conv) Other Other 2 sudden cardiac in 2 cousins; Stroke Sister 1 Family history of cerebrovascular accident (CVA) - (Added by Reaction Conv) Cancer Sister 2 Family history of malignant neoplasm - (Added by Reaction Conv) Relation Name Status Comments Mother Other [...] on file Legal Sex Male 9:25 AM 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 AND 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 Gender Identity Not on file Sexual Orientation Not on file Obstetrics History Last Filed Vital Signs Vital Sign Reading Time Taken Comments Blood Pressure 126/66 06/03/2024 1:22 PM FRAME SAMPLE AND 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 Pulse 86 06/03/2024 1:22 PM FRAME SAMPLE AND 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 Temperature 36.8 C (98.3 F) 10/31/2023 10:48 AM CDT Respiratory Rate - - Oxygen Saturation 94% 06/03/2024 1:22 PM FRAME SAMPLE AND 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 Inhaled Oxygen Concentration - - Weight 101.2 kg (223 lb) 06/03/2024 1:22 PM FRAME SAMPLE AND 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 Height 177.8 cm (5' 10) 06/03/2024 1:22 PM FRAME SAMPLE AND 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 Body Mass Index 32 06/03/2024 1:22 PM FRAME SAMPLE AND 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 Plan of Treatment Health Maintenance Due Date [...] Address Personal/Family Self 1950 [address] [place] [address] [employer] [facility] * Guarantor: Jeremías Trejo Account Type Relation to Patient Date of Phone Billing Address Personal/Family Self 1950 [address] [place] [address] [facility] * Guarantor: Jeremías Trejo Account Type Relation to Patient Date of Phone Billing Address Personal/Family Self 1950 [address] [place] [address] [facility] Care Teams Sanding Machine Buffer Relationship Specialty Start Date End Date Brandon Sherwood MD [address] [address] PCP - General 06/28/16
[2024-09-11 20:00] VITALS: O2SAT 95
[2024-09-11 20:02] LABS: Alanine Aminotransferase 23 U/L (6-50); Albumin Level 4.2 g/dL (3.5-5.1); Alkaline Phosphatase 30 U/L (38-126); Anion Gap 8 mmol/L (4-12); Aspartate Amino Transferase 39 U/L (17-59); Bilirubin,Total 0.3 mg/dL (0.2-1.3); Blood Urea Nitrogen 12 mg/dL (9-20); Calcium 8.7 mg/dL (8.4-10.2); Carbon Dioxide 27 mmol/L (22-30); Chloride 100 mmol/L (98-107); Estimated CRCL calculation 85 ml/min; Estimated Glomerular Filt Rate > 60; Glucose 114 mg/dL (65-110); Magnesium 1.8 mg/dL (1.6-2.3); Potassium 4.2 mmol/L (3.4-5.0); Sodium 135 mmol/L (137-145); Total Protein 7.4 g/dL (6.3-8.2)
[2024-09-11 20:14] LABS: NT Pro B Type Natriuretic Pept < 20 pg/mL (19.9-100); Troponin I < 0.012 ng/mL (0.000-0.034)
[2024-09-11 21:24] VITALS: TEMP 37.2
[2024-09-11 21:28] LABS: Lactic Acid Reflex 0.6 mmol/L (0.7-2.0)
[2024-09-11 21:37] LABS: Influenza A QL RT-PCR Negative (Negative); Influenza B QL RT-PCR Negative (Negative); RSV RNA, RT-PCR Negative (Negative); SARS-CoV-2 RNA PCR Negative (Negative)
[2024-09-11] MEDS: cefTRIAXone 2 GM/NS 100 ML 2 GM/100 ML BAG IVPB (21:55)
[2024-09-11] MEDS: AZITHROMYCIN 250 MG TABLET 500 MG PO (21:55)
[2024-09-11 22:31] VITALS: BP 112/85; PULSE 98; RESP 20; O2SAT 92
[2024-09-11 23:00] VITALS: BP 121/83; PULSE 100; RESP 18; TEMP 35.9; O2SAT 90
[2024-09-11 23:05] VITALS: BMI 30.7
--- NOTE | 2024-09-11 23:14 | ADMGEN ---
This patient, Jeremías Trejo, was admitted to [facility] Surg Room 305-02. Patient/family oriented to hospital policies and general routines including ID bracelet, bed and alarms, visiting hours, pain management, procedures, bathroom and other care routines, personal items, smoking policy, room service/diet, and visiting hours. Information on how to activate the Rapid Response Team has been discussed. Patient/Family are encouraged to report perceived risks to care and to ask questions if they do not understand what they are told or what they should do.
--- NOTE | 2024-09-11 23:20 | PM.IMHP ---
H&P: HPI History of Present Illness Date/Time: 09/11/24 22:30 Chief Complaint: Shortness of breath. 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 At baseline he is able to go grocery shopping and can navigate 5 steps into his home with perhaps only mild shortness of breath. He has a chronic cough which is always productive of clear to sometimes green-colored phlegm. Over the past couple months he has been getting winded while taking a shower and he has gotten in the habit of using his rescue inhaler prior to getting into the shower. Yesterday he forgot to use the inhaler and he had to and his shower early due to extreme shortness of breath and wheezing. He was better after using the rescue inhaler and several minutes rest. He was able to sleep okay overnight but tells me he has been using his oxygen most of the day due to ongoing shortness of breath. He also reports an increase in sputum production. He feels cold but denies fever, chest pain, pleuritic pain, nausea, vomiting, diarrhea, and calf pain. No sick contacts. In the ED: Vital signs on arrival include a temperature of 98.9?, blood pressure 112/85, pulse 98, respiratory rate 20, SpO2 92% on 2 L nasal cannula. Labs were significant for WBC count of 5.0, sodium 135, glucose 114, lactic acid 0.6, troponin less than 0.012, proBNP less than 20. He tested negative for influenza, RSV, and COVID. Chest x-ray showed peribronchial thickening with possible early left lower lobe infiltrate. He was given a nebulizer treatment, methylprednisolone 40 mg, azithromycin 500 mg, and ceftriaxone 2 g. Is being admitted in this setting for further treatment of COPD exacerbation and possible developing pneumonia. Review of Systems Review of Systems: 12 systems were reviewed and are negative except for as per HPI. [facility] Past Medical History Medical History (Updated 09/11/24 @ 23:34 by Noemi Ralph PA-C) Benign prostatic hyperplasia Chronic respiratory failure with hypoxia, on home oxygen therapy on 2 L nasal cannula at night Sinusitis Anxiety Influenza A Male erectile dysfunction, unspecified Viagra did not help, Cialis caused headache. BMI 31.0-31.9,adult Hyponatremia Hypersomnia Snoring Hypoxia Hypertension Aortic atherosclerosis Thrush, oral Right forearm cellulitis Deep vein thrombosis of right lower limb Chronic obstructive pulmonary disease Coronary artery disease COVID-19 (05/2022) tested positive 06/10/22 Elevated fasting glucose Fasting glucose 117 with hemoglobin A1c 5.6 on 04/26/2022. Encounter for prostate cancer screening PSA 2.13 on 04/26/2022. Metatarsalgia of both feet MRI of both feet on 08/30/2022 by automotive refinish technician revealed degenerative joint disease worse at the 1st MTP bilaterally with bunion formation on the right foot. Nausea and vomiting (12/28/20) history of nausea and vomiting with bowel prep Polyp of colon colonoscopy with Dr. Jenkins on 02/28/2021 with multiple sessile polyps from 2 mm to 12 mm with recheck in 2 years Bindu-rectal abscess Tobacco use disorder, continuous 1/2 pack daily. Patient quit smoking 04/27/2024. 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) Psoriasis Eczema Diverticulosis Diverticulitis Gastric ulcer Pneumonia Wears partial dentures Asthma Surgical History Surgical History History of arthroscopy of left knee History of arthroplasty of right knee X4 History of vasectomy History of cholecystectomy H/O colonoscopy with polypectomy History of cardiac catheterization (2012) Family History Family History Mother Family history of multiple sclerosis, Onset Age: 73 Father Patient's father is , Onset Age: 51 Family history of liver disease Family history of chronic obstructive pulmonary disease Family history of alcoholism Sibling Family history of malignant neoplasm Cerebrovascular accident Sibling Breast cancer Social History Social History (Updated 09/11/24 @ 23:33 by Noemi Ralph PA-C) Social History: Surrogate medical decision maker: Palma Santillan, daughter. Code status: Full code. Smoking packs per day: 1 Smoking cigarettes per day: 20.0 Years smoked: 50 Smoking pack-years: 50.00 Smoking status: Former smoker Tobacco type: cigarettes Smoking end date: 04/27/24 Alcohol intake: never Substance use: never Substance use type: does not use Do You Feel Safe in your Home?: Yes Lack of Transportation: No Lack of Food: Never True Current Housing: Decline to Answer Concerned About Future Housing: No Difficulty Paying Gas/Electric Bills: No Difficulty Paying for Meds: No Currently Unemployed: No Education: High School Diploma/GED Difficulty w/ Childcare or Family Care: No Living arrangements: alone Spiritual care concerns: No Meds Home Medications and Allergies Home Medications ?Medication ?Instructions ?Recorded ?Confirmed ?Type hydroxychloroquine 200 mg tablet 200 mg PO BID 05/07/21 08/10/24 History amlodipine 5 mg tablet (Norvasc) 5 mg PO DAILY #30 tabs 11/08/22 08/10/24 Rx Sarah Low Dose Aspirin 81 mg PO DAILY 04/14/23 08/10/24 History multivitamin 1 tablet PO DAILY 05/02/23 08/10/24 History ascorbic acid (vitamin C) 500 mg 500 mg PO DAILY 06/23/23 08/10/24 History tablet albuterol sulfate 90 mcg/actuation 2 puff inhalation Q4H PRN Dyspnea 05/11/24 08/10/24 Rx aerosol inhaler (ProAir HFA) #8.5 grams oxygen-air delivery systems 05/11/24 08/10/24 History peak flow meter #1 ea 05/11/24 08/10/24 Rx mometasone-formoterol HFA 100 2 puff inhalation Q12H #13 grams 05/24/24 08/10/24 Rx mcg-5 mcg/actuation aerosol inhaler (Dulera) umeclidinium 62.5 mcg/actuation 1 inh inhalation DAILY #30 ea 06/02/24 08/10/24 Rx blister powder for inhalation (Incruse Ellipta) tamsulosin 0.4 mg capsule 0.4 mg PO QHS #30 caps 06/24/24 08/10/24 Rx Allergies Allergy/AdvReac Type Severity Reaction Status Date / Time rivaroxaban Allergy Severe violent Verified 09/11/24 23:38 rage, hives, swelling vancomycin Allergy Severe collapse Verified 09/11/24 23:38 veins enoxaparin Allergy Intermediate hives, rash Verified 09/11/24 23:38 Penicillins Allergy Intermediate Swelling Verified 09/11/24 23:38 trovafloxacin Allergy Intermediate Other Verified 09/11/24 23:38 apixaban Allergy Unknown violent Verified 09/11/24 23:38 rage, hives, swelling celecoxib Allergy Unknown Nausea and Verified 09/11/24 23:38 Vomiting clarithromycin Allergy Unknown Unknown Verified 09/11/24 23:38 erythromycin base Allergy Unknown Unknown Verified 09/11/24 23:38 furosemide Allergy Unknown Swelling Verified 09/11/24 23:38 Iodinated Contrast Media Allergy Unknown Rash Verified 09/11/24 23:38 iodine Allergy Unknown SEVERE RASH Verified 09/11/24 23:38 montelukast Allergy Unknown Unknown Verified 09/11/24 23:38 Sulfa (Sulfonamide Allergy Unknown Unknown Verified 09/11/24 23:38 Antibiotics) codeine AdvReac Unknown Headache Verified 09/11/24 23:38 doxycycline AdvReac Unknown Nausea and Verified 09/11/24 23:38 Vomiting Quinolones AdvReac Unknown ITCHING Verified 09/11/24 23:38 Vital Signs Vital Signs - 24 hr 09/11/24 19:37 09/11/24 19:41 09/11/24 19:41 Temperature 99.5 F Pulse Rate 107 H 107 H Respiratory Rate 25 H Blood Pressure 162/84 H Pulse Oximetry 90 93 Oxygen Delivery Room Air Nasal Cannula Oxygen Flow Rate 2 09/11/24 19:41 09/11/24 20:00 09/11/24 21:24 Temperature 99.5 F 98.9 F Pulse Rate 105 H Respiratory Rate 25 H Blood Pressure 162/84 H Pulse Oximetry 90 95 Oxygen Delivery Nasal Cannula Oxygen Flow Rate 2 09/11/24 22:31 Temperature Pulse Rate 98 Respiratory Rate 20 Blood Pressure 112/85 Pulse Oximetry 92 Oxygen Delivery Oxygen Flow Rate Exam Narrative: General:?Well-developed, nontoxic-appearing male sitting up in bed in no distress. Weight: 97 kg. BMI: 30.7. HEENT:?PERRL, EOMI. Sclera anicteric.?Mucous membranes appear moist. Neck:??Supple. Respiratory: Currently on 3 L nasal cannula he is able to speak in full sentences and appears in no respiratory distress. Lung sounds are diminished throughout with diffuse end-expiratory wheezing and scattered rhonchi anteriorly. Cardiovascular:?Tachycardic with normal S1-S2. Pulses in the mid 90s. Gastrointestinal:??Abdomen is nondistended with positive bowel sounds. Skin:??Warm and dry. Extremities:??No cyanosis or clubbing. Trace pretibial edema bilaterally. Neurological:??Alert.? Cranial nerves 2-12 are grossly intact. No gross focal deficits to casual conversation. Psychiatric:?Appropriate mood and affect. H&P: Results Labs Labs: Short CBC 09/11/24 Range/Units 19:45 WBC 5.0 (4.5-10.0) K/mm3 Hgb 14.4 (14.0-18.0) g/dL Hct 42.9 (42.0-52.0) % Plt Count 164 (150-375) k/mm3 BMP 09/11/24 19:45 Sodium 135 L Potassium 4.2 Chloride 100 Carbon Dioxide 27 BUN 12 D Creatinine 0.80 Glucose 114 H Calcium 8.7 Cardiac Enzymes 09/11/24 Range/Units 19:45 Troponin I < 0.012 (0.000-0.034) ng/mL Liver Function 09/11/24 Range/Units 19:45 Total Bilirubin 0.3 (0.2-1.3) mg/dL AST 39 (17-59) U/L ALT 23 (6-50) U/L Alkaline Phosphatase 30 L (38-126) U/L Albumin 4.2 (3.5-5.1) g/dL Imaging Chest X-Ray 09/11/24 20:08 IMPRESSION: Peribronchial thickening with a possible early left lower lobe infiltrate. Assessment and Plan Assessment and plan (1) Acute and chronic respiratory failure with hypoxia: Code(s): J96.21 - Acute and chronic respiratory failure with hypoxia Status: Acute (2) Acute exacerbation of chronic obstructive pulmonary disease: Code(s): J44.1 - Chronic obstructive pulmonary disease with (acute) exacerbation Status: Acute (3) Hypertension: Qualifiers: Hypertension type: primary hypertension Qualified Code(s): I10 - Essential (primary) hypertension Code(s): I10 - Essential (primary) hypertension Status: Chronic (4) Benign prostatic hyperplasia: Code(s): N40.0 - Benign prostatic hyperplasia without lower urinary tract symptoms Status: Acute (5) 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 Labs, imaging, EKG, and all reports were personally reviewed. Clinically he has a COPD exacerbation he has been started on scheduled bronchodilators and steroids. Chest x-ray shows peribronchial thickening and possible early pneumonia in the left lower lobe for which he has been started antibiotics. The patient declines Mucinex. Cornet to help mobilize secretions. Sputum culture has been ordered. Wean oxygen as tolerated. Blood pressures were reviewed and they are stable. No acute issues with regards to BPH; bladder scan if needed. Continue hydroxychloroquine for RS3PE syndrome. The rest of his home medications will be reviewed and resumed as appropriate. Findings and treatment plan were discussed with the patient and his daughter was at bedside. Questions were solicited and answered to satisfaction. The patient's medical management will be taken over by the hospitalist team in a.m. Quality VTE Prophylaxis VTE prophylaxis: mechanical ordered If No VTE Prophylaxis Answer both mechanical and pharmacologic: Reason no pharmacologic proph: medical contraindication (patient states heparin allergy) The patient has been admitted under observation status. Hospitalist MIPS Advance Care Plan I have confirmed that the patient's Advanced Care Plan is present, code status is documented, or surrogate decision maker is listed in patient medical record.: Yes Medication Reconciliation I have utilized all available resources to obtain, update and review the patients current medications (includes all prescriptions, OTC, herbals, cannabis, and nutritional supplements).: Yes
[2024-09-12] VITALS (17 sets, daily range): BP systolic 125–148; BP diastolic 67–81; PULSE 84–98; RESP 18–20; TEMP 35.8–36.4; O2SAT 89–97
[2024-09-12 01:21] LABS: MRSA (PCR) NOT DETECTED (NOT DETECTE)
[2024-09-12 03:50] LABS: Glucose Point of Care 271 mg/dl (65-105)
[2024-09-12] MEDS: IPRATROPIUM 0.5 MG/ALBUTEROL SULFATE 2.5 MG AMPUL.NEB 3 ML INHALATION ×4 (03:56→20:03)
[2024-09-12 06:44] LABS: Hematocrit 41.6 % (42.0-52.0); Hemoglobin 13.5 g/dL (14.0-18.0); Mean Corpuscular HGB Conc 32.5 g/dl (32-36); Mean Corpuscular Hemoglobin 31.2 pg (26-34); Mean Corpuscular Volume 96.1 fl (80-100); Mean Platelet Volume 9.1 fl (7.4-10.4); Platelet Count Result 163 k/mm3 (150-375); Red Blood Count 4.33 M/mm3 (4.6-6.20); Red Cell Distribution Width 12.9 % (11.5-14.5); White Blood Count 3.2 K/mm3 (4.5-10.0)
[2024-09-12 06:59] LABS: Anion Gap 9 mmol/L (4-12); Blood Urea Nitrogen 15 mg/dL (9-20); Calcium 8.7 mg/dL (8.4-10.2); Carbon Dioxide 27 mmol/L (22-30); Chloride 100 mmol/L (98-107); Estimated CRCL calculation 95 ml/min; Estimated Glomerular Filt Rate > 60; Glucose 219 mg/dL (65-110); Magnesium 2.2 mg/dL (1.6-2.3); Potassium 4.2 mmol/L (3.4-5.0); Sodium 136 mmol/L (137-145)
--- NOTE | 2024-09-12 07:54 | P.PNIM_ITS ---
Progress Note: A&P Assessment and Plan (1) Acute and chronic respiratory failure with hypoxia: Code(s): J96.21 - Acute and chronic respiratory failure with hypoxia Status: Acute Assessment and Plan: Patient is baseline on room air throughout the day and 2L NC overnight. He states that since Friday he has been SOB and started wearing 2L NC at all times Friday morning. - Symptoms: worsening shortness of breath with activity requiring increased use of inhaler - Oxygen supplementation: 2L NC (baseline room air and 2L NC overnight) - Suspected cause: COPD exacerbation with possible underlying pneumonia - Chest XR showed peribronchial thickening with a possible early left lower lobe infiltrate given concern for possible pneumonia started on rocephin and azithromycin on 09/12 See plan below for acute exacerbation of COPD #2. (2) Acute exacerbation of chronic obstructive pulmonary disease: Code(s): J44.1 - Chronic obstructive pulmonary disease with (acute) exacerbation Status: Acute Assessment and Plan: - Chest XR showed peribronchial thickening with a possible early left lower lobe infiltrate given concern for possible pneumonia started on rocephin and azithromycin on 09/12 - Duonebz q6H and Albuterol q2H prn - Prednisone 40 mg daily, course to be completed on 09/16 - Declines Mucinex. Cornet to help mobilize secretions. - Send sputum cultures if possible - Monitor vital signs, I&Os, neuro status and patient is a fall risk - Monitor serum electrolytes, cultures and CBC - Monitor Oxygen saturation, Oxygen via NC; wean oxygen as tolerated, keep SpO2 greater than 88% (3) Hypertension: Qualifiers: Hypertension type: primary hypertension Qualified Code(s): I10 - Essential (primary) hypertension Code(s): I10 - Essential (primary) hypertension Status: Chronic Assessment and Plan: Chronic, continue home medications - amlodipine 5 mg daily - blood pressures remain stable, continue to monitor (4) Benign prostatic hyperplasia: Code(s): N40.0 - Benign prostatic hyperplasia without lower urinary tract symptoms Status: Acute Assessment and Plan: Chronic, continue flomax bladder scan PRN (5) 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): Code(s): M65.88 - Other synovitis and tenosynovitis, other site; R60.9 - Edema, unspecified Status: Acute Assessment and Plan: Chronic, continue hydroxychloroquine Time Spent With Patient Time with patient: 25 - 35 minutes Subjective Date/time seen: 09/12/24 07:54 Interval history: 73-year-old male with history of chronic obstructive pulmonary disease, hypoxic respiratory failure on 2 L oxygen at night, deep venous thrombosis, hypertension, Prinzmetal's angina, myocardial bridge, and 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 Patient is pleasant sitting up comfortably in his bed. He remains on 2 L is in at this time with good oxygen saturations. Discussed RN we will continue to wean as tolerated for SpO2 greater than 88% given patient's COPD history. Patient states that he is feeling much better since admission and that his shortness of breath has significantly improved. He has no other complaints denying chest pain, palpitations, nausea/vomiting, and abdominal pain. Review of Systems Review of Systems: All systems reviewed & are unremarkable except as noted in HPI and below Exam Narrative: AF HR 84 RR 20 Spo2 97 2L (baseline RA) BP 125/81 General: male in no acute respiratory distress who is nontoxic appearing, sitting on side of bed HEENT: Normocephalic. Atraumatic. Extraocular movement intact. Sclera clear and anicteric. No facial asymmetry. Chest: Lungs are diminished with slight expiratory wheezes to auscultation bilaterally. No crackles. CV: Heart was regular rate and rhythm. S1/S2. No murmurs, gallops, or rubs. Abd: Abdomen was soft. Nontender. Nondistended. Positive bowel sounds. Ext: No clubbing, cyanosis, or edema. DP pulses bilaterally. Neuro: Patient is alert and oriented x4. Speech is clear. Objective Data Vital Signs Vital Signs: Vital Signs - 24 hr 09/11/24 19:37 09/11/24 19:41 09/11/24 19:41 Temperature 99.5 F Pulse Rate 107 H 107 H Respiratory Rate 25 H Blood Pressure 162/84 H Pulse Oximetry 90 93 Oxygen Delivery Room Air Nasal Cannula Oxygen Flow Rate 2 09/11/24 19:41 09/11/24 20:00 09/11/24 21:24 Temperature 99.5 F 98.9 F Pulse Rate 105 H Respiratory Rate 25 H Blood Pressure 162/84 H Pulse Oximetry 90 95 Oxygen Delivery Nasal Cannula Oxygen Flow Rate 2 09/11/24 22:31 09/11/24 23:00 09/12/24 01:42 Temperature 96.6 F L Pulse Rate 98 100 98 Respiratory Rate 20 18 20 Blood Pressure 112/85 121/83 Pulse Oximetry 92 90 92 Oxygen Delivery Nasal Cannula Oxygen Flow Rate 2 09/12/24 03:57 09/12/24 04:07 09/12/24 04:08 Temperature Pulse Rate 92 90 Respiratory Rate 20 20 Blood Pressure Pulse Oximetry 95 Oxygen Delivery Nasal Cannula Oxygen Flow Rate 3 09/12/24 06:00 Temperature 97 F L Pulse Rate 98 Respiratory Rate 18 Blood Pressure 125/81 Pulse Oximetry 91 Oxygen Delivery Oxygen Flow Rate Intake/Output Intake/Output: Intake & Output 09/09/24 09/10/24 09/11/24 09/12/24 23:59 23:59 23:59 23:59 Intake Total 100 300 Balance 100 300 Meds/Results Medications: Active Medications Generic Name Dose Route Start Last Admin Trade Name Freq PRN Reason Stop Dose Admin Albuterol/Ipratropium 3 ml 09/12/24 02:00 09/12/24 03:56 Ipratropium 0.5 Mg/Albuterol Sulfate 2.5 Mg Ampul.Neb 3 Ml INHALATION 3 ml Q6HRT [facility] Administration Amlodipine Besylate 5 mg 09/12/24 09:00 Amlodipine Besylate 5 Mg Tablet PO DAILY [facility] Ascorbic Acid 500 mg 09/12/24 09:00 Ascorbic Acid 500 Mg Tablet PO DAILY [facility] Aspirin 81 mg 09/12/24 08:00 Aspirin 81 Mg Chewable Tablet PO DAILY@0800 [facility] Azithromycin 250 mg 09/12/24 21:00 Azithromycin 250 Mg Tablet PO 09/15/24 21:01 [facility] Dextrose 12.5 gm 09/12/24 04:18 Dextrose 50% 25 Gm/50 Ml Syringe IV PUSH PRN PRN Hypoglycemia Protocol Glucagon 1 mg 09/12/24 04:18 Glucagon For Inj 1 Mg Vial IM PRN PRN Hypoglycemia Protocol Glucose 15 gm 09/12/24 04:18 Glucose Oral Gel 15 Gm Of Glucse In 37.5 Gm Tube PO PRN PRN Hypoglycemia Protocol Hydroxychloroquine Sulfate 200 mg 09/12/24 08:00 Hydroxychloroquine Sulfate 200 Mg Tablet PO BIDWM [facility] Ceftriaxone Sodium 1 gm in 50 mls @ 100 mls/hr 09/12/24 22:00 Rocephin 1 Gm/Ns 50 Ml IVPB Q24H [facility] Dextrose 1,000 mls @ 100 mls/hr 09/12/24 04:18 Dextrose 5% 1,000 Ml IVPB PRN PRN Hypoglycemia Protocol Insulin Aspart 2 - 5 units 09/12/24 08:00 Insulin Aspart (*Bkc) 100 Units/Ml SUB-Q TIDWM [facility] Protocol Insulin Aspart 1 - 2 units 09/12/24 21:00 Insulin Aspart (*Bkc) 100 Units/Ml SUB-Q HS [facility] Protocol Multivitamins Therapeutic 1 tablet 09/12/24 09:00 Multivitamins Therapeutic Tab (*Bkc) PO DAILY [facility] Prednisone 40 mg 09/12/24 08:00 Prednisone 20 Mg Tablet PO 09/16/24 07:59 DAILY@0800 [facility] Fluticasone/Salmeterol 2 puff 09/12/24 08:00 Fluticasone/Salmeterol 115-21 Mcg Inhaler 1 Puff INHALATION Q12HRT [facility] Tamsulosin HCl 0.4 mg 09/12/24 21:00 Tamsulosin Hcl 0.4 Mg Capsule PO QHS [facility] Umeclidinium [place] 1 puff 09/12/24 08:00 Umeclidinium [place] 62.5 Mcg Ellipta INHALATION DAILYRT [facility] Radiology Results: ITS Impressions Chest X-Ray 09/11/24 20:08 IMPRESSION: Peribronchial thickening with a possible early left lower lobe infiltrate. Labs Labs: Laboratory Results - last 24 hr 09/11/24 09/11/24 09/11/24 19:45 20:53 21:11 WBC 5.0 RBC 4.49 L Hgb 14.4 Hct 42.9 MCV 95.5 MCH 32.1 MCHC 33.6 RDW 13.2 Plt Count 164 MPV 8.7 Immature Gran % (Auto) 0.4 Neut % (Auto) 68.0 Lymph % (Auto) 15.6 L [place] % (Auto) 13.8 H Eos % (Auto) 1.4 Baso % (Auto) 0.8 Lymph # (Auto) 0.78 L [place] # (Auto) 0.7 H Eos # (Auto) 0.1 Baso # (Auto) 0.0 Abs Immat Gran (auto) 0.02 Absolute Neuts (auto) 3.4 Absolute Nucleated RBC 0.000 Nucleated RBC % 0.0 Sodium 135 L Potassium 4.2 Chloride 100 Carbon Dioxide 27 Anion Gap 8 BUN 12 D Creatinine 0.80 Estim Creat Clear Calc 85 Estimated GFR > 60 Glucose 114 H POC Capillary Glucose Lactic Acid 0.6 L Calcium 8.7 Magnesium 1.8 Total Bilirubin 0.3 AST 39 ALT 23 Alkaline Phosphatase 30 L Troponin I < 0.012 NT-Pro-B Natriuret Pep < 20 Total Protein 7.4 Albumin 4.2 Nasal MRSA (PCR) Influenza A (RT-PCR) Negative Influenza B (RT-PCR) Negative RSV (RT-PCR) Negative SARS-CoV-2 RNA (RT-PCR) Negative 09/11/24 09/12/24 09/12/24 23:59 03:47 05:57 WBC 3.2 L RBC 4.33 L Hgb 13.5 L Hct 41.6 L MCV 96.1 MCH 31.2 MCHC 32.5 RDW 12.9 Plt Count 163 MPV 9.1 Immature Gran % (Auto) Neut % (Auto) Lymph % (Auto) [place] % (Auto) Eos % (Auto) Baso % (Auto) Lymph # (Auto) [place] # (Auto) Eos # (Auto) Baso # (Auto) Abs Immat Gran (auto) Absolute Neuts (auto) Absolute Nucleated RBC Nucleated RBC % Sodium 136 L Potassium 4.2 Chloride 100 Carbon Dioxide 27 Anion Gap 9 BUN 15 Creatinine 0.72 Estim Creat Clear Calc 95 Estimated GFR > 60 Glucose 219 H POC Capillary Glucose 271 H Lactic Acid Calcium 8.7 Magnesium 2.2 Total Bilirubin AST ALT Alkaline Phosphatase Troponin I NT-Pro-B Natriuret Pep Total Protein Albumin Nasal MRSA (PCR) Not detected Influenza A (RT-PCR) Influenza B (RT-PCR) RSV (RT-PCR) SARS-CoV-2 RNA (RT-PCR) Quality VTE Prophylaxis VTE prophylaxis: mechanical ordered
[2024-09-12] MEDS: FLUTICASONE/SALMETEROL 115-21 MCG INHALER 1 PUFF 2 PUFF INHALATION ×2 (08:17→20:03)
[2024-09-12 08:23] LABS: Glucose Point of Care 150 mg/dl (65-105)
[2024-09-12 08:27] LABS: Hemoglobin A1C 5.7 % (<5.7)
[2024-09-12] MEDS: ASCORBIC ACID 500 MG TABLET PO (09:59)
[2024-09-12] MEDS: MULTIVITAMINS THERAPEUTIC TAB (*BKC) 1 TABLET PO (09:59)
[2024-09-12] MEDS: amLODIPine BESYLATE 5 MG TABLET PO (09:59)
[2024-09-12] MEDS: predniSONE 20 MG TABLET 40 MG PO (09:59)
[2024-09-12] MEDS: ASPIRIN 81 MG CHEWABLE TABLET PO (09:59)
[2024-09-12] MEDS: HYDROXYCHLOROQUINE SULFATE 200 MG TABLET PO ×2 (09:59→16:51)
[2024-09-12 12:02] LABS: Glucose Point of Care 282 mg/dl (65-105)
[2024-09-12 16:50] LABS: Glucose Point of Care 112 mg/dl (65-105)
[2024-09-12 21:37] LABS: Glucose Point of Care 193 mg/dl (65-105)
[2024-09-12] MEDS: TAMSULOSIN HCL 0.4 MG CAPSULE PO (22:18)
[2024-09-12] MEDS: AZITHROMYCIN 250 MG TABLET PO (22:18)
[2024-09-13] VITALS (13 sets, daily range): BP systolic 129–147; BP diastolic 60–62; PULSE 84–102; RESP 16–20; TEMP 36.3–36.6; O2SAT 93–98
[2024-09-13] MEDS: IPRATROPIUM 0.5 MG/ALBUTEROL SULFATE 2.5 MG AMPUL.NEB 3 ML INHALATION ×4 (01:11→19:58)
[2024-09-13 06:03] LABS: Hematocrit 41.2 % (42.0-52.0); Hemoglobin 13.5 g/dL (14.0-18.0); Mean Corpuscular HGB Conc 32.8 g/dl (32-36); Mean Corpuscular Hemoglobin 31.6 pg (26-34); Mean Corpuscular Volume 96.5 fl (80-100); Mean Platelet Volume 8.7 fl (7.4-10.4); Platelet Count Result 168 k/mm3 (150-375); Red Blood Count 4.27 M/mm3 (4.6-6.20); White Blood Count 8.5 K/mm3 (4.5-10.0)
[2024-09-13 06:17] LABS: Alanine Aminotransferase 24 U/L (6-50); Albumin Level 3.8 g/dL (3.5-5.1); Alkaline Phosphatase 43 U/L (38-126); Anion Gap 8 mmol/L (4-12); Aspartate Amino Transferase 31 U/L (17-59); Bilirubin,Total 0.3 mg/dL (0.2-1.3); Blood Urea Nitrogen 14 mg/dL (9-20); Calcium 8.6 mg/dL (8.4-10.2); Carbon Dioxide 29 mmol/L (22-30); Chloride 102 mmol/L (98-107); Estimated CRCL calculation 104 ml/min; Estimated Glomerular Filt Rate > 60; Glucose 177 mg/dL (65-110); Potassium 3.9 mmol/L (3.4-5.0); Sodium 139 mmol/L (137-145); Total Protein 6.7 g/dL (6.3-8.2)
[2024-09-13 07:42] LABS: Glucose Point of Care 130 mg/dl (65-105)
[2024-09-13] MEDS: FLUTICASONE/SALMETEROL 115-21 MCG INHALER 1 PUFF 2 PUFF INHALATION ×2 (07:50→19:58)
--- NOTE | 2024-09-13 08:33 | P.PNIM_ITS ---
Progress Note: A&P Assessment and Plan (1) Acute and chronic respiratory failure with hypoxia: Code(s): J96.21 - Acute and chronic respiratory failure with hypoxia Status: Acute Assessment and Plan: Patient is baseline on room air throughout the day and 2L NC overnight. He states that since Friday he has been SOB and started wearing 2L NC at all times Friday morning. - Symptoms: worsening shortness of breath with activity requiring increased use of inhaler - Oxygen supplementation: weaned back to room air during assessment, saturating 95% (baseline room air and 2L NC overnight) - Suspected cause: COPD exacerbation with possible underlying pneumonia - Chest XR showed peribronchial thickening with a possible early left lower lobe infiltrate given concern for possible pneumonia started on rocephin and azithromycin on 09/12 See plan below for acute exacerbation of COPD #2. (2) Acute exacerbation of chronic obstructive pulmonary disease: Code(s): J44.1 - Chronic obstructive pulmonary disease with (acute) exacerbation Status: Acute Assessment and Plan: - Chest XR showed peribronchial thickening with a possible early left lower lobe infiltrate given concern for possible pneumonia started on rocephin and azithromycin on 09/12 - Duonebz q6H and Albuterol q2H prn - Prednisone 40 mg daily, course to be completed on 09/16 - Started Mucinex for nasal congestion. Cornet to help mobilize secretions. - Monitor vital signs, I&Os, neuro status and patient is a fall risk - Monitor serum electrolytes, cultures and CBC - Monitor Oxygen saturation, Oxygen via NC; wean oxygen as tolerated, keep SpO2 greater than 88% (3) Hypertension: Qualifiers: Hypertension type: primary hypertension Qualified Code(s): I10 - Essential (primary) hypertension Code(s): I10 - Essential (primary) hypertension Status: Chronic Assessment and Plan: Chronic, continue home medications - amlodipine 5 mg daily - blood pressures remain stable, continue to monitor (4) Benign prostatic hyperplasia: Code(s): N40.0 - Benign prostatic hyperplasia without lower urinary tract symptoms Status: Acute Assessment and Plan: Chronic, continue flomax bladder scan PRN (5) 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): Code(s): M65.88 - Other synovitis and tenosynovitis, other site; R60.9 - Edema, unspecified Status: Acute Assessment and Plan: Chronic, continue hydroxychloroquine Time Spent With Patient Time with patient: 25 - 35 minutes Subjective Date/time seen: 09/13/24 08:33 Interval history: 73-year-old male with history of chronic obstructive pulmonary disease, hypoxic respiratory failure on 2 L oxygen at night, deep venous thrombosis, hypertension, Prinzmetal's angina, myocardial bridge, and 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 Patient is pleasant sitting up on the side of the bed. He states his shortness of breath has improved since admission continues endorse slight dyspnea with exertion. He also notes increased nasal congestion. He has no other complaints denying chest pain, palpitations, nausea/vomiting, and abdominal pain. Patient is independently ambulating throughout the room and denies any dizziness/lightheadedness/weakness. Review of Systems Review of Systems: All systems reviewed & are unremarkable except as noted in HPI and below Exam Narrative: AF HR 93 RR 16 SpO2 95 RA BP 147/61 General: male in no acute respiratory distress who is nontoxic appearing, sitting on side of bed HEENT: Normocephalic. Atraumatic. Extraocular movement intact. Sclera clear and anicteric. No facial asymmetry. Chest: Lungs are clear with slight expiratory wheezes to auscultation bilaterally. No crackles. CV: Heart was regular rate and rhythm. Abd: Abdomen was soft. Nontender. Nondistended. Positive bowel sounds. Ext: No clubbing, cyanosis, or edema. DP pulses bilaterally. Neuro: Patient is alert and oriented x4. Speech is clear. Objective Data Vital Signs Vital Signs: Vital Signs - 24 hr 09/12/24 13:58 09/12/24 13:58 09/12/24 14:00 Temperature 96.5 F L Pulse Rate 87 90 Respiratory Rate 20 18 Blood Pressure 128/67 Pulse Oximetry 97 93 Oxygen Delivery Nasal Cannula Oxygen Flow Rate 2 Fraction of Inspired Oxygen 09/12/24 14:10 09/12/24 15:00 09/12/24 16:01 Temperature Pulse Rate 84 Respiratory Rate 20 Blood Pressure Pulse Oximetry 97 89 L Oxygen Delivery Nasal Cannula Room Air Oxygen Flow Rate 2 Fraction of Inspired Oxygen 09/12/24 20:00 09/12/24 20:03 09/12/24 20:07 Temperature Pulse Rate 98 91 91 Respiratory Rate 18 20 20 Blood Pressure Pulse Oximetry 95 92 Oxygen Delivery Room Air Room Air Oxygen Flow Rate Fraction of Inspired Oxygen 21 21 09/12/24 22:00 09/13/24 01:11 09/13/24 01:22 Temperature 97.6 F Pulse Rate 98 93 94 Respiratory Rate 18 20 20 Blood Pressure 148/67 H Pulse Oximetry 95 Oxygen Delivery Oxygen Flow Rate Fraction of Inspired Oxygen 09/13/24 06:00 09/13/24 07:48 Temperature 97.4 F L Pulse Rate 88 89 Respiratory Rate 18 16 Blood Pressure 139/62 Pulse Oximetry 94 Oxygen Delivery Oxygen Flow Rate Fraction of Inspired Oxygen Intake/Output Intake/Output: Intake & Output 09/10/24 09/11/24 09/12/24 09/13/24 23:59 23:59 23:59 23:59 Intake Total 100 1020 250 Balance 100 1020 250 Meds/Results Medications: Active Medications Generic Name Dose Route Start Last Admin Trade Name Freq PRN Reason Stop Dose Admin Albuterol/Ipratropium 3 ml 09/12/24 02:00 09/13/24 07:41 Ipratropium 0.5 Mg/Albuterol Sulfate 2.5 Mg Ampul.Neb 3 Ml INHALATION 3 ml Q6HRT [facility] Administration Amlodipine Besylate 5 mg 09/12/24 09:00 09/12/24 09:59 Amlodipine Besylate 5 Mg Tablet PO 5 mg DAILY [facility] Administration Ascorbic Acid 500 mg 09/12/24 09:00 09/12/24 09:59 Ascorbic Acid 500 Mg Tablet PO 500 mg DAILY [facility] Administration Aspirin 81 mg 09/12/24 08:00 09/12/24 09:59 Aspirin 81 Mg Chewable Tablet PO 81 mg DAILY@0800 [facility] Administration Azithromycin 250 mg 09/12/24 21:00 09/12/24 22:18 Azithromycin 250 Mg Tablet PO 09/15/24 21:01 250 mg HS [facility] Administration Dextrose 12.5 gm 09/12/24 04:18 Dextrose 50% 25 Gm/50 Ml Syringe IV PUSH PRN PRN Hypoglycemia Protocol Glucagon 1 mg 09/12/24 04:18 Glucagon For Inj 1 Mg Vial IM PRN PRN Hypoglycemia Protocol Glucose 15 gm 09/12/24 04:18 Glucose Oral Gel 15 Gm Of Glucse In 37.5 Gm Tube PO PRN PRN Hypoglycemia Protocol Hydroxychloroquine Sulfate 200 mg 09/12/24 08:00 09/12/24 16:51 Hydroxychloroquine Sulfate 200 Mg Tablet PO 200 mg BIDWM [facility] Administration Ceftriaxone Sodium 1 gm in 50 mls @ 100 mls/hr 09/12/24 22:00 09/12/24 22:19 Rocephin 1 Gm/Ns 50 Ml IVPB 100 mls/hr Q24H [facility] Administration Dextrose 1,000 mls @ 100 mls/hr 09/12/24 04:18 Dextrose 5% 1,000 Ml IVPB PRN PRN Hypoglycemia Protocol Insulin Aspart 2 - 5 units 09/12/24 08:00 09/12/24 18:43 Insulin Aspart (*Bkc) 100 Units/Ml SUB-Q Not Given TIDWM [facility] Protocol Insulin Aspart 1 - 2 units 09/12/24 21:00 09/12/24 22:19 Insulin Aspart (*Bkc) 100 Units/Ml SUB-Q Not Given HS [facility] Protocol Multivitamins Therapeutic 1 tablet 09/12/24 09:00 09/12/24 09:59 Multivitamins Therapeutic Tab (*Bkc) PO 1 tablet DAILY [facility] Administration Prednisone 40 mg 09/12/24 08:00 09/12/24 09:59 Prednisone 20 Mg Tablet PO 09/16/24 07:59 40 mg DAILY@0800 [facility] Administration Fluticasone/Salmeterol 2 puff 09/12/24 08:00 09/13/24 07:50 Fluticasone/Salmeterol 115-21 Mcg Inhaler 1 Puff INHALATION 2 puff Q12HRT [facility] Administration Tamsulosin HCl 0.4 mg 09/12/24 21:00 09/12/24 22:18 Tamsulosin Hcl 0.4 Mg Capsule PO 0.4 mg QHS [facility] Administration Umeclidinium [place] 1 puff 09/12/24 08:00 Umeclidinium [place] 62.5 Mcg Ellipta INHALATION DAILYRT [facility] Radiology Results: ITS Impressions Chest X-Ray 09/11/24 20:08 IMPRESSION: Peribronchial thickening with a possible early left lower lobe infiltrate. Labs Labs: Laboratory Results - last 24 hr 09/12/24 09/12/24 09/12/24 11:20 16:37 20:30 WBC RBC Hgb Hct MCV MCH MCHC RDW Plt Count MPV Sodium Potassium Chloride Carbon Dioxide Anion Gap BUN Creatinine Estim Creat Clear Calc Estimated GFR Glucose POC Capillary Glucose 282 H 112 H 193 H Calcium Total Bilirubin AST ALT Alkaline Phosphatase Total Protein Albumin 09/13/24 09/13/24 05:44 07:34 WBC 8.5 RBC 4.27 L Hgb 13.5 L Hct 41.2 L MCV 96.5 MCH 31.6 MCHC 32.8 RDW 13.0 Plt Count 168 MPV 8.7 Sodium 139 Potassium 3.9 Chloride 102 Carbon Dioxide 29 Anion Gap 8 BUN 14 Creatinine 0.66 L Estim Creat Clear Calc 104 Estimated GFR > 60 Glucose 177 H POC Capillary Glucose 130 H Calcium 8.6 Total Bilirubin 0.3 AST 31 ALT 24 Alkaline Phosphatase 43 Total Protein 6.7 Albumin 3.8 Quality VTE Prophylaxis VTE prophylaxis: mechanical ordered
[2024-09-13] MEDS: amLODIPine BESYLATE 5 MG TABLET PO (09:17)
[2024-09-13] MEDS: HYDROXYCHLOROQUINE SULFATE 200 MG TABLET PO ×2 (09:17→16:40)
[2024-09-13] MEDS: ASCORBIC ACID 500 MG TABLET PO (09:17)
[2024-09-13] MEDS: predniSONE 20 MG TABLET 40 MG PO (09:17)
[2024-09-13] MEDS: MULTIVITAMINS THERAPEUTIC TAB (*BKC) 1 TABLET PO (09:17)
[2024-09-13] MEDS: ASPIRIN 81 MG CHEWABLE TABLET PO (09:18)
[2024-09-13 11:39] LABS: Glucose Point of Care 122 mg/dl (65-105)
[2024-09-13 16:14] LABS: Glucose Point of Care 174 mg/dl (65-105)
--- NOTE | 2024-09-13 18:36 | PC.NURSE ---
Patient used personal albuterol inhaler. patient inhaled 2 puffs.
[2024-09-13 21:26] LABS: Glucose Point of Care 176 mg/dl (65-105)
[2024-09-13] MEDS: AZITHROMYCIN 250 MG TABLET PO (21:45)
[2024-09-13] MEDS: guaiFENesin 600 MG/DEXTROMETHORPHAN 30 MG SR TAB 12 HR 1 TAB PO (21:46)
[2024-09-13] MEDS: TAMSULOSIN HCL 0.4 MG CAPSULE PO (21:46)
[2024-09-13] MEDS: FLUTICASONE PROPIONATE 0.05% NA SPR 16 GM BTL (*BKC) 1 SPRAY NASAL (21:47)
[2024-09-14] VITALS (9 sets, daily range): BP systolic 139–148; BP diastolic 62–67; PULSE 76–98; RESP 18–20; TEMP 36–36.4; O2SAT 93–97
[2024-09-14] MEDS: IPRATROPIUM 0.5 MG/ALBUTEROL SULFATE 2.5 MG AMPUL.NEB 3 ML INHALATION ×3 (01:47→13:42)
[2024-09-14 06:30] LABS: Hematocrit 39.8 % (42.0-52.0); Mean Corpuscular HGB Conc 32.7 g/dl (32-36); Mean Corpuscular Hemoglobin 31.6 pg (26-34); Mean Corpuscular Volume 96.6 fl (80-100); Mean Platelet Volume 9.1 fl (7.4-10.4); Platelet Count Result 191 k/mm3 (150-375); Red Blood Count 4.12 M/mm3 (4.6-6.20); Red Cell Distribution Width 13.2 % (11.5-14.5); White Blood Count 8.5 K/mm3 (4.5-10.0)
[2024-09-14 06:50] LABS: Alanine Aminotransferase 24 U/L (6-50); Albumin Level 3.9 g/dL (3.5-5.1); Alkaline Phosphatase 36 U/L (38-126); Anion Gap 6 mmol/L (4-12); Aspartate Amino Transferase 31 U/L (17-59); Bilirubin,Total 0.2 mg/dL (0.2-1.3); Blood Urea Nitrogen 15 mg/dL (9-20); Calcium 8.9 mg/dL (8.4-10.2); Carbon Dioxide 31 mmol/L (22-30); Chloride 102 mmol/L (98-107); Estimated CRCL calculation 99 ml/min; Estimated Glomerular Filt Rate > 60; Glucose 99 mg/dL (65-110); Sodium 139 mmol/L (137-145); Total Protein 6.6 g/dL (6.3-8.2)
[2024-09-14 07:42] LABS: Glucose Point of Care 104 mg/dl (65-105)
[2024-09-14] MEDS: FLUTICASONE/SALMETEROL 115-21 MCG INHALER 1 PUFF 2 PUFF INHALATION (08:10)
[2024-09-14] MEDS: HYDROXYCHLOROQUINE SULFATE 200 MG TABLET PO (09:15)
[2024-09-14] MEDS: ASCORBIC ACID 500 MG TABLET PO (09:15)
[2024-09-14] MEDS: MULTIVITAMINS THERAPEUTIC TAB (*BKC) 1 TABLET PO (09:15)
[2024-09-14] MEDS: guaiFENesin 600 MG/DEXTROMETHORPHAN 30 MG SR TAB 12 HR 1 TAB PO (09:15)
[2024-09-14] MEDS: amLODIPine BESYLATE 5 MG TABLET PO (09:15)
[2024-09-14] MEDS: ASPIRIN 81 MG CHEWABLE TABLET PO (09:15)
[2024-09-14] MEDS: predniSONE 20 MG TABLET 40 MG PO (09:15)
[2024-09-14] MEDS: FLUTICASONE PROPIONATE 0.05% NA SPR 16 GM BTL (*BKC) 1 SPRAY NASAL (09:21)
[2024-09-14 11:21] LABS: Glucose Point of Care 137 mg/dl (65-105)
--- NOTE | 2024-09-14 13:41 | P.DS_ITS ---
DS: Admitting Diagnosis Discharge Date 09/14/2024 Admitting Diagnosis Acute on chronic respiratory failure with hypoxia Acute exacerbation of COPD Hypertension BPH RS3PE DS: Discharge Diagnosis Discharge Diagnosis (1) Acute and chronic respiratory failure with hypoxia: Code(s): J96.21 - Acute and chronic respiratory failure with hypoxia Status: Acute (2) Acute exacerbation of chronic obstructive pulmonary disease: Code(s): J44.1 - Chronic obstructive pulmonary disease with (acute) exacerbation Status: Acute (3) Hypertension: Qualifiers: Hypertension type: primary hypertension Qualified Code(s): I10 - Essential (primary) hypertension Code(s): I10 - Essential (primary) hypertension Status: Chronic (4) Benign prostatic hyperplasia: Code(s): N40.0 - Benign prostatic hyperplasia without lower urinary tract symptoms Status: Acute (5) 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): Code(s): M65.88 - Other synovitis and tenosynovitis, other site; R60.9 - Edema, unspecified Status: Acute DS: Summary Hospital Course Reason for hospitalization: Acute on chronic respiratory failure with hypoxia Acute exacerbation of COPD Hypertension BPH RS3PE Hospital Course: 73-year-old male with history of chronic obstructive pulmonary disease, hypoxic respiratory failure on 2 L oxygen at night, deep venous thrombosis, hyp ertension, Prinzmetal's angina, myocardial bridge, and 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 Patient is baseline on room air throughout the day and 2L NC overnight. He states that since Friday he has been SOB and started wearing 2L NC at all times Friday morning. Chest XR showed peribronchial thickening with a possible early left lower lobe infiltrate. Patient started on steroids and antibiotics given concern for possible pneumonia. During admission patient was weaned back to room air throughout the day and saturations remained stable. Discussed with patient that he still has slight expiratory wheezes in the upper lobes of his lungs. Discussed potentially staying inpatient for continued monitoring vs returning home with PCP and pulmonology follow up. He states that he feels much better since admission and is ready for discharge at this time. Patient has no complaints at time of discharge denying chest pain, shortness a breath, palpitations, nausea/vomiting, abdominal pain, and dizziness/lightheadedness with ambulation. Patient discharged home in a stable condition. He is to follow up with primary care provider in 1 week and pulmonology as scheduled. 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 He states understanding and plans to call. Status at Discharge Functional status at discharge: independent ambulation Time Spent with Patient Time attestation: Total time spent providing and/or coordinating discharge services: Time spent: Greater than 30 minutes Exam Narrative: AF HR 77 RR 20 Spo2 BP 139/67 General: male in no acute respiratory distress who is nontoxic appearing, sitting on side of bed HEENT: Normocephalic. Atraumatic. Extraocular movement intact. Sclera clear and anicteric. No facial asymmetry. Chest: Lungs are clear with slight expiratory wheezes in the uppers on auscultation bilaterally. No crackles. CV: Heart was regular rate and rhythm. Abd: Abdomen was soft. Nontender. Nondistended. Positive bowel sounds. Ext: No clubbing, cyanosis, or edema. DP pulses bilaterally. Neuro: Patient is alert and oriented x4. Speech is clear. DS: Data Data Completed and Pending Completed studies during hospitalization: chest xr Labs on day of discharge: Labs from last 24 hours 09/14/24 09/14/24 09/14/24 11:10 07:30 05:35 WBC 8.5 RBC 4.12 L Hgb 13.0 L Hct 39.8 L MCV 96.6 MCH 31.6 MCHC 32.7 RDW 13.2 Plt Count 191 MPV 9.1 Sodium 139 Potassium 4.0 Chloride 102 Carbon Dioxide 31 H Anion Gap 6 BUN 15 Creatinine 0.70 Estim Creat Clear Calc 99 Estimated GFR > 60 Glucose 99 POC Capillary Glucose 137 H 104 Calcium 8.9 Total Bilirubin 0.2 AST 31 ALT 24 Alkaline Phosphatase 36 L Total Protein 6.6 Albumin 3.9 09/13/24 09/13/24 21:16 16:10 WBC RBC Hgb Hct MCV MCH MCHC RDW Plt Count MPV Sodium Potassium Chloride Carbon Dioxide Anion Gap BUN Creatinine Estim Creat Clear Calc Estimated GFR Glucose POC Capillary Glucose 176 H 174 H Calcium Total Bilirubin AST ALT Alkaline Phosphatase Total Protein Albumin Preliminary micro results at discharge 09/11/24 21:11 Blood Culture - Preliminary Blood 09/11/24 21:13 Blood Culture - Preliminary Blood Discharge Plan Discharge Attending physician on discharge: Car Roberts Consulting providers: Anita Stephens Discharging Clinician: Anita Stephens Anticipated Discharge Date/Time: 09/14/24 13:29 Patient Disposition: Home Activity: as tolerated Diet: as tolerated and heart healthy Discharge Instructions: Discharge disposition: Patient admitted to the hospital for an acute exacerbation of his COPD and cocurrent pneumonia Patient requiring increased O2 on admission, weaned back to room air throughout the day prior to discharge. Continue oxygen supplementation at 2 L nasal cannula overnight Take medications as prescribed Prednisone, course to be completed on 09/16 Continue Mucinex and Flonase as needed for congestion Levaquin daily, course to be completed on 09/16 Attached is information on these medications Continue your home bronchodilators as prescribed Follow up with your reservoir engineer Monitor blood pressures Take caution while standing, rising, or moving Change positions slowly taking a break between each position change If you standing feel dizzy sit back down and take a break Encouraged to continue with yearly vaccinations Return to the emergency department if he developed sudden shortness of breath, chest pain, nausea, vomiting, upset stomach or intractable diarrhea Return to the emergency department if you develop fever greater than 101.5 Follow-up with the primary care physician within 1-2 weeks Thank you for choosing [facility] for your healthcare needs Patient Instructions: Antibiotic Form, Prednisone (By mouth), Analgesic/Antihistamine/Decongestant (By mouth), Levofloxacin (By mouth), Acetaminophen/Dextromethorphan (By mouth), How to Stop Smoking (DC), COPD (Chronic Obstructive Pulmonary Disease) (DC) Patient Language: Sammarinese Stand Alone Forms: General Discharge Information Follow-up/Referrals: Brandon Sherwood MD [Primary Care Provider] - 1 Week Discharge Medications: New prednisone 20 mg Tablet 40 mg PO DAILY@0800 2 Days Qty: 2 0RF Mucinex DM 30-600 mg Tablet Extended Release 12 Hr 1 tab PO Q12HR Qty: 20 0RF levofloxacin 750 mg tablet 750 mg PO DAILY Qty: 5 0RF Continued multivitamin Tablet 1 tablet PO DAILY albuterol sulfate [ProAir HFA] 90 mcg/actuation HFA aerosol inhaler 2 puff INHALATION Q4H PRN (Reason: Dyspnea) Qty: 8.5 11RF (DME) peak flow meter Device See Rx Instructions .Route Qty: 1 0RF Rx Instructions: use for COPD (DME) oxygen-air delivery systems Device See Rx Instructions .Route Rx Instructions: As directed tamsulosin 0.4 mg capsule 0.4 mg PO QHS Qty: 30 11RF amlodipine [Norvasc] 5 mg Tablet 5 mg PO DAILY Qty: 30 0RF ascorbic acid (vitamin C) 500 mg Tablet 500 mg PO DAILY Sarah Low Dose Aspirin 81 mg PO DAILY hydroxychloroquine 200 mg tablet 200 mg PO BID Dulera 100-5 mcg/actuation HFA aerosol inhaler 2 puff inhalation Q12H Qty: 13 11RF Incruse Ellipta 62.5 mcg/actuation blister with device 1 inh INHALATION DAILY Qty: 30 11RF Date of admission: 09/13/24 15:26 Primary Care Provider: Brandon Sherwood Admitting Provider: Car Roberts Attending physician on admission: Car Roberts Condition: Stable Hospitalist MIPS Heart Failure (Exclusion) Patient has history of Heart Transplant or Left Ventricular Assistive Device?: No IF YES, STOP HERE Heart Failure (Qualifier) Patient has current or prior documentation of LVEF less than or equal to 40%, or mod/servere depressed LVSF?: No IF NO, STOP HERE
[2024-09-15 17:28] LABS: Legionella pneumophila Ag Ur. NOT DETECTED
[2024-09-15 18:28] LABS: Mycoplasma IgM Antibody Titer. 213 U/mL
== END 2024-09-14 15:08 | disposition home or self-care (01) | DRG 190 ==
LOC: ANHED 19:53 → ANH3MEDSUR 22:35
PROVIDERS: Physician Assistant; Admitting Provider Internal Medicine; Emergency Provider Emergency Medicine; PCP Family Medicine; Visit Provider Student in an Organized Health Care Education/Training Program
DX: J44.1 Chronic obstructive pulmonary disease with (acute) exacerbation (principal); J18.9 Pneumonia, unspecified organism; J96.11 Chronic respiratory failure with hypoxia; J44.0 Chronic obstructive pulmonary disease with (acute) lower respiratory infection; N40.0 Benign prostatic hyperplasia without lower urinary tract symptoms; I10 Essential (primary) hypertension; I70.0 Atherosclerosis of aorta; I25.10 Atherosclerotic heart disease of native coronary artery without angina pectoris; L40.9 Psoriasis, unspecified; M65.88 Other synovitis and tenosynovitis, other site; K57.90 Diverticulosis of intestine, part unspecified, without perforation or abscess without bleeding; Z86.16 Personal history of COVID-19; Z87.891 Personal history of nicotine dependence; Z96.651 Presence of right artificial knee joint; Z86.718 Personal history of other venous thrombosis and embolism; Z85.828 Personal history of other malignant neoplasm of skin; Z90.49 Acquired absence of other specified parts of digestive tract; Z99.81 Dependence on supplemental oxygen
CPT/HCPCS: 36415; 71045; 80048; 80053; 82948; 83036; 83605; 83735; 83880; 84484; 85025; 85027; 86738; 87040; 87449; 87637; 87641; 87899; 93005; 94640; 94667; 94668; 96365; 96375; 99285; A9270; G0378; J0696; J2919; J7512

== ENCOUNTER 2024-09-21 21:09 | Emergency (ER) | payer MEDICARE, SELFPAY ==
[2024-09-21] VITALS (14 sets, daily range): BP systolic 149–164; BP diastolic 77–86; PULSE 85–99; RESP 12–25; TEMP 34.8; O2SAT 95–100
--- NOTE | ~2024-09-21 | XR_ITS ---
CHEST RADIOGRAPH, PA AND LATERAL CLINICAL HISTORY: cp, cough . COMPARISON: 09/11/2024 TECHNIQUE: PA and lateral views of the chest. FINDINGS The cardiomediastinal silhouette is unremarkable. The lungs are clear. Improved aeration of the left lower lobe when compared with most recent examination. IMPRESSION: No focal infiltrate or effusion. Reviewed, dictated and finalized at location A.
--- NOTE | 2024-09-21 21:16 | ECG_ITS ---
Test Date: 2024-09-21 21:12:24 Measurements Intervals [place] Rate: 96 P: 66 ME: 166 QRS: 78 QRSD: 98 T: 52 QT: 344 QTc: 436 Interpretive Statements SINUS RHYTHM BASELINE ARTIFACT- I, II, AVR, AVL, AVF, V1-V6 NORMAL ECG Compared to ECG 09/11/2024 19:48:58 NO SIGNIFICANT CHANGE Electronically Signed On 09-22-2024 06:14:53 CDT by Flavio Kaur D.O.
[2024-09-21 21:34] LABS: Basophils Absolute Auto 0.1 K/mm3 (0.0-0.1); Basophils Percent Auto 0.5 % (0.2-1.2); Eosinophils Absolute Auto 0.2 K/mm3 (0-0.3); Eosinophils Percent Auto 1.4 % (0-4.4); Hematocrit 41.5 % (42.0-52.0); Hemoglobin 13.6 g/dL (14.0-18.0); Immature Granulocyte Absolute 0.11 K/mm3 (0.00-0.031); Lymphocytes Absolute Auto 1.47 K/mm3 (0.9-3.2); Lymphocytes Percent Auto 13.3 % (18.3-44.2); Mean Corpuscular HGB Conc 32.8 g/dl (32-36); Mean Corpuscular Hemoglobin 31.3 pg (26-34); Mean Corpuscular Volume 95.6 fl (80-100); Mean Platelet Volume 8.6 fl (7.4-10.4); Monocytes Absolute Auto 0.9 K/mm3 (0.1-0.6); Monocytes Percent Auto 7.9 % (2.6-8.5); Neutrophils Absolute Auto 8.4 K/mm3 (1.3-6.7); Neutrophils Percent Auto 75.9 % (45.5-73.1); Platelet Count Result 207 k/mm3 (150-375); Red Blood Count 4.34 M/mm3 (4.6-6.20)
[2024-09-21 21:44] LABS: Prothrombin Time 13.1 Seconds (11.1-14.7)
[2024-09-21 21:45] LABS: Alanine Aminotransferase 29 U/L (6-50); Albumin Level 3.9 g/dL (3.5-5.1); Alkaline Phosphatase 32 U/L (38-126); Anion Gap 6 mmol/L (4-12); Aspartate Amino Transferase 33 U/L (17-59); Bilirubin,Total 0.2 mg/dL (0.2-1.3); Blood Urea Nitrogen 11 mg/dL (9-20); Carbon Dioxide 29 mmol/L (22-30); Chloride 101 mmol/L (98-107); Estimated CRCL calculation 82 ml/min; Estimated Glomerular Filt Rate > 60; Glucose 122 mg/dL (65-110); Lipase 28 U/L (23-300); Potassium 4.2 mmol/L (3.4-5.0); Sodium 136 mmol/L (137-145)
[2024-09-21 21:56] LABS: Troponin I < 0.012 ng/mL (0.000-0.034)
--- NOTE | 2024-09-21 22:26 | ED_ITS ---
HPI - SOB/Dyspnea General Chief Complaint: Shortness of Breath/Dyspnea <Leigha Acosta APRN - Last Filed: 09/22/24 02:36> Stated Complaint: SOB/CP W/INSPIRATION <Leigha Acosta APRN - Last Filed: 09/22/24 02:36> Time Seen by Provider: 09/21/24 21:09 <Leigha Acosta APRN - Last Filed: 09/22/24 02:36> History of Present Illness HPI Narrative: Patient is a 73-year-old male who presents to the ER with complaints left sided chest pain and recent pneumonia. He reports his pain increases every time he coughs. Patient reports he was admitted to the hospital here and discharged 1 week ago. He reports he completed his full dose of antibiotics but has continued to cough. Patient endorses a history of COPD and has been a smoker for over 50 years. He reports this past winter he had bad influenza and was hospitalized at that time also. After that hospitalization patient went home on 2 L nasal cannula and has been using oxygen p.r.n. since then. His chart indicates he also has a history of high blood pressure. < Leigha Acosta APRN - Last Filed: 09/22/24 02:36> Related Data Home Medications: Home Medications ?Medication ?Instructions ?Recorded ?Confirmed ?Last Taken ?Type hydroxychloroquine 200 mg tablet 200 mg PO BID 05/07/21 09/11/24 09/11/24 History Sarah Low Dose Aspirin 81 mg PO DAILY 04/14/23 09/11/24 09/11/24 History multivitamin 1 tablet PO DAILY 05/02/23 09/11/24 09/11/24 History ascorbic acid (vitamin C) 500 mg 500 mg PO DAILY 06/23/23 09/11/24 09/11/24 History tablet oxygen-air delivery systems 05/11/24 09/11/24 Unknown History <Leigha Acosta APRN - Last Filed: 09/22/24 02:36> Allergies/Adverse Reactions: Allergies Allergy/AdvReac Type Severity Reaction Status Date / Time rivaroxaban Allergy Severe violent Verified 09/21/24 21:17 rage, hives, swelling vancomycin Allergy Severe collapse Verified 09/21/24 21:17 veins enoxaparin Allergy Intermediate hives, rash Verified 09/21/24 21:17 Penicillins Allergy Intermediate Swelling Verified 09/21/24 21:17 trovafloxacin Allergy Intermediate Other Verified 09/21/24 21:17 apixaban Allergy Unknown violent Verified 09/21/24 21:17 rage, hives, swelling celecoxib Allergy Unknown Nausea and Verified 09/21/24 21:17 Vomiting clarithromycin Allergy Unknown Unknown Verified 09/21/24 21:17 erythromycin base Allergy Unknown Unknown Verified 09/21/24 21:17 furosemide Allergy Unknown Swelling Verified 09/21/24 21:17 Iodinated Contrast Media Allergy Unknown Rash Verified 09/21/24 21:17 iodine Allergy Unknown SEVERE RASH Verified 09/21/24 21:17 montelukast Allergy Unknown Unknown Verified 09/21/24 21:17 Sulfa (Sulfonamide Allergy Unknown Unknown Verified 09/21/24 21:17 Antibiotics) codeine AdvReac Unknown Headache Verified 09/21/24 21:17 doxycycline AdvReac Unknown Nausea and Verified 09/21/24 21:17 Vomiting Quinolones AdvReac Unknown ITCHING Verified 09/21/24 21:17 <Leigha Acosta APRN - Last Filed: 09/22/24 02:36> Review of Systems 2 Review of Systems: All systems reviewed & are unremarkable except as noted in HPI and below <Leigha Acosta APRN - Last Filed: 09/22/24 02:36> PMFSH Past Medical History Medical History: Medical History Benign prostatic hyperplasia Chronic respiratory failure with hypoxia, on home oxygen therapy on 2 L nasal cannula at night Sinusitis Anxiety Influenza A Male erectile dysfunction, unspecified Viagra did not help, Cialis caused headache. BMI 31.0-31.9,adult Hyponatremia Hypersomnia Snoring Hypoxia Hypertension Aortic atherosclerosis Thrush, oral Right forearm cellulitis Deep vein thrombosis of right lower limb Chronic obstructive pulmonary disease Coronary artery disease COVID-19 (05/2022) tested positive 06/10/22 Elevated fasting glucose Fasting glucose 117 with hemoglobin A1c 5.6 on 04/26/2022. Encounter for prostate cancer screening PSA 2.13 on 04/26/2022. Metatarsalgia of both feet MRI of both feet on 08/30/2022 by dye winch operator revealed degenerative joint disease worse at the 1st MTP bilaterally with bunion formation on the right foot. Nausea and vomiting (12/28/20) history of nausea and vomiting with bowel prep Polyp of colon colonoscopy with Dr. Jenkins on 02/28/2021 with multiple sessile polyps from 2 mm to 12 mm with recheck in 2 years Bindu-rectal abscess Tobacco use disorder, continuous 1/2 pack daily. Patient quit smoking 04/27/2024. 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) Psoriasis Eczema Diverticulosis Diverticulitis Gastric ulcer Pneumonia Wears partial dentures Asthma <Leigha Acosta APRN - Last Filed: 09/22/24 02:36> Surgical History Surgical History: Surgical History History of arthroscopy of left knee History of arthroplasty of right knee X4 History of vasectomy History of cholecystectomy H/O colonoscopy with polypectomy History of cardiac catheterization (2012) <Leigha Acosta APRN - Last Filed: 09/22/24 02:36> Family History Family History: Family History Mother Family history of multiple sclerosis, Onset Age: 73 Father Patient's father is , Onset Age: 51 Family history of liver disease Family history of chronic obstructive pulmonary disease Family history of alcoholism Sibling Family history of malignant neoplasm Cerebrovascular accident Sibling Breast cancer <Leigha Acosta APRN - Last Filed: 09/22/24 02:36> Social History Social History: Social History Social History: Surrogate medical decision maker: Palma Santillan, daughter. Code status: Full code. Smoking packs per day: 1 Smoking cigarettes per day: 20.0 Years smoked: 50 Smoking pack-years: 50.00 Smoking status: Former smoker Tobacco type: cigarettes Smoking end date: 04/27/24 Alcohol intake: never Substance use: never Substance use type: does not use Do You Feel Safe in your Home?: Yes Lack of Transportation: No Lack of Food: Never True Current Housing: Decline to Answer Concerned About Future Housing: No Difficulty Paying Gas/Electric Bills: No Difficulty Paying for Meds: No Currently Unemployed: No Education: High School Diploma/GED Difficulty w/ Childcare or Family Care: No Living arrangements: alone Spiritual care concerns: No <Leigha Acosta APRN - Last Filed: 09/22/24 02:36> Exam 2 Narrative: GENERAL: Well appearing, well-nourished, non-toxic, in no acute distress. HEAD: Normocephalic, atraumatic. NECK: Supple. No adenopathy, no masses. RESPIRATORY: Airway patent, respirations nonlabored. Mild rales and wheezing upon auscultation. Productive cough CARDIOVASCULAR: Regular rate and rhythm without murmurs, rubs, or gallops. Peripheral pulses 2+ and equal bilaterally. + bilateral pitting lower extremity edema, - Whitley's sign ABDOMINAL: Soft, nontender, nondistended, no hepatosplenomegaly. Normoactive BS. MUSCULOSKELETAL: Moves all extremities. Strength/ROM intact without gross deformities. SKIN: Warm, dry, normal color. No rashes. NEURO: A&O X3. Speech clear. Cranial nerves II-XII intact. No ataxic movements. PSYCHIATRIC: Appropriate mood and affect. Normal interaction. <Leigha Acosta, KANDIS - Last Filed: 09/22/24 02:36> Course RUBBER PRODUCTION MACHINE OPERATOR/PA Physician Supervision For this patient encounter, I reviewed the RUBBER PRODUCTION MACHINE OPERATOR or PA documentation, treatment plan, and medical decision making <Cj Dean MD - Last Filed: 09/22/24 05:27> Vital Signs Vital signs: Vital Signs Temperature 94.7 F L 09/21/24 21:07 Pulse Rate 99 09/21/24 21:07 Respiratory Rate 22 H 09/21/24 21:07 Blood Pressure 162/86 H 09/21/24 21:07 Pulse Oximetry 100 09/21/24 21:07 Oxygen Delivery Simple Face Mask 09/21/24 21:07 Oxygen Flow Rate 6 09/21/24 21:07 Temperature 98.3 F 09/22/24 02:29 Pulse Rate 93 09/22/24 01:30 Respiratory Rate 27 H 09/22/24 01:30 Blood Pressure 127/70 09/22/24 01:30 Pulse Oximetry 94 09/22/24 01:30 Oxygen Delivery Nasal Cannula 09/21/24 21:33 Oxygen Flow Rate 2 09/21/24 21:33 <Leigha Acosta APRN - Last Filed: 09/22/24 02:36> Vital Signs Temperature 94.7 F L 09/21/24 21:07 Pulse Rate 99 09/21/24 21:07 Respiratory Rate 22 H 09/21/24 21:07 Blood Pressure 162/86 H 09/21/24 21:07 Pulse Oximetry 100 09/21/24 21:07 Oxygen Delivery Simple Face Mask 09/21/24 21:07 Oxygen Flow Rate 6 09/21/24 21:07 Temperature 98.3 F 09/22/24 02:29 Pulse Rate 93 09/22/24 01:30 Respiratory Rate 27 H 09/22/24 01:30 Blood Pressure 127/70 09/22/24 01:30 Pulse Oximetry 94 09/22/24 01:30 Oxygen Delivery Nasal Cannula 09/21/24 21:33 Oxygen Flow Rate 2 09/21/24 21:33 <Cj Dean MD - Last Filed: 09/22/24 05:27> MDM - SOB/Dyspnea MDM Narrative Medical decision making narrative: Patient is a 73-year-old male who presents to the ER with complaints left sided chest pain and recent pneumonia. He reports his pain increases every time he coughs. Patient reports he was admitted to the hospital here and discharged 1 week ago. He reports he completed his full dose of antibiotics but has continued to cough. Patient endorses a history of COPD and has been a smoker for over 50 years. He reports this past winter he had bad influenza and was hospitalized at that time also. After that hospitalization patient went home on 2 L nasal cannula and has been using oxygen p.r.n. since then. His chart indicates he also has a history of high blood pressure. Labs Ordered: CBC, CMP, troponin, lactic acid, magnesium, proBNP, INR, PTT, d dimer Imaging Ordered: Chest x-ray, CT chest (pt refused d/t chest pain) Medications Ordered: duo neb, Toradol 15mg IV, Tylenol PO, Morphine (pt refused) Results: Patient's CBC indicates a white blood cell count of 11.0, red blood cell count of 4.34, hemoglobin 13.6, hematocrit of 41.5%. His coags were all within normal limits. Patient's D-dimer was 0.65, which is mildly elevated but is within normal limits with age adjustment calculations. His CMP indicates a sodium of 136, glucose of 122, and alk-phos of 32. Patient's proBNP was less than 20. His lipase was 28. Patient's troponin was less than 0.012. His magnesium was 1.9. Patient's lactic acid 0.7. Diagnosis: Pt's chest x-ray indicates The cardiomediastinal silhouette is unremarkable. The lungs are clear. Improved aeration of the left lower lobe when compared with most recent examination. Risks: Age-Adjusted D-dimer for Venous Thromboembolism (VTE) from [facility] on 09/21/2024 All calculations should be rechecked by clinician prior to use RESULT SUMMARY: 720 ?g/L Age-adjusted D-dimer cutoff, FEU VTE unlikely Reported D-dimer is less than or equal to cutoff; consider alternative diagnosis INPUTS: Age ?> 73 years D-dimer level reported by lab ?> 0.65 ?g/L D-dimer unit type ?> 0 = FEU (unadjusted cutoff typically ~500 or 0.50) Consults: None necessary Patient Education/Shared MDM: Results of lab work and imaging shared with patient. He endorses mild improvement of symptoms following Toradol administration. Patient was offered narcotic pain medication to treat his pain med but reports he has a strong reaction to them. It was advised patient get a CT PE scan to rule out pulmonary embolism, but patient refused contrast, even with pre medication offered. A CT chest diagnostic was ordered, but pt was unable to lay flat due to the pain. He has concerns about his lower extremity edema, but he was reassured that his bloodwork and imaging did not indicate a concern for CHF. Pt reports his RLE appears more swollen than his LLE, so RUBBER PRODUCTION MACHINE OPERATOR offered to order an ultrasound of pt's RLE to be performed in the morning but he declined. He reports the nebulizer helped treat his breathing, but reports his nebulizer machine has not arrived at home yet. Pt is concerned his recent steroid use may be contributing to his bilateral lower extremity edema, but he reports he hasn't take oral steroids in a couple of days. An extensive amount of time was spent between RUBBER PRODUCTION MACHINE OPERATOR, pt's daughter and pt regarding his test results and offering pt reassurance. Case reviewed with Dr. Dean, and it was determined it was appropriate for pt to be discharged home. Patient strongly advised to maintain hydration status upon discharge and follow-up with his PCP as soon as possible. He will be discharged home with a prescription for Toradol PO (per pt request as he says he can't take more than 200mg of Ibuprofen at one time) and Prednisone PO. Pt declined a cough medication prescription. Strict return precautions provided. Patient verbalized understanding and is in agreement with plan. Vital signs stable at time of discharge. All questions answered. <Leigha Acosta APRN - Last Filed: 09/22/24 02:36> Differential Diagnosis Differential diagnosis: Likely acute exacerbation of chronic obstructive airways disease, congestive heart failure, community acquired pneumonia and asthma with exacerbation <Leigha Acosta APRN - Last Filed: 09/22/24 02:36> Lab Data Attestation: I reviewed the patient's lab results. <Leigha Acosta APRN - Last Filed: 09/22/24 02:36> Result diagrams: 09/21/24 21:19 09/21/24 21:19 <Leigha Acosta APRN - Last Filed: 09/22/24 02:36> Labs: Lab Results 09/21/24 09/22/24 Range/Units 21:19 00:18 WBC 11.0 H (4.5-10.0) K/mm3 RBC 4.34 L (4.6-6.20) M/mm3 Hgb 13.6 L (14.0-18.0) g/dL Hct 41.5 L (42.0-52.0) % MCV 95.6 (80-100) fl MCH 31.3 (26-34) pg MCHC 32.8 (32-36) g/dl RDW 13.0 (11.5-14.5) % Plt Count 207 (150-375) k/mm3 MPV 8.6 (7.4-10.4) fl Immature Gran % (Auto) 1.0 H (0-0.5) % Neut % (Auto) 75.9 H (45.5-73.1) % Lymph % (Auto) 13.3 L (18.3-44.2) % Robertson % (Auto) 7.9 (2.6-8.5) % Eos % (Auto) 1.4 (0-4.4) % Baso % (Auto) 0.5 (0.2-1.2) % Lymph # (Auto) 1.47 (0.9-3.2) K/mm3 Robertson # (Auto) 0.9 H (0.1-0.6) K/mm3 Eos # (Auto) 0.2 (0-0.3) K/mm3 Baso # (Auto) 0.1 (0.0-0.1) K/mm3 Abs Immat Gran (auto) 0.11 H (0.00-0.031) K/mm3 Absolute Neuts (auto) 8.4 H (1.3-6.7) K/mm3 Absolute Nucleated RBC 0.000 (0.0-0.012) K/mm3 Nucleated RBC % 0.0 (0.0-0.2) % PT 13.1 (11.1-14.7) Seconds INR 1.0 APTT 29.0 (22.3-36.8) Seconds D-Dimer 0.65 H (<0.48) ug/mL Sodium 136 L (137-145) mmol/L Potassium 4.2 (3.4-5.0) mmol/L Chloride 101 (98-107) mmol/L Carbon Dioxide 29 (22-30) mmol/L Anion Gap 6 (4-12) mmol/L BUN 11 (9-20) mg/dL Creatinine 0.84 (0.7-1.3) mg/dL Estim Creat Clear Calc 82 ml/min Estimated GFR > 60 (59 - ) Glucose 122 H (65-110) mg/dL Lactic Acid 0.7 (0.7-2.0) mmol/L Calcium 9.0 (8.4-10.2) mg/dL Magnesium 1.9 (1.6-2.3) mg/dL Total Bilirubin 0.2 (0.2-1.3) mg/dL AST 33 (17-59) U/L ALT 29 (6-50) U/L Alkaline Phosphatase 32 L (38-126) U/L Troponin I < 0.012 < 0.012 (0.000-0.034) ng/mL NT-Pro-B Natriuret Pep < 20 (19.9-100) pg/mL Total Protein 7.0 (6.3-8.2) g/dL Albumin 3.9 (3.5-5.1) g/dL Lipase 28 (23-300) U/L <Leigha Acosta, ANTIQUE FURNITURE REPRODUCER - Last Filed: 09/22/24 02:36> Lab Results 09/21/24 09/22/24 Range/Units 21:19 00:18 WBC 11.0 H (4.5-10.0) K/mm3 RBC 4.34 L (4.6-6.20) M/mm3 Hgb 13.6 L (14.0-18.0) g/dL Hct 41.5 L (42.0-52.0) % MCV 95.6 (80-100) fl MCH 31.3 (26-34) pg MCHC 32.8 (32-36) g/dl RDW 13.0 (11.5-14.5) % Plt Count 207 (150-375) k/mm3 MPV 8.6 (7.4-10.4) fl Immature Gran % (Auto) 1.0 H (0-0.5) % Neut % (Auto) 75.9 H (45.5-73.1) % Lymph % (Auto) 13.3 L (18.3-44.2) % Robertson % (Auto) 7.9 (2.6-8.5) % Eos % (Auto) 1.4 (0-4.4) % Baso % (Auto) 0.5 (0.2-1.2) % Lymph # (Auto) 1.47 (0.9-3.2) K/mm3 Robertson # (Auto) 0.9 H (0.1-0.6) K/mm3 Eos # (Auto) 0.2 (0-0.3) K/mm3 Baso # (Auto) 0.1 (0.0-0.1) K/mm3 Abs Immat Gran (auto) 0.11 H (0.00-0.031) K/mm3 Absolute Neuts (auto) 8.4 H (1.3-6.7) K/mm3 Absolute Nucleated RBC 0.000 (0.0-0.012) K/mm3 Nucleated RBC % 0.0 (0.0-0.2) % PT 13.1 (11.1-14.7) Seconds INR 1.0 APTT 29.0 (22.3-36.8) Seconds D-Dimer 0.65 H (<0.48) ug/mL Sodium 136 L (137-145) mmol/L Potassium 4.2 (3.4-5.0) mmol/L Chloride 101 (98-107) mmol/L Carbon Dioxide 29 (22-30) mmol/L Anion Gap 6 (4-12) mmol/L BUN 11 (9-20) mg/dL Creatinine 0.84 (0.7-1.3) mg/dL Estim Creat Clear Calc 82 ml/min Estimated GFR > 60 (59 - ) Glucose 122 H (65-110) mg/dL Lactic Acid 0.7 (0.7-2.0) mmol/L Calcium 9.0 (8.4-10.2) mg/dL Magnesium 1.9 (1.6-2.3) mg/dL Total Bilirubin 0.2 (0.2-1.3) mg/dL AST 33 (17-59) U/L ALT 29 (6-50) U/L Alkaline Phosphatase 32 L (38-126) U/L Troponin I < 0.012 < 0.012 (0.000-0.034) ng/mL NT-Pro-B Natriuret Pep < 20 (19.9-100) pg/mL Total Protein 7.0 (6.3-8.2) g/dL Albumin 3.9 (3.5-5.1) g/dL Lipase 28 (23-300) U/L <Cj Dean MD - Last Filed: 09/22/24 05:27> Imaging Data Attestation: I personally reviewed and interpreted this imaging study as follows: < Leigha Acosta APRN - Last Filed: 09/22/24 02:36> Radiologist's impression: Impressions Chest X-Ray 09/21/24 22:27 IMPRESSION: No focal infiltrate or effusion. <Leigha Acosta APRN - Last Filed: 09/22/24 02:36> Discharge Plan Discharge Clinical Impression: Pleurisy, Tobacco use disorder, continuous, COPD exacerbation COPD (chronic obstructive pulmonary disease) Qualifiers: COPD type: unspecified COPD Qualified Code(s): J44.9 - Chronic obstructive pulmonary disease, unspecified <Leigha Acosta APRN - Last Filed: 09/22/24 02:36> Patient Disposition: Home <Leigha Acosta APRN - Last Filed: 09/22/24 02:36> Condition: Stable <Leigha Acosta APRN - Last Filed: 09/22/24 02:36> Instructions: Antibiotic Form, Pleurisy (ED), Acute Bronchitis (ED) <Leigha Acosta APRN - Last Filed: 09/22/24 02:36> Additional Instructions: Please return to the ER with any worsening symptoms. Follow-up with primary care provider on , as planned. Take all medications as prescribed, including regularly scheduled medications. You may take Toradol and Tylenol together for short-term pain relief. <Leigha Acosta APRN - Last Filed: 09/22/24 02:36> Patient Language: Maori <Leigha Acosta APRN - Last Filed: 09/22/24 02:36> Prescriptions: New ketorolac 10 mg tablet 10 mg PO Q6H PRN (Reason: pain) Qty: 20 0RF Rx Instructions: maximum total duration of 5 days from all oral, intranasal, or parenteral formulations prednisone 20 mg tablet 20 mg PO BID Qty: 10 0RF No Action multivitamin Tablet 1 tablet PO DAILY albuterol sulfate [ProAir HFA] 90 mcg/actuation HFA aerosol inhaler 2 puff INHALATION Q4H PRN (Reason: Dyspnea) Qty: 8.5 11RF (DME) peak flow meter Device See Rx Instructions .Route Qty: 1 0RF Rx Instructions: use for COPD (DME) oxygen-air delivery systems Device See Rx Instructions .Route Rx Instructions: As directed tamsulosin 0.4 mg capsule 0.4 mg PO QHS Qty: 30 11RF amlodipine [Norvasc] 5 mg Tablet 5 mg PO DAILY Qty: 30 0RF ascorbic acid (vitamin C) 500 mg Tablet 500 mg PO DAILY Sarah Low Dose Aspirin 81 mg PO DAILY prednisone 20 mg Tablet 40 mg PO DAILY@0800 2 Days Qty: 2 0RF Mucinex DM 30-600 mg Tablet Extended Release 12 Hr 1 tab PO Q12HR Qty: 20 0RF levofloxacin 750 mg tablet 750 mg PO DAILY Qty: 5 0RF hydroxychloroquine 200 mg tablet 200 mg PO BID Dulera 100-5 mcg/actuation HFA aerosol inhaler 2 puff inhalation Q12H Qty: 13 11RF Incruse Ellipta 62.5 mcg/actuation blister with device 1 inh INHALATION DAILY Qty: 30 11RF albuterol sulfate 2.5 mg /3 mL (0.083 %) solution for nebulization 2.5 mg inhalation Q6H PRN (Reason: shortness of breath or wheezing) Qty: 360 2RF <Leigha Acosta APRN - Last Filed: 09/22/24 02:36> Follow-up/Referrals: Brandon Sherwood MD [Primary Care Provider] - <Leigha Acosta APRN - Last Filed: 09/22/24 02:36> Time of Disposition: 02:36 <Leigha Acosta APRN - Last Filed: 09/22/24 02:36> 02:36 <Cj Dean MD - Last Filed: 09/22/24 05:27>
[2024-09-21 22:49] LABS: Magnesium 1.9 mg/dL (1.6-2.3)
[2024-09-21 22:58] LABS: NT Pro B Type Natriuretic Pept < 20 pg/mL (19.9-100)
[2024-09-21] MEDS: KETOROLAC 15 MG/ML VIAL (*BKC) IV PUSH (23:09)
[2024-09-21] MEDS: IPRATROPIUM 0.5 MG/ALBUTEROL SULFATE 2.5 MG AMPUL.NEB 3 ML INHALATION ×3 (23:39→23:43)
[2024-09-21 23:50] LABS: D Dimer 0.65 ug/mL (<0.48)
[2024-09-22] VITALS (8 sets, daily range): BP systolic 127–158; BP diastolic 68–76; PULSE 87–99; RESP 15–27; TEMP 36.8; O2SAT 94–99
[2024-09-22 00:51] LABS: Lactic Acid Reflex 0.7 mmol/L (0.7-2.0)
[2024-09-22 01:04] LABS: Troponin I < 0.012 ng/mL (0.000-0.034)
[2024-09-22] MEDS: ACETAMINOPHEN 500 MG TABLET 1000 MG PO (01:30)
== END 2024-09-22 03:20 | disposition home or self-care (01) ==
PROVIDERS: Emergency Medicine; Emergency Provider Registered Nurse; PCP Family Medicine
DX: J44.1 Chronic obstructive pulmonary disease with (acute) exacerbation (principal); F17.210 Nicotine dependence, cigarettes, uncomplicated; J96.11 Chronic respiratory failure with hypoxia; Z99.81 Dependence on supplemental oxygen; I10 Essential (primary) hypertension; I70.0 Atherosclerosis of aorta; N40.0 Benign prostatic hyperplasia without lower urinary tract symptoms; K58.0 Irritable bowel syndrome with diarrhea; L40.9 Psoriasis, unspecified; Z96.651 Presence of right artificial knee joint; Z86.718 Personal history of other venous thrombosis and embolism; Z86.16 Personal history of COVID-19; Z87.01 Personal history of pneumonia (recurrent); Z86.0100 Personal history of colon polyps, unspecified; Z85.828 Personal history of other malignant neoplasm of skin; Z90.49 Acquired absence of other specified parts of digestive tract; Z79.899 Other long term (current) drug therapy
CPT/HCPCS: 36415; 71046; 80053; 83605; 83690; 83735; 83880; 84484; 85025; 85380; 85610; 85730; 93005; 94640; 96374; 99284; A9270; J1885

== ENCOUNTER 2024-10-28 08:14 | Outpatient (CLI) | payer MEDICARE, SELFPAY ==
--- NOTE | ~2024-10-28 | CT_ITS ---
CT Scan of the Chest without Contrast: Clinical Indication: Nonspecific abnormal finding of lung field Technique: Contiguous sections were acquired throughout the chest without intravenous contrast. Dose reduction technique was used on this scan by utilizing automated exposure control and iterative recon struction technique. The dose-length product (DLP) was 450.97 mGy-cm. COMPARISON: 07/23/2024 Findings: There is no evidence of any significant mediastinal, hilar or axillary lymphadenopathy. The mediastin al soft tissues appear normal. There is no evidence of pleural or pericardial effusion. The lungs are clear. No pulmonary nodules or infiltrates are noted. Images through the upper abdomen reveal no abnormalities. Impression: Clear lungs. Previously noted left lower lobe pulmonary nodule is resolved. Reviewed, dictated and finalized at location . Impression: Clear lungs. Previously noted left lower lobe pulmonary nodule is resolved.
--- OUTSIDE RECORDS SUMMARY | 2024-10-28 08:22 | XMS_ITS | Encounter Summary ---
Author Organization [facility] Address [address] [place] [address] Care Team Providers Care Can Inspector Name Role Phone Brandon Sherwood MD Primary Care Provider [phone] Encounter Details Date Type Department Care Team (Late st Contact Info) Description 03/16/2021 Lab Requisition [facility] Care DermPath Lab [address] [place] [address] Zachary Campa MD [address] [place], [place] [id number] Social History Tobacco Use Types Packs/Day Years Used Date Smoking Tobacco: Never Assessed Sex and Gender Information Value Date Recorded Sex Assigned at Not on file Legal Sex Male 5:49 AM TRANSFER TABLE OPERATOR Gender Identity Not on file Sexual Orientation Not on file documented as of this encounter Plan of Treatment Not on file documented as of this encounter Procedures Procedure Name Priority Date/Time Associated Diagnosis Comments DERMATOPATHOLOGY Routine 03/15/2021 12:0 0 AM TRANSFER TABLE OPERATOR documented in this encounter Results * DERMATOPATHOLOGY (03/15/2021 12:00 AM TRANSFER TABLE OPERATOR) Case Report Dermatopathology Report Case: [id number] Authorizing Provider: Zachary Campa MD Collected: 03/15/2021 12:00 AM Ordering Location: [facility] Care Derm[facility] Lab Received: 03/16/2021 03:18 PM Pathologist: Abby Carvajal MD Specimen: Skin, right zygoma 1:14 PM [facility] DERMATOPATHOLOGY LABORATORY Final Diagnosis Specimen A. SKIN, right zygoma: BASAL CELL CARCINOMA, INFILTRATIVE PATTERN (C44.319) 1 1:14 PM [facility] DERMATOPATHOLOGY LABORATORY at 1314 TRANSFER TABLE OPERATOR Clinical History [facility]. Path#[id number] 1 1:14 PM [facility] DERMATOPATHOLOGY LABORATORY Gross Description Specimen A: Received is one formalin filled container labeled with the patient's name and designated right zygoma. The specimen consists of a shave biopsy measuring 7x5x1 mm. Jar 0. 1 1:14 PM [facility] DERMATOPATHOLOGY LABORATORY Microscopic Description Specimen A. SKIN, right zygoma: Within the dermis there are nodular aggregates of basaloid cells associated with fibromyxoid stroma and epithelial-stromal clefts. At the advancing margin of the neoplasm, there are smaller angulated nests that infiltrate the dermis. 1 1:14 PM [facility] DERMATOPATHOLOGY LABORATORY Disclaimer An external and internal positive and negative controls are appropriate for the histochemical, immunohistochemical and immunofluorescence stain(s) in this case (if any), except where stated explicitly. The performance characteristics of the stain(s) cited in this report were developed and its performance characteristic determined by the Dermatopathology Laboratory at [facility], directed by Dr. Moises Kwok. These tests need not be, and therefore are not, approved by the [place] Food and Drug Administration. The tests are used for clinical purposes. Billing Codes Specimen Charges Stain Charges 83381 1 1 1:14 PM [facility] DERMATOPATHOLOGY LABORATORY Embedded Images 1 1:14 PM [facility] DERMATOPATHOLOGY LABORATORY Pathology/Cytolog y TISSUE SPECIMEN FROM SKIN / Unknown 03/15/2021 03/16/2021 3:18 PM [facility] us Zachary Campa MD LAB - PATHOLOGY/CYTOLOGY ORDER TAMRA Final Result DERMATOPATHOLOGY LABORATORY [facility] - Department of Dermatology [address], [address] [phone] documented in this encounter Visit Diagnoses Not on filedocumented in this encounter Care Teams Can Inspector Relationship Specialty Start Date End Date Brandon Sherwood MD [address] [facility] [address] [address] PCP - General 11/01/19 documented as of this encounter
--- OUTSIDE RECORDS SUMMARY | 2024-10-28 08:22 | XMS_ITS | Encounter Summary ---
Author Organization [facility] Address [address] [place] [address] Phone Care Team Providers Care Engineering Aide Name Role Phone Brandon Sherwood MD Primary Care Provider [phone] Encounter Details Date Type Department Care Team [...] on file Legal Sex Male 9:25 AM INSURANCE CLAIMS SPECIALIST Gender Identity Not on file Sexual [...] on filedocumented in this encounter Care Teams Engineering Aide Relationship Specialty Start Date End Date Brandon Sherwood MD [address] [address] PCP - General 06/28/16 documented as of this encounter
--- OUTSIDE RECORDS SUMMARY | 2024-10-28 08:22 | XMS_ITS | Encounter Summary ---
Author Organization [facility] Address [address] [facility] [place] [address] Care Team Providers Care Communication Center Operator Name Role Phone Brandon Sherwood MD Primary Care Provider [phone] Encounter Details Date Type Department Care Team (Late st Contact Info) Description 10/17/2022 Lab Requisition [facility] - DermPath Lab [address] [facility], [place] [id number] Zachary Campa MD [address] [place] [address] Social History Tobacco Use Types Packs/Day Years Used Date Smoking Tobacco: Never Assessed Sex and Gender Information Value Date Recorded Sex Assigned at Not on file 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 Gender Identity Not on file Sexual Orientation Not on file documented as of this encounter Plan of Treatment Not on file documented as of this encounter Procedures Procedure Name Priority Date/Time Associated Diagnosis Comments DERMATOPATHOLOGY Routine 10/15/2022 12:0 0 AM CDT documented in this encounter Results * DERMATOPATHOLOGY (10/15/2022 12:00 AM CDT) Case Report Dermatopathology Report Case: [id number] Authorizing Provider: Zachary Campa MD Collected: 10/15/2022 12:00 AM Ordering Location: [facility] DermPath Lab Received: 10/17/2022 10:06 AM Pathologist: Abby Carvajal MD Specimen: Skin, left upper inner thigh 3 3:09 PM CDT DERMATOPATHOLOGY LABORATORY Final Diagnosis Specimen A. SKIN, left upper inner thigh: SEBORRHEIC KERATOSIS, IRRITATED AND INFLAMED (L82.0) 3 3:09 PM CDT DERMATOPATHOLOGY LABORATORY at 1509 CDT Clinical History MM vs angioma. Path#[id number] 3 3:09 PM CDT DERMATOPATHOLOGY LABORATORY Gross [...] Laboratory at [facility], directed by Dr. Moises Kowk. These tests need not be, and therefore are not, approved by the [place] Food and Drug Administration. The tests are used for clinical purposes. Billing Codes Specimen Charges Stain Charges 52988 1 3 3:09 PM CDT DERMATOPATHOLOGY LABORATORY Embedded Images 3 3:09 PM CDT DERMATOPATHOLOGY LABORATORY Pathology/Cytolog y TISSUE SPECIMEN FROM SKIN / Unknown 10/15/2022 10/17/2022 10:06 AM CDT us Zachary Campa MD LAB - PATHOLOGY/CYTOLOGY ORDER TAMRA Final Result DERMATOPATHOLOGY LABORATORY [facility] - Department of Dermatology [address], [address] [phone] documented in this encounter Visit Diagnoses Not on filedocumented in this encounter Care Teams Communication Center Operator Relationship Specialty Start Date End Date Brandon Sherwood MD [address] [facility] [address] [place] [address] PCP - General 11/01/19 documented as of this encounter
--- OUTSIDE RECORDS SUMMARY | 2024-10-28 08:22 | XMS_ITS | Referral Summary ---
Author Organization [facility] [place] [address] [facility] [address] Address [address] [place] [address] Care Team Providers Care Mate Fourth Name Role Phone Brandon Sherwood MD Primary Care Provider [phone] Allergies Active Allergy Reactions Criticality Noted Date Comments Codeine Furosemide Penicillins Cpxrcwv-Yra-Wwz Reductase Inhibitors Muscle pain Medium 08/31/2020 Sulfa (Sulfonamide Antibiotics) Vancomycin Other (See comments) High 06/02/2023 Multiple issues involving hearing, vision, weakness Medications fnixhmks-jfu-VZ-l ycopen-lutein (CENTRUM SILVER) 0.4-300-250 mg-mcg-mcg tablet One [...] I have sent a message to his bending roll hand regarding this issue. 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 Overview (07/04/2016): Prinzmetal angina Obstructive sleep apnea syndrome 10/22/2013 Overview (07/04/2016): JOSE ANTONIO (obstructive sleep apnea) Resolved Problems Problem Noted Date Diagnosed Date Resolved Date Infected olecranon bursa 10/29/202206/2023 Deep vein thrombosis (DVT) d uring current hospitalization ([facility]) 02/07/2017 11/30/2021 Acute deep vein thrombosis [...] on file 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 Gender Identity Not on file Sexual Orientation Not on file Last Filed Vital Signs Vital Sign Reading Time Taken Comments Blood Pressure 126/66 06/03/2024 1:22 PM HEDIS NURSE Pulse 86 06/03/2024 1:22 PM HEDIS NURSE Temperature 36.8 C (98.3 F) 10/31/2023 10:48 AM CDT Respiratory Rate - - Oxygen Saturation 94% 06/03/2024 1:22 PM HEDIS NURSE Inhaled Oxygen Concentration - - Weight 101.2 kg (223 lb) 06/03/2024 1:22 PM HEDIS NURSE Height 177.8 cm (5' 10) 06/03/2024 1:22 PM HEDIS NURSE Body Mass Index 32 06/03/2024 1:22 PM HEDIS NURSE Plan of Treatment Not on file Insurance * Guarantor: Jeremías Trejo Account Type Relation to Patient Date of Phone Billing Address Personal/Family Self 1950 [address] [place] [address] [employer] INS CO [facility] * Guarantor: Jeremías Trejo Account Type Relation to Patient Date of Phone Billing Address Personal/Family Self 1950 [address] [place] [address] [employer] MEDICARE ADVANTAGE * Guarantor: Jeremías Trejo Account Type Relation to Patient Date of Phone Billing Address Personal/Family Self 1950 [address] [place] [address] [employer] MEDICARE ADVANTAGE Care Teams Mate Fourth Relationship Specialty Start Date End Date Brandon Sherwood MD [address] [id number] PCP - General 06/28/16
--- OUTSIDE RECORDS SUMMARY | 2024-10-28 08:22 | XMS_ITS | Encounter Summary ---
Author Organization [facility] Healthcare Address [address] [place] [address] Care Team Providers Care Eyelet Row Marker Name Role Phone Brandon Sherwood MD Primary Care Provider [phone] Encounter Details Date Type Department Care Team (Late st Contact Info) Description 06/18/2017 Orders Only [facility] Health Information Management [address] [place] [address] Scanning, Provider Social History Tobacco Use Types Packs/Day Years Used Date Smoking Tobacco: Every Day Smokeless Tobacco: Never Comments:Smoking History Pac ks/day: 1 Packs Alcohol Use Standard Drinks/Week Comments No 0 (1 standard drink = 0.6 oz pur e alcohol) Sex and Gender Information Value Date Recorded Sex Assigned at Not on file 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 Gender Identity Not on file Sexual Orientation Not on file documented as of this encounter Plan of Treatment Not on file documented as of this encounter Procedures Procedure Name Priority Date/Time Associated Diagnosis Comments SCAN - RADIOLOGY/IMAGING 06/18/2017 documented in this encounter Results * SCAN - RADIOLOGY/IMAGING (06/18/2017) Anatomical Region Laterality Modality Other us Provider Scanning Edited Result - Final documented in this encounter Visit Diagnoses Not on filedocumented in this encounter Care Teams Eyelet Row Marker Relationship Specialty Start Date End Date Brandon Sherwood MD [address] [address] PCP - General 06/28/16 documented as of this encounter
--- OUTSIDE RECORDS SUMMARY | 2024-10-28 08:22 | XMS_ITS | Clinical Summary ---
Author Organization [facility] [place] [address] [facility] [address] Address [address] [place] [address] Care Team Providers Care Health Promotion Specialist Name Role Phone Brandon Sherwood MD Primary Care Provider [phone] Allergies Active Allergy Reactions Criticality Noted Date Comments Codeine Furosemide Penicillins Novxkdw-Dyy-Fjo Reductase Inhibitors Muscle pain Medium 08/31/2020 Sulfa (Sulfonamide Antibiotics) Vancomycin Other (See comments) High 06/02/2023 Multiple issues involving hearing, vision, weakness Medications azpmaliw-cjj-FD-l ycopen-lutein (CENTRUM SILVER) 0.4-300-250 mg-mcg-mcg tablet One [...] I have sent a 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 Overview (07/04/2016): Prinzmetal angina Obstructive sleep apnea syndrome 10/22/2013 Overview (07/04/2016): JOSE ANTONIO (obstructive sleep apnea) Resolved Problems Problem Noted Date Diagnosed Date Resolved Date Infected olecranon bursa 10/29/202206/2023 Deep vein thrombosis (DVT) d uring current hospitalization ([facility]) 02/07/2017 11/30/2021 Acute deep vein [...] on file 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 Gender Identity Not on file Sexual Orientation Not on file Obstetrics History Last Filed Vital Signs Vital Sign Reading Time Taken Comments Blood Pressure 126/66 06/03/2024 1:22 PM SEAM FINISHER Pulse 86 06/03/2024 1:22 PM SEAM FINISHER Temperature 36.8 C (98.3 F) 10/31/2023 10:48 AM CDT Respiratory Rate - - Oxygen Saturation 94% 06/03/2024 1:22 PM SEAM FINISHER Inhaled Oxygen Concentration - - Weight 101.2 kg (223 lb) 06/03/2024 1:22 PM SEAM FINISHER Height 177.8 cm (5' 10) 06/03/2024 1:22 PM SEAM FINISHER Body Mass Index 32 06/03/2024 1:22 PM SEAM FINISHER Plan of Treatment Health Maintenance Due Date Last Done Comments Colon Cancer Screening-Colonoscopy 1950 Depression Screening 1950 Fall Risk Assessment 1950 Hepatitis C Screening 1950 DTaP/Tdap/Td Vaccine (1 - Tdap) 12/07/1962 Hepatitis B Screening 12/07/1969 Pneumococcal vaccine 65+ (1 of 2 - PCV) 12/07/1970 Zoster Vaccine (1 of 2) 12/07/1970 Abdominal Aortic Aneurysm (AAA) Screen 12/07/2016 Well Visit 65+ 12/07/2016 Influenza Vaccine (#1) 2024 Insurance [email or web address] INS CO [facility] * Guarantor: Jeremías Trejo Account Type Relation to Patient Date of Phone Billing Address Personal/Family Self 1950 [address] [place] [address] [facility] MEDICARE ADVANTAGE * Guarantor: Jeremías Trejo Account Type Relation to Patient Date of Phone Billing Address Personal/Family Self 1950 [address] [place] [address] [facility] MEDICARE ADVANTAGE Care Teams Health Promotion Specialist Relationship Specialty Start Date End Date Brandon Sherwood MD [address] [address] PCP - General 06/28/16
--- OUTSIDE RECORDS SUMMARY | 2024-10-28 08:22 | XMS_ITS | Clinical Summary ---
Author Organization [facility] Address [address] [place] [address] Care Team Providers Care Counterintelligence Analyst Name Role Phone Brandon Sherwood MD Primary Care Provider [phone] Source Comments [facility],non-owned Affiliates and Associated Physician Practices is amultiple site organization consisting of ambulatory clinics and hospital sitesin [place], [place], [place] and [place]. This disclosure is being madepursuant to the Care Everywhere program and may not contain all information available regarding this patient. 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 Gender Identity Not on file Sexual [...] season) 2023 DEPRESSION SCREENING 03/31/2024 INFLUENZA VACCINE (#1) 2024 Respiratory Syncytial Virus (RSV) Vaccine Pt: [...] Address Personal/Family Self 1950 [address] [place] [address] MEDICARE * Guarantor: Jeremías Trejo Account Type Relation to Patient Date of Phone Billing Address Personal/Family Self 1950 [address] [place] [address] MEDICARE [place] [employer] Care Teams Counterintelligence Analyst Relationship Specialty Start Date End Date Brandon Sherwood MD [address] [place] [address] PCP - General 11/01/19
--- OUTSIDE RECORDS SUMMARY | 2024-10-28 08:22 | XMS_ITS | Encounter Summary ---
Author Organization [facility] Healthcare Address [address] [place] [address] Care Team Providers Care Nib Adjuster Name Role Phone Brandon Sherwood MD Primary Care Provider [phone] Encounter Details Date Type Department Care Team (Late st Contact Info) Description 08/19/[address] 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 Gender Identity Not on file Sexual Orientation Not on file documented as of this encounter Plan of Treatment Not on file documented as of this encounter Procedures Procedure Name Priority Date/Time Associated Diagnosis Comments SCAN - LABS 08/19/2017 documented in this encounter Results * SCAN - LABS (08/19/2017) us Provider Scanning Final Result documented in this encounter Visit Diagnoses Not on filedocumented in this encounter Care Teams Nib Adjuster Relationship Specialty Start Date End Date Brandon Sherwood MD [address] [facility] [address] [place] [address] PCP - General 06/28/16 documented as of this encounter
== END 2024-10-28 08:15 | disposition home or self-care (01) ==
PROVIDERS: PCP Family Medicine; Visit Provider Physician Assistant
DX: R91.8 Other nonspecific abnormal finding of lung field (principal)
CPT/HCPCS: 71250; 94618

== ENCOUNTER 2024-10-28 08:29 | Outpatient (CLI) | payer MEDICARE, SELFPAY ==
[2024-10-28 08:55] VITALS: PULSE 85; O2SAT 96
[2024-10-28 09:00] VITALS: PULSE 107; O2SAT 94
[2024-10-28 09:10] VITALS: PULSE 86; O2SAT 94
--- NOTE | 2024-10-28 09:40 | HOMEO2EVAL ---
Evaluation was performed at [facility] Home Oxygen Evaluation RC: Home Oxygen (O2) Evaluation Start: 10/28/24 09:38 Freq: Status: Active Protocol: RPE Activity Type Activity Date Activity User E-sign Co-sign Detail Recorded Client Recorded Date Recorded By Document 10/28/24 08:55 [email or web address] [email or web address] 10/28/24 09:39 JOE Document 10/28/24 09:00 [email or web address] [email or web address] 10/28/24 09:39 JOE Document 10/28/24 09:10 [email or web address] [email or web address] 10/28/24 09:39 JOE 10/28/24 10/28/24 10/28/24 08:55 09:00 09:10 Home O2 Evaluation [Oxygen] -Test Phase Resting Exercise Resting -Oxygen Delivery Room Air Room Air Room Air [Pulse Oximetry] -Pulse Oximetry (90-100 %) 96 94 94 [Pulse Rate] -Pulse Rate (60-100 beats/min) 85 107 H 86 [Comments] -Home Oxygen Evaluation Comments No Home O2 needed at this time. [Charges] -Evaluation Charges O2 Evaluation by Pulmonary
== END 2024-10-28 08:30 | disposition home or self-care (01) ==
LOC: ANHPFT 08:33
PROVIDERS: PCP Family Medicine; Visit Provider Physician Assistant
DX: R91.8 Other nonspecific abnormal finding of lung field (principal)
CPT/HCPCS: 94618